=== PATIENT | female | born 1955 | race Caucasian/White ===

== ENCOUNTER → 2018-03-31 08:57 | Outpatient (CLI) | payer OTHER, SELFPAY ==
--- NOTE | 2018-03-31 09:30 | RAD_ITS ---
CLINICAL HISTORY: Female, 63 years old. Right hip aspiration. Right groin pain following right total hip replacement. PROCEDURE: Right hip arthrogram with right hip aspiration. CONSENT: The procedure as well as the benefits and possible complications including infection and bleeding were explained to the patient. Informed consent was obtained. FLUOROSCOPY TIME (if supplied): (0:36) minutes/seconds. Fluid Removal: 3 cc of clear fluid. TECHNIQUE: (All elements of maximal sterile barrier technique followed, including US elements as applicable) The patient was in the supine position. The overlying skin was prepped and draped in the usual sterile fashion. Following local anesthetic application and under direct fluoroscopic guidance, a 22-gauge spinal needle was placed into the right hip joint. 2 cc of a Isovue-300 was injected for localization. Following this, 3 cc of a clear aspirate was withdrawn. The sample was sent to the laboratory for analysis. RAD/Inj/Asp Prateek Jt Should/Hip/Knee IMPRESSION: Right hip aspiration. The patient tolerated the procedure well. Electronically Signed: Adin Tay MD at 10:58 EDT Tel [phone], Service support ,
[2018-03-31 10:13] LABS: Erythrocyte Sedimentation Rate 16 mm/hr (0-30)
[2018-03-31 10:15] LABS: Absolute Lymphocyte Count 2.29 X10^3/ul (0.83-4.51); Basophil# 0.03 X10^3/uL; Basophil% 0.5 % (0-1); Eosinophil# 0.19 X10^3/uL; Eosinophils% 3.2 % (0-5); Hematocrit 39.4 % (37-47); Hemoglobin 12.8 g/dl (12.0-15.0); Lymphocyte # 2.29 X10^3/ul (4.0); Lymphocyte % 38.5 % (19-41); Mean Corp Hgb Conc 32.5 g/gl (32-36); Mean Corpuscular Hgb 30.8 pg (27.0-32.0); Mean Corpuscular Volume 94.7 fL (81-99); Mean Platelet Vol. 9.5 fl (6.2-12.0); Monocyte# 0.41 X10^3/uL; Monocyte% 6.9 % (0-10); Neutrophil # 3.03 X10^3/uL (2.7-7.7); Neutrophil % 50.9 % (47-70); Platelet Count 279 K/mm3 (150-450); RBC Distribution Width CV 12.9 % (11.6-14.6); RBC Distribution Width SD 44.2 fl (35.1-43.9); Red Blood Count 4.16 M/mm3 (4.2-5.4)
[2018-03-31 10:16] LABS: POSITIVE COUNT NO; POSITIVE DIFFERENTIAL NO; POSITIVE MORPHOLOGY NO
[2018-03-31 10:42] LABS: CRP 6.21 mg/L (0.0-3.0)
[2018-03-31 11:06] LABS: Appearance/Body Fluid CLEAR; Auto B Fluid Analyzer BKGD Ct COUNTS W/IN LIMITS (W/IN LIMITS); Color/Body Fluid COLORLESS
[2018-03-31 11:07] LABS: Source- Body Fluid OTHER
[2018-03-31 12:09] LABS: Body Fluid QC Type(s) BF1Q; Red Cell Count/Body Fluid < 0 /mm3
[2018-04-01 10:13] LABS: Pathologist Comment/Body Fluid Reviewed
== END ==
PROVIDERS: Family Provider Family Medicine; PCP Family Medicine; Visit Provider Specialist
DX: Z96.641 Presence of right artificial hip joint (principal)
CPT/HCPCS: 20610; 36415; 77002; 85025; 85652; 86140; 87015; 87070; 87075; 87101; 87116; 87205; 87206; 89050; Q9967

== ENCOUNTER → 2018-07-26 11:12 | Outpatient (CLI) | payer OTHER, SELFPAY ==
[2017-01-05 14:12] VITALS: BMI 43.1
[2018-07-26 12:08] LABS: Hemoglobin 13.2 g/dl (12.0-15.0); Mean Corp Hgb Conc 32.2 g/gl (32-36); Mean Corpuscular Volume 96.2 fL (81-99); Mean Platelet Vol. 9.9 fl (6.2-12.0); Platelet Count 290 K/mm3 (150-450); RBC Distribution Width CV 12.6 % (11.6-14.6); RBC Distribution Width SD 43.6 fl (35.1-43.9); Red Blood Count 4.26 M/mm3 (4.2-5.4)
[2018-07-26 12:11] LABS: Scan Indicated on CBC? Y/N NO
[2018-07-26 12:26] LABS: Anion Gap 8 (5-15); BUN 20 mg/dL (7-18); BUN/Creat Ratio 22.9 RATIO (10-20); Calcium,Total 9.2 mg/dL (8.5-10.1); Chloride 106 mmol/L (98-107); Creatinine, Serum 0.87 mg/dL (0.55-1.02); EST Glomerular Filtration Rate 69 mL/min (>60); Est Glom Filt Rate - Afr Amer 84 mL/min (>60); Glucose 112 mg/dL (74-106); Potassium 3.6 mmol/L (3.5-5.1); Sodium Level 143 mmol/L (136-145)
== END ==
PROVIDERS: Family Provider Family Medicine; PCP Family Medicine; Referring Provider Physician Assistant; Visit Provider Physician Assistant
DX: Z01.818 Encounter for other preprocedural examination (principal); Z01.810 Encounter for preprocedural cardiovascular examination; Z01.811 Encounter for preprocedural respiratory examination; I10 Essential (primary) hypertension
CPT/HCPCS: 36415; 80048; 85027

== ENCOUNTER 2018-11-07 12:01 | Emergency (ER) | payer OTHER, SELFPAY ==
[2018-11-07 12:02] VITALS: BP 163/99; PULSE 88; RESP 17; TEMP 36.4; O2SAT 98; BMI 38.9
--- NOTE | 2018-11-07 14:11 | CT_ITS ---
STUDY: CT BRAIN WITHOUT CONTRAST REASON FOR EXAM: Female, 63 years old. Trauma RADIATION DOSAGE (If Supplied By Facility): CTDIvol = ( 60.81 ) mGy, DLP = ( 1221.94 ) mGycm TECHNIQUE: Transaxial CT imaging of the brain was performed without administration of intravenous contrast material. Individualized dose optimization techniques were used for this CT. COMPARISON: CT head 09/23/2015. FINDINGS: Normal soft tissue structures. Normal calvarium. There is mild cerebral atrophy with widening of the extra-axial spaces and ventricular dilatation. There are areas of decreased attenuation within the white matter tracts of the supratentorial brain, consistent with microvascular disease changes. Normal basal ganglia and thalami. Normal brainstem. Normal cerebellum. There is no intracranial hemorrhage. There are no findings of an acute ischemic infarction. Normal visualized paranasal sinuses. CT/Brain/Head without Contrast IMPRESSION: No acute intracranial abnormality. Chronic involutional changes of the brain. Electronically Signed: Flora Mello, at 15:23 EDT Tel , Service support ,
--- NOTE | 2018-11-07 14:11 | RAD_ITS ---
STUDY: X-RAY - RIGHT SHOULDER REASON FOR EXAM: Pain, fall, shoulder surgery 4 months ago. TECHNIQUE: 4 view(s) of the shoulder. COMPARISON: None. FINDINGS: Normal glenohumeral articulation. There is acromioclavicular arthrosis with small undersurface osteophytes. Normal acromion. There are postoperative changes of the greater tuberosity. The soft tissue structures are unremarkable. Normal visualized pulmonary apex. RAD/Shoulder min 2 Views IMPRESSION: Acromioclavicular arthrosis. Postoperative changes of the greater tuberosity. Electronically Signed: Seb Manrique MD at 15:10 EDT Tel , Service support ,
--- NOTE | 2018-11-07 14:11 | RAD_ITS ---
STUDY: X-RAY - RIGHT KNEE REASON FOR EXAM: Knee pain, fall. TECHNIQUE: 2 view(s) of the knee. COMPARISON: Radiographs 12/10/2015. FINDINGS: There is a right total knee arthroplasty without evidence of complication. The soft tissue structures are unremarkable. RAD/Knee 1 or 2 Views IMPRESSION: Uncomplicated right total knee arthroplasty. Electronically Signed: Seb Manrique MD at 15:07 EDT Tel , Service support ,
[2018-11-07 14:29] VITALS: BP 133/80; PULSE 85; RESP 16; O2SAT 96
--- NOTE | 2018-11-07 15:55 | ED.DCSUM_ITS ---
- ER Visit Summary Date of Service: 11/07/18 Chief Complaint: Fall History of Present Illness: The patient is a 63 F who presents after a fall that occurred today. Patient tripped at work and felt forward. Patient landed on her right knee and hit her right shoulder and her forehead. Patient denies any loss of consciousness. Patient admits to a mild headache. Patient states her pain in her shoulder and knee are worse with palpation. Physical Examination: Vital signs are stable. Patient is afebrile. Patient is in no acute distress. Renal nerves II through XII are intact. There are no focal motor or sensory deficits noted. There is some mild tenderness over the anterior and lateral aspects of the right shoulder. There is also some tenderness, ecchymosis, and mild edema over the anterior aspect of the right knee. There is good range of motion of the right shoulder and right knee. There is no deformity noted. Test Results: X-rays of the right knee, right shoulder were obtained. There are no acute fractures noted. CT scan of the brain was obtained. There is no acute intracranial abnormality noted. Emergency Department Course and Treatment: Patient felt better on reevaluation. Patient was reassured. Patient was instructed to continue taking Tylenol or ibuprofen as needed for pain. Patient was instructed to follow-up with her primary care physician in 5-7 days. Patient understood and was agreeable with the plan. All questions were answered. Disposition: Discharge home Impression: 1. Closed head injury 2. Right knee contusion 3. Right shoulder contusion This note was generated with [employer] dictation software. It may contain incorrect words, spelling, and punctuation that were not noted in review of the chart prior to signing ED Disposition - Plan for ED Patient: Disposition: Home or Assisted Living Diagnosis: Closed head injury, Contusion of right knee, Contusion of right shoulder, initial encounter Instructions: ED Mechanical Fall, ED Head Injury Closed, ED Contusion Lower Ext Referrals: Tariq Stein MD [Primary Care Provider] - 5-7 Days
[2018-11-07 16:04] VITALS: BP 135/74; PULSE 67; RESP 15; O2SAT 98
== END 2018-11-07 16:06 | disposition home or self-care (01) ==
PROVIDERS: Emergency Provider Emergency Medicine; Family Provider Family Medicine; PCP Family Medicine
DX: S09.90XA Unspecified injury of head, initial encounter (principal); S80.01XA Contusion of right knee, initial encounter; S40.011A Contusion of right shoulder, initial encounter; W01.0XXA Fall on same level from slipping, tripping and stumbling without subsequent striking against object, initial encounter; Y93.9 Activity, unspecified; Y92.9 Unspecified place or not applicable; Y99.0 Civilian activity done for income or pay; I10 Essential (primary) hypertension; Z86.73 Personal history of transient ischemic attack (TIA), and cerebral infarction without residual deficits; Z79.82 Long term (current) use of aspirin; Z79.899 Other long term (current) drug therapy
CPT/HCPCS: 70450; 73030; 73560; 99282

== ENCOUNTER → 2019-01-20 07:40 | Outpatient (CLI) | payer MEDICARE, OTHER, SELFPAY ==
[2019-01-09 09:56] VITALS: BMI 38.9
--- NOTE | 2019-01-20 07:42 | CT_ITS ---
STUDY: CT ABDOMEN WITH CONTRAST REASON FOR EXAM: Female, 63 years old. Umbilical pain. History of hernia repair. RADIATION DOSAGE (If Supplied By Facility): CTDIvol = ( 22.52 ) mGy, DLP = ( 989.41 ) mGycm TECHNIQUE: Transaxial images were obtained post I.V. administration of 100 IV/Oral Isovue 300, and oral contrast. Sagittal and coronal images were reconstructed. Individualized dose optimization techniques were used for this CT. COMPARISON: September 15, 2014 FINDINGS: The visualized lung bases are unremarkable. The visualized portions of the heart are within normal limits. 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 Normal liver. There is non-visualization of the gallbladder, which may be secondary to either contraction or a prior cholecystectomy. Normal spleen. Normal pancreas. Normal bilateral adrenal glands. Normal right kidney. Normal left kidney. Normal visualized stomach. Normal small intestine. There are scattered diverticula within the visualized colon. There is non-visualization of the appendix. There is diffuse atherosclerotic calcification of the abdominal aorta, without a demonstrated aneurysm. Normal inferior vena cava. Normal retroperitoneum. Normal abdominal wall. There are diffuse degenerative changes of the visualized thoracic and lumbar spine. CT/Abdomen WITH IV Contrast IMPRESSION: No acute intra-abdominal process. Atherosclerosis. Colonic diverticulosis. Degenerative changes of the visualized thoracic and lumbar spine. Electronically Signed: Malinda Ruiz MD at 17:01 EDT Tel , Service support ,
== END ==
PROVIDERS: Family Provider Family Medicine; PCP Family Medicine; Referring Provider Physician Assistant; Visit Provider Physician Assistant
DX: R10.9 Unspecified abdominal pain (principal)
CPT/HCPCS: 74160; Q9967

== ENCOUNTER → 2019-03-24 14:44 | Outpatient (CLI) | payer MEDICARE, OTHER, SELFPAY ==
[2019-03-23 14:24] VITALS: BMI 38.7
[2019-03-24 15:04] LABS: Bacteria 0 SEEN /hpf (None Seen); Mucous, Urine 0 SEEN /hpf (<or=2+); Red Blood Cells-Urine 0 SEEN /hpf (0-5); Squamous Epithelial Cells - UA 0 SEEN /hpf (5-10); White Blood Cells 0 SEEN /hpf (0-5)
[2019-03-24 15:19] LABS: Color, Urine Straw (Yellow); Glucose, Dipstick Normal (Normal); Ketone-Dipstick Negative (Negative); Leukocyte Esterase-Dipstick Negative /ul (Negative); Nitrite-Dipstick Negative (Negative); Occult Blood-Urine Negative /ul (Negative); Protein-Dipstick Negative (Negative); Urine Bilirubin Dipstick Negative (Negative); Urine Clarity Clear (Clear); Urine Urobilinogen Normal (Normal)
== END ==
PROVIDERS: Family Provider Family Medicine; PCP Family Medicine; Referring Provider Physician Assistant; Visit Provider Physician Assistant
DX: N39.0 Urinary tract infection, site not specified (principal)
CPT/HCPCS: 81001; 87077; 87086; 87088; 87186

== ENCOUNTER → 2019-05-10 08:14 | Outpatient (CLI) | payer MEDICARE, OTHER, SELFPAY ==
[2019-03-23 14:24] VITALS: BMI 38.7
[2019-05-10 08:20] LABS: Bacteria 0 SEEN /hpf (None Seen); Mucous, Urine 0 SEEN /hpf (<or=2+); Red Blood Cells-Urine 0 SEEN /hpf (0-5); Squamous Epithelial Cells - UA 0 SEEN /hpf (5-10)
[2019-05-10 12:25] LABS: Color, Urine Yellow (Yellow); Glucose, Dipstick Normal (Normal); Ketone-Dipstick Negative (Negative); Leukocyte Esterase-Dipstick 500 /ul (Negative); Nitrite-Dipstick Negative (Negative); Occult Blood-Urine 10 /ul (Negative); Protein-Dipstick Negative (Negative); Specific Gravity, Urine 1.005 (1.002-1.030); Urine Bilirubin Dipstick Negative (Negative); Urine Clarity Clear (Clear); Urine Urobilinogen Normal (Normal)
[2019-05-10 13:13] LABS: White Blood Cells 10-25 SEEN /hpf (0-5)
== END ==
PROVIDERS: Family Provider Family Medicine; PCP Family Medicine; Visit Provider Family Medicine
DX: N39.0 Urinary tract infection, site not specified (principal)
CPT/HCPCS: 81001; 87077; 87086; 87088; 87186

== ENCOUNTER → 2019-05-30 13:32 | Outpatient (CLI) | payer MEDICARE, OTHER, SELFPAY ==
[2019-03-23 14:24] VITALS: BMI 38.7
[2019-05-30 13:34] LABS: Bacteria 0 SEEN /hpf (None Seen); Mucous, Urine 0 SEEN /hpf (<or=2+); Red Blood Cells-Urine 0 SEEN /hpf (0-5); Squamous Epithelial Cells - UA 0 SEEN /hpf (5-10)
[2019-05-30 15:45] LABS: Color, Urine Straw (Yellow); Glucose, Dipstick Normal (Normal); Ketone-Dipstick Negative (Negative); Leukocyte Esterase-Dipstick 500 /ul (Negative); Nitrite-Dipstick Negative (Negative); Occult Blood-Urine 25 /ul (Negative); Protein-Dipstick Negative (Negative); Specific Gravity, Urine 1.005 (1.002-1.030); Urine Bilirubin Dipstick Negative (Negative); Urine Clarity Clear (Clear); Urine Urobilinogen Normal (Normal)
[2019-05-30 16:10] LABS: White Blood Cells 5-10 SEEN /hpf (0-5)
== END ==
PROVIDERS: Family Provider Family Medicine; PCP Family Medicine; Visit Provider Family Medicine
DX: N39.0 Urinary tract infection, site not specified (principal)
CPT/HCPCS: 81001; 87077; 87086; 87088; 87186

== ENCOUNTER → 2019-05-31 08:22 | Outpatient (CLI) | payer MEDICARE, OTHER, SELFPAY ==
[2019-03-23 14:24] VITALS: BMI 38.7
[2019-05-31 10:29] LABS: Absolute Lymphocyte Count 2.47 X10^3/uL (0.83-4.51); Absolute Neutrophil Count 3.4 X10^3/uL (2.0-7.7); Basophil# 0.04 X10^3/uL; Basophil% 0.6 % (0-1); Eosinophil# 0.14 X10^3/uL; Eosinophils% 2.2 % (0-5); Hematocrit 39.6 % (37-47); Hemoglobin 12.6 g/dL (12.0-15.0); Lymphocyte # 2.47 X10^3/ul (4.0); Lymphocyte % 38.2 % (19-41); Mean Corp Hgb Conc 31.8 g/dL (32-36); Mean Corpuscular Hgb 30.4 pg (27.0-32.0); Mean Corpuscular Volume 95.4 fL (81-99); Mean Platelet Vol. 9.9 fl (6.2-12.0); Monocyte# 0.37 X10^3/uL; Monocyte% 5.7 % (0-10); NRBC Flagged by Analyzer 0 % (0-5); Neutrophil # 3.44 X10^3/uL (2.7-7.7); Neutrophil % 53.1 % (47-70); Platelet Count 305 K/mm3 (150-450); RBC Distribution Width CV 13.2 % (11.6-14.6); RBC Distribution Width SD 46.2 fl (35.1-43.9); Red Blood Count 4.15 M/mm3 (4.2-5.4); White Blood Count 6.5 K/mm3 (4.4-11.0)
[2019-05-31 10:56] LABS: ALB/GLOB Ratio 0.9 RATIO (0.9-2.4); AST(SGOT) 13 U/L (15-37); Alanine Aminotransfer ALT/SGPT 23 U/L (13-56); Albumin, Serum 3.3 g/dL (3.2-5.0); Alkaline Phosphatase 126 U/L (45-117); Anion Gap 7 (5-15); BUN 19 mg/dL (7-18); BUN/Creat Ratio 20.5 RATIO (10-20); Calcium,Total 9.2 mg/dL (8.5-10.1); Chloride 106 mmol/L (98-107); Cholesterol 163 mg/dL (200); Creatinine, Serum 0.92 mg/dL (0.55-1.02); EST Glomerular Filtration Rate 65 mL/min (>60); Est Glom Filt Rate - Afr Amer 78 mL/min (>60); Globulin 3.8 g/dL (2.2-4.2); Glucose 98 mg/dL (74-106); High Density Lipoprotein 52 mg/dL; Protein, Total 7.1 g/dL (6.4-8.2); Sodium Level 142 mmol/L (136-145); Triglycerides 115 mg/dL; Very Low Density Lipoprotein 23 mg/dL (5-40)
== END ==
PROVIDERS: Family Provider Family Medicine; PCP Family Medicine; Referring Provider Family Medicine; Visit Provider Family Medicine
DX: E78.5 Hyperlipidemia, unspecified (principal); I10 Essential (primary) hypertension; K21.9 Gastro-esophageal reflux disease without esophagitis
CPT/HCPCS: 36415; 80053; 80061; 85025

== ENCOUNTER → 2019-06-06 15:10 | Outpatient (CLI) | payer MEDICARE, OTHER, SELFPAY ==
[2019-03-23 14:24] VITALS: BMI 38.7
--- NOTE | 2019-06-06 15:12 | US_ITS ---
STUDY: RENAL ULTRASOUND - COMPLETE REASON FOR EXAM: Female, 64 years old. UTIs TECHNIQUE: Ultrasound evaluation of the kidneys was performed with real-time and static mohan-scale imaging. COMPARISON: None. FINDINGS: RIGHT KIDNEY: Normal location of the right kidney, which is normal in size. The right kidney measures 9.5 x 4.3 x 4.7 cm. There is a normal cortex of the right kidney. The renal cortex measures 1.7 cm. There is no right renal mass or cyst. There are no right renal calculi. There is no right hydronephrosis. DISTAL RIGHT URETER: There is non-visualization of the distal right ureter. There is no demonstrated right ureterovesical junction calculus. There is a visualized right ureteral jet. LEFT KIDNEY: Normal location of the left kidney, which is normal in size. The left kidney measures 10.4 x 4.6 x 5.8 cm. There is a normal cortex of the left kidney. The renal cortex measures 1.6 cm. There is no left renal mass or cyst. There are no left renal calculi. There is no left hydronephrosis. DISTAL LEFT URETER: There is non-visualization of the distal left ureter. There is no demonstrated left ureterovesical junction calculus. There is a visualized left ureteral jet. AORTA: There is no elongation or tortuosity of the abdominal aorta. I.V.C.: The IVC is patent. BLADDER: The bladder is unremarkable aside from echogenic debris noted within the bladder suggesting protein and/or infection. US/Kidney and Bladder IMPRESSION: Sonographically normal kidneys Echogenic debris within the bladder suggests inflammation or protein Electronically Signed: Te Russell MD at 16:09 EST , Service support ,
== END ==
PROVIDERS: Family Provider Family Medicine; PCP Family Medicine; Referring Provider Urology; Visit Provider Urology
DX: N39.0 Urinary tract infection, site not specified (principal)
CPT/HCPCS: 76770

== ENCOUNTER 2019-06-14 10:00 | Outpatient (RCR) | payer MEDICARE, OTHER, SELFPAY ==
[2019-01-09 09:56] VITALS: BMI 38.9
--- NOTE | 2019-03-21 10:17 | HP.PTEVAL ---
Patient's Visit Information MAKEDA EM is a 64 year old F referred to Physical Therapy by Akira Bravo MD with a diagnosis of Right Reverse Total Shoudler. Date of Evaluation: 03/21/19 Physical Therapist: Sandi Trent DPT - Visit Plan Frequency: 2x /Week Duration: 4 Weeks Plan: 03/21/19 - Follow protocol Phase 1- PROM flexion: 130 degrees ER:30 degrees NO IR. Pt. was educated on performing Phase 1 exercises at home. - Subjective Findings: pt. reports having R shoulder repair previosuly & after 18 wks (12 weeks of PT), shoulder was reinjured during therapy session. R Reverse shoulder arthroplasty performed on 03/13/19 at [facility]. Stayed overnight- lives in 2 story house with who can help , no issues up/down stairs reported, just has been careful. Does have lift chair available at home. Currently sleeps in lift chair. Wears sling at all times - removed at times when watching TV. Using ice pack at home at times. R handed. Pt. suffered R shoulder injury as insidious onset (wear & tear from work/ADL's). Worst pain: 9/10 - describes as sharp & shooting to dull & achey at incision. Aggravating factors: movement Relieving Factors: Ice, Rest, pain medication Pt. reports being pain free when sitting rested. Denies any issues w/ finger dexterity, N/T, headachess/dizziness. Pt. is retired and would like to return to ADL's w/ comfort & general motion. PMH/Meds: see chart no change except right reverese shoulder. - Objective Posture: FH, RS - was not corrected- wearing sling on right UE- increased guarding. Gait: no LE deviation noted- wearing sling- decreased arm swing and trunk rotation. ROM: Finger dexterity WF,L Wrist WFL, Sup/Pro WFL, Active assisted elbow WFL, Passive Shoulder ER neutral flexion 80 degrees, Cervical WFL. Strength: Managing Cognitive Engineer: WFL. Sensaton: WNL to gross B touch. Incision: No signs of infection - healing aprropriately - Goals Goal 1:: Pt. will be I w/ HEP & Progression Goal Time Frame: 4-6 Weeks Goal 2:: Pt. will be demo 130 degrees of PROM (flexion) for protocol phase 1. Goal Time Frame: 4-6 Weeks Goal 3:: Patient will demo 30 degrees of PROM ER for protocol phase I Goal Time Frame: 4-6 Weeks Goal Time Frame: 4-6 Weeks - Rehabilitation Potential Physical Therapy Diagnosis: Pt. presents w/ hypomobility s/p Right reverse total shoulder- demonstrates decreased ROM, strength and muscular endurance as appropriate in phase of rehab. Rehabilitation Potential: Good - Anticipated Interventions Patient/Client Instruction: Educate patient on: Condition, Plan of Care For the Purpose of:: To decrease pain Therapeutic Exercise to Include: Strength training, Endurance training, Coordination, Body mechanics, Postural training, Flexibilty training, Passive ROM, Active ROM, Scapular Strength/Stabilization For the Purpose of:: To improve muscle performance and motor function Manual Therapy Techniques to Include: Passive ROM For the Purpose of:: To improve muscle performance and motor function TENS: Yes Cryotherapy (ice pack, ice massage): Yes Thermo therapy (hot pack): Yes Ultrasound (thermal/non thermal): No Thank you for the opportunity to evaluate your patient. For Medicare and Medicare HMO plans, please review the plan of care and approve it. It will need to be FAXED BACK to us at [phone] for Medicare purposes. For Medicare only, by signing this I certify the plan of care. Please let me know if there are questions or concerns regarding this plan of care. Physician Signature: Date:
--- NOTE | 2019-05-18 10:22 | HP.PTREVAL_ITS ---
Akira Bravo MD, It has been my pleasure to treat MAKEDA EM over the last 16 visits for Right Reverse Total Shoudler. Please see the progress note below for an update on the physical therapy plan of care! Subjective: Pt. reports therapy has been going well. Has had cramping in front of R shoulder since last which has made performing exercises difficult. F/U appointment w/ yesterday, happy with progress so far. Objective/Function: Posture: FH, RS - still has some guarding of R shoulder. Gait: no LE deviation noted. ROM: AROM: Flexion 105 degrees, Abduction 110 degrees, Ext. Rot. 35 degrees PROM: Flexion 135 degrees, Abduction 140 degrees, Ext. Rot. 65 degrees. Strength: Manager Of Sales: WFL. Sensaton: WNL to gross B touch Plan Plan: Cont per POC and protcol. Educated on performing supine pec minor stretch I for cramping in shoulder. Goals Goal 1:: Pt. will be I w/ HEP & Progression Goal Time Frame: 4-6 Weeks Goal Progress: Progressing Goal 2:: Pt. will be demo 130 degrees of PROM (flexion) for protocol phase 1. Goal Time Frame: 4-6 Weeks Goal Progress: Progressing Goal 3:: Patient will demo 30 degrees of PROM ER for protocol phase I Goal Time Frame: 4-6 Weeks Goal Progress: Progressing Goal Time Frame: 4-6 Weeks Anticipated Interventions Patient/Client Instruction: Educate patient on: Condition, Plan of Care For the Purpose of:: To decrease pain Therapeutic Exercise to Include: Strength training, Endurance training, Coordination, Body mechanics, Postural training, Flexibilty training, Passive ROM, Active ROM, Scapular Strength/Stabilization For the Purpose of:: To improve muscle performance and motor function Manual Therapy Techniques to Include: Passive ROM For the Purpose of:: To improve muscle performance and motor function TENS: Yes Cryotherapy (ice pack, ice massage): Yes Thermo therapy (hot pack): Yes Ultrasound (thermal/non thermal): No Please do not hesitate to contact me at [phone] by phone or if you have questions or concerns regarding this new plan of care! Sincerely, Sandi Trent DPT
--- NOTE | 2019-06-14 10:17 | HP.PTREVAL_ITS ---
Akira Bravo MD, It has been my pleasure to treat MAKEDA EM over the last 23 visits for Right Reverse Total Shoudler. Please see the progress note below for an update on the physical therapy plan of care! Subjective: Patient reports the shoulder is so much better- she has been able to reach up more but its not as strong as she wants it to be. Objective/Function: Posture: FH, RS Gait: no LE deviation noted good arm swing and trunk rotation. ROM: AROM: Flexion 110 degrees, Abduction 115 degrees, Ext. Rot. 35 degrees Strength: Oxide Furnace Tender: WFL Shoulder Isometrics: IR/ER: 4/5, Flex/Extn: 4+/5, Abd/Add: 4/5. Sensaton: WNL to gross B touch Plan Plan: Hold 4 weeks- re check if needed sooner- will do HEP Goals Goal 1:: Pt. will be I w/ HEP & Progression Goal Time Frame: 4-6 Weeks Goal Progress: Progressing Goal 2:: Pt. will be demo 130 degrees of PROM (flexion) for protocol phase 1. Goal Time Frame: 4-6 Weeks Goal Progress: Progressing Goal 3:: Patient will demo 30 degrees of PROM ER for protocol phase I Goal Time Frame: 4-6 Weeks Goal Progress: Progressing Goal Time Frame: 4-6 Weeks Anticipated Interventions Patient/Client Instruction: Educate patient on: Condition, Plan of Care For the Purpose of:: To decrease pain Therapeutic Exercise to Include: Strength training, Endurance training, Coordination, Body mechanics, Postural training, Flexibilty training, Passive ROM, Active ROM, Scapular Strength/Stabilization For the Purpose of:: To improve muscle performance and motor function Manual Therapy Techniques to Include: Passive ROM For the Purpose of:: To improve muscle performance and motor function TENS: Yes Cryotherapy (ice pack, ice massage): Yes Thermo therapy (hot pack): Yes Ultrasound (thermal/non thermal): No Please do not hesitate to contact me at [phone] by phone or if you have questions or concerns regarding this new plan of care! Sincerely, Sandi Trent DPT
--- NOTE | 2019-07-04 11:12 | HP.PT.NRP ---
HP - Discharge Summary (1) - Patient Information MAKEDA EM was seen in my office for initial evaluation on 03/21/19. The following Plan of Care was established for this patient: Initial Frequency: 2x /Week Initial Duration: 4 Weeks - Anticipated Interventions Patient/Client Instruction: Educate patient on: Condition, Plan of Care For the Purpose of:: To decrease pain Therapeutic Exercise to Include: Strength training, Endurance training, Coordination, Body mechanics, Postural training, Flexibilty training, Passive ROM, Active ROM, Scapular Strength/Stabilization For the Purpose of:: To improve muscle performance and motor function Manual Therapy Techniques to Include: Passive ROM For the Purpose of:: To improve muscle performance and motor function TENS: Yes Cryotherapy (ice pack, ice massage): Yes Thermo therapy (hot pack): Yes Ultrasound (thermal/non thermal): No This patient was last seen in our office . Pertinent comments regarding their Physical therapy will appear below: Patient reports that she is 95% better- she is appropriate for d/c At this point I will be discontinuing this patient from physical therapy. I would be happy to see this patient again in the future if found appropriate by the physician. Thank you! Sandi Trent DPT
== END 2019-06-14 19:00 | disposition home or self-care (01) ==
LOC: PT 10:00
PROVIDERS: Family Provider Family Medicine; PCP Family Medicine; Referring Provider Orthopaedic Surgery; Visit Provider Orthopaedic Surgery
DX: M12.811 Other specific arthropathies, not elsewhere classified, right shoulder (principal)
CPT/HCPCS: 97110; 97140; 97161; 97164

== ENCOUNTER → 2019-07-06 10:18 | Outpatient (CLI) | payer MEDICARE, OTHER, SELFPAY ==
[2019-03-23 14:24] VITALS: BMI 38.7
--- NOTE | 2019-07-06 10:21 | BI_ITS ---
MAMMOGRAPHY - BILATERAL SCREENING REASON FOR EXAM: Female, 64 years old. Routine annual screening examination. PERTINENT HISTORY: Mother with breast cancer. TECHNIQUE: Digital bilateral breast denny (3D mammographic acquisition) in the CC and MLO projections. 2-D mediolateral oblique (MLO) and craniocaudad (CC) views of both breasts were obtained. CAD: Full Field Digital Mammography with Computer Added Detection was performed. COMPARISON: Comparison is made with prior outside examination dated May 19, 2018. FINDINGS: Breast Composition: The breasts are almost entirely fatty. There are no dominant masses or suspicious calcifications. Stable appearance of the small bilateral breast nodules. Stable small bilateral axillary lymph nodes. No other significant abnormalities are identified. There has been no significant change since the prior study. BI/SCREEN MAMM (CAD) W/DENNY BILAT IMPRESSION: Stable bilateral screening mammogram. Yearly follow-up mammogram recommended. (A) ASSESSMENT CATEGORY: BIRADS Category 2: Benign. A letter regarding these results will be sent to the patient by the facility within 30 days. Approximately 10% of breast cancers are not detected by mammography. A normal mammogram should not delay biopsy of a clinically suspicious abnormality. [id number] Electronically Signed: Adin Tay, at 12:55 EST , Service support ,
--- NOTE | 2019-07-06 10:27 | BD_ITS ---
STUDY: DUAL ENERGY X-RAY ABSORPTIOMETRY / DXA REASON FOR EXAM: Female, 64 years old. 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 The patient is status post right total hip replacement. COMPARISON: None. FINDINGS: Lumbar Spine (L1-L4): g/cm2 (1.314) / T-score (0.9) / Z-score (2.5) Findings are suggestive of normal bone density with a low fracture risk. Left Femur Total: g/cm2 (0.849) / T-score (-1.3) / Z-score (0.0) Left Femoral Neck: g/cm2 (0.713) / T-score (-2.3) / Z-score (-0.9) BD/Dexa Bone Density Study IMPRESSION: The patient is considered osteopenic as outlined below according to World Bk Organization (WHO) criteria with a high fracture risk. Reference Information: The T-score is the number of standard deviations above or below the standard which is normal for young adults at their peak bone mineral density. The World Health Organization (WHO) interprets the T-scores as follows: Above -1 Normal bone density Between -1 and -2.5 Osteopenia Equal to / or below -2.5 Osteoporosis As a practical clinical guideline, osteopenia may be graded as follows: Mild -1 through -1.5 Moderate -1.6 through -2.0 Severe -2.1 through -2.4 The Z-score is the number of standard deviations above or below age-matched controls. A Z-score of less than -1.5 would be considered abnormal. References: 1. NIH Osteoporosis and Related Bone Diseases http://www.osteo.org 2. International Society for Clinical Densitometry http://www.iscd.org 3. National Osteoporosis Foundation http://www.nof.org Electronically Signed: Adin Tay, at 10:51 EST , Service support ,
== END ==
PROVIDERS: Family Provider Family Medicine; PCP Family Medicine; Referring Provider Family Medicine; Visit Provider Family Medicine
DX: M81.0 Age-related osteoporosis without current pathological fracture (principal); Z12.31 Encounter for screening mammogram for malignant neoplasm of breast
CPT/HCPCS: 77063; 77067; 77080

== ENCOUNTER → 2019-10-02 08:28 | Outpatient (CLI) | payer MEDICARE, OTHER, SELFPAY ==
[2019-10-02 08:17] VITALS: BMI 38.7
--- NOTE | 2019-10-02 08:29 | RAD_ITS ---
STUDY: X-RAY - LEFT SHOULDER REASON FOR EXAM: Female, 64 years old. Shoulder pain, no known trauma TECHNIQUE: 4 view(s) of the shoulder. COMPARISON: None. FINDINGS: There is mild degenerative arthrosis of the glenohumeral articulation. There is degenerative arthrosis of the acromioclavicular joint without inferior osseous spur formation. Normal acromion. Normal humeral head and visualized proximal humerus. The soft tissue structures are unremarkable. Normal visualized pulmonary apex. RAD/Shoulder min 2 Views IMPRESSION: Degenerative arthrosis of the glenohumeral joint as well as the acromioclavicular joint. Electronically Signed: Aidn Tay, at 15:59 EDT , Service support ,
== END ==
PROVIDERS: PCP Family Medicine; Referring Provider Orthopaedic Surgery; Visit Provider Orthopaedic Surgery
DX: M19.012 Primary osteoarthritis, left shoulder (principal)
CPT/HCPCS: 73030

== ENCOUNTER → 2019-10-09 10:11 | Outpatient (CLI) | payer MEDICARE, OTHER, SELFPAY ==
[2019-10-02 08:17] VITALS: BMI 38.7
--- NOTE | 2019-10-09 10:12 | MRI_ITS ---
STUDY: MRI LEFT SHOULDER REASON FOR EXAM: Female, 64 years old. left shoulder pain -- NKI, pain increases with use x 3 months TECHNIQUE: Standardized fat and water weighted pulse sequences were obtained in all 3 orthogonal planes. COMPARISON: X-ray left shoulder October 02, 2019 FINDINGS: There is intratendinous edema consistent with a supraspinatus tendinitis. There also appears more prominent signal intensity seen at the anterior insertion suggesting interstitial tearing. There is infraspinatus edema consistent with a infraspinatus tendinitis. There is evidence of tendinosis with altered signal intensity within the subscapularis tendon. It also appears that there is partial interstitial tearing near the insertion., For instance refer to axial images 7 and 8 of series 3. There is a ganglion cyst that is seen anterior to the subscapularis muscle, for instance refer to image #13 series 3. I suspect this associates with partial interstitial tearing of the subscapularis tendon. This measures approximately 2.4 cm in length by approximately 1 cm AP by approximately 1.4 cm cranial caudal. Normal teres minor tendon. There is mild muscular atrophy of the supraspinatus muscle. Normal infraspinatus muscle. Normal subscapularis muscle. Normal teres minor muscle. There is mild osteoarthritis of the glenohumeral articulation. There appears a small spur associated with the humeral head neck junction medially. Normal biceps labral complex. Normal intracapsular long biceps tendon. Normal labrum. Normal capsulo- ligamentous complex. Normal rotator interval. There is mild osteoarthritis of the acromioclavicular articulation. There is a Type I morphology (flat undersurface), with a neutral orientation. There is minimal fluid distention of the subacromial bursa, consistent with mild subacromial-subdeltoid bursitis. Normal visualized coracohumeral and coracoacromial ligaments. Normal quadrilateral space. Normal axillary space. Normal deltoid muscle. Normal trapezius muscle. MRI/Upper Ext Joint Only(Routine) IMPRESSION: * Rotator cuff tendinosis of the supraspinatus infraspinatus and subscapularis tendons with suspected interstitial tearing of the anterior insertional site of the supraspinatus tendon and also of the insertion of the subscapularis tendon. * There is a ganglion cyst that is seen ventral to the subscapularis likely originating from the partial subscapularis tendon tear. * Mild subacromial subdeltoid bursitis noted. * Mild osteoarthritis. * Mild acromioclavicular joint hypertrophy . Electronically Signed: Guadalupe Reno MD at 12:08 EDT , Service support ,
== END ==
PROVIDERS: PCP Family Medicine; Referring Provider Orthopaedic Surgery; Visit Provider Orthopaedic Surgery
DX: M25.312 Other instability, left shoulder (principal)
CPT/HCPCS: 73221

== ENCOUNTER 2020-03-13 09:53 | Outpatient (RCR) | payer MEDICARE, OTHER, SELFPAY ==
[2019-10-16 08:47] VITALS: BMI 38.7
[2020-03-13 09:57] VITALS: BP 145/89; PULSE 85; RESP 16; TEMP 37; BMI 43.7
--- NOTE | 2020-03-13 10:48 | HP.PCM_ITS ---
(1) Open wound anterior abdominal wall Status: Acute Current Visit: Yes Qualifiers: Encounter type: initial encounter Qualified Code(s): S31.109A - Unspecified open wound of abdominal wall, unspecified quadrant without penetration into peritoneal cavity, initial encounter Code(s): S31.109A - Unspecified open wound of abdominal wall, unspecified quadrant without penetration into peritoneal cavity, initial encounter (2) Morbid obesity with BMI of 40.0-44.9, adult Status: Chronic Current Visit: No Code(s): Z68.41 - Body mass index (BMI) 40.0-44.9, adult (3) Infected wound Status: Acute Current Visit: Yes Code(s): T14.8XXA - Other injury of unspecified body region, initial encounter; L08.9 - Local infection of the skin and subcutaneous tissue, unspecified History of Present Illness Date of Service: 03/13/20 Chief Complaint: Follow-up on abdominal wound History of Wound: 65-year-old obese white female developed a open wound at her waistline from her pants cutting into her skin. Has been using [id number] antibiotic ointments. Has seen her regular doctor and he has given her several ointments to use without help. Does have some depth but mostly superficial does have a little slough. Past Medical History Past Medical History: Chronic Problems (Last Reviewed 03/23/19 @ 14:22 by Silvia Fabian) History of umbilical hernia repair (Chronic) [address] Gilbert Ding SBO (small bowel obstruction) (Chronic) HTN (hypertension) (Chronic) GERD (gastroesophageal reflux disease) (Chronic) Osteoarthritis of right hip (Chronic) Obstructive sleep apnea (Chronic) Morbid obesity with BMI of 40.0-44.9, adult (Chronic) Chronic headaches (Chronic) Past Medical History: Open wound abdomen nonhealing from trauma Surgical History: appendectomy, cholecystectomy, total knee arthroplasty, - - [place]air of an umbilical her[place] [address] Ding, hysterectomy, tonsillectomy. Allergies/Adverse Reactions: Allergies codeine Allergy (Verified 03/13/20 10:28) Hives NSAIDS (Non-Steroidal Anti-Inflamma Adverse Reaction (Verified 03/13/20 10:28) Upset Stomach promethazine HCl [From Phenergan] Adverse Reaction (Verified 03/13/20 10:28) RESTLESS LEG SYNDROME SAYS SHE SHAKES ALL OVER coban surgical tape Allergy (Uncoded 03/23/19 14:20) Rash STEROIDS Allergy (Uncoded 03/13/20 10:16) CAUSES SKIN TO BURN AND TURN RED MIGRAINES AND HIVES Home Medications: Ambulatory Orders Medication Instructions Recorded Amitriptyline HCl [Elavil] 150 mg PO QHS 09/07/13 Hydrochlorothiazide 25 mg PO DAILY 09/07/13 Omeprazole [Prilosec] 20 mg PO QHS 09/07/13 Atorvastatin Calcium [Lipitor] 20 mg PO QHS 09/21/14 Metoprolol Tartrate [Lopressor 25 mg PO BID 12/10/15 (beta scott)] Verapamil [Calan] 60 mg PO DAILY 12/07/16 aspirin 81 mg tablet,delayed 81 mg PO DAILY 01/09/19 release sucralfate 1 gram tablet 1 g PO BID 01/09/19 Alendronate Sodium 70 mg PO QMONTH 03/13/20 Celecoxib [Celebrex] 200 mg PO DAILY 03/13/20 Cholecalciferol (Vitamin D3) 2,000 unit PO DAILY 03/13/20 [Vitamin D3] Estrogens, Conjugated [Premarin] 1 dose VAGINAL DAILY 03/13/20 Meclizine HCl mg PO TID PRN 03/13/20 Melatonin mg PO DAILY 03/13/20 traMADol [Ultram (G)] 50 mg PO Q4H PRN PRN 03/13/20 - Family History Maternal Family History: Family History (Last Reviewed 03/23/19 @ 14:22 by Silvia Fabian) Sister Colon cancer Father Diabetes Mother Heart disease Hypertension Heart Disease - Other risks significant CAD history. Paternal Family History: Family History (Last Reviewed 03/23/19 @ 14:22 by Silvia Fabian) Sister Colon cancer Father Diabetes Mother Heart disease Hypertension Diabetes, Heart Disease Smoking Status: Never smoker Review of Systems Constitutional: Denies: Chills, Fever Eyes: Denies: Blurred vision, Drainage, Pain HEENT: Denies: Difficulty Hearing, Difficulty Swallowing, Sore Throat, Visual Changes Cardiovascular: Denies: Chest Pain, Palpitations, Syncope Respiratory: Denies: Cough, Shortness of Breath Gastrointestinal: Denies: Abdominal Pain, Nausea, Vomiting Genitourinary: Denies: Dysuria, Frequency Musculoskeletal: Denies: Joint Pain, Muscle pain Skin: Reports: Wounds - Rafa wound at her waistline. Denies: Jaundice, Rash Neurological: Denies: Balance problems, Change in Speech, Difficulty swallowing, Focal weakness Psychiatric: Denies: Anxiety, Depression Endocrine: Denies: Change in Body Habitus Hematologic/ Lymphatic: Denies: Adenopathy - Physical Exam Vital Signs Temp Pulse Resp BP 98.6 F 85 16 145/89 H 03/13/20 09:57 03/13/20 09:57 03/13/20 09:57 03/13/20 09:57 General: Oriented x3, Cooperative, Well developed HEENT: Atraumatic, PERRLA Oral: Moist Mucosa Neck: Supple, No JVD Lungs: Clear to auscultation, Normal air movement Cardiovascular: Regular rate, Regular Rhythm Abdomen: Bowel Sounds Present, Soft, Non Tender, No Hepato-splenomegaly Extremities: No clubbing, No edema Skin: Ulcer/ Wound - Traumatic abdominal wound at her waistline Wound Measurements and Assessment WC - Nurse 1 - General Ulcer Measurement Start: 03/13/20 09:57 Freq: Status: Active Protocol: Activity Type Activity Date Activity User E-Sign Co-Sign Detail Recorded Client Recorded Date Recorded By Document 03/13/20 09:57 [facility] [id number] 03/13/20 10:08 [facility] 03/13/20 09:57 Wound Center Nurse 1 [Ulcer Assessment] #1- MID ABDOMEN -Combined with other wound No -Current Size (cm) - Length 1.2 -Current Size (cm) - Width 2.4 -Current Size (cm) - Depth 0.1 -Total Square Cm 2.88 -Date of Last Picture (Recall this 03/13/20 field) -Photo Taken Yes -Epithelialization None Present -Tunneling No -Undermining/Tunneling No -Circular Undermining No -Exudate Amt None Present -Wound Margin Distinct, Outline Attached -Granulation Amt Medium (34-66%) -Granulation Quality Red -Slough/Fibrin Yes -Necrosis Amt Small (1-33%) -Necrotic Tissue Type Adherent Slough -Texture (Laura-wound Skin Appearance) Assessed, Scarring -Moisture (Laura-wound Skin Appearance Assessed ) -Color (Laura-wound Skin Appearance) Assessed, Erythema -Temperature (Laura-wound Skin No Abnormality Appearance) (Pt Warm) -Tenderness on Palpation (Laura-wound No Skin Appearance) -Ulcer Cleansing Rinsed/ Irrigated with Saline -Foul Odor after Cleansing No -Anesthetic Used 4% Lidocaine Solution LINDA - Nurse 2 - General Ulcer CM Notes Start: 03/13/20 09:57 Freq: Status: Active Protocol: Activity Type Activity Date Activity User E-Sign Co-Sign Detail Recorded Client Recorded Date Recorded By Document 03/13/20 10:14 MW [id number] 03/13/20 10:21 MW 03/13/20 10:14 Wound Center Nurse 2 [Procedure/Treatment] -Time 10:18 -Correct Patient Yes -Correct Side, Site, Position Yes -Correct Procedure Yes -Procedure Performed Yes -Type of Procedure Debridement -Clinical Debridement Subcutaneous -Tissue Removed Subcutaneous -Post Debridement (cm) - Length 1.0 -Post Debridement (cm) - Width 2.0 -Post Debridement (cm) - Depth 0.1 -Total Square (Post) (cm) 2.00 -Area of Debridement (cm) - Length 1.0 -Area of Debridement (cm) - Width 2.0 -Total Square (Area) (cm) 2.00 -Tunneling No -Undermining/Tunneling No -Circular Undermining No -Wound/Ulcer Outcome Not Healed -Ulcer Cleansing Rinsed/ Irrigated with Saline -Foul Odor after Cleansing No -Bioengineered Tissue No -Bleeding Controlled with Pressure -Offloading No -Debridement - Subq, 1st 20sq cm Yes [See Physician Procedure note for Specifics] Pain Scale: 0-10 Numeric [Pain] -Is Patient Pain Free? Yes LINDA - Nurse 3 - General Ulcer D/C NN Start: 03/13/20 09:57 Freq: Status: Active Protocol: Activity Type Activity Date Activity User E-Sign Co-Sign Detail Recorded Client Recorded Date Recorded By Document 03/13/20 10:21 MW [id number] 03/13/20 10:31 MW 03/13/20 10:21 Wound Care Nurse 3 [Wound Dressing] #1- MID ABDOMEN -Ulcer Cleansing Rinsed/ Irrigated with Saline -Foul Odor after Cleansing No -Negative Pressure Wound Therapy N/A -Primary Dressing Applied Aquacel Extra, NonAdherent Contact Layer -Primary Dressing Covered/Secured Dry Gauze, with Secured with Tape -Aquacel Extra 1 [Post Procedure Tolerated] -Treatment Response Procedure Tolerated Well Pain Scale: 0-10 Numeric [Pain] -Is Patient Pain Free? Yes Teaching: Wound Center [Wound Center Education] (Items with an * have Printed Materials Available- Please identify what is given to patient under the Teaching materials given to patient and caregiver Section. Dressing Your Wound -Person Taught Patient -Teaching Method Discussion, Demonstration -Response to teaching Verbalize understanding WC - Visit Discharge [Visit Discharge Information] -Discharge Condition Stable -Ambulatory Status Ambulatory -Transportation Private Auto -Accompanied by SELF -Medication Reconcilliation completed No & provided to patient/care provider -Clinical Summary of Care Provided Yes Musculoskeletal: No Tenderness to Palpation of Joints or Extremities Lymphatic: No Cervical, Supraclavicular, or Inguinal Adenopathy Neurological: Cranial nerves II-XII grossly intact, Neuro grossly intact Psych/Mental Status: Normal Affect, Appropriate Debridement Note Post-Debridement Measurements/Treatment WC - Nurse 2 - General Ulcer CM Notes Start: 03/13/20 09:57 Freq: Status: Active Protocol: Activity Type Activity Date Activity User E-Sign Co-Sign Detail Recorded Client Recorded Date Recorded By Document 03/13/20 10:14 MW [id number] 03/13/20 10:21 MW 03/13/20 10:14 Wound Center Nurse 2 #1- MID ABDOMEN -Time 10:18 -Correct Patient Yes -Correct Side, Site, Position Yes -Correct Procedure Yes -Procedure Performed Yes -Type of Procedure Debridement -Clinical Debridement Subcutaneous -Tissue Removed Subcutaneous -Post Debridement (cm) - Length 1.0 -Post Debridement (cm) - Width 2.0 -Post Debridement (cm) - Depth 0.1 -Total Square (Post) (cm) 2.00 -Area of Debridement (cm) - Length 1.0 -Area of Debridement (cm) - Width 2.0 -Total Square (Area) (cm) 2.00 -Tunneling No -Undermining/Tunneling No -Circular Undermining No -Wound/Ulcer Outcome Not Healed -Ulcer Cleansing Rinsed/ Irrigated with Saline -Foul Odor after Cleansing No -Bioengineered Tissue No -Bleeding Controlled with Pressure -Offloading No -Debridement - Subq, 1st 20sq cm Yes Pain Scale: 0-10 Numeric Is Patient Pain Free? Yes - Nurse 3 - General Ulcer D/C NN Start: 03/13/20 09:57 Freq: Status: Active Protocol: Activity Type Activity Date Activity User E-Sign Co-Sign Detail Recorded Client Recorded Date Recorded By Document 08/26/20 10:21 MW [id number] 03/13/20 10:31 MW 03/13/20 10:21 Wound Care Nurse 3 #1- MID ABDOMEN -Ulcer Cleansing Rinsed/ Irrigated with Saline -Foul Odor after Cleansing No -Negative Pressure Wound Therapy N/A -Primary Dressing Applied Aquacel Extra, NonAdherent Contact Layer -Primary Dressing Covered/Secured with Dry Gauze, Secured with Tape -Aquacel Extra 1 Treatment Response Procedure Tolerated Well Pain Scale: 0-10 Numeric Is Patient Pain Free? Yes Teaching: Wound Center Dressing Your Wound -Person Taught Patient -Teaching Method Discussion, Demonstration -Response to teaching Verbalize understanding WC - Visit Discharge Discharge Condition Stable Ambulatory Status Ambulatory Transportation Private Auto Accompanied by SELF Medication Reconcilliation completed & No provided to patient/care provider Clinical Summary of Care Provided Yes Wound debrided: Abdominal wound Type of Debridement: Excisional debridement Anesthesia Used: 5% Lidocaine Gel Depth: Down to and including healthy tissue, in the subcutaneous layer Percentage of wound debrided: 100 Instrument Used: 3mm curette Tissue Removed: Fibrin and slough Severity: Limited To Skin Breakdown Amount of bleeding with debridement: Mild Bleeding Controlled with: Compression and gauze Patient tolerated procedure well Assessment/Plan Aerobic and anaerobic cultures obtained Active Problems (Last Reviewed 03/23/19 @ 14:22 by Silvia Fabian) Open wound anterior abdominal wall (Acute) Infected wound (Acute) Assessment: Morbid obesity. Traumatic abdominal wound. Nonhealing nonsurgical abdominal wound at waistline Plan: Wash wound with antibacterial soap. Apply Aquacel extra to wound base moistened cover with Adaptic gauze and anti-allergic tape. Follow-up in 1 week. We will call with results of the cultures obtained
== END 2020-03-18 23:59 ==
LOC: WC 09:53
PROVIDERS: PCP Family Medicine; Visit Provider Nurse Practitioner
DX: S31.115A Laceration without foreign body of abdominal wall, periumbilic region without penetration into peritoneal cavity, initial encounter (principal); W45.8XXA Other foreign body or object entering through skin, initial encounter; E66.01 Morbid (severe) obesity due to excess calories; Z68.41 Body mass index [BMI] 40.0-44.9, adult; I10 Essential (primary) hypertension; K21.9 Gastro-esophageal reflux disease without esophagitis; M16.11 Unilateral primary osteoarthritis, right hip; G47.33 Obstructive sleep apnea (adult) (pediatric); Z79.899 Other long term (current) drug therapy; Z79.82 Long term (current) use of aspirin; L08.9 Local infection of the skin and subcutaneous tissue, unspecified
CPT/HCPCS: 11042; 87070; 87075; 87205; 99203; G0463

== ENCOUNTER 2020-04-08 09:00 | Outpatient (RCR) | payer MEDICARE, OTHER, SELFPAY ==
[2019-10-16 08:47] VITALS: BMI 38.7
--- NOTE | 2020-01-10 15:53 | HP.PTEVAL ---
Patient's Visit Information MAKEDA EM is a 64 year old F referred to Physical Therapy by Dr. Akira Bravo MD with a diagnosis of Left RTC repair, biceps tenotomy and debridement.. Date of Evaluation: 01/10/20 Physical Therapist: Sandi Trent DPT - Visit Plan Frequency: 2x /Week Duration: 4 Weeks Plan: RTC Repair 12/28/2019 Phase 1 only - GENTLE - Subjective Thinks she tore the left shoulder at work- the surgeon Dr. Sanchez Doe reports that he did not see the tear so he closed the case. So she went through Dr. Bravo who went in to scope it and found the tear. He did left GH Debridement, Biceps tenotomy and small RTC repair on 12/28/2019. Came home after surgery- outpatient. is still home to help as needed. Reverse on the right shoulder Feb 2019. Sleeping in chair- its better now. Worst: 8/10 Agg: when she showers Eases: not using it and pain medication, ice machine. Best: 0/10. Pain is located in the anterior shoulder- no radiating pain. Does have N/T if she sits to long then she moves and its okay. Right hand dominate. Wears the sling all the time. Work: retired. - Objective Posture: FH, RS - was not corrected- wearing sling on left UE- increased guarding. Gait: no LE deviation noted- wearing sling- decreased arm swing and trunk rotation. ROM: Finger dexterity WFL Wrist WFL, Sup/Pro WFL, Active elbow WFL, Passive Shoulder ER 30 degrees flexion 120 degrees, abd: 110 degrees, IR: to belly Cervical WFL. Strength: Records Assistant: WFL. Sensaton: WNL to gross B touch. Incision: No signs of infection - healing aprropriately - Goals Goal 1:: Patient will be I with HEP and progression Goal Time Frame: 4-6 Weeks Goal 2:: Patient will demo full PROM to AROM as per protocol Goal 3:: Patient will maintain proper posture t/o tx session to demo increased scap s/s as per protocol Goal Time Frame: 4-6 Weeks - Rehabilitation Potential Physical Therapy Diagnosis: Patient presents with hypomobility- she has decreased ROM, strength and muscular endurance s/p left RTC repair leading to poor posture and increased pain with ADL's. Rehabilitation Potential: Good - Anticipated Interventions Patient/Client Instruction: Educate patient on: Benefits of Fitness Program Therapeutic Exercise to Include: Strength training, Endurance training, Body mechanics, Postural training, Flexibilty training, Gait and locomotor training, Neuromotor development, Passive ROM, Active ROM, Scapular Strength/Stabilization Comment: as per protcol For the Purpose of:: To improve muscle performance and motor function Manual Therapy Techniques to Include: Passive ROM, Functional dry needling, Soft tissue mobilization For the Purpose of:: To improve muscle performance and motor function TENS: Yes Cryotherapy (ice pack, ice massage): Yes Thermo therapy (hot pack): Yes Thank you for the opportunity to evaluate your patient. For Medicare and Medicare HMO plans, please review the plan of care and approve it. It will need to be FAXED BACK to us at [phone] for Medicare purposes. For Medicare only, by signing this I certify the plan of care. Please let me know if there are questions or concerns regarding this plan of care. Physician Signature: Date:
--- NOTE | 2020-02-08 09:48 | HP.PTREVAL_ITS ---
Dr. Akira Bravo MD, It has been my pleasure to treat MAKEDA EM over the last 6 visits for Left RTC repair, biceps tenotomy and debridement.. Please see the progress note below for an update on the physical therapy plan of care! Subjective: Patient reports that she saw MD yesterday- she is now allowed to completely d/c her sling. She feels much better after calming the shoulder down by resting and putting it back in the sling for a few days. She reports that she is pretty sore in the left shoulder after the MD moving it around yesterday. MD was happy with her progress- Worst: 01/25 Best: 010 If she is sitting and not moving its painfree. Can progress per protocol to AAROM exercises. Objective/Function: Posture: FH, RS, increased kyphosis. AAROM: Flexion: 110 degrees Abd: 75 degrees IR: belt line ER: 60 degrees PROM: Flexion: 160 degrees, Abd: 170 degrees, IR: 50 degrees, ER: 60 degrees. Elbow: WNL. Strength: Elbow: 4+/5 Isometrics in shoulder: 4+/5 Plan Plan: RTC Repair 12/28/2019 Phase 1 only - GENTLE. 02/08/2020 Progess to Phase 2- GENTLE Goals Goal 1:: Patient will be I with HEP and progression Goal Time Frame: 4-6 Weeks Goal 2:: Patient will demo full PROM to AROM as per protocol Goal 3:: Patient will maintain proper posture t/o tx session to demo increased scap s/s as per protocol Goal Time Frame: 4-6 Weeks Anticipated Interventions Patient/Client Instruction: Educate patient on: Benefits of Fitness Program Therapeutic Exercise to Include: Strength training, Endurance training, Body mechanics, Postural training, Flexibilty training, Gait and locomotor training, Neuromotor development, Passive ROM, Active ROM, Scapular Strength/Stabilization Comment: as per protcol For the Purpose of:: To improve muscle performance and motor function Manual Therapy Techniques to Include: Passive ROM, Functional dry needling, Soft tissue mobilization For the Purpose of:: To improve muscle performance and motor function TENS: Yes Cryotherapy (ice pack, ice massage): Yes Thermo therapy (hot pack): Yes Please do not hesitate to contact me at [phone] by phone or Fax: if you have questions or concerns regarding this new plan of care! Sincerely, ITZ GarridoT
--- NOTE | 2020-06-19 08:56 | HP.PT.NRP ---
MAKEDA EM was seen in my office for initial evaluation on 01/10/20. The following Plan of Care was established for this patient: Initial Frequency: 2x /Week Initial Duration: 4 Weeks Patient/Client Instruction: Educate patient on: Benefits of Fitness Program Therapeutic Exercise to Include: Strength training, Endurance training, Body mechanics, Postural training, Flexibilty training, Gait and locomotor training, Neuromotor development, Passive ROM, Active ROM, Scapular Strength/Stabilization For the Purpose of:: To improve muscle performance and motor function Manual Therapy Techniques to Include: Passive ROM, Functional dry needling, Soft tissue mobilization For the Purpose of:: To improve muscle performance and motor function TENS: Yes Cryotherapy (ice pack, ice massage): Yes Thermo therapy (hot pack): Yes This patient was last seen in our office . Pertinent comments regarding their Physical therapy will appear below: At this point I will be discontinuing this patient from physical therapy. I would be happy to see this patient again in the future if found appropriate by the physician. Thank you! Sandi Trent DPT
== END 2020-04-08 19:00 | disposition home or self-care (01) ==
LOC: PT 09:00
PROVIDERS: PCP Family Medicine; Referring Provider Orthopaedic Surgery; Visit Provider Orthopaedic Surgery
DX: M75.112 Incomplete rotator cuff tear or rupture of left shoulder, not specified as traumatic (principal)
CPT/HCPCS: 97014; 97110; 97140; 97162; 97164; G0283

== ENCOUNTER 2020-04-10 08:45 | Outpatient (RCR) | payer MEDICARE, OTHER, SELFPAY ==
[2020-03-19 00:51] VITALS: BP 145/89; PULSE 85; RESP 16; TEMP 37
[2020-03-20 08:35] VITALS: BP 144/85; PULSE 89; RESP 18; TEMP 36.1; BMI 43.7
--- NOTE | 2020-03-20 08:54 | PCM.WC.PN ---
(1) Open wound anterior abdominal wall Status: Acute Current Visit: No Qualifiers: Encounter type: subsequent encounter Qualified Code(s): S31.109D - Unspecified open wound of abdominal wall, unspecified quadrant without penetration into peritoneal cavity, subsequent encounter Code(s): S31.109A - Unspecified open wound of abdominal wall, unspecified quadrant without penetration into peritoneal cavity, initial encounter (2) Morbid obesity with BMI of 40.0-44.9, adult Status: Chronic Current Visit: Yes Code(s): Z68.41 - Body mass index (BMI) 40.0-44.9, adult (3) Non-healing non-surgical wound Status: Acute Current Visit: Yes Code(s): T14.8XXA - Other injury of unspecified body region, initial encounter (4) Nonhealing nonsurgical wound with fat layer exposed Status: Acute Current Visit: Yes Code(s): T14.8XXA - Other injury of unspecified body region, initial encounter Type of Wound Date of Service: 03/20/20 Chief Complaint: Follow-up on abdominal wound History of Wound: 65-year-old obese white female developed a open wound at her waistline from her pants cutting into her skin. Has been using [id number] antibiotic ointments. Has seen her regular doctor and he has given her several ointments to use without help. Does have some depth but mostly superficial does have a little slough. Progress of Wound: The wound appears to be bigger and deeper with treatment of Aquacel extra. Cultures came back negative for bacteria. Wound appears very clean debrides easily bleeds easily will change to Promogran and see if that helps with her wound healing. - Physical Exam Vital Signs Temp Pulse Resp BP 97 F L 89 18 144/85 H 03/20/20 08:35 03/20/20 08:35 03/20/20 08:35 03/20/20 08:35 General: Oriented x3, Cooperative, Well developed HEENT: Atraumatic, PERRLA Oral: Moist Mucosa Neck: Supple, No JVD Lungs: Clear to auscultation, Normal air movement Cardiovascular: Regular rate, Regular Rhythm Abdomen: Bowel Sounds Present, Soft, Non Tender, No Hepato-splenomegaly Extremities: No clubbing, No edema Skin: Ulcer/ Wound - Open wound from pants cutting into waist still open Wound Measurements and Assessment WC - Nurse 1 - General Ulcer Measurement Start: 03/20/20 07:49 Freq: Status: Active Protocol: Activity Type Activity Date Activity User E-Sign Co-Sign Detail Recorded Client Recorded Date Recorded By Document 03/20/20 08:35 RB [id number] 03/20/20 08:36 RB 03/20/20 08:35 Wound Center Nurse 1 [Ulcer Assessment] #1- MID ABDOMEN -Combined with other wound No -Current Size (cm) - Length 1 -Current Size (cm) - Width 2.1 -Current Size (cm) - Depth 0.1 -Total Square Cm 2.1 -Tunneling No -Undermining/Tunneling No -Circular Undermining No -Exudate Amt Small -Exudate Type Serosanguineous -Wound Margin Flat & Intact -Granulation Amt Medium (34-66%) -Granulation Quality Red -Necrosis Amt Small (1-33%) -Necrotic Tissue Type Adherent Slough -Structure Exposed N/A -Texture (Laura-wound Skin Appearance) Assessed, Scarring -Moisture (Laura-wound Skin Appearance Assessed ) -Color (Lauar-wound Skin Appearance) Assessed -Temperature (Laura-wound Skin No Abnormality Appearance) (Pt Warm) -Tenderness on Palpation (Laura-wound No Skin Appearance) -Ulcer Cleansing Wound Cleanser -Foul Odor after Cleansing No -Anesthetic Used 4% Lidocaine Solution WC - Nurse 2 - General Ulcer CM Notes Start: 03/20/20 07:49 Freq: Status: Active Protocol: Activity Type Activity Date Activity User E-Sign Co-Sign Detail Recorded Client Recorded Date Recorded By Document 03/20/20 08:48 MW [id number] 03/20/20 08:50 MW 03/20/20 08:48 Wound Center Nurse 2 [Procedure/Treatment] -Time 08:49 -Correct Patient Yes -Correct Side, Site, Position Yes -Correct Procedure Yes -Procedure Performed Yes -Type of Procedure Debridement -Clinical Debridement Subcutaneous -Tissue Removed Subcutaneous -Post Debridement (cm) - Length 0.8 -Post Debridement (cm) - Width 2.5 -Post Debridement (cm) - Depth 0.2 -Total Square (Post) (cm) 2.00 -Area of Debridement (cm) - Length 0.8 -Area of Debridement (cm) - Width 2.5 -Total Square (Area) (cm) 2.00 -Tunneling No -Undermining/Tunneling No -Circular Undermining No -Wound/Ulcer Outcome Not Healed -Ulcer Cleansing Rinsed/ Irrigated with Saline -Foul Odor after Cleansing No -Bioengineered Tissue No -Bleeding Controlled with Pressure -Offloading No -Debridement - Subq, 1st 20sq cm Yes [See Physician Procedure note for Specifics] Pain Scale: 0-10 Numeric [Pain] -Is Patient Pain Free? Yes Musculoskeletal: No Tenderness to Palpation of Joints or Extremities Lymphatic: No Cervical, Supraclavicular, or Inguinal Adenopathy Neurological: Cranial nerves II-XII grossly intact, Neuro grossly intact Psych/Mental Status: Normal Affect, Appropriate Debridement Note Post-Debridement Measurements/Treatment WC - Nurse 2 - General Ulcer CM Notes Start: 03/20/20 07:49 Freq: Status: Active Protocol: Activity Type Activity Date Activity User E-Sign Co-Sign Detail Recorded Client Recorded Date Recorded By Document 03/20/20 08:48 MW [id number] 03/20/20 08:50 MW 03/20/20 08:48 Wound Center Nurse 2 #1- MID ABDOMEN -Time 08:49 -Correct Patient Yes -Correct Side, Site, Position Yes -Correct Procedure Yes -Procedure Performed Yes -Type of Procedure Debridement -Clinical Debridement Subcutaneous -Tissue Removed Subcutaneous -Post Debridement (cm) - Length 0.8 -Post Debridement (cm) - Width 2.5 -Post Debridement (cm) - Depth 0.2 -Total Square (Post) (cm) 2.00 -Area of Debridement (cm) - Length 0.8 -Area of Debridement (cm) - Width 2.5 -Total Square (Area) (cm) 2.00 -Tunneling No -Undermining/Tunneling No -Circular Undermining No -Wound/Ulcer Outcome Not Healed -Ulcer Cleansing Rinsed/ Irrigated with Saline -Foul Odor after Cleansing No -Bioengineered Tissue No -Bleeding Controlled with Pressure -Offloading No -Debridement - Subq, 1st 20sq cm Yes Pain Scale: 0-10 Numeric Is Patient Pain Free? Yes Wound debrided: Anterior waist wound Type of Debridement: Excisional debridement Anesthesia Used: 5% Lidocaine Gel Depth: in the subcutaneous layer Percentage of wound debrided: 100 Instrument Used: 3mm curette Tissue Removed: Fibrin Severity: Fat Layer Exposed Amount of bleeding with debridement: Mild Bleeding Controlled with: Compression and gauze Patient tolerated procedure well Assessment/Plan Active Problems (Last Reviewed 03/23/19 @ 14:22 by Silvia Fabian) Non-healing non-surgical wound (Acute) Nonhealing nonsurgical wound with fat layer exposed (Acute) Morbid obesity with BMI of 40.0-44.9, adult (Chronic) Assessment: Morbid obesity. Traumatic abdominal wound. Nonhealing nonsurgical abdominal wound at waistline Plan: Wash wound with antibacterial soap. Apply Promogran to wound base moistened cover with Adaptic gauze and anti-allergic tape. Follow-up in 1 week
[2020-03-27 09:52] VITALS: BP 138/77; PULSE 85; RESP 16; TEMP 36.4; BMI 43.7
--- NOTE | 2020-03-27 10:47 | PCM.WC.PN ---
(1) Open wound anterior abdominal wall Status: Acute Current Visit: Yes Qualifiers: Encounter type: subsequent encounter Qualified Code(s): S31.109D - Unspecified open wound of abdominal wall, unspecified quadrant without penetration into peritoneal cavity, subsequent encounter Code(s): S31.109A - Unspecified open wound of abdominal wall, unspecified quadrant without penetration into peritoneal cavity, initial encounter (2) Morbid obesity with BMI of 40.0-44.9, adult Status: Chronic Current Visit: Yes Code(s): Z68.41 - Body mass index (BMI) 40.0-44.9, adult (3) Non-healing non-surgical wound Status: Acute Current Visit: Yes Code(s): T14.8XXA - Other injury of unspecified body region, initial encounter (4) Nonhealing nonsurgical wound with fat layer exposed Status: Acute Current Visit: Yes Code(s): T14.8XXA - Other injury of unspecified body region, initial encounter Type of Wound Date of Service: 03/27/20 Chief Complaint: Follow-up on abdominal wound History of Wound: 65-year-old obese white female developed a open wound at her waistline from her pants cutting into her skin. Has been using [id number] antibiotic ointments. Has seen her regular doctor and he has given her several ointments to use without help. Does have some depth but mostly superficial does have a little slough. Progress of Wound: The wound appears to be bigger and deeper with treatment of Aquacel extra. Cultures came back negative for bacteria. Wound appears very clean debrides easily bleeds easily will change to Promogran and see if that helps with her wound healing. No change on Promogran will try Fibracol this week and will check a prealbumin and CBC on her. Cultures came back negative - Physical Exam Vital Signs Temp Pulse Resp BP 97.6 F L 85 16 138/77 H 03/27/20 09:52 03/27/20 09:52 03/27/20 09:52 03/27/20 09:52 General: Oriented x3, Cooperative, Well developed HEENT: Atraumatic, PERRLA Oral: Moist Mucosa Neck: Supple, No JVD Lungs: Clear to auscultation, Normal air movement Cardiovascular: Regular rate, Regular Rhythm Abdomen: Bowel Sounds Present, Soft, Non Tender, No Hepato-splenomegaly, Obese, - - Abdominal wound Extremities: No clubbing, No edema Wound Measurements and Assessment WC - Nurse 1 - General Ulcer Measurement Start: 03/20/20 07:49 Freq: Status: Active Protocol: Activity Type Activity Date Activity User E-Sign Co-Sign Detail Recorded Client Recorded Date Recorded By Document 03/27/20 09:52 MW [id number] 03/27/20 09:54 MW 03/27/20 09:52 Wound Center Nurse 1 [Ulcer Assessment] #1- MID ABDOMEN -Combined with other wound No -Current Size (cm) - Length 0.6 -Current Size (cm) - Width 2.3 -Current Size (cm) - Depth 0.2 -Total Square Cm 1.38 -Photo Taken No -Epithelialization None Present -Tunneling No -Undermining/Tunneling No -Circular Undermining No -Exudate Amt Small -Exudate Type Serosanguineous -Wound Margin Flat & Intact -Granulation Amt Medium (34-66%) -Granulation Quality [place] -Slough/Fibrin Yes -Necrosis Amt Medium (34-66%) -Necrotic Tissue Type Adherent Slough -Structure Exposed N/A -Texture (Laura-wound Skin Appearance) No Abnormality, Assessed -Moisture (Laura-wound Skin Appearance No Abnormality, ) Assessed -Color (Laura-wound Skin Appearance) No Abnormality, Assessed -Temperature (Laura-wound Skin No Abnormality Appearance) (Pt Warm) -Tenderness on Palpation (Laura-wound No Skin Appearance) -Ulcer Cleansing Rinsed/ Irrigated with Saline -Foul Odor after Cleansing No -Anesthetic Used 4% Lidocaine Solution [Edema Assessment] -Lower Limb Edema Present No WC - Nurse 2 - General Ulcer CM Notes Start: 03/20/20 07:49 Freq: Status: Active Protocol: Activity Type Activity Date Activity User E-Sign Co-Sign Detail Recorded Client Recorded Date Recorded By Document 03/27/20 10:23 MW [id number] 03/27/20 10:24 MW 03/27/20 10:23 Wound Center Nurse 2 [Procedure/Treatment] #1- MID ABDOMEN -Time 10:23 -Correct Patient Yes -Correct Side, Site, Position Yes -Correct Procedure Yes -Procedure Performed Yes -Type of Procedure Debridement -Clinical Debridement Subcutaneous -Tissue Removed Subcutaneous -Post Debridement (cm) - Length 0.7 -Post Debridement (cm) - Width 2.5 -Post Debridement (cm) - Depth 0.2 -Total Square (Post) (cm) 1.75 -Area of Debridement (cm) - Length 0.7 -Area of Debridement (cm) - Width 2.5 -Total Square (Area) (cm) 1.75 -Tunneling No -Undermining/Tunneling No -Circular Undermining No -Wound/Ulcer Outcome Not Healed -Ulcer Cleansing Rinsed/ Irrigated with Saline -Foul Odor after Cleansing No -Bioengineered Tissue No -Bleeding Controlled with Pressure -Offloading No -Debridement - Subq, 1st 20sq cm Yes [See Physician Procedure note for Specifics] Pain Scale: 0-10 Numeric [Pain] -Is Patient Pain Free? Yes - Nurse 3 - General Ulcer D/C NN Start: 03/20/20 07:49 Freq: Status: Active Protocol: Activity Type Activity Date Activity User E-Sign Co-Sign Detail Recorded Client Recorded Date Recorded By Document 03/27/20 10:32 [facility] [id number] 03/27/20 10:33 [facility] 03/27/20 10:32 Wound Care Nurse 3 [Wound Dressing] #1- MID ABDOMEN -Ulcer Cleansing Rinsed/ Irrigated with Saline -Foul Odor after Cleansing No -Primary Dressing Applied Fibracol Plus 4x4,NonAdherent Contact Layer -Primary Dressing Covered/Secured Dry Gauze, with Secured with Tape -Fibracol Plus 4x4 1 [Post Procedure Tolerated] -Treatment Response Procedure Tolerated Well Pain Scale: 0-10 Numeric [Pain] -Is Patient Pain Free? Yes - Visit Discharge [Visit Discharge Information] -Discharge Condition Stable -Ambulatory Status Ambulatory -Transportation Private Auto Musculoskeletal: No Tenderness to Palpation of Joints or Extremities Lymphatic: No Cervical, Supraclavicular, or Inguinal Adenopathy Neurological: Cranial nerves II-XII grossly intact, Neuro grossly intact Psych/Mental Status: Normal Affect, Appropriate Debridement Note Post-Debridement Measurements/Treatment - Nurse 2 - General Ulcer CM Notes Start: 03/20/20 07:49 Freq: Status: Active Protocol: Activity Type Activity Date Activity User E-Sign Co-Sign Detail Recorded Client Recorded Date Recorded By Document 03/20/20 08:48 MW [id number] 03/20/20 08:50 MW Document 03/27/20 10:23 MW [id number] 03/27/20 10:24 MW 03/20/20 03/27/20 08:48 10:23 Wound Center Nurse 2 #1- MID ABDOMEN -Time 08:49 10:23 -Correct Patient Yes Yes -Correct Side, Site, Position Yes Yes -Correct Procedure Yes Yes -Procedure Performed Yes Yes -Type of Procedure Debridement Debridement -Clinical Debridement Subcutaneous Subcutaneous -Tissue Removed Subcutaneous Subcutaneous -Post Debridement (cm) - Length 0.8 0.7 -Post Debridement (cm) - Width 2.5 2.5 -Post Debridement (cm) - Depth 0.2 0.2 -Total Square (Post) (cm) 2.00 1.75 -Area of Debridement (cm) - Length 0.8 0.7 -Area of Debridement (cm) - Width 2.5 2.5 -Total Square (Area) (cm) 2.00 1.75 -Tunneling No No -Undermining/Tunneling No No -Circular Undermining No No -Wound/Ulcer Outcome Not Healed Not Healed -Ulcer Cleansing Rinsed/ Rinsed/ Irrigated with Irrigated with Saline Saline -Foul Odor after Cleansing No No -Bioengineered Tissue No No -Bleeding Controlled with Pressure Pressure -Offloading No No -Debridement - Subq, 1st 20sq cm Yes Yes Pain Scale: 0-10 Numeric Is Patient Pain Free? Yes Yes - Nurse 3 - General Ulcer D/C NN Start: 03/20/20 07:49 Freq: Status: Active Protocol: Activity Type Activity Date Activity User E-Sign Co-Sign Detail Recorded Client Recorded Date Recorded By Document 03/20/20 08:57 MW [id number] 03/20/20 08:57 MW Document 03/27/20 10:32 [facility] [id number] 03/27/20 10:33 [facility] 03/20/20 03/27/20 08:57 10:32 Wound Care Nurse 3 #1- MID ABDOMEN -Ulcer Cleansing Rinsed/ Rinsed/ Irrigated with Irrigated with Saline Saline -Foul Odor after Cleansing No No -Negative Pressure Wound Therapy N/A -Primary Dressing Applied NonAdherent Fibracol Plus Contact Layer, 4x4,NonAdherent Promogran Contact Layer -Primary Dressing Covered/Secured with Dry Gauze, Dry Gauze, Secured with Secured with Tape Tape -Fibracol Plus 4x4 1 -Promogran 1 Treatment Response Procedure Procedure Tolerated Well Tolerated Well Pain Scale: 0-10 Numeric Is Patient Pain Free? Yes Yes Teaching: Wound Center Dressing Your Wound -Person Taught Patient -Teaching Method Discussion, Demonstration -Response to teaching Verbalize understanding WC - Visit Discharge Discharge Condition Stable Stable Ambulatory Status Ambulatory Ambulatory Transportation Private Auto Private Auto Accompanied by self Medication Reconcilliation completed & No provided to patient/care provider Clinical Summary of Care Provided Yes Wound debrided: Abdominal wound Type of Debridement: Excisional debridement Depth: Down to and including healthy tissue, in the subcutaneous layer Percentage of wound debrided: 100 Instrument Used: 5mm curette Tissue Removed: Fibrin and some devitalized tissue Severity: Fat Layer Exposed Bleeding Controlled with: Compression and gauze Patient tolerated procedure well Assessment/Plan Active Problems (Last Reviewed 03/23/19 @ 14:22 by Silvia Fabian) Open wound anterior abdominal wall (Acute) Non-healing non-surgical wound (Acute) Nonhealing nonsurgical wound with fat layer exposed (Acute) Morbid obesity with BMI of 40.0-44.9, adult (Chronic) Assessment: Morbid obesity. Traumatic abdominal wound. Nonhealing nonsurgical abdominal wound at waistline Plan: Wash wound with antibacterial soap. Apply upper call to wound base moistened cover with Adaptic gauze and anti-allergic tape. Follow-up in 1 week
[2020-03-27 11:23] LABS: Absolute Lymphocyte Count 2.88 X10^3/uL (0.83-4.51); Absolute Neutrophil Count 3.5 X10^3/uL (2.0-7.7); Basophil# 0.04 X10^3/uL; Basophil% 0.6 % (0-1); Eosinophils% 2.8 % (0-5); Hematocrit 41.5 % (37-47); Hemoglobin 13.3 g/dL (12.0-15.0); Lymphocyte # 2.88 X10^3/ul (4.0); Lymphocyte % 40.3 % (19-41); Mean Corpuscular Hgb 30.8 pg (27.0-32.0); Mean Corpuscular Volume 96.1 fL (81-99); Mean Platelet Vol. 9.9 fl (6.2-12.0); Monocyte# 0.54 X10^3/uL; Monocyte% 7.6 % (0-10); NRBC Flagged by Analyzer 0 % (0-5); Neutrophil # 3.46 X10^3/uL (2.7-7.7); Neutrophil % 48.3 % (47-70); Platelet Count 300 K/mm3 (150-450); RBC Distribution Width CV 12.3 % (11.6-14.6); RBC Distribution Width SD 43.7 fl (35.1-43.9); Red Blood Count 4.32 M/mm3 (4.2-5.4); White Blood Count 7.2 K/mm3 (4.4-11.0)
[2020-03-27 12:00] LABS: Prealbumin 23.4 mg/dL (20.0-40.0)
[2020-04-03 09:24] VITALS: BP 171/87; PULSE 87; RESP 18; TEMP 36.1; BMI 43.7
--- NOTE | 2020-04-03 09:39 | PCM.WC.PN ---
(1) Open wound anterior abdominal wall Status: Acute Current Visit: Yes Qualifiers: Encounter type: subsequent encounter Qualified Code(s): S31.109D - Unspecified open wound of abdominal wall, unspecified quadrant without penetration into peritoneal cavity, subsequent encounter Code(s): S31.109A - Unspecified open wound of abdominal wall, unspecified quadrant without penetration into peritoneal cavity, initial encounter (2) Morbid obesity with BMI of 40.0-44.9, adult Status: Chronic Current Visit: Yes Code(s): Z68.41 - Body mass index (BMI) 40.0-44.9, adult (3) Non-healing non-surgical wound Status: Acute Current Visit: Yes Code(s): T14.8XXA - Other injury of unspecified body region, initial encounter (4) Nonhealing nonsurgical wound with fat layer exposed Status: Acute Current Visit: Yes Code(s): T14.8XXA - Other injury of unspecified body region, initial encounter Type of Wound Date of Service: 04/03/20 Chief Complaint: Follow-up on abdominal wound History of Wound: 65-year-old obese white female developed a open wound at her waistline from her pants cutting into her skin. Has been using [id number] antibiotic ointments. Has seen her regular doctor and he has given her several ointments to use without help. Does have some depth but mostly superficial does have a little slough. Progress of Wound: The wound is almost closed small slit left on Fibracol doing very well. She is on the low end of normal for her prealbumin suggested increasing protein intake. CBC was normal it did show that she could possibly have a left shift suggested she repeat it with her family doctor. - Physical Exam Vital Signs Temp Pulse Resp BP 97 F L 87 18 171/87 H 04/03/20 09:24 04/03/20 09:24 04/03/20 09:24 04/03/20 09:24 General: Oriented x3, Cooperative, Well developed HEENT: Atraumatic, PERRLA Oral: Moist Mucosa Neck: Supple, No JVD Lungs: Clear to auscultation, Normal air movement Cardiovascular: Regular rate, Regular Rhythm Abdomen: Bowel Sounds Present, Soft, Non Tender, No Hepato-splenomegaly Extremities: No clubbing, No edema Skin: Ulcer/ Wound - Abdominal wound Wound Measurements and Assessment WC - Nurse 1 - General Ulcer Measurement Start: 03/20/20 07:49 Freq: Status: Active Protocol: Activity Type Activity Date Activity User E-Sign Co-Sign Detail Recorded Client Recorded Date Recorded By Document 04/03/20 09:24 RB [id number] 04/03/20 09:26 RB 04/03/20 09:24 Wound Center Nurse 1 [Ulcer Assessment] #1- MID ABDOMEN -Combined with other wound No -Current Size (cm) - Length 0.2 -Current Size (cm) - Width 0.5 -Current Size (cm) - Depth 0.1 -Total Square Cm 0.10 -Tunneling No -Undermining/Tunneling No -Circular Undermining No -Exudate Amt Small -Exudate Type Serosanguineous -Wound Margin Flat & Intact -Granulation Amt Medium (34-66%) -Granulation Quality [place] -Slough/Fibrin Yes -Necrosis Amt Small (1-33%) -Necrotic Tissue Type Adherent Slough -Structure Exposed N/A -Texture (Laura-wound Skin Appearance) Assessed, Scarring -Moisture (Laura-wound Skin Appearance Assessed ) -Color (Laura-wound Skin Appearance) Assessed -Temperature (Laura-wound Skin No Abnormality Appearance) (Pt Warm) -Tenderness on Palpation (Laura-wound No Skin Appearance) -Ulcer Cleansing Wound Cleanser -Foul Odor after Cleansing No -Anesthetic Used 4% Lidocaine Solution WC - Nurse 2 - General Ulcer CM Notes Start: 03/20/20 07:49 Freq: Status: Active Protocol: Activity Type Activity Date Activity User E-Sign Co-Sign Detail Recorded Client Recorded Date Recorded By Document 04/03/20 09:36 MW [id number] 04/03/20 09:37 MW 04/03/20 09:36 Wound Center Nurse 2 [Procedure/Treatment] -Time 09:36 -Correct Patient Yes -Correct Side, Site, Position Yes -Correct Procedure Yes -Procedure Performed Yes -Type of Procedure Debridement -Clinical Debridement Subcutaneous -Tissue Removed Subcutaneous -Post Debridement (cm) - Length 0.2 -Post Debridement (cm) - Width 0.5 -Post Debridement (cm) - Depth 0.1 -Total Square (Post) (cm) 0.10 -Area of Debridement (cm) - Length 0.2 -Area of Debridement (cm) - Width 0.5 -Total Square (Area) (cm) 0.10 -Tunneling No -Undermining/Tunneling No -Circular Undermining No -Wound/Ulcer Outcome Not Healed -Ulcer Cleansing Rinsed/ Irrigated with Saline -Foul Odor after Cleansing No -Bioengineered Tissue No -Bleeding Controlled with Pressure -Offloading No -Treatment Response Procedure Tolerated Well -Debridement - Subq, 1st 20sq cm Yes [See Physician Procedure note for Specifics] Pain Scale: 0-10 Numeric [Pain] -Is Patient Pain Free? Yes WC - Nurse 3 - General Ulcer D/C NN Start: 03/20/20 07:49 Freq: Status: Active Protocol: Activity Type Activity Date Activity User E-Sign Co-Sign Detail Recorded Client Recorded Date Recorded By Document 04/03/20 09:37 MW [id number] 04/03/20 09:38 MW 04/03/20 09:37 Wound Care Nurse 3 [Wound Dressing] #1- MID ABDOMEN -Ulcer Cleansing Rinsed/ Irrigated with Saline -Foul Odor after Cleansing No -Negative Pressure Wound Therapy N/A -Primary Dressing Applied Fibracol Plus 4x4,NonAdherent Contact Layer -Primary Dressing Covered/Secured Dry Gauze with -Fibracol Plus 4x4 1 Pain Scale: 0-10 Numeric [Pain] -Is Patient Pain Free? Yes Teaching: Wound Center [Wound Center Education] (Items with an * have Printed Materials Available- Please identify what is given to patient under the Teaching materials given to patient and caregiver Section. Dressing Your Wound -Person Taught Patient -Teaching Method Discussion, Demonstration -Response to teaching Verbalize understanding WC - Visit Discharge [Visit Discharge Information] -Discharge Condition Stable -Ambulatory Status Ambulatory -Transportation Private Auto -Accompanied by self -Medication Reconcilliation completed No & provided to patient/care provider -Clinical Summary of Care Provided Yes Musculoskeletal: No Tenderness to Palpation of Joints or Extremities Lymphatic: No Cervical, Supraclavicular, or Inguinal Adenopathy Neurological: Cranial nerves II-XII grossly intact, Neuro grossly intact Psych/Mental Status: Normal Affect, Appropriate, Alert and oriented to time, place, person, mood and affect Debridement Note Post-Debridement Measurements/Treatment LINDA - Nurse 2 - General Ulcer CM Notes Start: 03/20/20 07:49 Freq: Status: Active Protocol: Activity Type Activity Date Activity User E-Sign Co-Sign Detail Recorded Client Recorded Date Recorded By Document 03/20/20 08:48 MW [id number] 03/20/20 08:50 MW Document 03/27/20 10:23 MW [id number] 03/27/20 10:24 MW Document 04/03/20 09:36 MW [id number] 04/03/20 09:37 MW 03/20/20 03/27/20 04/03/20 08:48 10:23 09:36 Wound Center Nurse 2 #1- MID ABDOMEN -Time 08:49 10:23 09:36 -Correct Patient Yes Yes Yes -Correct Side, Site, Position Yes Yes Yes -Correct Procedure Yes Yes Yes -Procedure Performed Yes Yes Yes -Type of Procedure Debridement Debridement Debridement -Clinical Debridement Subcutaneous Subcutaneous Subcutaneous -Tissue Removed Subcutaneous Subcutaneous Subcutaneous -Post Debridement (cm) - Length 0.8 0.7 0.2 -Post Debridement (cm) - Width 2.5 2.5 0.5 -Post Debridement (cm) - Depth 0.2 0.2 0.1 -Total Square (Post) (cm) 2.00 1.75 0.10 -Area of Debridement (cm) - Length 0.8 0.7 0.2 -Area of Debridement (cm) - Width 2.5 2.5 0.5 -Total Square (Area) (cm) 2.00 1.75 0.10 -Tunneling No No No -Undermining/Tunneling No No No -Circular Undermining No No No -Wound/Ulcer Outcome Not Healed Not Healed Not Healed -Ulcer Cleansing Rinsed/ Rinsed/ Rinsed/ Irrigated with Irrigated with Irrigated with Saline Saline Saline -Foul Odor after Cleansing No No No -Bioengineered Tissue No No No -Bleeding Controlled with Pressure Pressure Pressure -Offloading No No No -Treatment Response Procedure Tolerated Well -Debridement - Subq, 1st 20sq cm Yes Yes Yes Pain Scale: 0-10 Numeric Is Patient Pain Free? Yes Yes Yes WC - Nurse 3 - General Ulcer D/C NN Start: 03/20/20 07:49 Freq: Status: Active Protocol: Activity Type Activity Date Activity User E-Sign Co-Sign Detail Recorded Client Recorded Date Recorded By Document 03/20/20 08:57 MW [id number] 03/20/20 08:57 MW Document 03/27/20 10:32 [facility] [id number] 03/27/20 10:33 BMF Document 04/03/20 09:37 MW [id number] 04/03/20 09:38 MW 03/20/20 03/27/20 04/03/20 08:57 10:32 09:37 Wound Care Nurse 3 #1- MID ABDOMEN -Ulcer Cleansing Rinsed/ Rinsed/ Rinsed/ Irrigated with Irrigated with Irrigated with Saline Saline Saline -Foul Odor after Cleansing No No No -Negative Pressure Wound Therapy N/A N/A -Primary Dressing Applied NonAdherent Fibracol Plus Fibracol Plus Contact Layer, 4x4,NonAdherent 4x4,NonAdherent Promogran Contact Layer Contact Layer -Primary Dressing Covered/Secured with Dry Gauze, Dry Gauze, Dry Gauze Secured with Secured with Tape Tape -Fibracol Plus 4x4 1 1 -Promogran 1 Treatment Response Procedure Procedure Tolerated Well Tolerated Well Pain Scale: 0-10 Numeric Is Patient Pain Free? Yes Yes Yes Teaching: Wound Center Dressing Your Wound -Person Taught Patient Patient -Teaching Method Discussion, Discussion, Demonstration Demonstration -Response to teaching Verbalize Verbalize understanding understanding WC - Visit Discharge Discharge Condition Stable Stable Stable Ambulatory Status Ambulatory Ambulatory Ambulatory Transportation Private Auto Private Auto Private Auto Accompanied by self self Medication Reconcilliation completed & No No provided to patient/care provider Clinical Summary of Care Provided Yes Yes Wound debrided: Abdominal wound Type of Debridement: Excisional debridement Anesthesia Used: 5% Lidocaine Gel Depth: Down to and including healthy tissue, in the subcutaneous layer Percentage of wound debrided: 100 Instrument Used: 3mm curette Tissue Removed: Fibrin Severity: Limited To Skin Breakdown Amount of bleeding with debridement: Mild Bleeding Controlled with: Compression and gauze Patient tolerated procedure well Assessment/Plan Active Problems (Last Reviewed 03/23/19 @ 14:22 by Silvia Fabian) Open wound anterior abdominal wall (Acute) Non-healing non-surgical wound (Acute) Nonhealing nonsurgical wound with fat layer exposed (Acute) Morbid obesity with BMI of 40.0-44.9, adult (Chronic) Assessment: Morbid obesity. Traumatic abdominal wound. Nonhealing nonsurgical abdominal wound at waistline Plan: Wash wound with antibacterial soap. Apply upper call to wound base moistened cover with Fibracol Adaptic gauze and anti-allergic tape. Follow-up in 1 week
[2020-04-10 09:11] VITALS: BP 169/88; PULSE 82; RESP 16; TEMP 36.7; BMI 43.7
--- NOTE | 2020-04-10 09:22 | PCM.WC.PN ---
(1) Open wound anterior abdominal wall Status: Acute Current Visit: No Qualifiers: Encounter type: subsequent encounter Qualified Code(s): S31.109D - Unspecified open wound of abdominal wall, unspecified quadrant without penetration into peritoneal cavity, subsequent encounter Code(s): S31.109A - Unspecified open wound of abdominal wall, unspecified quadrant without penetration into peritoneal cavity, initial encounter (2) Morbid obesity with BMI of 40.0-44.9, adult Status: Chronic Current Visit: Yes Code(s): Z68.41 - Body mass index (BMI) 40.0-44.9, adult (3) Non-healing non-surgical wound Status: Acute Current Visit: No Code(s): T14.8XXA - Other injury of unspecified body region, initial encounter (4) Nonhealing nonsurgical wound with fat layer exposed Status: Acute Current Visit: No Code(s): T14.8XXA - Other injury of unspecified body region, initial encounter Type of Wound Date of Service: 04/10/20 Chief Complaint: Follow-up on abdominal wound History of Wound: 65-year-old obese white female developed a open wound at her waistline from her pants cutting into her skin. Has been using [id number] antibiotic ointments. Has seen her regular doctor and he has given her several ointments to use without help. Does have some depth but mostly superficial does have a little slough. Progress of Wound: The wound is healed patient will be discharged from the wound center - Physical Exam Vital Signs Temp Pulse Resp BP 98.0 F 82 16 169/88 H 04/10/20 09:11 04/10/20 09:11 04/10/20 09:11 04/10/20 09:11 General: Oriented x3, Cooperative, Well developed HEENT: Atraumatic, PERRLA Oral: Moist Mucosa Neck: Supple, No JVD Lungs: Clear to auscultation, Normal air movement Cardiovascular: Regular rate, Regular Rhythm Abdomen: Bowel Sounds Present, Soft, Non Tender, No Hepato-splenomegaly, - - Abdominal wound healed Extremities: No clubbing, No edema Wound Measurements and Assessment WC - Nurse 1 - General Ulcer Measurement Start: 03/20/20 07:49 Freq: Status: Active Protocol: Activity Type Activity Date Activity User E-Sign Co-Sign Detail Recorded Client Recorded Date Recorded By Document 04/10/20 09:11 MW [id number] 04/10/20 09:16 MW 04/10/20 09:11 Wound Center Nurse 1 [Ulcer Assessment] #1- MID ABDOMEN -Combined with other wound No -Current Size (cm) - Length 0.1 -Current Size (cm) - Width 0.1 -Current Size (cm) - Depth 0.1 -Total Square Cm 0.01 -Date of Last Picture (Recall this 04/10/20 field) -Photo Taken Yes -Epithelialization Large 67-100% -Tunneling No -Undermining/Tunneling No -Circular Undermining No -Exudate Amt None Present -Wound Margin Flat & Intact -Granulation Amt None Present (0 %) -Granulation Quality N/A -Slough/Fibrin No -Necrosis Amt None Present (0 %) -Structure Exposed N/A -Texture (Laura-wound Skin Appearance) Assessed, Scarring -Moisture (Laura-wound Skin Appearance No Abnormality, ) Assessed -Color (Laura-wound Skin Appearance) No Abnormality, Assessed -Temperature (Laura-wound Skin No Abnormality Appearance) (Pt Warm) -Tenderness on Palpation (Laura-wound Yes Skin Appearance) -Ulcer Cleansing Rinsed/ Irrigated with Saline -Foul Odor after Cleansing No [Edema Assessment] -Lower Limb Edema Present No WC - Nurse 2 - General Ulcer CM Notes Start: 03/20/20 07:49 Freq: Status: Active Protocol: Activity Type Activity Date Activity User E-Sign Co-Sign Detail Recorded Client Recorded Date Recorded By Document 04/10/20 09:17 MW [id number] 04/10/20 09:20 MW 04/10/20 09:17 Wound Center Nurse 2 [Procedure/Treatment] #1- MID ABDOMEN -Time 09:17 -Correct Patient Yes -Correct Side, Site, Position Yes -Correct Procedure Yes -Procedure Performed No -Post Debridement (cm) - Length 0 -Post Debridement (cm) - Width 0 -Post Debridement (cm) - Depth 0 -Total Square (Post) (cm) 0 -Wound/Ulcer Outcome Healed- Epithelialized [See Physician Procedure note for Specifics] Pain Scale: 0-10 Numeric [Pain] -Is Patient Pain Free? Yes Musculoskeletal: No Tenderness to Palpation of Joints or Extremities Lymphatic: No Cervical, Supraclavicular, or Inguinal Adenopathy Neurological: Cranial nerves II-XII grossly intact, Neuro grossly intact Psych/Mental Status: Normal Affect, Appropriate Debridement Note Post-Debridement Measurements/Treatment WC - Nurse 2 - General Ulcer CM Notes Start: 03/20/20 07:49 Freq: Status: Active Protocol: Activity Type Activity Date Activity User E-Sign Co-Sign Detail Recorded Client Recorded Date Recorded By Document 03/20/20 08:48 MW [id number] 03/20/20 08:50 MW Document 03/27/20 10:23 MW [id number] 03/27/20 10:24 MW Document 04/03/20 09:36 MW [id number] 04/03/20 09:37 MW Document 04/10/20 09:17 MW [id number] 04/10/20 09:20 MW 03/20/20 03/27/20 04/03/20 08:48 10:23 09:36 Wound Center Nurse 2 #1- MID ABDOMEN -Time 08:49 10:23 09:36 -Correct Patient Yes Yes Yes -Correct Side, Site, Position Yes Yes Yes -Correct Procedure Yes Yes Yes -Procedure Performed Yes Yes Yes -Type of Procedure Debridement Debridement Debridement -Clinical Debridement Subcutaneous Subcutaneous Subcutaneous -Tissue Removed Subcutaneous Subcutaneous Subcutaneous -Post Debridement (cm) - Length 0.8 0.7 0.2 -Post Debridement (cm) - Width 2.5 2.5 0.5 -Post Debridement (cm) - Depth 0.2 0.2 0.1 -Total Square (Post) (cm) 2.00 1.75 0.10 -Area of Debridement (cm) - Length 0.8 0.7 0.2 -Area of Debridement (cm) - Width 2.5 2.5 0.5 -Total Square (Area) (cm) 2.00 1.75 0.10 -Tunneling No No No -Undermining/Tunneling No No No -Circular Undermining No No No -Wound/Ulcer Outcome Not Healed Not Healed Not Healed -Ulcer Cleansing Rinsed/ Rinsed/ Rinsed/ Irrigated with Irrigated with Irrigated with Saline Saline Saline -Foul Odor after Cleansing No No No -Bioengineered Tissue No No No -Bleeding Controlled with Pressure Pressure Pressure -Offloading No No No -Treatment Response Procedure Tolerated Well -Debridement - Subq, 1st 20sq cm Yes Yes Yes Pain Scale: 0-10 Numeric Is Patient Pain Free? Yes Yes Yes 04/10/20 09:17 Wound Center Nurse 2 #1- MID ABDOMEN -Time 09:17 -Correct Patient Yes -Correct Side, Site, Position Yes -Correct Procedure Yes -Procedure Performed No -Type of Procedure -Clinical Debridement -Tissue Removed -Post Debridement (cm) - Length 0 -Post Debridement (cm) - Width 0 -Post Debridement (cm) - Depth 0 -Total Square (Post) (cm) 0 -Area of Debridement (cm) - Length -Area of Debridement (cm) - Width -Total Square (Area) (cm) -Tunneling -Undermining/Tunneling -Circular Undermining -Wound/Ulcer Outcome Healed- Epithelialized -Ulcer Cleansing -Foul Odor after Cleansing -Bioengineered Tissue -Bleeding Controlled with -Offloading -Treatment Response -Debridement - Subq, 1st 20sq cm Pain Scale: 0-10 Numeric Is Patient Pain Free? Yes - Nurse 3 - General Ulcer D/C NN Start: 03/20/20 07:49 Freq: Status: Active Protocol: Activity Type Activity Date Activity User E-Sign Co-Sign Detail Recorded Client Recorded Date Recorded By Document 03/20/20 08:57 MW [id number] 03/20/20 08:57 MW Document 03/27/20 10:32 BMF [id number] 03/27/20 10:33 BMF Document 04/03/20 09:37 MW [id number] 04/03/20 09:38 MW 03/20/20 03/27/20 04/03/20 08:57 10:32 09:37 Wound Care Nurse 3 #1- MID ABDOMEN -Ulcer Cleansing Rinsed/ Rinsed/ Rinsed/ Irrigated with Irrigated with Irrigated with Saline Saline Saline -Foul Odor after Cleansing No No No -Negative Pressure Wound Therapy N/A N/A -Primary Dressing Applied NonAdherent Fibracol Plus Fibracol Plus Contact Layer, 4x4,NonAdherent 4x4,NonAdherent Promogran Contact Layer Contact Layer -Primary Dressing Covered/Secured with Dry Gauze, Dry Gauze, Dry Gauze Secured with Secured with Tape Tape -Fibracol Plus 4x4 1 1 -Promogran 1 Treatment Response Procedure Procedure Tolerated Well Tolerated Well Pain Scale: 0-10 Numeric Is Patient Pain Free? Yes Yes Yes Teaching: Wound Center Dressing Your Wound -Person Taught Patient Patient -Teaching Method Discussion, Discussion, Demonstration Demonstration -Response to teaching Verbalize Verbalize understanding understanding WC - Visit Discharge Discharge Condition Stable Stable Stable Ambulatory Status Ambulatory Ambulatory Ambulatory Transportation Private Auto Private Auto Private Auto Accompanied by self self Medication Reconcilliation completed & No No provided to patient/care provider Clinical Summary of Care Provided Yes Yes No debridement was completed today Assessment/Plan Active Problems (Last Reviewed 03/23/19 @ 14:22 by Silvia Fabian) Morbid obesity with BMI of 40.0-44.9, adult (Chronic) Assessment: Morbid obesity. Traumatic abdominal wound resolved. Nonhealing nonsurgical abdominal wound at waistline resolved Plan: Discharge from the wound center and follow-up as needed
== END 2020-04-10 10:15 | disposition home or self-care (01) ==
LOC: WC 08:45
PROVIDERS: PCP Family Medicine; Referring Provider Nurse Practitioner; Visit Provider Nurse Practitioner
CPT/HCPCS: 11042; 36415; 84134; 85025; 99212; G0463

== ENCOUNTER → 2020-04-18 10:58 | Outpatient (CLI) | payer MEDICARE, OTHER, SELFPAY ==
[2020-04-10 09:11] VITALS: BMI 43.7
--- NOTE | 2020-04-18 11:05 | MRI_ITS ---
STUDY: MRI LEFT SHOULDER REASON FOR EXAM: Female, 65 years old. incomplete rtc, surgery 12/2019, reinjured 2-3 wks ago, limited r.o.m TECHNIQUE: Standardized fat and water weighted pulse sequences were obtained in all 3 orthogonal planes. COMPARISON: 10/09/2019 FINDINGS: Status post rotator cuff repair with the surgical anchors in the anterior and lateral humeral head. Full-thickness complete tear of the supraspinatus tendon retracted to the mid humeral head. The infraspinatus tendon appears retracted. Normal subscapularis tendon. Normal teres minor tendon. There is moderate muscular atrophy of the supraspinatus muscle. Normal infraspinatus muscle. Normal subscapularis muscle. Normal teres minor muscle. Normal glenohumeral articulation. Normal humeral head and visualized proximal humerus. Normal biceps labral complex. Status post long head of the biceps tendon tenodesis. Normal labrum. Normal capsulo- ligamentous complex. Normal rotator interval. There is mild osteoarthritis of the acromioclavicular articulation. There is a Type II morphology (curved), with a neutral orientation. There is no subacromial-subdeltoid bursal fluid. Normal visualized coracohumeral and coracoacromial ligaments. Normal quadrilateral space. Normal axillary space. Normal deltoid muscle. Normal trapezius muscle. MRI/Upper Ext Joint Only(Routine) IMPRESSION: Status post rotator cuff repair with recurrent full-thickness complete tear of the supraspinatus tendon retracted to the mid humeral head with moderate muscular atrophy. Electronically Signed: Lkoesh Thao MD at 15:09 EDT Tel , Service support ,
== END ==
PROVIDERS: PCP Family Medicine
DX: M75.112 Incomplete rotator cuff tear or rupture of left shoulder, not specified as traumatic (principal)
CPT/HCPCS: 73221

== ENCOUNTER → 2020-07-17 15:16 | Outpatient (CLI) | payer MEDICARE, OTHER, SELFPAY ==
[2020-05-25 08:55] VITALS: BMI 48.2
--- NOTE | 2020-07-17 15:30 | RAD_ITS ---
STUDY: X-RAY - LEFT SHOULDER REASON FOR EXAM: Female, 65 years old. SURGERY MAY 2020, FALL X2 WEEKS AGO ONTO LEFT SHOULDER, PAIN TECHNIQUE: 2 view(s) of the shoulder. COMPARISON: Prior shoulder radiographs of 10/02/2019 FINDINGS: She is status post a total shoulder arthroplasty. The glenoid and humeral components are located without periprosthetic fracture. Normal acromioclavicular joint. Normal acromion. Normal humeral head and visualized proximal humerus. The soft tissue structures are unremarkable. Normal visualized pulmonary apex. RAD/Shoulder min 2 Views IMPRESSION: No acute bone or joint findings status post left total shoulder arthroplasty. Electronically Signed: Ani Rascon MD at 15:49 EST , Service support ,
== END ==
PROVIDERS: PCP Family Medicine; Referring Provider Physician Assistant; Visit Provider Physician Assistant
DX: Z96.612 Presence of left artificial shoulder joint (principal)
CPT/HCPCS: 73030

== ENCOUNTER 2020-09-12 09:00 | Outpatient (RCR) | payer MEDICARE, OTHER, SELFPAY ==
[2020-05-25 08:55] VITALS: BMI 48.2
--- NOTE | 2020-05-30 09:13 | HP.PTEVAL_ITS ---
Patient's Visit Information MAKEDA EM is a 65 year old F referred to Physical Therapy by Dr. Akira Bravo MD with a diagnosis of Left Reverse Total Shoulder. Date of Evaluation: 05/30/20 Physical Therapist: Sandi Trent DPT - Visit Plan Frequency: 2x /Week Duration: 6 Weeks Plan: Left Reverse Total Shoulder 05/20/2020 Phase 1 only - GENTLE - Subjective Patient had left reverse total shoulder 05/20/2020- its sore but she is doing her exercise in the AM and PM- she is working on pendulums and PROM by her . Sleep: in the chair and is still taking a pain pill at night. Pain is located in the anterior shoulder- about 8:30 at night she is having severe pain in the shoulder blade. Worst: 8/10 Agg: the exercises Best: 0/10 Eases: sitting in her sling, ice and pain medication. Her right hand is doing numb when she rests her elbow on the chair. Goes back to June 25. Sinus infection last week so she had to delay therapy. Sedentary lifestyle but wants to get back to more actvitiy. She had a reverse on the right side. at home to help- not currently driving but will get back to driving. PMHx/Meds: no changes. - Objective Posture: FH, RS - was not corrected- wearing sling on left UE- increased guarding. Gait: no LE deviation noted- wearing sling- decreased arm swing and trunk rotation. ROM: Finger dexterity WFL Wrist WFL, Sup/Pro WFL, Active elbow WFL with pain flexion, Passive Shoulder ER neutral flexion 80 degrees, abd: 90 degrees, IR: to belly Cervical WFL. Strength: Health And Safety Consultant: WFL. Sensaton: WNL to gross B touch. Incision: No signs of infection - healing aprropriately - Goals Goal 1:: Patient will be I with HEP and progression Goal Time Frame: 8-12 Weeks Goal 2:: Patient will demo full PROM to AROM as per protocol Goal Time Frame: 8-12 Weeks Goal 3:: Patient will maintain proper posture t/o tx session to demo increased scap s/s as per protocol Goal Time Frame: 8-12 Weeks - Rehabilitation Potential Physical Therapy Diagnosis: Patient presents with hypomobility- she has decreased ROM, strength and muscular endurance s/p left reverse total shoulder leading to poor posture and increased pain with ADL's. Rehabilitation Potential: Fair - Anticipated Interventions Patient/Client Instruction: Educate patient on: Benefits of Fitness Program Therapeutic Exercise to Include: Strength training, Endurance training, Body mechanics, Postural training, Flexibilty training, Neuromotor development, Passive ROM, Active ROM, Scapular Strength/Stabilization Comment: as per protocol from MD TENS: Yes Cryotherapy (ice pack, ice massage): Yes Thermo therapy (hot pack): Yes Ultrasound (thermal/non thermal): No Thank you for the opportunity to evaluate your patient. For Medicare and Medicare HMO plans, please review the plan of care and approve it. It will need to be FAXED BACK to us at [phone] for Medicare purposes. For Medicare only, by signing this I certify the plan of care. Please let me know if there are questions or concerns regarding this plan of care. Physician Signature: Date:
--- NOTE | 2020-06-27 09:46 | HP.PTREVAL_ITS ---
Dr. kAira Bravo MD, It has been my pleasure to treat MAKEDA EM over the last 3 visits for Left Reverse Total Shoulder. Please see the progress note below for an update on the physical therapy plan of care! Subjective: Went to the MD on Wednesday who took x-rays and everything looks great and he is really happy with her progress. She feels the shoulder is coming. She is not wearing her sling. Can't wash her hair or raise it. She is able to get her slacks up and socks on. Wants to resume PT again. Sore when she wears her bra strap and with movement. Objective/Function: Posture: FH, RS- no sling or increased guarding of the left UE. Palpation: tender along bicipital groove. ROM: Elbow/Wrist/Hand: WNL ROM- AROM: 40 ER, IR: to greater troch, flexion: 70 degrees with compensation Abd: 50 degrees with compensation. PROM: Flexion: 147 degrees Abduction: 132 degrees. Strength Isometric: 4/5 in neutral position shoulder, Elbow: 4/5. Plan Plan: Left Reverse Total Shoulder 05/20/2020 Phase 1 only - GENTLE. 06/27/2020: new script from MD- progress through phase I, II and III Goals Goal 1:: Patient will be I with HEP and progression Goal Time Frame: 8-12 Weeks Goal Progress: Progressing Goal 2:: Patient will demo full PROM to AROM as per protocol Goal Time Frame: 8-12 Weeks Goal Progress: Progressing Goal 3:: Patient will maintain proper posture t/o tx session to demo increased scap s/s as per protocol Goal Time Frame: 8-12 Weeks Goal Progress: Progressing Anticipated Interventions Patient/Client Instruction: Educate patient on: Benefits of Fitness Program Therapeutic Exercise to Include: Strength training, Endurance training, Body mechanics, Postural training, Flexibilty training, Neuromotor development, Passive ROM, Active ROM, Scapular Strength/Stabilization Comment: as per protocol from MD TENS: Yes Cryotherapy (ice pack, ice massage): Yes Thermo therapy (hot pack): Yes Ultrasound (thermal/non thermal): No Please do not hesitate to contact me at [phone] by phone or if you have questions or concerns regarding this new plan of care! Sincerely, Sandi Trent DPT
--- NOTE | 2020-09-12 09:36 | HP.PTDCSUM ---
It has been my pleasure to treat MAKEDA EM referred by Dr. Akira Bravo MD, with the diagnosis of Left Reverse Total Shoulder for a total of 14 visit(s). Discharge Date: Please see the following information for a summary of their discharge status. Subjective: Pt reports that the shoulder has been feeling good, no pain. Pt reports that she is not at 100 d/t range but she is still functional. % Improvement: 85 Objective/Function: Posture: FH, RS. Palpation: denies tenderness, upper trap tightness d/t compensation. ROM: Elbow/Wrist/Hand: WNL ROM-AROM: 40 ER, IR: to belt line, flexion: 95 degrees with compensation Abd: 70 degrees with compensation. Strength: shoulder: 4-/5 in all planes, Elbow: 4/5. Goal 1:: Patient will be I with HEP and progression Goal Progress: Goal Met Goal 2:: Patient will demo full PROM to AROM as per protocol Goal Progress: Progressing Goal 3:: Patient will maintain proper posture t/o tx session to demo increased scap s/s as per protocol Goal Progress: Progressing Plan: Pt to be d/t and continue with I HEP, encouraged to contact with any questions or concerns If there are questions or concerns regarding this patient's physical therapy, please feel free to call me at [phone]. Thank you for the referral of this patient. Sincerely, Sandi Trent DPT
== END 2020-09-12 10:37 | disposition home or self-care (01) ==
LOC: PT 09:00
PROVIDERS: PCP Family Medicine; Referring Provider Orthopaedic Surgery; Visit Provider Orthopaedic Surgery
DX: M12.812 Other specific arthropathies, not elsewhere classified, left shoulder (principal); Z96.612 Presence of left artificial shoulder joint; Z96.611 Presence of right artificial shoulder joint
CPT/HCPCS: 97110; 97140; 97162; 97164

== ENCOUNTER → 2020-10-04 08:06 | Outpatient (CLI) | payer MEDICARE, OTHER, SELFPAY ==
[2020-09-04 09:19] VITALS: BMI 42.7
[2020-10-04 10:17] LABS: Absolute Lymphocyte Count 1.88 X10^3/uL (0.83-4.51); Absolute Neutrophil Count 2.8 X10^3/uL (2.0-7.7); Basophil# 0.03 X10^3/uL; Basophil% 0.6 % (0-1); Eosinophil# 0.25 X10^3/uL; Eosinophils% 4.6 % (0-5); Hematocrit 40.7 % (37-47); Hemoglobin 12.9 g/dL (12.0-15.0); Lymphocyte # 1.88 X10^3/ul (4.0); Lymphocyte % 34.6 % (19-41); Mean Corp Hgb Conc 31.7 g/dL (32-36); Mean Corpuscular Hgb 30.2 pg (27.0-32.0); Mean Corpuscular Volume 95.3 fL (81-99); Mean Platelet Vol. 10.1 fl (6.2-12.0); Monocyte# 0.44 X10^3/uL; Monocyte% 8.1 % (0-10); NRBC Flagged by Analyzer 0 % (0-5); Neutrophil # 2.82 X10^3/uL (2.7-7.7); Neutrophil % 51.7 % (47-70); Platelet Count 273 K/mm3 (150-450); RBC Distribution Width CV 13.1 % (11.6-14.6); RBC Distribution Width SD 45.7 fl (35.1-43.9); Red Blood Count 4.27 M/mm3 (4.2-5.4); White Blood Count 5.4 K/mm3 (4.4-11.0)
[2020-10-04 10:52] LABS: ALB/GLOB Ratio 0.9 RATIO (0.9-2.4); AST(SGOT) 19 U/L (15-37); Alanine Aminotransfer ALT/SGPT 33 U/L (13-56); Albumin, Serum 3.3 g/dL (3.2-5.0); Alkaline Phosphatase 122 U/L (45-117); Anion Gap 7 (5-15); BUN 18 mg/dL (7-18); BUN/Creat Ratio 18.5 RATIO (10-20); Chloride 102 mmol/L (98-107); Cholesterol 167 mg/dL (200); Creatinine, Serum 0.97 mg/dL (0.55-1.02); EST Glomerular Filtration Rate 61 mL/min (>60); Est Glom Filt Rate - Afr Amer 74 mL/min (>60); Globulin 3.7 g/dL (2.2-4.2); Glucose 102 mg/dL (74-106); High Density Lipoprotein 48 mg/dL; Potassium 3.6 mmol/L (3.5-5.1); Sodium Level 137 mmol/L (136-145); Triglycerides 116 mg/dL; Very Low Density Lipoprotein 23 mg/dL (5-40)
[2020-10-04 10:54] LABS: Vitamin D,25 Hydroxy 42.1 ng/mL
== END ==
PROVIDERS: PCP Family Medicine; Referring Provider Family Medicine; Visit Provider Family Medicine
DX: E78.5 Hyperlipidemia, unspecified (principal); I10 Essential (primary) hypertension; K21.9 Gastro-esophageal reflux disease without esophagitis; M81.0 Age-related osteoporosis without current pathological fracture; E55.9 Vitamin D deficiency, unspecified
CPT/HCPCS: 36415; 80053; 80061; 82306; 85025

== ENCOUNTER → 2020-10-25 | Outpatient (CLI) | payer MEDICARE, OTHER, SELFPAY ==
[2020-09-04 09:19] VITALS: BMI 42.7
== END | disposition home or self-care (01) ==
LOC: LABSPEC 15:17
PROVIDERS: PCP Family Medicine; Visit Provider Family Medicine
DX: N39.0 Urinary tract infection, site not specified (principal)
CPT/HCPCS: 87086; 87088; 87186

== ENCOUNTER → 2020-11-13 08:41 | Outpatient (CLI) | payer MEDICARE, OTHER, SELFPAY ==
[2020-09-04 09:19] VITALS: BMI 42.7
--- NOTE | 2020-11-13 08:43 | BI_ITS ---
MAMMOGRAPHY - BILATERAL SCREENING REASON FOR EXAM: Female, 65 years old. Routine annual screening examination. PERTINENT HISTORY: Non-contributory. TECHNIQUE: Digital bilateral breast denny (3D mammographic acquisition) in the CC and MLO projections. 2-D mediolateral oblique (MLO) and craniocaudad (CC) views of both breasts were obtained. CAD: Full Field Digital Mammography with Computer Added Detection was performed. COMPARISON: Comparison is made with prior study dated 07/06/2019. FINDINGS: Breast Composition: The breasts are almost entirely fatty. There are no dominant masses or suspicious calcifications. Stable small benign appearing bilateral axillary lymph nodes. No other significant abnormalities are identified. There has been no significant change since the prior study. BI/SCRN MAMM (CAD)W/DENNY BILAT IMPRESSION: Stable bilateral screening mammogram. Yearly follow-up mammogram recommended. (A) ASSESSMENT CATEGORY: BIRADS Category 2: Benign. A letter regarding these results will be sent to the patient by the facility within 30 days. Approximately 10% of breast cancers are not detected by mammography. A normal mammogram should not delay biopsy of a clinically suspicious abnormality. [id number] Electronically Signed: Adin Tay MD at 10:24 EDT , Service support ,
== END ==
PROVIDERS: PCP Family Medicine; Referring Provider Family Medicine; Visit Provider Family Medicine
DX: Z12.31 Encounter for screening mammogram for malignant neoplasm of breast (principal)
CPT/HCPCS: 77063; 77067

== ENCOUNTER → 2020-11-14 11:15 | Outpatient (CLI) | payer MEDICARE, OTHER, SELFPAY ==
[2020-09-04 09:19] VITALS: BMI 42.7
[2020-11-14 15:22] LABS: Color, Urine Yellow (Yellow); Glucose, Dipstick Normal (Normal); Ketone-Dipstick 15 mg/dl (Negative); Leukocyte Esterase-Dipstick 500 /ul (Negative); Nitrite-Dipstick Positive (Negative); Occult Blood-Urine 10 /ul (Negative); Protein-Dipstick 15 mg/dl (Negative); Urine Bilirubin Dipstick Negative (Negative); Urine Clarity Sl. Cloudy (Clear); Urine Urobilinogen Normal (Normal)
== END ==
PROVIDERS: PCP Family Medicine; Referring Provider Family Medicine; Visit Provider Family Medicine
DX: N39.0 Urinary tract infection, site not specified (principal)
CPT/HCPCS: 81002; 87077; 87086; 87088; 87186

== ENCOUNTER 2020-11-29 05:28 | Day surgery (SDC) | payer MEDICARE, OTHER, SELFPAY ==
[2020-09-04 09:19] VITALS: BMI 42.7
[2020-11-29] VITALS (8 sets, daily range): BP systolic 97–149; BP diastolic 28–120; PULSE 70–82; RESP 16; TEMP 36.1–36.9; O2SAT 8–100; BMI 40.1
--- NOTE | 2020-11-29 06:02 | PCM.HP.STD ---
[facility] - General General Date of Admission: 09/23/15 HPI Narrative MAKEDA EM, is a 65 F who presents today for a surveillance colonoscopy. She has had a previous history of colon polyps. She states that she thinks her last colonoscopy was 6 years ago. She states that she had a very difficult to reach colon polyp and that I referred her to [facility] where in a advanced technique they were able to remove it. She denies bright red blood per rectum or melena. No abdominal pain. No unexpected weight loss. She has not had COVID-19. She presents via open access today. [facility] Medical History (Updated 11/29/20 @ 06:[address] Gilbert Ding MD) Abdominal pain Chronic headaches CPAP (continuous positive airway pressure) dependence Edema GERD (gastroesophageal reflux disease) History of trigger finger HTN (hypertension) Migraine headache Morbid obesity with BMI of 40.0-44.9, adult Nausea Non-smoker Obstructive sleep apnea Open wound Osteoarthritis of right hip Osteoporosis Pain aggravated by walking SBO (small bowel obstruction) TIA (transient ischemic attack) Wears glasses Home Medications amitriptyline 150 mg PO QHS 09/07/13 [History Last Taken 09/22/15] hydrochlorothiazide 25 mg PO DAILY 09/07/13 [History Last Taken 09/23/15] omeprazole 20 mg PO QHS 09/07/13 [History Last Taken 04/07/16 22:30] atorvastatin 20 mg PO QHS 09/21/14 [History Last Taken 09/22/15] metoprolol tartrate 25 mg PO BID 12/10/15 [History Last Taken 01/05/17 07:00 25 MG] verapamil 60 mg PO TID 12/07/16 [History Last Taken 01/05/17 07:00 60 MG] aspirin 81 mg tablet,delayed release 81 mg PO DAILY 01/09/19 [History Last Taken 11/22/20] sucralfate 1 gram tablet 1 g PO BID 01/09/19 [History Last Taken Unknown] cholecalciferol (vitamin D3) 2,000 unit PO DAILY 03/13/20 [History Last Taken Unknown] ibandronate 150 mg tablet 150 mg PO QMONTH 05/25/20 [History Last Taken 11/08/20] celecoxib 200 mg capsule 200 mg PO DAILY #30 cap 09/04/20 [Rx Last Taken Unknown] cranberry extract 300 mg PO BID 11/26/20 [History Last Taken Unknown] trimethoprim 100 mg PO QHS 11/26/20 [History Last Taken Unknown] Allergy/AdvReac Type Severity Reaction Status Date / Time adhesive tape Allergy unknown Verified 11/29/20 05:41 codeine Allergy Hives Verified 11/29/20 05:41 levofloxacin Allergy unknown Verified 11/29/20 05:41 cortisone AdvReac Severe migraine Verified 11/29/20 05:41 and skin on fire prednisone AdvReac Severe migraine Verified 11/29/20 05:41 and skin on fire NSAIDS (Non-Steroidal AdvReac Upset Verified 11/29/20 05:41 Anti-Inflamma Stomach promethazine HCl AdvReac RESTLESS Verified 11/29/20 05:41 [From Phenergan] LEG SYNDROME sulfamethoxazole AdvReac Nausea Verified 11/29/20 05:41 [From Bactrim] trimethoprim [From Bactrim] AdvReac Nausea Verified 11/29/20 05:41 coban surgical tape Allergy Rash Uncoded 11/29/20 05:41 STEROIDS Allergy CAUSES Uncoded 11/29/20 05:41 SKIN TO BURN AND TURN RED Family History Sister Colon cancer Father Diabetes Mother Heart disease Hypertension Surgical History (Updated 11/26/20 @ 12:34 by Shawna Nevarez) History of appendectomy History of partial hysterectomy History of reverse total replacement of left shoulder joint (~05/20/20) History of right hip replacement History of right knee joint replacement History of umbilical hernia repair history right shoulder repair Hx of arthroscopy Hx of shoulder surgery Hx of total shoulder replacement Social History (Updated 09/04/20 @ 10:[address] Naresh Peralta DO) Smoking Status: Never smoker alcohol intake: never substance use type: does not use ROS Constitutional Constitutional: Reports systems reviewed and no addt'l complaints, except as documented Eyes Eyes: Reports systems reviewed and no addt'l complaints, except as documented Cardiovascular Cardiovascular: Denies chest pain at rest or chest pain with activity Respiratory/Chest Respiratory/Chest: Denies dyspnea on exertion Gastrointestinal Gastrointestinal: Denies abdominal pain, hematochezia or melena Physical Exam Const alert, oriented x3 and no apparent distress General Appearance: cooperative and comfortable Nutritional Appearance: obese Eyes General Eye: normal appearance of both eyes Resp normal respiratory effort, normal air movement and clear to auscultation bilaterally Cardio regular rate and regular rhythm GI Auscultation: normoactive bowel sounds Palpation: soft; Negative for tender Extremity General Extremity: Negative for calf tenderness Psych Thought Content: normal thought content Assessment & Plan Assessment/Plan (1) Personal history of colonic polyps: PLAN: Patient presents via open access today. Plan to proceed with a colonoscopy with possible biopsy or polypectomy as indicated. She is aware of the technique, benefit, risk, alternatives. We will proceed at her discretion. Gilbert Ding M.D., F.A.C.S.
[2020-11-29] MEDS: Lactated Ringers 1,000 ML 100 ML IV (06:06)
[2020-11-29] MEDS: Midazolam 5 MG/ML Syringe (06:30)
[2020-11-29] MEDS: DiphenhydrAMINE 50 MG/ML Syringe (06:40)
--- NOTE | 2020-11-29 07:05 | OP.CCLET_ITS ---
11/29/2020 Jody Garner [place] [id number] [address] Re : Colonoscopy procedure for Concha Negron Dear Dr. Garner This procedure was performed on Sunday, November 29, 2020. My impressions and recommendations are as follows: Impressions : - Hemorrhoids found on perianal exam. - Diverticulosis in the sigmoid colon and in the descending colon. - Tortuous colon. - No specimens collected. Recommendations : - Discharge patient to home. - Resume previous diet. - Continue present medications. - Repeat colonoscopy is not recommended due to current age (66 years or older) for screening purposes. Technically difficult colonoscopy secondary to tortuous colon and body habitus. Would recommend if further endoscopy is performed that monitored anesthesia care be utilized My findings are described in the full procedure note, which is enclosed. If I can be of further assistance, please feel free to contact me at Doctor phone number(s): Work: . Sincerely, Gilbert Ding MD 11/29/2020 7:05:14 AM This report has been signed electronically.
--- NOTE | 2020-11-29 07:05 | OP.COLON_ITS ---
Patient Name: Concha Negron Procedure Date: 11/29/2020 6:05 AM Date of : 1955 Age: 65 Procedure: Colonoscopy Indications: High risk colon cancer surveillance: Personal history of colonic polyps Providers: Gilbert Ding MD Medicines: Midazolam 5 mg IV, Meperidine 150 mg IV, Diphenhydramine 12.5 mg IV Patient Profile: Last Colonoscopy: 5 years ago. Complications: No immediate complications. Procedure: Pre-Anesthesia Assessment: - Prior to the procedure, a History and Physical was performed, and patient medications and allergies were reviewed. The patient's tolerance of previous anesthesia was also reviewed. The risks and benefits of the procedure and the sedation options and risks were discussed with the patient. All questions were answered, and informed consent was obtained. Prior Anticoagulants: The patient has taken no previous anticoagulant or antiplatelet agents. ASA Grade Assessment: III - A patient with severe systemic disease. After reviewing the risks and benefits, the patient was deemed in satisfactory condition to undergo the procedure. After I obtained informed consent, the scope was passed under direct vision. Throughout the procedure, the patient's blood pressure, pulse, and oxygen saturations were monitored continuously. The colonoscope was introduced through the anus and advanced to the cecum, identified by appendiceal orifice and ileocecal valve. The colonoscopy was technically difficult and complex due to a redundant colon. Successful completion of the procedure was aided by increasing the dose of sedation medication. The patient tolerated the procedure fairly well. The quality of the bowel preparation was good. The ileocecal valve was photographed. Moderate Sedation: Moderate (conscious) sedation was personally administered by the endoscopist. The following parameters were monitored: oxygen saturation, heart rate, blood pressure, and response to care. Total physician intraservice time was 18 minutes. Scope In: 6:33:45 AM Scope Withdrawal Time 0 hours 7 minutes 0 seconds Scope Out: 6:59:48 AM Total Procedure Duration Time 0 hours 26 minutes 3 seconds Findings: Hemorrhoids were found on perianal exam. Multiple diverticula were found in the sigmoid colon and descending colon. The colon (entire examined portion) was significantly tortuous. Advancing the scope required changing the patient to a supine position and using manual pressure. Impression: - Hemorrhoids found on perianal exam. - Diverticulosis in the sigmoid colon and in the descending colon. - Tortuous colon. - No specimens collected. Recommendation: - Discharge patient to home. - Resume previous diet. - Continue present medications. - Repeat colonoscopy is not recommended due to current age (66 years or older) for screening purposes. Technically difficult colonoscopy secondary to tortuous colon and body habitus. Would recommend if further endoscopy is performed that monitored anesthesia care be utilized Procedure Code(s): --- Professional --- 46422, Colonoscopy, flexible; diagnostic, including collection of specimen(s) by brushing or washing, when performed (separate procedure) 49757, 59, Moderate sedation services provided by the same physician or other qualified health child care associate performing the diagnostic or therapeutic service that the sedation supports, requiring the presence of an independent trained observer to assist in the monitoring of the patient's level of consciousness and physiological status; initial 15 minutes of intraservice time, patient age 5 years or older Diagnosis Code(s): --- Professional --- Z86.010, Personal history of colonic polyps K64.9, Unspecified hemorrhoids K57.30, Diverticulosis of large intestine without perforation or abscess without bleeding Q43.8, Other specified congenital malformations of intestine CPT copyright 2017 [employer]. All rights reserved. The codes documented in this report are preliminary and upon label coder review may be revised to meet current compliance requirements. Gilbert Ding MD 11/29/2020 7:05:14 AM This report has been signed electronically. Number of Addenda: 0 Note Initiated On: 11/29/2020 6:05 AM
== END 2020-11-29 08:04 ==
LOC: EN 05:33 → AC 05:34
PROVIDERS: PCP Family Medicine; Referring Provider Family Medicine; Visit Provider Surgery
PROC: 0DJD8ZZ Inspection of Lower Intestinal Tract, Via Natural or Artificial Opening Endoscopic (ICD-10-PCS; CPT 45378; principal; 2020-11-29 06:25)
DX: Z12.11 Encounter for screening for malignant neoplasm of colon (principal); K64.9 Unspecified hemorrhoids; K57.30 Diverticulosis of large intestine without perforation or abscess without bleeding; K56.2 Volvulus; K21.9 Gastro-esophageal reflux disease without esophagitis; I10 Essential (primary) hypertension; E66.01 Morbid (severe) obesity due to excess calories; M81.0 Age-related osteoporosis without current pathological fracture; G47.33 Obstructive sleep apnea (adult) (pediatric); G43.909 Migraine, unspecified, not intractable, without status migrainosus; Z86.010 Personal history of colon polyps; Z68.41 Body mass index [BMI] 40.0-44.9, adult; Z79.82 Long term (current) use of aspirin; Z79.52 Long term (current) use of systemic steroids; Z79.899 Other long term (current) drug therapy; Z86.73 Personal history of transient ischemic attack (TIA), and cerebral infarction without residual deficits
CPT/HCPCS: G0105; 99152; 99153; J7120

== ENCOUNTER → 2021-03-14 | Outpatient (CLI) | payer MEDICARE, OTHER, SELFPAY | END | disposition home or self-care (01) | PROVIDERS: Visit Provider Family Medicine | DX: N39.0 Urinary tract infection, site not specified (principal) | CPT/HCPCS: 87077; 87086; 87088; 87186 ==

== ENCOUNTER → 2021-04-28 16:58 | Outpatient (CLI) | payer MEDICARE, OTHER, SELFPAY ==
[2021-04-28 17:15] LABS: CREATININE FINGERSTICK 0.7 mg/dL (0.55-1.02); EGFR FINGERSTICK > 60.0000 mL/min (>60)
--- NOTE | 2021-04-28 17:20 | CT_ITS ---
STUDY: CT ABDOMEN AND PELVIS WITH CONTRAST REASON FOR EXAM: Female, 66 years old. Abdominal pain RADIATION DOSAGE (If Supplied By Facility): CTDIvol = ( 25.34 ) mGy, DLP = ( 1044.43 ) mGycm TECHNIQUE: CT images were obtained from the dome of the diaphragm to the symphysis pubis without oral contrast. IV 100mL Isovue-[id number] was administered. Sagittal and coronal images were reconstructed. Individualized dose optimization techniques were used for this CT. COMPARISON: 20 January 2019 FINDINGS: The visualized lung bases are unremarkable. The visualized portions of the heart are within normal limits. Normal liver. Normal gallbladder and extrahepatic biliary system. Normal spleen. Normal pancreas. Normal bilateral adrenal glands. Normal right kidney. Normal left kidney. There is no intestinal obstruction. Appendix is removed. There is mild age-appropriate colonic diverticulosis without acute diverticulitis. Normal abdominal aorta. Normal inferior vena cava. Normal retroperitoneum. Normal urinary bladder. There is diastases recti with diffuse weakening of the abdominal wall without focal herniation.. There is right hip replacement. There are no skeletal destructive lesions. CT/CT ANGIO ABD&PEL W/O&W/DYE IMPRESSION: Unremarkable abdomen without acute disease. Electronically Signed: Mago Friedman MD at 18:45 EDT Tel , Service support ,
== END ==
PROVIDERS: PCP Family Medicine; Referring Provider Family Medicine; Visit Provider Family Medicine
DX: R10.13 Epigastric pain (principal)
CPT/HCPCS: 74174; Q9967

== ENCOUNTER → 2021-05-23 | Outpatient (CLI) | payer MEDICARE, OTHER, SELFPAY | END | disposition home or self-care (01) | LOC: LABSPEC 09:33 | PROVIDERS: PCP Family Medicine; Referring Provider Physician Assistant Surgical; Visit Provider Physician Assistant Surgical | DX: Z20.822 Contact with and (suspected) exposure to COVID-19 (principal) | CPT/HCPCS: 87635; U0005; U0003 ==

== ENCOUNTER 2021-07-31 08:02 | Outpatient (CLI) | payer MEDICARE, OTHER, SELFPAY | END 2021-07-31 23:59 | disposition short-term general hospital (02) | LOC: LABSPEC 08:03 | PROVIDERS: Visit Provider Family Medicine | DX: Z20.828 Contact with and (suspected) exposure to other viral communicable diseases (principal) | CPT/HCPCS: 87635; U0003; U0005 ==

== ENCOUNTER 2021-10-23 07:46 | Outpatient (CLI) | payer MEDICARE, OTHER, SELFPAY ==
[2021-10-23 10:16] LABS: Absolute Lymphocyte Count 2.99 X10^3/uL (0.83-4.51); Absolute Neutrophil Count 4.1 X10^3/uL (2.0-7.7); Basophil# 0.04 X10^3/uL; Basophil% 0.5 % (0-1); Eosinophil# 0.23 X10^3/uL; Eosinophils% 2.9 % (0-5); Hematocrit 42.8 % (37-47); Hemoglobin 14.2 g/dL (12.0-15.0); Lymphocyte # 2.99 X10^3/ul (0.83-4.51); Mean Corp Hgb Conc 33.2 g/dL (32-36); Mean Corpuscular Hgb 31.5 pg (27.0-32.0); Mean Corpuscular Volume 94.9 fL (81-99); Monocyte# 0.48 X10^3/uL; Monocyte% 6.1 % (0-10); NRBC Flagged by Analyzer 0 % (0-5); Neutrophil % 52.2 % (47-70); Platelet Count 316 K/mm3 (150-450); RBC Distribution Width CV 12.3 % (11.6-14.6); Red Blood Count 4.51 M/mm3 (4.2-5.4); White Blood Count 7.9 K/mm3 (4.4-11.0)
[2021-10-23 10:29] LABS: Vitamin D,25 Hydroxy 49.7 ng/mL
[2021-10-23 10:57] LABS: ALB/GLOB Ratio 0.9 RATIO (0.9-2.4); AST(SGOT) 11 U/L (15-37); Alanine Aminotransfer ALT/SGPT 20 U/L (13-56); Albumin, Serum 3.6 g/dL (3.2-5.0); Alkaline Phosphatase 89 U/L (45-117); Anion Gap 5 (5-15); BUN 22 mg/dL (7-18); BUN/Creat Ratio 27.8 RATIO (10-20); Calcium,Total 9.2 mg/dL (8.5-10.1); Chloride 105 mmol/L (98-107); Cholesterol 192 mg/dL (200); Creatinine, Serum 0.79 mg/dL (0.55-1.02); EST Glomerular Filtration Rate 77 mL/min (>60); Est Glom Filt Rate - Afr Amer 93 mL/min (>60); Globulin 3.8 g/dL (2.2-4.2); Glucose 109 mg/dL (74-106); High Density Lipoprotein 57 mg/dL; Potassium 3.2 mmol/L (3.5-5.1); Protein, Total 7.4 g/dL (6.4-8.2); Sodium Level 139 mmol/L (136-145); Triglycerides 96 mg/dL; Very Low Density Lipoprotein 19 mg/dL (5-40)
== END 2021-10-23 23:59 | disposition home or self-care (01) ==
LOC: MTLAB 07:48
PROVIDERS: PCP Family Medicine; Referring Provider Family Medicine; Visit Provider Family Medicine
DX: E78.5 Hyperlipidemia, unspecified (principal); I10 Essential (primary) hypertension; K21.9 Gastro-esophageal reflux disease without esophagitis; M81.0 Age-related osteoporosis without current pathological fracture; E55.9 Vitamin D deficiency, unspecified
CPT/HCPCS: 36415; 80053; 80061; 82306; 85025

== ENCOUNTER → 2021-11-18 | Outpatient (CLI) | payer MEDICARE, OTHER, SELFPAY ==
--- NOTE | 2021-11-18 09:54 | BI_ITS ---
MAMMOGRAPHY - BILATERAL SCREENING REASON FOR EXAM: Female, 66 years old. Routine annual screening examination. PERTINENT HISTORY: Non-contributory. Remote right excisional breast biopsy. TECHNIQUE: Digital bilateral breast denny (3D mammographic acquisition) in the CC and MLO projections. 2-D mediolateral oblique (MLO) and craniocaudad (CC) views of both breasts were obtained. CAD: Full Field Digital Mammography with Computer Added Detection was performed. COMPARISON: Comparison is made with prior study dated 11/05/2020 and 07/06/2019. FINDINGS: Breast Composition: The breasts are almost entirely fatty. There are no dominant masses or suspicious calcifications. No other significant abnormalities are identified. There has been no significant change since the prior study. BI/SCRN MAMM (CAD)W/DENNY BILAT IMPRESSION: Stable bilateral screening mammogram. Yearly follow-up mammogram recommended. (A) ASSESSMENT CATEGORY: BIRADS Category 1: Negative. A letter regarding these results will be sent to the patient by the facility within 30 days. Approximately 10% of breast cancers are not detected by mammography. A normal mammogram should not delay biopsy of a clinically suspicious abnormality. [id number] Electronically Signed: Adin Tay MD at 11:54 EDT ,
--- NOTE | 2021-11-18 10:00 | BD_ITS ---
STUDY: DUAL ENERGY X-RAY ABSORPTIOMETRY / DXA REASON FOR EXAM: Female, 66 years old. M810. The patient is postmenopausal. TECHNIQUE: Bone Mineral Density (BMD) measurements of lumbar spine and left hip were obtained. COMPARISON: Comparison is made with prior study dated 07/06/2019. FINDINGS: Lumbar Spine (L1-L4): g/cm2 (1.221) / T-score (1.7) / Z-score (3.6) Findings are suggestive of normal bone density with a low fracture risk. Left Femur Total: g/cm2 (0.827) / T-score (-0.9) / Z-score (0.4) Left Femoral Neck: g/cm2 (0.536) / T-score (-2.8) / Z-score (-1.2) The T-Scores on the most recent prior examination were: Lumbar Spine (L1-L4): There has been improvement of bone density since the previous examination. Left Femur Total: which represents an improvement of 5%. BD/Dexa Bone Density Study IMPRESSION: The patient is considered osteoporotic as outlined below according to World Bk Organization (WHO) criteria with a high fracture risk. There has been improvement of bone density since the previous examination. Reference Information: The T-score is the number of standard deviations above or below the standard which is normal for young adults at their peak bone mineral density. The World Health Organization (WHO) interprets the T-scores as follows: Above -1 Normal bone density Between -1 and -2.5 Osteopenia Equal to / or below -2.5 Osteoporosis As a practical clinical guideline, osteopenia may be graded as follows: Mild -1 through -1.5 Moderate -1.6 through -2.0 Severe -2.1 through -2.4 The Z-score is the number of standard deviations above or below age-matched controls. A Z-score of less than -1.5 would be considered abnormal. References: 1. NIH Osteoporosis and Related Bone Diseases www osteo.org 2. International Society for Clinical Densitometry www iscd.org 3. National Osteoporosis Foundation www nof.org Electronically Signed: Adin Tay MD at 13:41 EDT ,
== END | disposition home or self-care (01) ==
LOC: OPBD 09:52
PROVIDERS: PCP Family Medicine; Referring Provider Family Medicine; Visit Provider Family Medicine
DX: M81.0 Age-related osteoporosis without current pathological fracture (principal); Z12.31 Encounter for screening mammogram for malignant neoplasm of breast
CPT/HCPCS: 77063; 77067; 77080

== ENCOUNTER 2022-02-27 16:30 | Emergency (ER) | payer MEDICARE, OTHER, SELFPAY ==
[2022-02-27 16:31] VITALS: BP 182/90; PULSE 113; RESP 14; TEMP 36.1; O2SAT 97; BMI 38.3
[2022-02-27 16:33] VITALS: BP 182/90; PULSE 113; RESP 14; TEMP 36.1; O2SAT 97
--- NOTE | 2022-02-27 16:38 | CT_ITS ---
STUDY: CT ABDOMEN AND PELVIS WITHOUT CONTRAST REASON FOR EXAM: Female, 67 years old. Right flank pain. No comparison 04/28/2021 [facility] RADIATION DOSAGE (If Supplied By Facility): CTDIvol = ( 20.49 ) mGy, DLP = ( 921.39 ) mGycm TECHNIQUE: Transaxial images were obtained from the dome of the diaphragm to the symphysis pubis without oral contrast, and without intravenous contrast. Sagittal and coronal images were reconstructed. Individualized dose optimization techniques were used for this CT. COMPARISON: None. FINDINGS: The visualized lung bases are unremarkable. There is stable trace fluid adjacent to the distal esophagus. The visualized portions of the heart are within normal limits. The lack of intravenous contrast limits evaluation of solid visceral organs. Normal liver. The gallbladder is surgically absent. Normal spleen. Normal pancreas. Normal bilateral adrenal glands. The right kidney is stable. Normal left kidney. Normal visualized stomach. Normal small intestine. There is a moderate amount of stool throughout the colon and rectum. There are scattered diverticula arising from the colon. The appendix is surgically absent. There is diffuse atherosclerotic calcification of the abdominal aorta, without a demonstrated aneurysm. Normal inferior vena cava. Normal retroperitoneum. Normal urinary bladder. Normal abdominal wall. There is a right hip arthroplasty in place creating beam hardening artifact and obscuring anatomic detail within the pelvis. There are degenerative changes of the visualized thoracic and lumbar spine. CT/Abdomen/Pelvis without Cont IMPRESSION: Moderate amount of stool throughout the colon and rectum. Atherosclerosis. Colonic diverticulosis. Electronically Signed: Malinda Ruiz MD at 17:48 EDT ,
--- NOTE | 2022-02-27 16:42 | EX.ED.DYSGE1 ---
HPI History of Present Illness Chief Complaint: Flank Pain Detail of Chief Complaint: Acute right flank pain Informant: patient Onset/Context/Timing Onset: Today Context: Sudden Onset Timing: Continuous and Waxes and wanes Quality: Colicky Location: Right flank Current Severity: Moderate Maximum Severity: Severe Worsened by: Nothing Relieved by: Nothing Associated Symptoms Associated Symptoms: Nausea and vomiting and read HPI narrative Narrative Narrative: Patient is a 67-year-old woman with history of recurrent urinary tract infections. She contacted her urologist who recommended she take Macrobid starting 2 days ago. She had increased urination and urgency. The etiology of her frequent urinary tract infection is unknown. She presents now because abrupt onset of right flank pain. She endorses inability to find position of comfort. Nothing per se exacerbates her pain. Nothing alleviates her pain. She has had nausea and vomiting. She denies fever, chills night sweats. She has no other complaints. There is no history of trauma. She has not noted a rash. Prior similar symptoms: No Recent Illness/Hospitalization: No PFSH PFSH Medical History Abdominal pain Chronic headaches CPAP (continuous positive airway pressure) dependence Edema GERD (gastroesophageal reflux disease) History of trigger finger HTN (hypertension) Migraine headache Morbid obesity with BMI of 40.0-44.9, adult Nausea Non-smoker Obstructive sleep apnea Open wound Osteoarthritis of right hip Osteoporosis Pain aggravated by walking SBO (small bowel obstruction) TIA (transient ischemic attack) Wears glasses Home Medications amitriptyline 150 mg tablet 150 mg PO QHS 09/07/13 [History Last Taken 09/22/15] hydrochlorothiazide 25 mg tablet 25 mg PO DAILY 09/07/13 [History Last Taken 09/23/15] omeprazole 20 mg capsule,delayed release 20 mg PO QHS 09/07/13 [History Last Taken 04/07/16 22:30] atorvastatin 10 mg tablet 20 mg PO QHS 09/21/14 [History Last Taken 09/22/15] metoprolol tartrate 25 mg tablet 25 mg PO BID 12/10/15 [History Last Taken 01/05/17 07:00 25 MG] verapamil 120 mg tablet 60 mg PO TID 12/07/16 [History Last Taken 01/05/17 07:00 60 MG] aspirin 81 mg tablet,delayed release (Adult Low Dose Aspirin) 81 mg PO DAILY 01/09/19 [History Last Taken 11/22/20] sucralfate 1 gram tablet (Carafate) 1 g PO BID 01/09/19 [History Last Taken Unknown] cholecalciferol (vitamin D3) 50 mcg (2,000 unit) capsule 2,000 unit PO DAILY 03/13/20 [History Last Taken Unknown] ibandronate 150 mg tablet 150 mg PO QMONTH 05/25/20 [History Last Taken 11/08/20] celecoxib 200 mg capsule (Celebrex) 200 mg PO DAILY #30 caps 09/04/20 [Rx Last Taken Unknown] cranberry extract 300 mg tablet 300 mg PO BID 11/26/20 [History Last Taken Unknown] trimethoprim 100 mg tablet 100 mg PO QHS 11/26/20 [History Last Taken Unknown] Allergy/AdvReac Type Severity Reaction Status Date / Time adhesive tape Allergy Rash Verified 02/27/22 16:31 codeine Allergy Hives Verified 02/27/22 16:31 levofloxacin Allergy unknown Verified 02/27/22 16:31 cortisone AdvReac Severe migraine Verified 02/27/22 16:31 and skin on fire prednisone AdvReac Severe migraine Verified 02/27/22 16:31 and skin on fire NSAIDS (Non-Steroidal AdvReac Upset Verified 02/27/22 16:31 Anti-Inflamma Stomach promethazine HCl AdvReac RESTLESS Verified 02/27/22 16:31 [From Phenergan] LEG SYNDROME sulfamethoxazole AdvReac Nausea Verified 02/27/22 16:31 [From Bactrim] trimethoprim [From Bactrim] AdvReac Nausea Verified 02/27/22 16:31 Family History Sister Colon cancer Father Diabetes Mother Heart disease Hypertension Surgical History History of appendectomy History of partial hysterectomy History of reverse total replacement of left shoulder joint (~05/20/20) History of right hip replacement History of right knee joint replacement History of umbilical hernia repair history right shoulder repair Hx of arthroscopy Hx of shoulder surgery Hx of total shoulder replacement Social History (Updated 02/27/22 @ 16:[address] Crispin Balderas MD) household members: spouse Smoking Status: Never smoker alcohol intake: never substance use type: does not use ROS ROS ED Constitutional Constitutional ED: Denies chills, fever(s), subjective, sweats or weight loss Eyes Eyes: Denies blurry vision or change in vision ENT ENT ED: Denies ear pain, rhinorrhea or sore throat Cardiovascular Cardiovascular: Denies chest pain, palpitations or racing heartbeat Respiratory/Chest Respiratory/Chest: Denies cough, dyspnea or dyspnea on exertion Gastrointestinal Gastrointestinal: Reports abdominal pain, nausea and vomiting; Denies constipation, diarrhea or melena Genitourinary Genitourinary ED: Reports dysuria and urinary frequency; Denies hematuria Musculoskeletal Musculoskeletal: Reports back pain; Denies arthralgias, myalgias or neck pain Integumentary Denies abscess or rash Neurologic Neurologic: Denies headache(s), paresthesias or weakness Psychiatric Psychiatric: Reports anxiety Endocrine Endocrinology: Denies heat intolerance, polydipsia or polyphagia Hematologic/Lymphatic Hematologic/Lymphatic: Reports systems reviewed and no addt'l complaints, except as documented EXAM Physical Exam Const Vital Signs: 02/27/22 16:31 02/27/22 17:21 02/27/22 16:33 Temperature 96.9 F L 96.9 F L Temperature Source Temporal Temporal Pulse Rate 113 H 113 H Respiratory Rate 14 14 Respiratory Effort Normal Non-Labored Respiratory Pattern Normal Blood Pressure 182/90 H 182/90 H Blood Pressure Mean 120 120 Pulse Ox 97 97 Oxygen Delivery Method Room Air Room Air Positive well nourished, well developed and obese; Negative for cachectic, contractures or unkempt General Appearance ED: well developed; Negative for unkempt, cachectic, contractures, cyanotic, diaphoretic, NAD or pallor Nutritional Appearance: obese; Negative for cachectic HEENT Reports TM's clear and dry mucous membranes trauma and tenderness Tympanic Membrane ED: Yes TM's clear Mouth ED: Yes dry mucous membranes Mouth: dry mucous membranes Eyes PERRL and EOMs intact bilaterally General Eye ED: Negative for pale conjunctiva or scleral icterus Neck no lymphadenopathy, supple and no JVD Chest Wall inspection of chest normal and palpation of chest normal Resp normal respiratory effort and clear to auscultation bilaterally Cardio regular rate, regular rhythm, S1 normal heart sound, S2 normal heart sound and no murmurs GI normal to inspection, nondistended, normoactive bowel sounds, non-tender and non-distended; Negative for hepatosplenomegaly Back/Spine General Back: CVA tenderness right Cervical Spine: Negative for cervical spine tenderness Thoracic Spine / Upper Back: Negative for thoracic spinal tenderness Extremity normal to inspection General Extremety ED: Yes edema; Negative for tenderness General Extremity: edema Neuro oriented x3, CN's II-XII intact bilaterally and no sensory deficits noted Sensorium / Orientation: alert Motor Exam: strength 5/5 throughout Psych mental status grossly normal Appearance: Negative for unkempt Skin no rashes or lesions noted, no wounds and skin turgor normal General Skin Exam: Negative for jaundice or pallor MDM MDM MDM Narrative Medical decision making narrative: With history of recurrent urinary tract infections and now abrupt onset of flank pain suspect obstructing stone with possible infection. Pyelonephritis is also in the differential. Will obtain appropriate blood work, medicate patient with Zofran and morphine and obtain a CT of the abdomen pelvis without contrast to evaluate for obstructing ureteral stone. Lab Data Attestation: I reviewed the patient's lab results. Lab results narrative: CBC and differential unremarkable. Basic metabolic panel is unremarkable Labs: Laboratory Results - last 24 hr 02/27/22 02/27/22 02/27/22 17:18 17:18 18:14 WBC 9.3 RBC 4.74 Hgb 14.8 Hct 44.8 MCV 94.5 MCH 31.2 MCHC 33.0 RDW Std Deviation 42.9 RDW Coeff of [place]illo 12.2 Plt Count 297 MPV 9.8 Immature Gran % (Auto) 0.400 Neut % (Auto) 60.8 Lymph % (Auto) 29.6 [place] % (Auto) 7.1 Eos % (Auto) 1.7 Baso % (Auto) 0.4 Absolute Neuts (auto) 5.7 Absolute Lymphs (auto) 2.76 Nucleated RBC % 0 Sodium 141 Potassium 3.6 Chloride 105 Carbon Dioxide 27.0 Anion Gap 9 BUN 22 H Creatinine 0.88 Estim Creat Clear Calc 48.39 Est GFR (MDRD) Af Amer 82 Est GFR (MDRD) Non-Af 68 BUN/Creatinine Ratio 24.9 H Glucose 110 H Calcium 9.9 Urine Color Yellow Urine Clarity Clear Urine pH 6.5 Ur Specific [place] 1.010 Urine Protein Negative Urine Glucose (UA) Normal Urine Ketones 5 H Urine Occult Blood Negative Urine Nitrite Negative Urine Bilirubin Negative Urine Urobilinogen Normal Ur Leukocyte Esterase 100 H Urine RBC 0 SEEN Urine WBC 0-5 SEEN Ur Squamous Epith Cells 0-5 SEEN Urine Bacteria 0 SEEN Urine Mucus 0 SEEN Radiography Diagnostic Testing: Clinical Impression(s) from Imaging Studies Abdomen/Pelvis CT 02/27/22 16:38 IMPRESSION: Moderate amount of stool throughout the colon and rectum. Atherosclerosis. Colonic diverticulosis. Electronically Signed: Malinda Ruiz MD at 17:48 EDT , CT of the abdomen pelvis without contrast reveals no hydroureter or stone on the right. This was independently reviewed by me at 1747. Awaiting formal read by radiologist. Reviewed the radiology read which reveals atherosclerosis, diverticulosis and fecal stasis. Discharge Plan Triage Chief Complaint: Flank Pain ED Provider: Crispin Balderas Dx/Rx/DC Orders Clinical Impression: Acute right flank pain, Obstipation Instructions: ED Constipation (Adult), ED Flank Pain, Uncertain Cause Prescriptions: No Action aspirin [Adult Low Dose Aspirin] 81 mg tablet,delayed release (DR/EC) 81 mg PO DAILY sucralfate [Carafate] 1 gram tablet 1 g PO BID ibandronate 150 mg tablet 150 mg PO QMONTH celecoxib [Celebrex] 200 mg capsule 200 mg PO DAILY Qty: 30 1RF amitriptyline 150 MG tablet 150 mg PO QHS Label Comments: HEADACHES omeprazole 20 MG capsule 20 mg PO QHS Label Comments: STOMACH/ acid reflex hydrochlorothiazide 25 MG tablet 25 mg PO DAILY Label Comments: BLOOD PRESSURE atorvastatin 10 MG tablet 20 mg PO QHS Label Comments: CHOLESTEROL metoprolol tartrate 25 MG tablet 25 mg PO BID Label Comments: high blood pressure verapamil 120 MG tablet 60 mg PO TID Label Comments: blood pressure cholecalciferol (vitamin D3) 2,000 UNIT capsule 2,000 unit PO DAILY trimethoprim 100 mg Tablet 100 mg PO QHS cranberry extract 300 mg Tablet 300 mg PO BID Primary Care Provider: Jody Garner Referrals: Jody Garner MD [Primary Care Provider] - 3-5 Days Disposition Disposition: Home, Self Care
[2022-02-27] MEDS: Morphine 4 MG/ML Syringe IV (17:15)
[2022-02-27] MEDS: Ondansetron 4 MG/2 ML Vial IV (17:16)
[2022-02-27] MEDS: 0.9% Normal Saline 1,000 ML 250 ML IV (17:20)
[2022-02-27 17:27] LABS: Absolute Lymphocyte Count 2.76 X10^3/uL (0.83-4.51); Absolute Neutrophil Count 5.7 X10^3/uL (2.0-7.7); Basophil# 0.04 X10^3/uL; Basophil% 0.4 % (0-1); Eosinophil# 0.16 X10^3/uL; Eosinophils% 1.7 % (0-5); Hematocrit 44.8 % (37-47); Hemoglobin 14.8 g/dL (12.0-15.0); Lymphocyte # 2.76 X10^3/ul (0.83-4.51); Lymphocyte % 29.6 % (19-41); Mean Corpuscular Hgb 31.2 pg (27.0-32.0); Mean Corpuscular Volume 94.5 fL (81-99); Mean Platelet Vol. 9.8 fl (6.2-12.0); Monocyte# 0.66 X10^3/uL; Monocyte% 7.1 % (0-10); NRBC Flagged by Analyzer 0 % (0-5); Neutrophil # 5.66 X10^3/uL (2.7-7.7); Neutrophil % 60.8 % (47-70); Platelet Count 297 K/mm3 (150-450); RBC Distribution Width CV 12.2 % (11.6-14.6); RBC Distribution Width SD 42.9 fl (35.1-43.9); Red Blood Count 4.74 M/mm3 (4.2-5.4); White Blood Count 9.3 K/mm3 (4.4-11.0)
[2022-02-27 17:42] LABS: Anion Gap 9 (5-15); BUN 22 mg/dL (7-18); BUN/Creat Ratio 24.9 RATIO (10-20); Calcium,Total 9.9 mg/dL (8.5-10.1); Chloride 105 mmol/L (98-107); Creatinine, Serum 0.88 mg/dL (0.55-1.02); EST Glomerular Filtration Rate 68 mL/min (>60); Est Glom Filt Rate - Afr Amer 82 mL/min (>60); Estimated Creatinine Clearance 48.39 ml/min; Glucose 110 mg/dL (74-106); Potassium 3.6 mmol/L (3.5-5.1); Sodium Level 141 mmol/L (136-145)
[2022-02-27 18:20] LABS: Bacteria 0 SEEN /hpf (None Seen); Mucous, Urine 0 SEEN /hpf (<or=2+); Red Blood Cells-Urine 0 SEEN /hpf (0-5)
[2022-02-27 18:27] LABS: Color, Urine Yellow (Yellow); Glucose, Dipstick Normal (Normal); Ketone-Dipstick 5 mg/dl (Negative); Leukocyte Esterase-Dipstick 100 /ul (Negative); Nitrite-Dipstick Negative (Negative); Occult Blood-Urine Negative /ul (Negative); Protein-Dipstick Negative (Negative); Urine Bilirubin Dipstick Negative (Negative); Urine Clarity Clear (Clear); Urine Urobilinogen Normal (Normal); Urine pH 6.5 (5.0 - 8.0)
[2022-02-27 18:35] LABS: Squamous Epithelial Cells - UA 0-5 SEEN /hpf (5-10); White Blood Cells 0-5 SEEN /hpf (0-5)
== END 2022-02-27 18:53 | disposition home or self-care (01) ==
PROVIDERS: Emergency Provider Emergency Medicine; PCP Family Medicine; Visit Provider Emergency Medicine
DX: K59.00 Constipation, unspecified (principal); E66.9 Obesity, unspecified; Z68.38 Body mass index [BMI] 38.0-38.9, adult; I10 Essential (primary) hypertension; Z79.82 Long term (current) use of aspirin; Z79.899 Other long term (current) drug therapy; Z87.440 Personal history of urinary (tract) infections; Z86.73 Personal history of transient ischemic attack (TIA), and cerebral infarction without residual deficits
CPT/HCPCS: 74176; 80048; 81001; 85025; 96361; 96374; 96375; 99282; J7030; A4216; J2405

== ENCOUNTER → 2022-02-28 | Outpatient (CLI) | payer MEDICARE, OTHER, SELFPAY ==
[2022-02-28 10:31] LABS: Bacteria 0 SEEN /hpf (None Seen); Mucous, Urine 0 SEEN /hpf (<or=2+); White Blood Cells 0 SEEN /hpf (0-5)
[2022-02-28 10:36] LABS: Color, Urine Straw (Yellow); Glucose, Dipstick Normal (Normal); Ketone-Dipstick Negative (Negative); Leukocyte Esterase-Dipstick Negative /ul (Negative); Nitrite-Dipstick Negative (Negative); Occult Blood-Urine Negative /ul (Negative); Protein-Dipstick Negative (Negative); Specific Gravity, Urine 1.005 (1.002-1.030); Urine Bilirubin Dipstick Negative (Negative); Urine Clarity Clear (Clear); Urine Urobilinogen Normal (Normal)
[2022-02-28 10:48] LABS: Red Blood Cells-Urine 0-5 SEEN /hpf (0-5); Squamous Epithelial Cells - UA 0-5 SEEN /hpf (5-10)
== END | disposition home or self-care (01) ==
LOC: LAB 10:25
PROVIDERS: PCP Family Medicine; Referring Provider Nurse Practitioner Family; Visit Provider Nurse Practitioner Family
DX: N39.0 Urinary tract infection, site not specified (principal)
CPT/HCPCS: 81001; 87086; 87088

== ENCOUNTER → 2022-10-30 | Outpatient (CLI) | payer MEDICARE, OTHER, SELFPAY ==
[2022-10-30 10:25] LABS: Absolute Lymphocyte Count 2.25 X10^3/uL (0.83-4.51); Absolute Neutrophil Count 3.1 X10^3/uL (2.0-7.7); Basophil# 0.04 X10^3/uL; Basophil% 0.7 % (0-1); Eosinophil# 0.19 X10^3/uL; Eosinophils% 3.2 % (0-5); Hematocrit 40.2 % (37-47); Lymphocyte # 2.25 X10^3/ul (0.83-4.51); Lymphocyte % 38.1 % (19-41); Mean Corp Hgb Conc 32.3 g/dL (32-36); Mean Corpuscular Hgb 31.3 pg (27.0-32.0); Mean Corpuscular Volume 96.6 fL (81-99); Mean Platelet Vol. 10.1 fl (6.2-12.0); Monocyte# 0.34 X10^3/uL; Monocyte% 5.8 % (0-10); NRBC Flagged by Analyzer 0 % (0-5); Neutrophil # 3.08 X10^3/uL (2.7-7.7); Platelet Count 289 K/mm3 (150-450); RBC Distribution Width CV 12.7 % (11.6-14.6); RBC Distribution Width SD 45.5 fl (35.1-43.9); Red Blood Count 4.16 M/mm3 (4.2-5.4); White Blood Count 5.9 K/mm3 (4.4-11.0)
[2022-10-30 11:06] LABS: Hemoglobin A1c 5.3 % (3.8-5.6)
[2022-10-30 11:09] LABS: Vitamin D,25 Hydroxy 39.3 ng/mL
[2022-10-30 11:13] LABS: AST(SGOT) 14 U/L (15-37); Alanine Aminotransfer ALT/SGPT 19 U/L (13-56); Albumin, Serum 3.3 g/dL (3.2-5.0); Alkaline Phosphatase 84 U/L (45-117); Anion Gap 5 (5-15); BUN 25 mg/dL (7-18); BUN/Creat Ratio 27.5 RATIO (10-20); Calcium,Total 9.1 mg/dL (8.5-10.1); Chloride 107 mmol/L (98-107); Cholesterol 181 mg/dL (200); Creatinine, Serum 0.91 mg/dL (0.55-1.02); EST Glomerular Filtration Rate 65 mL/min (>60); Est Glom Filt Rate - Afr Amer 79 mL/min (>60); Globulin 3.4 g/dL (2.2-4.2); Glucose 98 mg/dL (74-106); High Density Lipoprotein 53 mg/dL; Potassium 3.7 mmol/L (3.5-5.1); Protein, Total 6.7 g/dL (6.4-8.2); Sodium Level 138 mmol/L (136-145); Triglycerides 99 mg/dL; Very Low Density Lipoprotein 20 mg/dL (5-40)
== END | disposition home or self-care (01) ==
PROVIDERS: PCP Family Medicine; Referring Provider Family Medicine; Visit Provider Family Medicine
DX: E78.5 Hyperlipidemia, unspecified (principal); I10 Essential (primary) hypertension; K21.9 Gastro-esophageal reflux disease without esophagitis; M81.0 Age-related osteoporosis without current pathological fracture; E55.9 Vitamin D deficiency, unspecified
CPT/HCPCS: 36415; 80053; 80061; 82306; 83036; 85025

== ENCOUNTER 2022-11-05 17:11 | Emergency (ER) | payer MEDICARE, OTHER, SELFPAY ==
[2022-11-05 17:12] VITALS: BP 172/98; PULSE 100; RESP 16; TEMP 36.5; O2SAT 99; BMI 39.5
--- NOTE | 2022-11-05 17:59 | CT_ITS ---
STUDY: CT BRAIN WITHOUT CONTRAST REASON FOR EXAM: Female, 67 years old. head trauma RADIATION DOSAGE (If Supplied By Facility): CTDIvol = ( 44.99 ) mGy, DLP = ( 829.85 ) mGycm TECHNIQUE: Transaxial CT imaging of the brain was performed without administration of intravenous contrast material. Individualized dose optimization techniques were used for this CT. COMPARISON: November 07, 2018 FINDINGS: Normal soft tissue structures. Normal calvarium. Calcific plaquing cavernous carotids. Mild atrophy and periventricular white matter ischemic changes.. Normal basal ganglia and thalami. Normal brainstem. Normal cerebellum. There is no intracranial hemorrhage. There are no findings of an acute ischemic infarction. Postsurgical changes of the orbits Normal visualized paranasal sinuses. CT/Brain/Head without Contrast IMPRESSION: Mild atrophy and periventricular white matter ischemic changes.. No evidence for acute intracranial bleed Electronically Signed: Tariq Morel MD at 18:35 EDT ,
--- NOTE | 2022-11-05 17:59 | CT_ITS ---
STUDY: CT CERVICAL SPINE WITHOUT CONTRAST REASON FOR EXAM: Female, 67 years old. neck trauma RADIATION DOSAGE (If Supplied By Facility): CTDIvol = ( 26.67 ) mGy, DLP = ( 537.76 ) mGycm TECHNIQUE: High resolution transaxial imaging was performed without contrast material. Sagittal and coronal images were reconstructed. Individualized dose optimization techniques were used for this CT. COMPARISON: None FINDINGS: Normal craniovertebral junction. Normal anterior atlantoaxial articulation. Normal odontoid process. Loss of cervical lordosis possibly due to muscle spasm or positioning artifact. Normal vertebral bodies and posterior osseous elements. C2-3: Normal endplates. Normal disc height and morphology. Normal central canal and intervertebral neuroforamina. C3-4: Normal endplates. Normal disc height and morphology. Normal central canal and intervertebral neuroforamina. C4-5: Normal endplates. Normal disc height and morphology. Normal central canal and intervertebral neuroforamina. C5-6: Narrowed disc space and endplate spurring with small right paracentral osteophyte protrusion mildly narrowing the central canal impinging upon the cord. Moderate bilateral neural foraminal stenosis secondary to bony hypertrophy.. C6-7: Normal endplates. Normal disc height and morphology. Normal central canal and intervertebral neuroforamina. C7-T1: Normal endplates. Normal disc height and morphology. Normal central canal and intervertebral neuroforamina. Normal visualized soft tissue structures. CT/Spine Cervical without Contras IMPRESSION: Mild spondylosis most severe at C5-6 No acute fracture or other significant bony abnormality Electronically Signed: Tariq Morel MD at 18:37 EDT ,
--- NOTE | 2022-11-05 18:20 | RAD_ITS ---
STUDY: X-RAY - SACRUM/COCCYX REASON FOR EXAM: Female, 67 years old. fall TECHNIQUE: 3 view(s) of the sacrum and coccyx were obtained. COMPARISON: None. FINDINGS: Degenerative changes of the sacroiliac joints. Normal visualized sacral ala and fused sacral bodies. Normal sacrococcygeal junction with a normal angulation. Normal coccygeal segments. On the lateral projection, there is cortical irregularity of the distal sacrum possibly due to prior trauma however cannot definitively exclude acute fracture. CT recommended for further evaluation The presacral soft tissue structures are unremarkable. RAD/Sacrum-Coccyx min 2 Views IMPRESSION: Deformity of the distal sacrum and acute injury cannot be excluded. CT recommended for further evaluation Electronically Signed: Tariq Morel MD at 18:43 EDT ,
--- NOTE | 2022-11-05 18:56 | CT_ITS ---
STUDY: CT LUMBAR SPINE WITHOUT CONTRAST REASON FOR EXAM: Female, 67 years old. please scan sacrum and coxccyx RADIATION DOSAGE (If Supplied By Facility): CTDIvol = ( 40.33 ) mGy, DLP = ( 1484.59 ) mGycm TECHNIQUE: The patient was scanned in a multi detector CT scanner. High resolution transaxial imaging was performed. Images were obtained from to . Sagittal and coronal images were reconstructed. Individualized dose optimization techniques were used for this CT. COMPARISON: None FINDINGS: Normal lumbar lordosis. There is moderate to severe levo scoliosis. Normal vertebrae of the lumbar spine. L1-2: Normal endplates. Normal disc height and morphology. Normal bilateral facet joints. Normal central canal and bilateral lateral recesses. Normal bilateral intervertebral neural foramina. L2-3: Normal endplates. Normal disc height and morphology. Normal bilateral facet joints. Normal central canal and bilateral lateral recesses. Normal bilateral intervertebral neural foramina. L3-4: Normal endplates. Normal disc height and minor annular bulge. Facet arthropathy and thickening of ligamenta flava.. Normal central canal and bilateral lateral recesses. Moderate to severe bilateral neural foraminal stenosis exaggerated by shortened pedicles.. L4-5: Normal endplates. Normal disc height and mild annular bulge.. Facet arthropathy and mild thickening of ligamenta flava.. Normal central canal and bilateral lateral recesses. Normal moderate bilateral neural foraminal stenosis exaggerated by shortened pedicles.. L5-S1: Normal endplates. Normal disc height and mild annular bulge. Facet arthropathy.. Normal central canal and bilateral lateral recesses. Mild bilateral neural foraminal encroachment Normal visualized paraspinous soft tissue structures. Sacrum is intact however there is impacted fracture of the of the distal coccyx with mild overlapping of fracture fragments CT/Spine Lumbar without Contrast IMPRESSION: Acute impacted fracture of the distal coccyx with overlapping of fracture fragments Scoliosis and degenerative changes of the lumbar spine without evidence for acute fracture Multilevel spinal stenosis secondary to annular bulge and facet arthropathy Electronically Signed: Tariq Morel MD at 19:32 EDT ,
--- NOTE | 2022-11-05 19:35 | EDS_ITS ---
HPI History of Present Illness Chief Complaint: Weakness Narrative Narrative: 67-year-old female presenting with headache. Patient states her knee keeps giving out on her. She has had 4 falls this week prior to yesterday and yesterday she fell hitting the back of her head. She denies no LOC. She does have a mild headache. She states that she has a cephalhematoma which is improving. She does not feel lightheaded or dizzy. She does have concern that she is having an increased tremor this week. Patient was seen by orthopedics on the and had x-rays of the knee. This showed degenerative changes without acute fracture. She denies any new injury to the knee. She does state that she landed on her sacrum and this is hurting her now is able to ambulate but is using a cane at this point. She is been using this for about 2 weeks. [facility] Medical History Abdominal pain Chronic headaches CPAP (continuous positive airway pressure) dependence Edema GERD (gastroesophageal reflux disease) History of trigger finger HTN (hypertension) Migraine headache Morbid obesity with BMI of 40.0-44.9, adult Nausea Non-smoker Obstructive sleep apnea Open wound Osteoarthritis of right hip Osteoporosis Pain aggravated by walking SBO (small bowel obstruction) TIA (transient ischemic attack) Wears glasses Home Medications amitriptyline 150 mg tablet 150 mg PO QHS 09/07/13 [History Last Taken 09/22/15] hydrochlorothiazide 25 mg tablet 25 mg PO DAILY 09/07/13 [History Last Taken 09/23/15] omeprazole 20 mg capsule,delayed release 20 mg PO QHS 09/07/13 [History Last Taken 04/07/16 22:30] atorvastatin 10 mg tablet 20 mg PO QHS 09/21/14 [History Last Taken 09/22/15] metoprolol tartrate 25 mg tablet 25 mg PO BID 12/10/15 [History Last Taken 01/05/17 07:00 25 MG] verapamil 120 mg tablet 60 mg PO TID 12/07/16 [History Last Taken 01/05/17 07:00 60 MG] aspirin 81 mg tablet,delayed release (Adult Low Dose Aspirin) 81 mg PO DAILY 01/09/19 [History Last Taken 11/22/20] sucralfate 1 gram tablet (Carafate) 1 g PO BID 01/09/19 [History Last Taken Unknown] cholecalciferol (vitamin D3) 50 mcg (2,000 unit) capsule 2,000 unit PO DAILY 03/13/20 [History Last Taken Unknown] cranberry extract 300 mg tablet 300 mg PO BID 11/26/20 [History Last Taken Unknown] acetaminophen 325 mg capsule (Tylenol) 325 mg PO ONCE PRN Pain 11/02/22 [History Last Taken Unknown] estriol (bulk) 100 % powder See Rx Instructions .Route .COMPLEX 11/05/22 [History Last Taken Unknown] hydrocodone-acetaminophen 5-325mg 5mg-325mg 1 tab PO Q6H PRN PRN Pain 3 days #12 TABLETS 11/05/22 [Rx Last Taken Unknown] melatonin 12 mg tablet 12 mg PO QHS 11/05/22 [History Last Taken Unknown] Allergy/AdvReac Type Severity Reaction Status Date / Time adhesive tape Allergy Rash Verified 11/05/22 17:12 codeine Allergy Hives Verified 11/05/22 17:12 levofloxacin Allergy unknown Verified 11/05/22 17:12 cortisone AdvReac Severe migraine Verified 11/05/22 17:12 and skin on fire prednisone AdvReac Severe migraine Verified 11/05/22 17:12 and skin on fire NSAIDS (Non-Steroidal AdvReac Upset Verified 11/05/22 17:12 Anti-Inflamma Stomach promethazine HCl AdvReac RESTLESS Verified 11/05/22 17:12 [From Phenergan] LEG SYNDROME sulfamethoxazole AdvReac Nausea Verified 11/05/22 17:12 [From Bactrim] trimethoprim [From Bactrim] AdvReac Nausea Verified 11/05/22 17:12 Family History Sister Colon cancer Father Diabetes Mother Heart disease Hypertension Surgical History History of appendectomy History of partial hysterectomy History of reverse total replacement of left shoulder joint (~05/20/20) History of right hip replacement History of right knee joint replacement History of umbilical hernia repair history right shoulder repair Hx of arthroscopy Hx of shoulder surgery Hx of total shoulder replacement Social History household members: spouse Smoking Status: Never smoker alcohol intake: never substance use type: does not use ROS ROS ED Constitutional Constitutional ED: Denies chills or fever(s) Eyes Eyes: Denies change in vision ENT ENT ED: Denies rhinorrhea or sore throat Cardiovascular Cardiovascular: Denies chest pain or palpitations Respiratory/Chest Respiratory/Chest: Denies cough or dyspnea Gastrointestinal Gastrointestinal: Denies abdominal pain, nausea or vomiting Genitourinary Genitourinary ED: Denies dysuria or hematuria Musculoskeletal Musculoskeletal: Reports other Details: Sacrum pain Integumentary Denies abscess Neurologic Neurologic: Reports headache(s); Denies paresthesias EXAM Physical Exam Const Vital Signs: 11/05/22 17:12 11/05/22 17:27 Temperature 97.7 F L Temperature Source Temporal Pulse Rate 100 Respiratory Rate 16 Respiratory Effort Normal Non-Labored Respiratory Pattern Normal Blood Pressure 172/98 H Blood Pressure Mean 122 Pulse Ox 99 Oxygen Delivery Method Room Air Positive well nourished General Appearance ED: NAD HEENT HEENT Narrative: Mild tenderness to palpation to the occiput. No obvious deformity or ceph alohematoma. Eyes PERRL and EOMs intact bilaterally Resp normal respiratory effort and clear to auscultation bilaterally Cardio regular rhythm Rate: regular rate GI normal to inspection, nondistended, normoactive bowel sounds Back/Spine Back/Spine Narrative: Tenderness to palpation over sacral region. No obvious deformity or step-off Neuro oriented x3 and CN's II-XII intact bilaterally Sensorium / Orientation: alert Psych mental status grossly normal Skin no rashes or lesions noted and no wounds MDM MDM MDM Narrative Medical decision making narrative: Patient presenting with pain in the tailbone and recurrent falls. She had lab work this week which included CBC and BMP I was able to review this. Her labs are unremarkable. She states he just keeps falling because her leg comes out from under her. No new left knee injury. She did hit her head so I obtained a CT brain and cervical spine. CT brain shows no acute intracranial abnormality. CT C-spine shows degenerative changes. X-ray of the sacrum and coccyx shows a deformity at the distal sacrum on my interpretation. Radiology interprets this and agrees. They recommend a CT scan which was provided. CT scan shows and acute impacted fracture of the distal coccyx with overlapping of fracture fragments. Patient will be given follow-up orthospine. Counseled to use a donut at home. Impression: 1. Fall 2. Closed head injury 3. Coccyx fracture Radiography Diagnostic Testing: Clinical Impression(s) from Imaging Studies Brain CT 11/05/22 17:59 IMPRESSION: Mild atrophy and periventricular white matter ischemic changes.. No evidence for acute intracranial bleed Electronically Signed: Tariq Morel MD at 18:35 EDT , Cervical Spine CT 11/05/22 17:59 IMPRESSION: Mild spondylosis most severe at C5-6 No acute fracture or other significant bony abnormality Electronically Signed: Tariq Morel MD at 18:37 EDT , Sacrum and Coccyx X-Ray 11/05/22 18:20 IMPRESSION: Deformity of the distal sacrum and acute injury cannot be excluded. CT recommended for further evaluation Electronically Signed: Tariq Morel MD at 18:43 EDT , Lumbar Spine CT 11/05/22 18:56 IMPRESSION: Acute impacted fracture of the distal coccyx with overlapping of fracture fragments Scoliosis and degenerative changes of the lumbar spine without evidence for acute fracture Multilevel spinal stenosis secondary to annular bulge and facet arthropathy Electronically Signed: Tariq Morel MD at 19:32 EDT , Discharge Plan Triage Chief Complaint: Weakness ED Provider: Kevin Bangura Dx/Rx/DC Orders Instructions: ED Tailbone (Coccyx) Fracture, ED Fall Prevention Prescriptions: New hydrocodone-acetaminophen 5-325 mg tablet 1 tab PO Q6H PRN PRN (Reason: Pain) 3 Days Qty: 12 0RF No Action aspirin [Adult Low Dose Aspirin] 81 mg tablet,delayed release (DR/EC) 81 mg PO DAILY sucralfate [Carafate] 1 gram tablet 1 g PO BID acetaminophen [Tylenol] 325 mg capsule 325 mg PO ONCE PRN (Reason: Pain) amitriptyline 150 MG tablet 150 mg PO QHS Label Comments: HEADACHES omeprazole 20 MG capsule 20 mg PO QHS Label Comments: STOMACH/ acid reflex hydrochlorothiazide 25 MG tablet 25 mg PO DAILY Label Comments: BLOOD PRESSURE atorvastatin 10 MG tablet 20 mg PO QHS Label Comments: CHOLESTEROL metoprolol tartrate 25 MG tablet 25 mg PO BID Label Comments: high blood pressure verapamil 120 MG tablet 60 mg PO TID Label Comments: blood pressure cholecalciferol (vitamin D3) 2,000 UNIT capsule 2,000 unit PO DAILY cranberry extract 300 mg Tablet 300 mg PO BID estriol (bulk) 100 % powder See Rx Instructions .ROUTE .COMPLEX Label Comments: APPLY 1 GRAM (4 CLICKS)TINTRAVAGINALLY TWICE A WEEK Rx Instructions: 1 mg weekly x3 melatonin 12 mg Tablet 12 mg PO QHS Primary Care Provider: Jody Garner Referrals: Jody Garner MD [Primary Care Provider] - Tariq Wong DO [Med Staff - Active Staff] - 3-5 Days Disposition Disposition: Home, Self Care
== END 2022-11-05 20:22 | disposition home or self-care (01) ==
PROVIDERS: Emergency Provider Student in an Organized Health Care Education/Training Program; PCP Family Medicine; Visit Provider Student in an Organized Health Care Education/Training Program
DX: S09.90XA Unspecified injury of head, initial encounter (principal); S32.2XXA Fracture of coccyx, initial encounter for closed fracture; I10 Essential (primary) hypertension; G47.33 Obstructive sleep apnea (adult) (pediatric); K21.9 Gastro-esophageal reflux disease without esophagitis; Z86.73 Personal history of transient ischemic attack (TIA), and cerebral infarction without residual deficits; Z79.82 Long term (current) use of aspirin; Z79.899 Other long term (current) drug therapy; W19.XXXA Unspecified fall, initial encounter
CPT/HCPCS: 70450; 72125; 72131; 72220; 99282

== ENCOUNTER → 2022-11-20 | Outpatient (CLI) | payer MEDICARE, OTHER, SELFPAY ==
--- NOTE | 2022-11-20 08:21 | CT_ITS ---
EXAM: CT LEFT LOWER EXTREMITY WITHOUT INTRAVENOUS CONTRAST CLINICAL INDICATION: templating for left TKA TECHNIQUE: Helically acquired images were obtained of the left lower extremity without intravenous contrast. 2-D reformats were performed by the technologist. CTDIvol = ( 18.64 ) mGy, DLP = ( 1073.35 ) mGycm This CT exam was performed using one or more of the following dose reduction techniques: automated exposure control, adjustment of the mA and/or kV according to patient size, and/or use of iterative reconstruction technique. COMPARISON: No relevant prior studies available. FINDINGS: Preoperative planning study. Severe tricompartmental osteoarthrosis of the knee. No definite joint effusion or Loja''s cyst. No other unusual lytic or sclerotic lesions of bone. Moderate hip osteoarthrosis with no osteonecrosis. Moderate degenerative changes at the pubic symphysis. Ankle mortise is intact. Plantar posterior calcaneal enthesopathy. Moderate degenerative changes at the posterior talocalcaneal articulation. No soft tissue masses Remaining soft tissues are unremarkable. CT/Extremity Lower without Contra IMPRESSION: 1. Preoperative planning study. 2. Severe tricompartmental osteoarthrosis of the knee. Electronically Signed: Diego Lara MD at 22:06 EDT ,
--- NOTE | 2022-11-20 08:49 | BI_ITS ---
MAMMOGRAPHY - BILATERAL SCREENING REASON FOR EXAM: Female, 67 years old. Routine annual screening examination. PERTINENT HISTORY: Non-contributory. Remote right excisional breast biopsy. TECHNIQUE: Digital bilateral breast denny (3D mammographic acquisition) in the CC and MLO projections. 2-D mediolateral oblique (MLO) and craniocaudad (CC) views of both breasts were obtained. CAD: Full Field Digital Mammography with Computer Added Detection was performed. COMPARISON: Comparison is made with prior examination dated November 18, 2021 and November 13, 2020. FINDINGS: Breast Composition: The breasts are almost entirely fatty. There are no dominant masses or suspicious calcifications. Stable tiny bilateral retroareolar nodular densities suggestive of small cysts. A tissue clip marker is seen in the upper lateral aspect of the left breast. No other significant abnormalities are identified. There has been no significant change since the prior study. BI/SCRN MAMM (CAD)W/DENNY BILAT IMPRESSION: Stable bilateral screening mammogram. Yearly follow-up mammogram recommended. (A) ASSESSMENT CATEGORY: BIRADS Category 2: Benign. A letter regarding these results will be sent to the patient by the facility within 30 days. Approximately 10% of breast cancers are not detected by mammography. A normal mammogram should not delay biopsy of a clinically suspicious abnormality. [id number] Electronically Signed: Adin Tay MD at 10:17 EDT ,
== END | disposition home or self-care (01) ==
PROVIDERS: PCP Family Medicine; Referring Provider Orthopaedic Surgery; Visit Provider Orthopaedic Surgery
DX: M17.12 Unilateral primary osteoarthritis, left knee (principal); Z12.31 Encounter for screening mammogram for malignant neoplasm of breast
CPT/HCPCS: 73700; 77063; 77067

== ENCOUNTER 2022-12-22 05:32 | Day surgery (SDC) | payer MEDICARE, OTHER, SELFPAY ==
--- NOTE | 2022-12-11 09:21 | EKG12_ITS ---
Test Reason : PRE OP Blood Pressure : / mmHG Vent. Rate : 077 BPM Atrial Rate : 077 BPM P-R Int : 192 ms QRS Dur : 080 ms QT Int : 388 ms P-R-T Axes : 064 015 069 degrees QTc Int : 439 ms Normal sinus rhythm Low voltage QRS Borderline ECG Confirmed by AUDREY PHAM, WILBER ([id number]), editor in chief newspaper VERNON STINSON ([id number]) on 12/11/2022 1:22:57 PM Referred By: Naresh Peralta Confirmed By:WILBER VENTURA MD
[2022-12-11 10:30] LABS: Prothrombin Time (Protime)PT. 13.2 SECONDS (11.7-14.9)
[2022-12-11 10:31] LABS: Partial Thromboplast Time 26.8 Seconds (24.1-36.2)
[2022-12-11 10:49] LABS: Magnesium 2.2 mg/dL (1.6-2.6)
[2022-12-12 05:07] LABS: Fructosamine 206 umol/L (0-285)
[2022-12-22] VITALS (13 sets, daily range): BP systolic 94–165; BP diastolic 43–149; PULSE 63–73; RESP 14–17; TEMP 36–36.7; O2SAT 93–100; BMI 38.2
--- NOTE | 2022-12-22 | KNEE_PTH ---
PATIENT: MAKEDA EM LOC: [facility] [place] U#:[id number] AGE/SX: 67/F ROOM: RE12/22/[address]: Dr. Naresh Peralta DO : 1955 BED: DIS: 12/22/2022 SPEC #: [id number] RECD: 12/22/22 10:39 STATUS: KWAN REQ #: [id number] ALICE: 12/22/22 00:[address]: Naresh Peralta DEPT: SURGICAL PATHOLOGY RECD BY: Merlin Valiente ENTERED: 12/22/22 10:40 SP TYPE: TOTAL KNEE OTHR DR: Dr. Jody Garner MD Tissues: Knee, NOS Procedures: Decalcification bone/plaque Surgery Specimen Level IV HEADER OPERATION: ERAS, total knee replacement robotic arm assist PRE-OP DIAGNOSIS: Osteoarthritis of left knee TISSUE SUBMITTED: Debrided bone and tissue left knee MICROSCOPIC DIAGNOSIS Bone and tissue, left knee, total knee replacement/resection: Pieces of bone with degenerative osteoarthritic changes. Fibroadipose tissue, fibroconnective tissue and reactive synovial tissue. SONY:tylor 12/25/2022 MICROSCOPIC DESCRIPTION Slides are reviewed. GROSS DESCRIPTION Received is one container designated debrided bone and tissue left knee. The specimen consists of multiple fragments of poe-yellow bone measuring in aggregate 10.0 x 10.0 x 3.0 cm. Also in the specimen container are multiple fragments of yellow-white soft tissue measuring in aggregate 7.0 x 3.5 x 1.5 cm. A number of bony fragments contain articular surfaces consistent with tibial plateau and femoral condyle and displaying prominent osteophyte formation, eburnation and bone erosion. Shortage Worker sections are submitted in two cassettes as follows: 1 - soft tissue, 2 - bone after decalcification. / SONY:tylor 12/22/2022 TC:5 CPT: 80574, 79893
[2022-12-22] MEDS: Magnesium 1 GM over 15 mins IV (06:14)
[2022-12-22] MEDS: Lactated Ringers 1,000 ML 15 ML IV (06:18)
[2022-12-22] MEDS: Acetaminophen 500 MG Tablet 1000 MG PO (06:18)
[2022-12-22] MEDS: Scopolamine 1mg/72hr Patch 1 PATCH TD (06:19)
[2022-12-22] MEDS: Gabapentin 600 MG Tablet PO (06:19)
[2022-12-22 06:50] LABS: Bedside Glucose 96 mg/dL (74-106)
--- NOTE | 2022-12-22 07:06 | PCM.HP.BLA ---
History and Physical Date of Admission: 12/22/22 [facility] [address] [place] [address] OFFICE VISIT Date of Service:? 11/02/22 MR#: [id number] Acct: [id number] Name:MAKEDA CRYSATL Rep #: [id number] : 1955 ? ? Provider: Dr. Naresh Peralta, DO Age/Sex:? 67/F ? ? Location: [facility] [place] Status: Signed Intake Vital Signs ? 02/28/2216:31 11/02/2309:01 Height 5 ft 2 in 5 ft 2 in Weight: ? 214 lb 8 oz BMI ? 39.2 Intake Visit Reasons:?LEFT KNEE Is patient in pain?: Yes Allergies adhesive tape Allergy (Verified 11/02/22 10:06) Rashcodeine Allergy (Verified 11/02/22 10:06) Hiveslevofloxacin Allergy (Verified 11/02/22 10:06) unknowncortisone Adverse Reaction (Severe, Verified 11/02/22 10:06) migraine and skin on fireprednisone Adverse Reaction (Severe, Verified 11/02/22 10:06) migraine and skin on fireNSAIDS (Non-Steroidal Anti-Inflamma Adverse Reaction (Verified 11/02/22 10:06) Upset Stomachpromethazine HCl [From Phenergan] Adverse Reaction (Verified 11/02/22 10:06) RESTLESS LEG SYNDROMEsulfamethoxazole [From Bactrim] Adverse Reaction (Verified 11/02/22 10:06) Nauseatrimethoprim [From Bactrim] Adverse Reaction (Verified 11/02/22 10:06) Nausea Medications amitriptyline 150 mg tablet 150 mg PO QHS 09/07/13 [History Confirmed 11/02/22] hydrochlorothiazide 25 mg tablet 25 mg PO DAILY 09/07/13 [History Confirmed 11/02/22] omeprazole 20 mg capsule,delayed release 20 mg PO QHS 09/07/13 [History Confirmed 11/02/22] atorvastatin 10 mg tablet 20 mg PO QHS 09/21/14 [History Confirmed 11/02/22] metoprolol tartrate 25 mg tablet 25 mg PO BID 12/10/15 [History Confirmed 11/02/22] verapamil 120 mg tablet 60 mg PO TID 12/07/16 [History Confirmed 11/02/22] aspirin 81 mg tablet,delayed release (Adult Low Dose Aspirin) 81 mg PO DAILY 01/09/19 [History Confirmed 11/02/22] sucralfate 1 gram tablet (Carafate) 1 g PO BID 01/09/19 [History Confirmed 11/02/22] cholecalciferol (vitamin D3) 50 mcg (2,000 unit) capsule 2,000 unit PO DAILY 03/13/20 [History Confirmed 11/02/22] cranberry extract 300 mg tablet 300 mg PO BID 11/26/20 [History Confirmed 11/02/22] acetaminophen 325 mg capsule (Tylenol) 325 mg PO ONCE PRN 11/02/22 [History Confirmed 11/02/22] PFSH Medical History? Abdominal pain Chronic headaches CPAP (continuous positive airway pressure) dependence Edema GERD (gastroesophageal reflux disease) History of trigger finger HTN (hypertension) Migraine headache Morbid obesity with BMI of 40.0-44.9, adult Nausea Non-smoker Obstructive sleep apnea Open wound Osteoarthritis of right hip Osteoporosis Pain aggravated by walking SBO (small bowel obstruction) TIA (transient ischemic attack) Wears glasses Surgical History? History of appendectomy History of partial hysterectomy History of reverse total replacement of left shoulder joint (~05/20/20) History of right hip replacement History of right knee joint replacement History of umbilical hernia repair history right shoulder repair Hx of arthroscopy Hx of shoulder surgery Hx of total shoulder replacement Family History? Sister Colon cancerFather DiabetesMother Heart disease Hypertension Social History?(Updated 02/27/22 @ 16:[address] Crispin Balderas MD) household members:? spouse Smoking Status:? Never smoker alcohol intake:? never substance use type:? does not use HPI LEFT KNEE Details: Parts of this documentation were recorded by a scribe, this documentation accurately reflects the service provided and the decisions made by me, Dr. Naresh Peralta, 11/02/22 0843. MAKEDA EM is a 67 year old F here today for left knee pain. Patient states that she fell 4 times last week due to her knee giving out. She denies any injury to her knee.? Patient notes that her pain has progressively worsened. She complains of pain over her anterior and posterior knee. Patient has grinding in her knee. She denies any knee swelling. Patient is not doing activities due to the fear of her knee giving out. She has been icing her knee. Patient uses a cane to ambulate. She denies any recent injections, physical therapy or xrays. She has a knee brace which does not fit her properly. Patient takes tylenol and ibuprofen for pain which is not helpful. Ortho Exam General General: Yes no acute distress Neurologic: Yes alert and Yes oriented x3 Psychologic: Yes reasonable and appropriate Right Knee Patella Translation: 1 Left Knee Skin/Wound: Yes CDI, No ecchymosis, No erythema and No swelling Knee ROM: Yes ROM-Extension -20 to 0 (-10) and Yes ROM-Flexion 0-140 (90) Examination: Yes med jt line tenderness and Yes Lat jt line tenderness Stability: NML: Anterior Drawer, NML: Posterior Drawer, NML: Valgus 30 (valgus deformity) and NML: Varus 30 Patella Translation: 1 Patella Grind: Yes KNEE: skin lesion on medial thigh. Head: Normocephalic Atraumatic Chest: symmetrical rise, non-labored breathing, no audible wheeze Abdomen: no guarding, non-rigid Supplemental Info 11/02/2022 x-ray left knee: Advanced knee arthrosis with valgus deformity severe lateral and patellofemoral joint 09/04/2020 x-ray left knee: Advanced lateral compartment arthrosis [id number] valgus deformity moderate moderate to advanced patellofemoral arthrosis Coding Level of Care Code Off vis,est,level 3 Diagnoses Osteoarthritis of left knee? M17.12 Assessment and Plan Assessment and Plan (1) Osteoarthritis of left knee: ? ? ? Orders: Orders Knee 4 or More Views Today M25.562 - Pain in left knee ? Referrals Physical Therapy Referral ? M17.12 - Unilateral primary osteoarthritis, left knee ? Plan Educated the patient about the anatomy of the knee. Spoke with her about her options- injections, total knee arthroplasty. Spoke with her about the risk of injury to the peroneal nerve due to valgus deformity. She is unable to have a steroid injections due to an allergy. She has dental work at the end of these month for a filling. Spoke with her about the surgery procedure and recovery. She will be on a blood thinner post op to prevent blood clot. Explained that she might have a mechanical feel to her knee. Spoke with the patient about risk of stiffness due to her pre-op stiffness. Recommended the patient do prehab. She will do physical therapy after surgery as well. Patient may travel but has an increased risk of blood clots. Recommend she take a baby aspirin twice a day while traveling. We will need to get medical and dental clearance. She will need a CT scan for makoplasty. Risks, benefits and alternatives of surgery reviewed including but not limited to bleeding, infection, nerve, artery and/or tissue damage, fracture, VTE, mechanical feel of the knee, continued pain, stiffness and expected post-operative course. Follow up for 2 week post op or sooner if pain, swelling, numbness or associated symptoms, or concerns develop.? All questions answered. Patient in agreement of plan. 11/02/22 1157 <Electronically signed by Naresh Peralta DO> Date Naresh Peralta DO Cosigner Signature: Date (if applicable) ? CC: ? ~ I have examined the patient and the H&P has been reviewed. There are no clinical changes since date of exam.
[2022-12-22] MEDS: Cefazolin 2 GM in 0.9% Normal Saline 100 ML IV ×2 (07:40→11:36)
[2022-12-22] MEDS: TXA 1000mg in NS100 100ml (IVPB at Incision) 660 MG IV (07:47)
[2022-12-22] MEDS: TXA 1000mg in NS100 100ml (IVPB at Closure) 660 MG IV (08:15)
[2022-12-22] MEDS: Epinephrine (1 mg/ml) 1 MG/ML VIAL (09:29)
[2022-12-22] MEDS: dexAMETHasone 4 MG/ML Vial (09:30)
[2022-12-22] MEDS: 0.9% Normal Saline (Pres. free 10 ML Vial (09:30)
[2022-12-22] MEDS: Lactated Ringers 1,000 ML 125 ML IV (09:38)
--- NOTE | 2022-12-22 10:02 | OP.PCM_ITS ---
Operative Report Date of Procedure: 12/22/22 Preoperative diagnosis: Left knee DJD Postoperative diagnosis: Same Procedure: Left total knee arthroplasty CT guided Robotic Assisted Implant: Aby triathlon press fit, femoral component size 3, tibial baseplate size 3, asymmetric patella size 29, polyethylene X3 size 13 CS Anesthesia: Spinal with adductor canal block Tourniquet time: 0 minutes at 300 mmHg Complications: None Condition: Stable to PACU Estimated blood loss: 200 cc Diabetes Territory Manager Yohan Eduardo. My physician behavioral health assistant was a vital part of this case. He was important in appropriate retraction during the case, and protection of soft tissues during procedure. His intimate knowledge of the case and my steps aided in safe and expedient completion of the procedure as well as appropriate position of the extremity during the case. He was also vital in assisting with closure under my direct supervision. Indication for procedure: This is a 67-year-old female with long standing degenerative joint disease of the knee with valgus deformity and flexion contracture who has failed conservative treatment and wished to proceed with elective total knee arthroplasty. Risk benefits and alternatives were reviewed including; risk of bleeding, infection, nerve artery and tissue damage, continued pain, postoperative stiffness, venous thromboembolism, need for postoperative rehabilitation, mechanical feel to the knee, and expected postoperative course. The pre- operative CT and templating was performed with component sizing. Procedure: The patient was met in the preoperative holding area. The operative extremity was identified by both patient and physician and was marked. Patient was met by anesthesia. An adductor canal block was placed by anesthesia postoperatively the patient was brought back to the operating room on a wheeled cart and transferred to the operating table in the supine position. Anesthesia was started. A well-padded tourniquet was placed on the operative extremity. The patient was prepped and draped in the usual sterile fashion. A timeout was called to ensure the proper patient procedure and extremity were being contemplated. An esmarch was used to exsanguinate the extremity. The tourniquet was inflated. A 10 blade scalpel was used to make a midline incision down through the skin and subcutaneous tissue. Skin retractors placed. Bovie and Aquamantis were used to perform meticulous hemostasis. full-thickness flaps were elevated medial and lateral along the joint capsule. A deep blade scalpel was used to perform a medial parapatellar arthrotomy. The knee was brought to full extension. A bovie was used to release the soft tissues off the most proximal aspect of the medial tibial plateau, a three-quarter inch curved osteotome was also used in this process. The infrapatellar fat pad was excised. The suprapatellar fat pad was excised partially anteriorolateraly and portion the anterioromedial pad was elevated from the femur. At this point our intra- articular femoral array was placed at a 45 degree angle proximal and posterior to the medial epicondyle. femoral checkpoint was placed at this time. Our tibial array was placed greater than 1 hands breath below the incision at a 20 degree angle stab incisions were made with a 15 blade scalpel and pins were p laced and attached to the tibial array , tibial checkpoint was placed in the proximal tibial metaphysis. Tourniquet was let down. At this point registration hughes were taken throughout the knee . Once the knee was registered we then tensioned the medial and lateral ligaments in extension and 90 degrees of flexion. We then used these numbers to adjust our components within parameters to balance the knee in both flexion and extension once this was done on our monitor we then proceeded with using the robotic arm to make our tibial plateau cut, anterior and posterior chamfer and distal femur cuts. we removed the cut fragments with the use of a bovie and [place], we did use a lamina dustless operator to insure we visualized and removed all posterior osteophytes and at this time also used the Aquamantis on the posterior joint capsule. we then trialed and achieved the desired plan with a well-balanced knee. we used the green probe to earl the corresponding tibial rotation based on our CT template. Lug holes were drilled in the femur the tibia preparation was completed with the appropriate sized base plate pinned based on previous rotation earl. An appropriate sized fin punch was used on the tibia and 4 corner drill was used for the press fit component and the patella was prepared by first using a caliper to ensure sufficient bone stock and a patellar reamer to remove the desired amount of bone. lug holes drilled for an asymmetric poly. We then brought the knee through range of motion with excellent patellar tracking. We thoroughly irrigated the knee. Trial components were removed a posterior capsular injection was preformed with our standard cocktail. In addition the aqua Mantis was also used to aid in hemostasis. Betadine rinse was allowed to sit and washed out completely. Components were press-fit into place. Aricept rinse was then used followed by several more liters of irrigation after it was allowed to sit. The joint capsule was closed with #1 Ethibond [id number] followed by Vicryl in the subcutaneous tissues with daija in the skin. Arrays and checkpoints were removed prior to closure all counts were correct stab incisions were closed with a staple standard dressing in the form of Mepilex AG for the main incision and a small Mepilex over the pin holes. Thigh-high KATHIA hose applied over top of dressing. Patient tolerated the procedure well and was directed to PACU in stable condition . There were no intraoperative complications.
--- NOTE | 2022-12-22 10:04 | DCINST_ITS ---
Discharge Instructions Diet Discharge Diet: No restrictions (A high sugar diet increases the risk of infection in the perioperative period) Activity Weight Bearing Status: Weight bearing as tolerated Dressing / Incision Call your doctor if you observe: Shortness of breath and Chest pain Additional Dressing/Incision Instructions:: Ice and elevate lower extremities 2 weeks while not ambulating. Ambulation is encouraged. Weight bearing as tolerated. Use assistive devise for stability. Encourage FULL knee extension and flexion 1 time EVERY time you get up and down and MULTIPLE times per day. No showering 72 hours after surgery. Begin showering postop day #3. Remove the dressing prior to shower and gently wash with warm water and antibacterial soap then pat dry and place abdominal pad (or plain gauze) and KATHIA hose over top. This is to be done daily. Do not submerge for 3 weeks. If not showering daily after the initial 72 hours then you must clean incision and change dressing daily. Do not allow animals near the incision area. Keep clean. Follow anti- coagulation recommendations as prescribed. Do not take any NSAIDs while on blood thinner. Do not take any additional narcotic pain medication other than what was prescribed on your surgery day without discussing with physician. Narcotic medication can be addictive. Do not drink alcohol while taking narcotics. Supplement narcotic prescription with acetaminophen 1000 mg 4 times a day. Start physical therapy. If you are not currently scheduled for physical therapy or you are unsure of appointment time please call office [facility] to arrange. Call Dr. Peralta with any concerns. Follow Up Care Please Follow Up With: Naresh Peralta DO When: 2 weeks Test Results: Test results from this visit will be discussed in further detail at your follow- up appointment, if applicable. Discharge Plan Admission Primary Reason for Your Visit: Left total knee arthroplasty Attending Provider: Naresh Peralta Primary Care Provider: Jody Garner Discharge Orders/Prescriptions Prescriptions: New acetaminophen [acetaminophen] 500 mg tablet 1,000 mg PO Q6H PRN Qty: 100 0RF cephalexin [cephalexin] 500 mg capsule 1,000 mg PO Q8 Qty: 4 0RF Rx Instructions: take 2 tabs at 9:00 pm and 2 tabs after 5 am when you wake up Eliquis 2.5 mg tablet 2.5 mg PO BID Qty: 42 0RF Rx Instructions: Begin morning after surgery oxycodone 10 mg tablet 5 - 10 mg PO Q4H PRN (Reason: pain) 7 Days Qty: 30 0RF Continued aspirin [Adult Low Dose Aspirin] 81 mg tablet,delayed release (DR/EC) 81 mg PO DAILY sucralfate [Carafate] 1 gram tablet 1 g PO BID amitriptyline 150 MG tablet 150 mg PO QHS Label Comments: HEADACHES omeprazole 20 MG capsule 20 mg PO QHS Label Comments: STOMACH/ acid reflex hydrochlorothiazide 25 MG tablet 25 mg PO DAILY Label Comments: BLOOD PRESSURE atorvastatin 10 MG tablet 20 mg PO QHS Label Comments: CHOLESTEROL metoprolol tartrate 25 MG tablet 25 mg PO BID Label Comments: high blood pressure verapamil 120 MG tablet 60 mg PO BID Label Comments: blood pressure cholecalciferol (vitamin D3) 2,000 UNIT capsule 2,000 unit PO DAILY cranberry extract 300 mg Tablet 30,000 mg PO DAILY melatonin 12 mg Tablet 12 mg PO QHS Estriol 1 gm intrauterine TUTH No Action acetaminophen [Tylenol] 325 mg capsule 325 mg PO PRN PRN (Reason: Pain) Referrals / Follow Up: Jody Garner MD [Primary Care Provider] - Disposition Disposition (needs filled in before D/C Order can be placed): Home, Self Care
--- NOTE | 2022-12-22 10:30 | RAD_ITS ---
STUDY: X-RAY - LEFT KNEE REASON FOR EXAM: Female, 67 years old. Post op -- in PACU TECHNIQUE: 2 view(s) of the knee. COMPARISON: Comparison is made with prior study dated November 02, 2022. FINDINGS: Normal visualized distal femur. Normal visualized proximal tibia and fibula. Normal proximal tibiofibular articulation. The patient is status post total knee replacement. There is good alignment. Postoperative soft tissue changes. RAD/Knee 1 or 2 Views IMPRESSION: Status post total knee replacement. There is good alignment. Postoperative soft tissue changes. Electronically Signed: Adin Tay MD at 11:02 EDT ,
[2022-12-22] MEDS: oxyCODONE 5 MG Tablet PO (12:00)
[2022-12-22] MEDS: Ketorolac 30 MG/ML Syringe 15 MG IV (12:02)
== END 2022-12-22 15:24 | disposition home or self-care (01) ==
LOC: SDC 05:33 → AC 05:33
PROVIDERS: Anesthesiology; PCP Family Medicine; Referring Provider Orthopaedic Surgery; Visit Provider Orthopaedic Surgery
PROC: 0SRD0JZ Replacement of Left Knee Joint with Synthetic Substitute, Open Approach (ICD-10-PCS; CPT 27447; principal; 2022-12-22 07:00)
DX: M17.12 Unilateral primary osteoarthritis, left knee (principal); G47.33 Obstructive sleep apnea (adult) (pediatric); I10 Essential (primary) hypertension; K21.9 Gastro-esophageal reflux disease without esophagitis; E78.00 Pure hypercholesterolemia, unspecified; Z86.73 Personal history of transient ischemic attack (TIA), and cerebral infarction without residual deficits; Z79.899 Other long term (current) drug therapy
CPT/HCPCS: 27447; S2900; 64447; 01402; 36415; 73560; 82962; 82985; 83735; 85610; 85730; 86850; 86900; 86901; 87077; 87081; 88305; 88311; 93005; 97162; C1776; J7120; J2405; J3475; J3490

== ENCOUNTER → 2022-12-25 | Outpatient (CLI) | payer MEDICARE, OTHER, SELFPAY ==
--- NOTE | 2022-12-25 13:57 | VDLE_ITS ---
Reason For Study: LLE PAIN RIGHT LEFT CFV is compressible, spontaneous, phasic, GSV is normal. competent and demonstrates normal CFV is compressible, spontaneous, phasic, augmentation. competent, and demonstrates normal Procedure augmentation. This is a venous duplex using B-mode, color FV is compressible, spontaneous, phasic, flow and spectral Doppler. competent and demonstrates normal Exam performed in department. augmentation. A preliminary report was called and/or faxed POP V is compressible, spontaneous, phasic, to Yohan AGUILAR @ [phone] @14:30. competent and demonstrates normal augmentation. T/P Trunk is compressible. PTV is compressible. LT PerV is compressible. VL/Venous Duplex US, Unilateral Interpretation Summary There is no evidence of left lower extremity deep vein thrombosis. Left great s aphenous vein appears patent and compressible segmentally. Normal flow patterns right common femoral vein Ordering Physician: Yohan Eduardo Referring Physician: Jody Garner Performed By: Fatimah Vazquez, FOSTER, RVT
== END | disposition home or self-care (01) ==
PROVIDERS: PCP Family Medicine; Visit Provider Physician Assistant
DX: M79.662 Pain in left lower leg (principal)
CPT/HCPCS: 93971

== ENCOUNTER 2023-01-29 08:00 | Outpatient (RCR) | payer MEDICARE, OTHER, SELFPAY ==
--- NOTE | 2022-12-24 12:57 | HP.PTEVAL_ITS ---
Patient's Visit Information MAKEDA EM is a 67 year old F referred to Physical Therapy by Dr. Naresh Peralta DO with a diagnosis of L TKA 12/22/22. Date of Evaluation: 12/24/22 Physical Therapist: Deep Saez PT, ATC - Visit Plan Frequency: 2-3x /Week Duration: 4-6 Weeks Plan: L knee PROM/mobs, stretching and strengthening, balance/proprio, core strengthening, bike, and HEP - Subjective DOS: 12/22/22. Pt had a L TKA performed at that time. Pt reports she waited too long to have this performed so they had to replace her L patella as well. Pt is very concerned today secondary to pain in her L gastroc and groin region. Pt notes she called her surgeon yesterday that placed her on a muscle relaxant and told her to take it for 2 days, and if the pain isnt better, call his office. Pt notes she is in a lot of pain today. Pt notes she cant perform her HEP at this time secondary to her pain level. Pt denies tingling or numbness at this time. Pt notes sleep difficulty secondary to pain. Pt is currently retired. Pt has steps into her house which she is able to negotiate one step at a time. Pt also notes car transfers ar every difficult secondary to pain. 7/10 pain at rest, 9/10 at worst (performing HEP) - Pain L knee Pain Intensity (Out of 10): 7 Pain Intensity Range: 9 - Objective Neuro: B LE sensation is WNL to light touch. Girth at joint line: L knee 54 cm, R knee 46 cm. ROM: R knee 0-115, L knee 0-17-84 degrees. MMT: R knee flex= 30, ext= 43 #F; L knee flex= 6, ext= 8 #F. TU.92 - Balance/Special Test Scores WOMAC Total Score: 87 WOMAC Percentatge: 9.3800 - Goals Goal 1:: Decrease L knee pain x 50% to aid with sleep Goal Time Frame: 4-6 Weeks Goal 2:: Increase L knee ROM x 30 degrees to aid with restoring a more normalized gait pattern Goal Time Frame: 4-6 Weeks Goal 3:: Increase L knee strength x 30 #F to sarika with stair negotiation Goal Time Frame: 4-6 Weeks Goal 4:: I with HEP Goal Time Frame: 4-6 Weeks - Rehabilitation Potential Physical Therapy Diagnosis: Pt has L knee pain, weakness, and limited ROM secondary to L TKA Rehabilitation Potential: Good - Anticipated Interventions Patient/Client Instruction: Educate patient on: Condition, Plan of Care For the Purpose of:: To improve self management Therapeutic Exercise to Include: Strength training, Endurance training, Balance training, Flexibilty training, Gait and locomotor training, Passive ROM, Active ROM, Dynamic Lumbar Stabilization For the Purpose of:: To decrease pain, To increase ROM, To improve muscle performance and motor function Manual Therapy Techniques to Include: Soft tissue mobilization For the Purpose of:: To decrease pain, To increase ROM Cryotherapy (ice pack, ice massage): Yes For the Purpose of:: To decrease pain Thank you for the opportunity to evaluate your patient. For Medicare and Medicare HMO plans, please review the plan of care and approve it. It will need to be FAXED BACK to us at [phone] for Medicare purposes. For Medicare only, by signing this I certify the plan of care. Please let me know if there are questions or concerns regarding this plan of care. Physician Signature: Date:
--- NOTE | 2023-01-22 10:36 | HP.PTREVAL ---
Re-Evaluation Intro: Dr. Naresh Peralta, DO, It has been my pleasure to treat MAKEDA EM over the last 9 visits for L TKA 12/22/22. Please see the progress note below for an update on the physical therapy plan of care! Subjective Subjective: Pt reports she was placed on muscle relaxers and told to back off of ex's today Objective Objective/Function: L knee pain ranges from 0-2/10 L knee ROM: 0-118 degrees L knee MMT: flex= 20, ext= 23 #F Plan Plan Plan: L knee PROM/mobs, stretching and strengthening, balance/proprio, core strengthening, bike, and HEP Balance/Gait/Functional tests Balance/Special Test Scores Lower Extremity Functional Score: 63 WOMAC Total Score: 87 WOMAC Percentage: 9.3800 Goals Goals Goal 1:: Decrease L knee pain x 50% to aid with sleep Goal Time Frame: 4-6 Weeks Goal Progress: Progressing Goal 2:: Increase L knee ROM x 30 degrees to aid with restoring a more normalized gait pattern Goal Time Frame: 4-6 Weeks Goal Progress: Progressing Goal 3:: Increase L knee strength x 30 #F to sarika with stair negotiation Goal Time Frame: 4-6 Weeks Goal Progress: Progressing Goal 4:: I with HEP Goal Time Frame: 4-6 Weeks Goal Progress: Progressing Anticipated Interventions Anticipated Interventions Patient/Client Instruction: Educate patient on: Condition and Plan of Care For the Purpose of:: To improve self management Therapeutic Exercise to Include: Strength training, Endurance training, Balance training, Flexibilty training, Gait and locomotor training, Passive ROM, Active ROM and Dynamic Lumbar Stabilization For the Purpose of:: To decrease pain, To increase ROM and To improve muscle performance and motor function Manual Therapy Techniques to Include: Soft tissue mobilization For the Purpose of:: To decrease pain and To increase ROM Cryotherapy (ice pack, ice massage): Yes For the Purpose of:: To decrease pain Re-Evaluation Ending Re-evaluation ending: Please do not hesitate to contact me at [phone] by phone or if you have questions or concerns regarding this new plan of care! Sincerely, Deep Saez, PT, ATC
--- NOTE | 2023-04-14 13:57 | HP.PT.NRP ---
Patient Information Patient Information: MAKEDA EM was seen in my office for initial evaluation on 12/24/22. The following Plan of Care was established for this patient: POC Established Initial Frequency: 2-3x /Week Initial Duration: 4-6 Weeks Anticipated Interventions Patient/Client Instruction: Educate patient on: Condition and Plan of Care For the Purpose of:: To improve self management Therapeutic Exercise to Include: Strength training, Endurance training, Balance training, Flexibilty training, Gait and locomotor training, Passive ROM, Active ROM and Dynamic Lumbar Stabilization For the Purpose of:: To decrease pain, To increase ROM and To improve muscle performance and motor function Manual Therapy Techniques to Include: Soft tissue mobilization For the Purpose of:: To decrease pain and To increase ROM Cryotherapy (ice pack, ice massage): Yes For the Purpose of:: To decrease pain Last Seen Last Seen: This patient was last seen in our office . Pertinent comments regarding their Physical therapy will appear below: Pt was treated for 12 PT visits for L knee pain through the date of 01/29/23. Pt has not returned through todays date and is discontinued at this time. At this point I will be discontinuing this patient from physical therapy. I would be happy to see this patient again in the future if found appropriate by the physician. Thank you! Deep Saez, PT, ATC Balance/Gait/Functional tests Balance/Special Test Scores Lower Extremity Functional Score: 63 WOMAC Total Score: 87 WOMAC Percentage: 9.3800
== END 2023-01-29 19:00 | disposition home or self-care (01) ==
LOC: PT 08:00
PROVIDERS: PCP Family Medicine; Referring Provider Orthopaedic Surgery; Visit Provider Orthopaedic Surgery
DX: M17.12 Unilateral primary osteoarthritis, left knee (principal)
CPT/HCPCS: 97110; 97140; 97161; 97164

== ENCOUNTER 2023-07-09 09:00 | Outpatient (RCR) | payer MEDICARE, OTHER, SELFPAY ==
--- NOTE | 2023-06-09 09:14 | HP.PTEVAL_ITS ---
Patient's Visit Information Visit Information Visit Information: MAKEDA EM is a 68 year old F referred to Physical Therapy by JEFF THAO with a diagnosis of R glute medius and minimus strain. Date of Evaluation: 06/09/23 Physical Therapist: Deep Saez, PT, ATC Visit Plan Frequency: 2x /Week Duration: 4-6 Weeks Plan: R glute DTR, stretching, R hip strengthening, core stab ex's, and HEP Subjective Subjective: Pt reports her R hip has been sore for 3 weeks now. Pt notes her pain was there prior to that, but has progressively worsened over this time span. Pt reports the pain limits her sleep at this time. Pt notes she also has a significantly difficult time with stair negotiation secondary to pain. Pt reports when she is sitting and attempts to weight shift, her R hip will catch, which results in pain. Pt notes most of her pain is on the posterior/lateral region of her R hip. Pt reports she has had x-rays at this time time which revealed a tear in the glute Medius. Pt denies tingling or numbness in the R LE. Pt reports she had a iliopsoas repair in 2017. Pt reports she is able to ambulate, but it hurts. Pt notes it is difficult for her to grocery shop secondary to this pain. 0/10 at rest, 8/10 pain at worst (when she rolls over in bed at night) Pain R hip pain: Pain Intensity (Out of 10): 0 Pain Intensity Range: 8 Objective Objective: Neuro: B LE sensation is WNL to light touch. B patellar reflex= 1/3 Palpation: Pt is very sore along the gluteal muscle complex. No obvious deformity ROM: R hip is limited with flex and ER at this time. All other ranges are WNL when compared bilaterally MMT: L hip flex= 15, abd= 34, add= 35 #F: R hip flex= 6, abd= 20,add= 34 #F Gait: Pt ambulates with an obvious trendelenberg gait pattern. Balance/Special Test Scores Lower Extremity Functional Score: 23 Goals Goal 1:: Decrease R hip pain x 50% to aid with sleep Goal Time Frame: 4-6 Weeks Goal 2:: Increase R hip strength x 5-10#F to aid with stair negotaiaition Goal Time Frame: 4-6 Weeks Goal 3:: I with HEP Goal Time Frame: 4-6 Weeks Goal 4:: Pt will ambulate with no signs of a Trendelenburg gait pattern Goal Time Frame: 4-6 Weeks Rehabilitation Potential Physical Therapy Diagnosis: Pt has R hip pain, weakness, and limited ROM secondary to R glute complex strain Rehabilitation Potential: Good Anticipated Interventions Patient/Client Instruction: Educate patient on: Condition and Plan of Care For the Purpose of:: To improve self management Therapeutic Exercise to Include: Strength training, Endurance training, F lexibilty training, Active ROM and Dynamic Lumbar Stabilization For the Purpose of:: To decrease pain, To increase ROM and To improve muscle performance and motor function Text: Thank you for the opportunity to evaluate your patient. For Medicare and Medicare HMO plans, please review the plan of care and approve it. It will need to be FAXED BACK to us at [phone] for Medicare purposes. For Medicare only, by signing this I certify the plan of care. Please let me know if there are questions or concerns regarding this plan of care. Physician Signature: Date:
--- NOTE | 2023-10-28 15:15 | HP.PTDCSUM ---
Discharge Summary D/C summary: It has been my pleasure to treat MAKEDA EM referred by JEFF THAO, with the diagnosis of R glute medius and minimus strain for a total of 7 visit(s). Discharge Date: Please see the following information for a summary of their discharge status. Subjective Subjective: I am still no able to sleep secondary to pain. I am so sore Pain R hip pain: Pain Intensity (Out of 10): 2 Overall Improvement % Improvement: 50 Objective Objective/Function: R hip pain ranges from 2-8/10 R hip MMT: flex= 6, abd= 14, add= 41 #F I with HEP Goals Goal 1:: Decrease R hip pain x 50% to aid with sleep Goal Progress: Progressing Goal 2:: Increase R hip strength x 5-10#F to aid with stair negotaiaition Goal 3:: I with HEP Goal Progress: Goal Met Goal 4:: Pt will ambulate with no signs of a Trendelenburg gait pattern Plan Plan: Discharge secondary to lack of progress, RTD D/C Information d/c sentence: If there are questions or concerns regarding this patient's physical therapy, please feel free to call me at [phone]. Thank you for the referral of this patient. Sincerely, Deep Saez, PT, ATC Balance/Gait/Functional tests Balance/Special Test Scores Lower Extremity Functional Score: 32 Improvement % Improvement: 50
== END 2023-07-09 19:00 | disposition home or self-care (01) ==
LOC: PT 09:00
PROVIDERS: PCP Family Medicine; Referring Provider Physician Assistant Medical; Visit Provider Physician Assistant Medical
DX: S76.011D Strain of muscle, fascia and tendon of right hip, subsequent encounter (principal)
CPT/HCPCS: 97110; 97161; 97164

== ENCOUNTER → 2023-08-04 | Outpatient (CLI) | payer MEDICARE, OTHER, SELFPAY ==
--- OUTSIDE RECORDS SUMMARY | 2023-08-04 15:55 | XMS RPT_ITS | CCD ---
Author Name Unknown Address [facility] [place] [address] Organization [facility] Care Team Providers Care Final Operations Technician Name Role Phone RD PARSONS DR Admitting Unavailable RD PARSONS DR Attending Unavailable RD PARSONS DR Primary Care Unavailable CINDY WRIGHT MD Consulting Unavailable PROVIDER, UNKNOWN Consulting Unavailable RD PARSONS DR Admitting Unavailable RD PARSONS DR Attending Unavailable RD PARSONS DR Primary Care Unavailable CINDY WRIGHT MD Consulting Unavailable PROVIDER, UNKNOWN Consulting Unavailable Allergies Allergy Classification Reported Allergen(s) Allergy Type Date of Onset Reaction(s) Facility (1 source) Codeine Drug Allergy [facility] Repository (1 source) Cortisone Drug Allergy [facility] Repository (1 source) Promethazine Drug Allergy [facility] Repository (1 source) Sulfamethoxazole / Trimethoprim Drug Allergy [facility] Repository Results Test Name Value Interpretation Reference Range Facil ity Encounters Encounter Date Encounter Type Care Provider Facility Start: 08-15-2018 End: 08-15-[address] PARSONS [facility] Start: 07-22-2018 End: 07-22-[address] PARSONS [facility] Payers Date Payer Category Payer Unknown [id number] 1955 Unknown [id number] Unknown [id number] Summary Purpose Family History No Family History Records FoundNo Family History Records Found Advance Directives No Advanced Directives Records FoundNo Advanced Directives Records Found Additional Source Comments INFORMATION SOURCE (unrecogn ized section and content) DATE CREATED AUTHOR AUTHOR'S MICKEY DOUGLAS 08/31/2021 [facility] [place] FOR RECORDS PERTAINING TO PATIENTS WHO ARE OR HAVE BEEN ENROLLED IN A CHEMICAL DEPENDENCY/SUBSTANCEABUSE PROGRAM, SOME INFORMATION MAY BE OMITTED. This clinical summary was aggregated from multiple sources. Caution should be exercised in using it in the provision of clinical care. This summary normalizes information from multiple sources, and as a consequence, information in this document may materially change the coding, format and clinical context of patient data. In addition, data may be omitted in some cases. CLINICAL DECISIONS SHOULD BE BASED ON THE PRIMARY CLINICAL RECORDS. [employer] [facility]. provides no warranty or guarantee of the accuracy or completeness of information in this document.
[2023-08-04 17:39] LABS: Absolute Lymphocyte Count 2.46 X10^3/uL (0.83-4.51); Absolute Neutrophil Count 3.7 X10^3/uL (2.0-7.7); Basophil# 0.03 X10^3/uL; Basophil% 0.4 % (0-1); Eosinophils% 2.9 % (0-5); Hematocrit 39.7 % (37-47); Hemoglobin 13.1 g/dL (12.0-15.0); Lymphocyte # 2.46 X10^3/ul (0.83-4.51); Lymphocyte % 36.1 % (19-41); Mean Corpuscular Volume 96.8 fL (81-99); Monocyte# 0.38 X10^3/uL; Monocyte% 5.6 % (0-10); NRBC Flagged by Analyzer 0 % (0-5); Neutrophil # 3.72 X10^3/uL (2.7-7.7); Neutrophil % 54.7 % (47-70); Platelet Count 304 K/mm3 (150-450); RBC Distribution Width CV 12.6 % (11.6-14.6); RBC Distribution Width SD 45.3 fl (35.1-43.9); White Blood Count 6.8 K/mm3 (4.4-11.0)
[2023-08-04 18:04] LABS: Erythrocyte Sedimentation Rate 28 mm/hr (0-30)
[2023-08-04 18:12] LABS: CRP 6.54 mg/L (0.0-3.0); Uric Acid 6.9 mg/dL (2.6-6.0)
== END | disposition home or self-care (01) ==
PROVIDERS: PCP Family Medicine; Referring Provider Orthopaedic Surgery; Visit Provider Orthopaedic Surgery
DX: Z96.649 Presence of unspecified artificial hip joint (principal)
CPT/HCPCS: 36415; 84550; 85025; 85652; 86140

== ENCOUNTER → 2023-10-01 | Outpatient (CLI) | payer MEDICARE, OTHER, SELFPAY ==
--- OUTSIDE RECORDS SUMMARY | 2023-10-01 11:48 | XMS RPT_ITS | CCD ---
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 Name Role Phone RD PARSONS DR Admitting [...] Reaction(s) Facility (1 source) Codeine Drug Allergy [facility] Repository (1 source) Cortisone Drug Allergy [facility] Repository (1 source) Promethazine Drug Allergy [facility] Repository (1 source) Sulfamethoxazole / Trimethoprim Drug Allergy [facility] Repository Results Test Name Value Interpretation Reference Range Facil ity Encounters Encounter Date Encounter Type Care Provider Facility Start: 08-15-2018 End: 08-15-[address] [facility]SONS [facility] Start: 07-22-2018 End: 07-22-[address] PARSONS [facility] Payers Date Payer Category Payer Unknown [id number] 1955 Unknown [id number] Unknown [id number] Summary Purpose Family History No Family History Records FoundNo Family History Records Found Advance Directives No Advanced Directives Records FoundNo Advanced Directives Records Found Additional Source Comments INFORMATION SOURCE (unrecogn ized section and content) DATE CREATED AUTHOR AUTHOR'S MICKEY DOUGLAS 08/31/2021 [facility] FOR RECORDS PERTAINING TO PATIENTS WHO ARE [...] BE BASED ON THE PRIMARY CLINICAL RECORDS. [employer] [facility]. provides no warranty or guarantee of the accuracy or completeness of information in this document.
[2023-10-01 12:49] LABS: Absolute Lymphocyte Count 2.51 X10^3/uL (0.83-4.51); Absolute Neutrophil Count 3.4 X10^3/uL (2.0-7.7); Basophil# 0.04 X10^3/uL; Basophil% 0.6 % (0-1); Eosinophil# 0.25 X10^3/uL; Eosinophils% 3.7 % (0-5); Hematocrit 39.8 % (37-47); Hemoglobin 12.9 g/dL (12.0-15.0); Lymphocyte # 2.51 X10^3/ul (0.83-4.51); Lymphocyte % 37.4 % (19-41); Mean Corp Hgb Conc 32.4 g/dL (32-36); Mean Corpuscular Hgb 30.9 pg (27.0-32.0); Mean Corpuscular Volume 95.4 fL (81-99); Mean Platelet Vol. 9.9 fl (6.2-12.0); Monocyte# 0.54 X10^3/uL; NRBC Flagged by Analyzer 0 % (0-5); Neutrophil # 3.35 X10^3/uL (2.7-7.7); Neutrophil % 49.9 % (47-70); Platelet Count 286 K/mm3 (150-450); RBC Distribution Width CV 12.5 % (11.6-14.6); RBC Distribution Width SD 43.9 fl (35.1-43.9); Red Blood Count 4.17 M/mm3 (4.2-5.4); White Blood Count 6.7 K/mm3 (4.4-11.0)
[2023-10-01 12:52] LABS: Anion Gap 5 (5-15); BUN 19 mg/dL (7-18); BUN/Creat Ratio 23.5 RATIO (10-20); Calcium,Total 9.4 mg/dL (8.5-10.1); Chloride 106 mmol/L (98-107); Creatinine, Serum 0.81 mg/dL (0.55-1.02); EST Glomerular Filtration Rate 74 mL/min (>60); Est Glom Filt Rate - Afr Amer 90 mL/min (>60); Glucose 74 mg/dL (74-106); Potassium 3.6 mmol/L (3.5-5.1); Sodium Level 140 mmol/L (136-145)
== END | disposition home or self-care (01) ==
LOC: MTLAB 10:44
PROVIDERS: PCP Family Medicine; Referring Provider Family Medicine; Visit Provider Family Medicine
DX: Z01.812 Encounter for preprocedural laboratory examination (principal)
CPT/HCPCS: 36415; 80048; 85025

== ENCOUNTER → 2024-01-05 | Outpatient (CLI) | payer MEDICARE, OTHER, SELFPAY ==
--- NOTE | 2024-01-05 10:12 | BI_ITS ---
MAMMOGRAPHY - BILATERAL SCREENING REASON FOR EXAM: Female, 68 years old. Routine annual screening examination. PERTINENT HISTORY: Non-contributory. Remote right excisional breast biopsy. TECHNIQUE: Digital bilateral breast denny (3D mammographic acquisition) in the CC and MLO projections. 2-D mediolateral oblique (MLO) and craniocaudad (CC) views of both breasts were obtained. CAD: Full Field Digital Mammography with Computer Added Detection was performed. COMPARISON: Comparison is made with prior study of November 20, 2022 and November 18, 2021. FINDINGS: Breast Composition: The breasts are almost entirely fatty. There are no dominant masses or suspicious calcifications. Stable bilateral secretory calcifications. A tissue clip marker is seen in the upper lateral aspect of the left breast. Stable subcentimeter nodules in the retroareolar region of both breasts. No other significant abnormalities are identified. There has been no significant change since the prior study. BI/SCRN MAMM (CAD)W/DENNY BILAT IMPRESSION: Stable bilateral screening mammogram. Yearly follow-up mammogram recommended. (A) ASSESSMENT CATEGORY: BIRADS Category 2: Benign. A letter regarding these results will be sent to the patient by the facility within 30 days. Approximately 10% of breast cancers are not detected by mammography. A normal mammogram should not delay biopsy of a clinically suspicious abnormality. [id number] Electronically Signed: Adin Tay MD at 10:53 EDT ,
== END | disposition home or self-care (01) ==
LOC: OPBI 10:11
PROVIDERS: PCP Family Medicine; Referring Provider Family Medicine; Visit Provider Family Medicine
DX: Z12.31 Encounter for screening mammogram for malignant neoplasm of breast (principal)
CPT/HCPCS: 77063; 77067

== ENCOUNTER 2024-01-10 09:00 | Outpatient (RCR) | payer MEDICARE, OTHER, SELFPAY ==
--- NOTE | 2023-11-17 15:30 | HP.PTEVAL_ITS ---
Patient's Visit Information Visit Information Visit Information: MAKEDA EM is a 68 year old F referred to Physical Therapy by Dr. Pratik Mercado MD with a diagnosis of R glute medius/minimus repair 10/27/23. Date of Evaluation: 11/17/23 Physical Therapist: Deep Saez, PT, ATC Visit Plan Frequency: 2-3x /Week Duration: 6-8 weeks Plan: Follow protocol in chart Subjective Subjective: DOS: 10/27/23. Pt reports she had surgery on her R hip to repair a tear of her gluteus medius and minimus. Pt reports she is very glad as to how she is doing now. Pt reports she has very minimal pain now. Pt notes no sleep difficulty at this time secondary to pain. Pt denies tingling or numbness in R LE. Pt reports she is NWBing, and notes she was told not to do anything until she sees PT. Pt is retired at this time. Pt notes she has 3 stairs to enter her house which she is able to do one step at a time. Pt reports she would like to be able to walk again as she is an avid walker. Pt also notes her Granddaughter is graduating high school at the end of November, and pt would like to be able to walk with a crutch or a walker at that time. Pt reports her pain has remained at a constant 3/10 over the past week. Pain R hip: Pain Intensity (Out of 10): 3 Pain Intensity Range: 3 Objective Objective: Neuro: B LE sensation is WNL to light touch. MMT: L hip flex= 19, add= 30, abd= 31 #F. R hip not tested today ROM: unable to assess today secondary to intolerance for standing with walker (B shoulder pain) Transfers: Pt is able to perform sit to stand transfers without difficulty Gait: Pt is able to ambulate 2 feet with walker, but must weight bear on R LE to complete the task. Balance/Special Test Scores Lower Extremity Functional Score: 6 Goals Goal 1:: Decrease R hip pain x 50% to aid with IADL's Goal Time Frame: 6-8 Weeks Goal 2:: Increase R hip strength to within 95% strength of L hip to aid with stair negotiation Goal Time Frame: 6-8 Weeks Goal 3:: R hip AROM will equal L hip ROM within 95% to aid with IADL's Goal Time Frame: 6-8 Weeks Goal 4:: I with HEP Goal Time Frame: 6-8 Weeks Rehabilitation Potential Physical Therapy Diagnosis: Pt has R hip pain, weakness, and limited ability to ambulate secondary to R hip surgery Rehabilitation Potential: Good Anticipated Interventions Patient/Client Instruction: Educate patient on: Condition and Plan of Care For the Purpose of:: To improve self management Therapeutic Exercise to Include: Strength training, Endurance training, Balance training, Flexibilty training, Passive ROM, Active ROM and Dynamic Lumbar Stabilization For the Purpose of:: To decrease pain, To increase ROM and To improve muscle performance and motor function Cryotherapy (ice pack, ice massage): Yes For the Purpose of:: To decrease pain Text: Thank you for the opportunity to evaluate your patient. For Medicare and Medicare HMO plans, please review the plan of care and approve it. It will need to be FAXED BACK to us at [phone] for Medicare purposes. For Medicare only, by signing this I certify the plan of care. Please let me know if there are questions or concerns regarding this plan of care. Physician Signature: _Date:
--- NOTE | 2023-12-17 14:12 | HP.PTREVAL ---
Re-Evaluation Intro: Dr. Pratik Mercado MD, It has been my pleasure to treat MAKEDA EM over the last 9 visits for R glute medius/minimus repair, Gr Troch Bursectomy, IT band Resect 10/27/23. Please see the progress note below for an update on the physical therapy plan of care! Subjective Subjective: PATIENT REPORTS SHE IS DOING A LOT BETTER. SHE REPORTS SHE SHE ISN'T HAVING ANY R BUTTOCK OR HIP PAIN BUT SHE IS STILL HAVING THE BACK SPASM THAT SHE HAS HAD SINCE SURGERY. SHE REPORTS THE MEDICINE FOR THE BACK SPASMS HELP - HAS ONLY HAD TO TAKE IT A FEW TIMES. ICE AND HEAT ARE USUALLY ENOUGH TO HELP THE SPASMS. PATIENT REPORTS SHE IS WILLING TO DO THERAPY FOR ANOTHER WEEK OR SO TO BUILD UP STRENGTH. REPORTS SHE IS DOING THE EX'S AT HOME. FOLLOW UP PENDING WITH DR. MERCADO IN JANUARY. HAD 6 WK FOLLOW UP DEC 08 2023 AND PA WAS VERY PLEASED WITH HOW SHE WAS DOING. PATIENT REPORTS SHE FORGOT TO BRING WALKER TODAY AND CAME WITH CANE. INTERMITTENT LBP 0 TO 10/26. Objective Objective/Function: This patient ambulates indep'ly into PT today with a straight cane. It is too high and she is not using it with proper sequencing and has a limp on the R LE. After training and proper cane height adjustment, patient rather quickly is able to correct sequencing and gait normalizes. Instructed patient that it is ok to transition to cane unless she gets sore - then return to walker as needed to control pain and inflammation. Objective: Neuro: B LE sensation is WNL to light touch. STRENGTH: (Tested EOB with strain guage in peak force) L hip flex= 15.2, add= 15.1, abd= 15.4 #F. R hip flex = 7.9 , add = 7.5 , abd = 8.1 #F. Patient denied pain with strength testing. ROM: R hip flex 100 deg, abd 35 deg, ext 10 deg, IR 25 deg, ER 38 deg. Transfers: Indep sit to stand without UE assist. TU.[address] cane 30 sec STS: 11 - NO UE ASSIST. Plan Plan Plan: CONTINUE PT PER DR. MERCADO'S GLUTEUS PROTOCOL 2X'S A WK X 10 VISITS: Follow protocol in workroom. Week 7 on 12/14. DOS 10/27/23 Balance/Gait/Functional tests Balance/Special Test Scores Lower Extremity Functional Score: 42 Goals Goals Goal 1:: Decrease R hip pain x 50% to aid with IADL's Goal Time Frame: 6-8 Weeks Goal Progress: Goal Met Goal 2:: Increase R hip strength to within 95% strength of L hip to aid with stair negotiation Goal Time Frame: 6-8 Weeks Goal Progress: Progressing Goal 3:: R hip AROM will equal L hip ROM within 95% to aid with IADL's Goal Time Frame: 6-8 Weeks Goal Progress: Progressing Goal 4:: I with HEP Goal Time Frame: 6-8 Weeks Goal Progress: Progressing Anticipated Interventions Anticipated Interventions Patient/Client Instruction: Educate patient on: Condition and Plan of Care For the Purpose of:: To improve self management Therapeutic Exercise to Include: Strength training, Endurance training, Balance training, Flexibilty training, Passive ROM, Active ROM and Dynamic Lumbar Stabilization For the Purpose of:: To decrease pain, To increase ROM and To improve muscle performance and motor function Cryotherapy (ice pack, ice massage): Yes For the Purpose of:: To decrease pain Re-Evaluation Ending Re-evaluation ending: Please do not hesitate to contact me at [phone] by phone or if you have questions or concerns regarding this new plan of care! Sincerely, Rosetta Romero, PT, Cert MDT
--- NOTE | 2024-02-17 14:41 | HP.PT.NRP ---
Patient Information Patient Information: MAKEDA EM was seen in my office for initial evaluation on 11/17/23. The following Plan of Care was established for this patient: POC Established Initial Frequency: 2-3x /Week Initial Duration: 6-8 weeks Anticipated Interventions Patient/Client Instruction: Educate patient on: Condition and Plan of Care For the Purpose of:: To improve self management Therapeutic Exercise to Include: Strength training, Endurance training, Balance training, Flexibilty training, Passive ROM, Active ROM and Dynamic Lumbar Stabilization For the Purpose of:: To decrease pain, To increase ROM and To improve muscle performance and motor function Cryotherapy (ice pack, ice massage): Yes For the Purpose of:: To decrease pain Last Seen Last Seen: This patient was last seen in our office 01/10/24. Pertinent comments regarding their Physical therapy will appear below: It has been my pleasure to see this patient for a total of 13 visits. It is our understanding that she had an US showing the muscle tore off the bone and she is having surgery 03/16/24 and then will return. I received a note from FAISAL SPENCER stating he spoke to her and she apparently stated the doctor isn't sure how it happened, she did not have an MRI, just woke up with pain, and possibly did something in her sleep. At this point I will be discontinuing this patient from physical therapy. I would be happy to see this patient again in the future if found appropriate by the physician. Thank you! Rosetta Romero, PT, Cert MDT Balance/Gait/Functional tests Balance/Special Test Scores Lower Extremity Functional Score: 42
== END 2024-01-10 19:00 | disposition home or self-care (01) ==
LOC: PT 09:00
PROVIDERS: PCP Family Medicine; Referring Provider Orthopaedic Surgery Sports Medicine; Visit Provider Orthopaedic Surgery Sports Medicine
DX: S76.011D Strain of muscle, fascia and tendon of right hip, subsequent encounter (principal)
CPT/HCPCS: 97110; 97161; 97530

== ENCOUNTER 2024-05-24 15:00 | Outpatient (RCR) | payer MEDICARE, OTHER, SELFPAY ==
--- NOTE | 2024-04-10 14:05 | HP.PTEVAL ---
Patient's Visit Information Visit Information Visit Information: MAKEDA EM is a 69 year old F referred to Physical Therapy by LEA LANGE with a diagnosis of R glute repair 03/16/24. Date of Evaluation: 04/10/24 Physical Therapist: Deep Saez, PT, ATC Visit Plan Frequency: 2x /Week Duration: 6 Weeks Plan: Follow surgical protocol in chart Subjective Subjective: Pt reports R hip revision of glute med and min on 03/16/24. Pt reports this is the second time she has had this procedure done, first one was done back in October 2023. Pt reports only being allowed to stand up and take one step due to surgical precautions; uses one crutch to up and down the steps; uses wheelchair for all WBing activities. Pt reports NWB due to surgical precautions. Pt reports no trouble with sleeping, sitting for long periods of time, or rolling over in bed due to pain. Pt reports no numbness or tingling going down R leg. Pt reports using a shower chair due to being NWB. Pt reports wanting to get back to completing ADLs and iADLs pain free. Pt reports pain is 2/10 at rest and 4/10 at its worst. Pain R hip: Pain Intensity (Out of 10): 2 Pain Intensity Range: 4 Objective Objective: NEURO: senation WNL to light touch; DTR: patellar and achilles 2/3 bilaterally ROM: L hip: flexion= 90 deg , abd= 60 deg, Ext= NT secondary to R hip pain; R hip: NT due to surgical precautions MMT: L hip: flexion= 24 , abd= 19 , Ext= NT secondary to R hip pain; R hip: NT due to surgical precautions Gait: Pt is unable to ambulate at this time Balance/Special Test Scores Lower Extremity Functional Score: 11 Goals Goal 1:: Pt will increase R hip strength to within 90% of L hip strength to aid with ascending/descending stairs. Goal Time Frame: 4-6 Weeks Goal 2:: Pt will increase R hip ROM to within 90% of L hip ROM to aid with getting in and out of the car. Goal Time Frame: 4-6 Weeks Goal 3:: Pt will be able to ambulate 300 ft with the least restrictive device to assist in community ambulation. Goal Time Frame: 4-6 Weeks Goal 4:: I with HEP Goal Time Frame: 4-6 Weeks Rehabilitation Potential Physical Therapy Diagnosis: Decreased ROM and strength Rehabilitation Potential: Good Anticipated Interventions Patient/Client Instruction: Educate patient on: Plan of Care For the Purpose of:: To improve self management Therapeutic Exercise to Include: Strength training, Balance training and Body mechanics For the Purpose of:: To decrease pain, To increase ROM, To improve muscle performance and motor function and To improve ability to perform ADL's Text: Thank you for the opportunity to evaluate your patient. For Medicare and Medicare HMO plans, please review the plan of care and approve it. It will need to be FAXED BACK to us at [phone] for Medicare purposes. For Medicare only, by signing this I certify the plan of care. Please let me know if there are questions or concerns regarding this plan of care. Physician Signature: Date:
--- NOTE | 2024-05-11 18:08 | HP.PTREVAL ---
Re-Evaluation Intro: LEA LANGE, It has been my pleasure to treat MAKEDA EM over the last 11 visits for R glute repair 03/16/24. Please see the progress note below for an update on the physical therapy plan of care! Subjective Subjective: I am a little sore today. Not painful though Objective Objective/Function: 0/10 R glute pain R hip ROM: flex= 65, abd= 40, ext= 0 degrees MMT: R hip flex= 12, abd= 2, Ext= 24 #F Gait: Pt is able to ambulate greater than 300 feet with WW Pt is making significant progress at this time. Still lacks functional strength and ROM Plan Plan Plan: Follow surgical protocol in chart. Balance/Gait/Functional tests Balance/Special Test Scores Lower Extremity Functional Score: 40 Goals Goals Goal 1:: Pt will increase R hip strength to within 90% of L hip strength to aid with ascending/descending stairs. Goal Time Frame: 4-6 Weeks Goal Progress: Progressing Goal 2:: Pt will increase R hip ROM to within 90% of L hip ROM to aid with getting in and out of the car. Goal Time Frame: 4-6 Weeks Goal Progress: Progressing Goal 3:: Pt will be able to ambulate 300 ft with the least restrictive device to assist in community ambulation. Goal Time Frame: 4-6 Weeks Goal Progress: Goal Met Goal 4:: I with HEP Goal Time Frame: 4-6 Weeks Goal Progress: Goal Met Anticipated Interventions Anticipated Interventions Patient/Client Instruction: Educate patient on: Plan of Care For the Purpose of:: To improve self management Therapeutic Exercise to Include: Strength training, Balance training and Body mechanics For the Purpose of:: To decrease pain, To increase ROM, To improve muscle performance and motor function and To improve ability to perform ADL's Re-Evaluation Ending Re-evaluation ending: Please do not hesitate to contact me at [phone] by phone or if you have questions or concerns regarding this new plan of care! Sincerely, Deep Saez, PT, ATC
--- NOTE | 2024-07-13 17:53 | HP.PT.NRP ---
Patient Information Patient Information: MAKEDA EM was seen in my office for initial evaluation on 04/10/24. The following Plan of Care was established for this patient: POC Established Initial Frequency: 2x /Week Initial Duration: 6 Weeks Anticipated Interventions Patient/Client Instruction: Educate patient on: Plan of Care For the Purpose of:: To improve self management Therapeutic Exercise to Include: Strength training, Balance training and Body mechanics For the Purpose of:: To decrease pain, To increase ROM, To improve muscle performance and motor function and To improve ability to perform ADL's Last Seen Last Seen: This patient was last seen in our office . Pertinent comments regarding their Physical therapy will appear below: Discharge At this point I will be discontinuing this patient from physical therapy. I would be happy to see this patient again in the future if found appropriate by the physician. Thank you! Deep Saez, PT, ATC Balance/Gait/Functional tests Balance/Special Test Scores Lower Extremity Functional Score: 40
== END 2024-05-24 19:00 | disposition home or self-care (01) ==
LOC: PT 15:00
PROVIDERS: PCP Family Medicine
DX: S76.011D Strain of muscle, fascia and tendon of right hip, subsequent encounter (principal)
CPT/HCPCS: 97110; 97140; 97161; 97530

== ENCOUNTER → 2024-05-25 | Outpatient (CLI) | payer MEDICARE, OTHER, SELFPAY | END | disposition home or self-care (01) | PROVIDERS: PCP Family Medicine; Referring Provider Family Medicine; Visit Provider Family Medicine | DX: M25.552 Pain in left hip (principal) | CPT/HCPCS: 73502 ==

== ENCOUNTER → 2024-06-02 | Outpatient (CLI) | payer MEDICARE, OTHER, SELFPAY ==
--- NOTE | 2024-06-02 07:18 | CT_ITS ---
STUDY: CT LEFT HIP REASON FOR EXAM: Female, 69 years old. Possible occult fracture left hip. No injury. CONTRAST: None. TECHNIQUE: Transaxial imaging of the left hip was performed with reformatted sagittal and coronal images. The protocol utilizes one or more of the following dose reduction techniques: automated exposure control, adjustment of mA and/or kV according to patient size, and/or use of iterative reconstruction technique. COMPARISON: Pelvis and left hip radiographs dated 05/25/2024. FINDINGS: HIP There is moderate degenerative arthrosis of the left hip joint with joint space narrowing, small marginal osteophyte formation, and small foci of subchondral cyst formation in the superolateral aspect of the left acetabulum. Intact acetabulum. Intact femoral neck and intertrochanteric region. There is no demonstrated fracture of the left hip. VISUALIZED OSSEOUS PELVIS Normal left superior and inferior pubic rami. 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 Normal left ischial tuberosity. Intact visualized left iliac wing and sacral ala. There is mild degenerative arthrosis of the left sacroiliac joint, with small foci of intra-articular gas. There is no demonstrated fracture of the osseous pelvis. Normal visualized soft tissue structures of the pelvis. CT/Extremity Lower without Contra IMPRESSION: Moderate degenerative arthrosis of the left hip joint. No demonstrated acute fracture. Electronically Signed: Rodrigo Grimm MD at 11:46 EST ,
== END | disposition home or self-care (01) ==
LOC: CT 07:18
PROVIDERS: PCP Family Medicine; Referring Provider Family Medicine; Visit Provider Family Medicine
DX: M25.552 Pain in left hip (principal)
CPT/HCPCS: 73700

== ENCOUNTER → 2024-06-21 | Outpatient (CLI) | payer MEDICARE, OTHER, SELFPAY ==
--- NOTE | 2024-06-21 16:06 | MRI_ITS ---
STUDY: MRI LEFT HIP REASON FOR EXAM: Female, 69 years old. PAIN, OSTEOPOROSIS TECHNIQUE: Standardized fat and water weighted pulse sequences were obtained in all 3 orthogonal planes. COMPARISON: CT left hip dated 06/02/2024. FINDINGS: There is moderate degenerative arthrosis of the left hip joint with joint space narrowing, marginal osteophyte formation, chondral thinning, and subchondral marrow edema on both sides of the joint. There is a small left hip joint effusion. There is a right hip arthroplasty in place, with surrounding metallic susceptibility artifact. There is mild right trochanteric bursitis and mild subcutaneous soft tissue edema along the lateral aspect of the right hip. Normal gluteus minimus, medius and iliopsoas tendons and distal insertions. There is no trochanteric, iliopsoas or iliopectineal bursitis. Normal superior and inferior pubic rami. Normal pubic symphysis. Normal ischial tuberosity. Normal origin of the hamstring tendons. Normal visualized iliac wing, sacroiliac joint, and sacral ala. Normal visualized soft tissue structures of the pelvis. There is mild degenerative disc disease at L5-S1. MRI/Lower Ext Joint Only (Routine) IMPRESSION: Moderate degenerative arthrosis of the left hip joint. Small left hip joint effusion. Right hip arthroplasty, with mild right trochanteric bursitis and mild subcutaneous soft tissue edema along the lateral aspect of the right hip. Electronically Signed: Rodrigo Grimm MD at 11:03 EST ,
== END | disposition home or self-care (01) ==
PROVIDERS: PCP Family Medicine; Referring Provider Family Medicine; Visit Provider Family Medicine
DX: M25.552 Pain in left hip (principal)
CPT/HCPCS: 73721

== ENCOUNTER → 2024-08-14 | Outpatient (CLI) | payer MEDICARE, OTHER, SELFPAY ==
--- NOTE | 2024-08-14 12:54 | CT_ITS ---
CT LEFT LOWER EXTREMITY WITH 3-D IMAGING CLINICAL INDICATION: Templating for left BOBBY TECHNIQUE: Axial CT images of the left lower extremity (including hips and knees) was performed without IV contrast material. Coronal and sagittal reformats were provided. The protocol utilizes one or more of the following dose reduction techniques: automated exposure control, adjustment of mA and/or kV according to patient size, and/or use of iterative reconstruction technique. RADIATION DOSAGE (If Supplied By Facility): CTDIvol = ( 13.83 ) mGy, DLP = ( 823.82 ) mGycm COMPARISON: Left hip CT dated 06/02/2024. FINDINGS: Bones: There is persistent moderate degenerative arthrosis of the left hip joint with joint space narrowing, small marginal osteophyte formation, and small foci of subchondral cyst formation in the superolateral aspect of the left acetabulum. There is a right hip arthroplasty in place. There is mild degenerative arthrosis of the sacroiliac joints bilaterally. 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 There is degenerative disc disease at L5-S1. Osseous structures are intact without evidence of fracture or dislocation. No lytic or blastic osseous masses. Soft Tissues: There is chronic sigmoid diverticulosis without acute diverticulitis. The deep soft tissue structures are unremarkable. The superficial soft tissues are unremarkable without evidence of edema, hematoma, or foreign body. CT/Extremity Lower without Contra IMPRESSION: Persistent moderate degenerative arthrosis of the left hip joint. Electronically Signed: Rodrigo Grimm MD at 13:51 EST ,
== END | disposition home or self-care (01) ==
LOC: CT 12:54
PROVIDERS: PCP Family Medicine; Referring Provider Orthopaedic Surgery; Visit Provider Orthopaedic Surgery
DX: M16.12 Unilateral primary osteoarthritis, left hip (principal)
CPT/HCPCS: 73700

== ENCOUNTER 2024-08-29 10:26 | Inpatient (IN) | payer MEDICARE, OTHER, SELFPAY ==
--- NOTE | 2024-08-16 08:35 | EKG12_ITS ---
Test Reason : PRE OP Blood Pressure : */* mmHG Vent. Rate : 79 BPM Atrial Rate : 79 BPM P-R Int : 196 ms QRS Dur : 82 ms QT Int : 380 ms P-R-T Axes : 63 16 63 degrees QTcB Int : 435 ms Normal sinus rhythm with sinus arrhythmia Low voltage QRS Borderline ECG Confirmed by STEPAN PHAM, CECI ([id number]), web content editor VERNON STINSON ([id number]) on 08/17/2024 6:35:11 AM Referred By: TYRON Confirmed By: CECI YING MD
[2024-08-16 09:23] LABS: Absolute Lymphocyte Count 1.92 X10^3/uL (0.83-4.51); Absolute Neutrophil Count 4.9 X10^3/uL (2.0-7.7); Basophil# 0.04 X10^3/uL; Basophil% 0.5 % (0-1); Eosinophil# 0.28 X10^3/uL; Eosinophils% 3.7 % (0-5); Hematocrit 39.2 % (37-47); Hemoglobin 12.8 g/dL (12.0-15.0); Lymphocyte # 1.92 X10^3/ul (0.83-4.51); Lymphocyte % 25.1 % (19-41); Mean Corp Hgb Conc 32.7 g/dL (32-36); Mean Corpuscular Hgb 30.4 pg (27.0-32.0); Mean Corpuscular Volume 93.1 fL (81-99); Mean Platelet Vol. 9.5 fl (6.2-12.0); Monocyte% 6.5 % (0-10); NRBC Flagged by Analyzer 0 % (0-5); Neutrophil # 4.88 X10^3/uL (2.7-7.7); Neutrophil % 63.9 % (47-70); Platelet Count 262 K/mm3 (150-450); RBC Distribution Width CV 13.1 % (11.6-14.6); RBC Distribution Width SD 44.3 fl (35.1-43.9); Red Blood Count 4.21 M/mm3 (4.2-5.4); White Blood Count 7.6 K/mm3 (4.4-11.0)
[2024-08-16 09:37] LABS: Prothrombin Time (Protime)PT. 13.7 SECONDS (11.7-14.9)
[2024-08-16 09:38] LABS: Partial Thromboplast Time 26.1 Seconds (24.1-36.2)
[2024-08-16 09:55] LABS: Anion Gap 10 (5-15); BUN 20 mg/dL (7-18); Calcium,Total 9.5 mg/dL (8.5-10.1); Chloride 106 mmol/L (98-107); Creatinine, Serum 0.84 mg/dL (0.55-1.02); EST Glomerular Filtration Rate 72 mL/min (>60); Est Glom Filt Rate - Afr Amer 87 mL/min (>60); Glucose 100 mg/dL (74-106); Magnesium 2.1 mg/dL (1.6-2.6); Potassium 3.8 mmol/L (3.5-5.1); Sodium Level 139 mmol/L (136-145)
[2024-08-16 09:58] LABS: Hemoglobin A1c 5.5 % (3.8-5.6)
[2024-08-17 06:34] LABS: Fructosamine 200 umol/L (0-285)
--- NOTE | 2024-08-17 23:04 | PAT.ANE_ITS ---
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 When Was Last Pacemaker Check QUESTION #4 FULL TEXT: You/Your Family Experience fever (hyperthermia) with Anesthesia Last Oral Intake Last Oral intake: Last Oral Intake NPO since Meds taken in AM with sips of water? Meds patient instructed to take am of surgery PONV PONV - room service waiter: PONV - room service waiter Female Yes 08/15/24 08:47 HX of Motion Sickness No 08/15/24 08:47 HX of N/V After Surgery Yes 08/15/24 08:47 Non-Smoker Yes 08/15/24 08:47 Duration of Surgery greater Yes 08/15/24 08:47 than 60 minutes Number of Risk Factors 4 08/15/24 08:47 PONV Score Severe Risk 08/15/24 08:47 Height & Weight Height & Weight: Anesthesia: Height & Weight Height 5 ft 2 in 07/24/24 10:09 Respiratory Assessment Respiratory Assessment - room service waiter: Respiratory Tract Infection Hx - room service waiter Hx Respiratory Tract Infection No 08/15/24 08:47 STOP Sleep Apnea STOP Sleep Apnea - room service waiter: STOP Sleep Apnea - room service waiter Hx Hypertension Yes: CONTROLLED WITH MED 08/15/24 08:47 Hx Sleep Apnea Yes 08/15/24 08:47 CPAP Yes: NONCOMPLIANT 08/15/24 08:47 BIPAP No 08/15/24 08:47 Do you snore loudly (louder than talking or can be heard Do you often feel tired/ fatigued/ sleepy during daytime? Has anyone observed you stop breathing during sleep? STOP Results Positive 08/15/24 08:47 QUESTION #5 FULL TEXT : Do you snore loudly (louder than talking or can be heard through closed doors)? 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 Specify any problems Hx of Preganancy in last 3 No 08/15/24 08:47 Months Nurse Filling Out Transfusion VCHRISTIN 08/15/24 08:47 & Questions: Date: 08/15/24 08/15/24 08:47 Time: 08:49 08/15/24 08:47 Patient unable to answer at this time (ie. confused, unrespo /Reproduction History /Reproductive History - room service waiter: /Reproductive Hx- room service waiter Hx Now No 08/15/24 08:47 Gestational Age (in weeks): EDC: Hx Hx Para Hx Section SAB No 08/15/24 08:47 [facility] Medical History (Updated 08/15/24 @ 08:47 by Theresa Brooks) Abrasion History of diverticulitis Shortness of breath on exertion History of edema Post-menopausal Ambulates with cane Bladder disease High cholesterol Injury of head and neck Diverticulosis History of ulceration Fractured coccyx Wears glasses Osteoporosis Non-smoker CPAP (continuous positive airway pressure) dependence Pain aggravated by walking Edema Migraine headache TIA (transient ischemic attack) History of trigger finger Nausea Abdominal pain Osteoarthritis of right hip Obstructive sleep apnea Morbid obesity with BMI of 40.0-44.9, adult Chronic headaches SBO (small bowel obstruction) HTN (hypertension) GERD (gastroesophageal reflux disease) Home Medications ?Medication ?Instructions ?Recorded ?Last Taken ?Type amitriptyline 150 mg tablet 150 mg PO QHS TORRES 09/07/13 09/22/15 History hydrochlorothiazide 25 mg tablet 25 mg PO DAILY BP 09/23/15 History omeprazole 20 mg capsule,delayed 20 mg PO QHS GERD 04/07/16 22:30 History release atorvastatin 10 mg tablet 20 mg PO QHS CHOLESTEROL 12/3109/22/15 History metoprolol tartrate 25 mg tablet 25 mg PO BID BP 12/0912/22/22 History verapamil 120 mg tablet 60 mg PO BID BP 12/07/1601/08 History aspirin 81 mg tablet,delayed 81 mg PO DAILY BLODD THIN NER 01/09/19 11/22/20 History release (Adult Low Dose Aspirin) sucralfate 1 gram tablet (Carafate) 1 g PO BID STOMACH 01/09/19 Unknown History cholecalciferol (vitamin D3) 50 2,000 unit PO DAILY IGLESIAS PPLEMENT 03/13/20 Unknown History mcg (2,000 unit) capsule cranberry extract 300 mg tablet 30,000 mg PO DAILY SUP PLEMENT 11/26/20 Unknown History melatonin 12 mg tablet 12 mg PO QHS SUPPLEMENT 10/18 Unknown History Estriol 1 gm intrauterine TUFR SUPPL EMENT 12/08/22 Unknown History Allergy/AdvReac Type Severity Reaction Status Date / Time Dressing: Non-Medicated Allergy Severe Rash Verified 08/15/24 08:33 (elastic) povidone-iodine (From Allergy Severe Rash Verified 08/15/24 08:33 Betadine) adhesive tape Allergy Rash Verified 08/15/24 08:33 codeine Allergy Hives Verified 08/15/24 08:33 levofloxacin Allergy unknown Verified 08/15/24 08:33 cortisone AdvReac Severe migraine Verified 08/15/24 08:33 and skin on fire prednisone AdvReac Severe migraine Verified 08/15/24 08:33 and skin on fire NSAIDS (Non-Steroidal AdvReac Upset Verified 08/15/24 08:33 Anti-Inflamma Stomach promethazine HCl (From AdvReac RESTLESS Verified 08/15/24 08:33 Phenergan) LEG SYNDROME sulfamethoxazole (From AdvReac Nausea Verified 08/15/24 08:33 Bactrim) trimethoprim (From Bactrim) AdvReac Nausea Verified 08/15/24 08:33 Family History Sister Colon cancer Father Diabetes Mother Heart disease Hypertension Surgical History (Updated 08/15/24 @ 08:47 by Theresa Brooks) Hx of total knee replacement History of hip surgery Hx of right cataract extraction Hx of left cataract extraction Hx of colonoscopy Hx of cholecystectomy Hx of tonsillectomy History of partial hysterectomy Hx of shoulder surgery Hx of total shoulder replacement Hx of arthroscopy History of appendectomy History of reverse total replacement of left shoulder joint (~05/20/20) history right shoulder repair History of right hip replacement History of right knee joint replacement History of umbilical hernia repair Social History household members: spouse Smoking Status: Never smoker alcohol intake: never substance use type: does not use Audit: Pertinent Findings Pertinent Findings EKG Perinent findings: August 16, 2024. Normal sinus rhythm with sinus arrhythmia. Recommendation Anesthesia Recommendation Anesthesia recommendation: OPTIMIZED for anesthesia
[2024-08-29] VITALS (16 sets, daily range): BP systolic 90–139; BP diastolic 50–100; PULSE 61–93; RESP 12–18; TEMP 36–37; O2SAT 96–100; BMI 38.7
--- NOTE | 2024-08-29 | HIP_PTH ---
PATIENT: MAKEDA EM LOC: MS3 U#:[id number] AGE/SX: 69/F ROOM: [facility] [place] RE08/29/[address]: Dr. Naresh Peralta DO : 1955 BED: 1 DIS: 08/31/2024 SPEC #: [id number] RECD: 08/29/24 13:02 STATUS: KWAN ROCHAKenrick #: [id number] ALICE: 08/29/24 00:[address]: Naresh Peralta DEPT: SURGICAL PATHOLOGY RECD BY: Merlin Valiente ENTERED: 08/29/24 13:02 SP TYPE: TOTAL HIP OTHR DR: Dr. Jody Garner MD Tissues: Hip, NOS Procedures: Decalcification bone/plaque Surgery Specimen Level IV HEADER OPERATION: Left total hip replacement robotic arm assist PRE-OP DIAGNOSIS: Degenerative joint disease of left hip TISSUE SUBMITTED: Left hip bone and tissue MICROSCOPIC DIAGNOSIS Left hip bone and soft tissue, total hip replacement/resection: Femoral head with degenerative osteoarthritic changes. SJ: 09/01/2024 MICROSCOPIC DESCRIPTION Slides are reviewed. GROSS DESCRIPTION Received is one container labeled with the patient's name and designated bone and soft tissue left hip. The specimen consists of a poe femoral head with portion of femoral neck. The femoral head measures 4 x 4.5 x 3 cm and the femoral neck measures up to 1 cm in length. The articular surface displays prominent osteophyte formation and bone erosion. No soft tissue is identified. Nurses Supervisor sections from femoral head are submitted in two cassettes after decalcification. / SONY. 08/29/2024 TC: 5 CPT: 82844, 48841
[2024-08-29] MEDS: Lactated Ringers 1,000 ML 999 ML IV (06:20)
[2024-08-29] MEDS: Magnesium 1 GM over 15 mins IV (06:25)
[2024-08-29] MEDS: Acetaminophen 500 MG Tablet 1000 MG PO ×3 (06:55→22:27)
[2024-08-29] MEDS: Scopolamine 1mg/72hr Patch 1 PATCH TD (06:55)
[2024-08-29] MEDS: Gabapentin 600 MG Tablet PO (06:55)
[2024-08-29] MEDS: Lactated Ringers 1,000 ML 100 ML IV (07:25)
--- NOTE | 2024-08-29 07:29 | PCM.HP.BLA ---
History and Physical Date of Admission: 08/29/24 [facility] [address] [place] [address] OFFICE VISIT Date of Service: 07/24/24 MR#: [id number] Acct: [id number] Name: MAKEDA EM Rep #: [id number] : 1955 Provider: Dr. Naresh Peralta DO Age/Sex: 69/F Location: [facility] [place] Status: Signed Intake Vital Signs 06/26/2408:07 07/24/2509:09 Height 5 ft 2 in 5 ft 2 in Weight: 212 lb 211 lb 4 oz BMI 38.7 38.6 Intake Visit Reasons: LEFT HIP Chief Complaint: left hip pain Is patient in pain?: Yes Allergies adhesive tape Allergy (Verified 07/24/24 10:03) Rashcodeine Allergy (Verified 07/24/24 10:03) Hiveslevofloxacin Allergy (Verified 07/24/24 10:03) unknowncortisone Adverse Reaction (Severe, Verified 07/24/24 10:03) migraine and skin on fireprednisone Adverse Reaction (Severe, Verified 07/24/24 10:03) migraine and skin on fireNSAIDS (Non-Steroidal Anti-Inflamma Adverse Reaction (Verified 07/24/24 10:03) Upset Stomachpromethazine HCl (From Phenergan) Adverse Reaction (Verified 07/24/24 10:03) RESTLESS LEG SYNDROMEsulfamethoxazole (From Bactrim) Adverse Reaction (Verified 07/24/24 10:03) Nauseatrimethoprim (From Bactrim) Adverse Reaction (Verified 07/24/24 10:03) Nausea Medications ?Medication ?Instructions ?Recorded ?Confirmed ?Type amitriptyline 150 mg tablet 150 mg PO QHS 09/07/13 07/24/24 History hydrochlorothiazide 25 mg tablet 25 mg PO DAILY 09/07/13 07/24/24 History omeprazole 20 mg capsule,delayed 20 mg PO QHS 09/07/13 07/24/24 History release atorvastatin 10 mg tablet 20 mg PO QHS 09/21/14 07/24/24 History metoprolol tartrate 25 mg tablet 25 mg PO BID 12/10/15 07/24/24 History verapamil 120 mg tablet 60 mg PO BID 12/07/16 07/24/24 History aspirin 81 mg tablet,delayed 81 mg PO DAILY 01/09/19 07/24/24 History release (Adult Low Dose Aspirin) sucralfate 1 gram tablet (Carafate) 1 g PO BID 01/09/19 07/24/24 History cholecalciferol (vitamin D3) 50 2,000 unit PO DAILY 03/13/20 07/24/24 History mcg (2,000 unit) capsule cranberry extract 300 mg tablet 30,000 mg PO DAILY 11/26/20 07/24/24 History acetaminophen 325 mg capsule 325 mg PO PRN PRN Pain 11/02/22 07/24/24 History (Tylenol) melatonin 12 mg tablet 12 mg PO QHS 11/05/22 07/24/24 History Estriol 1 gm intrauterine TUTH 12/08/22 07/24/24 History acetaminophen 500 mg tablet 1,000 mg (2 x 500 mg) PO Q6H PRN 12/22/22 07/24/24 Rx #100 tabs celecoxib 100 mg capsule (Celebrex) 100 mg PO BID #42 caps 06/26/24 07/24/24 Rx Have you fallen in the past year?: No PFSH Medical History Post-menopausal Ambulates with cane Bladder disease High cholesterol Injury of head and neck Diverticulosis History of ulceration Fractured coccyx Wears glasses Osteoporosis Non-smoker CPAP (continuous positive airway pressure) dependence Pain aggravated by walking Edema Migraine headache TIA (transient ischemic attack) History of trigger finger Nausea Abdominal pain Osteoarthritis of right hip Obstructive sleep apnea Morbid obesity with BMI of 40.0-44.9, adult Chronic headaches SBO (small bowel obstruction) HTN (hypertension) GERD (gastroesophageal reflux disease) Surgical History History of hip surgery Hx of right cataract extraction Hx of left cataract extraction Hx of colonoscopy Hx of cholecystectomy Hx of tonsillectomy History of partial hysterectomy Hx of shoulder surgery Hx of total shoulder replacement Hx of arthroscopy History of appendectomy History of reverse total replacement of left shoulder joint (~05/20/20) history right shoulder repair History of right hip replacement History of right knee joint replacement History of umbilical hernia repair Family History Sister Colon cancerFather DiabetesMother Heart disease Hypertension Social History household members: spouse Smoking Status: Never smoker alcohol intake: never substance use type: does not use HPI LEFT HIP Details: This documentation accurately reflects the service provided and the decisions made by me, Dr. Naresh Peralta, DO 07/24/24 0756. Part of today?s visit was documented by [ ], acting as scribe. MAKEDA EM is a 69 year old F here today for a followup on her left hip. Patient notes that she has no improvement since her last visit. Her pain is constant. She has pain from her groin into her lateral hip. She continues to use a walker to ambulate. Patient notes that she is taking tylenol and celebrex for pain. She denies any oral steroids. Patient denies any numbness or tingling. She notes that she has a catching and clicking in her hip when ambulating. She has a pain over her right lateral hip and a hard area over her right hip. 06/26/2024 visit:here today for left hip pain ambulating with a walker. She is using the walker because of the left hip. She states that she started having pain after her last PT appointment which was on May 24. She was doing PT for surgery she had on her right hip. Her pain starts in her groin and radiates up onto her lateral hip. She has been hearing a click and has been throbbing pain. When she stands she gets that sharp pain from her groin into her hip. She does have some lower left back pain. She denies radiating pain down the leg. She notes that she did have some tingling but only for a few days. She denies previous surgery or injury. She is unable to have injections as she is allergic to cortisone she gets full body rash one time. Dr. Galvan did prescribe her oxycodone for the pain but she only takes it when it gets really bad, she also takes Tylenol. Her pain is mostly in the groin and is worsened with weightbearing and range of motion. She did have a CT MRI and x-ray no fracture identified only moderate hip arthrosis She had surgery on her right hip in October when the gluteus medius tore off the bone and she had it repaired, then it tore again in February and she then had it repaired again but now the right hip is doing well. Plan: Educated patient today on anatomy and etiology of her left hip. I reviewed all of her imaging that she had and informed her that she does have moderate arthritis in her hip and she likely flared the hip by moving it the wrong way in physical therapy, as she was not having any symptoms prior to this. I recommend patient try Celebrex since Ibuprofen upsets her stomach to try and reduce the the inflammation. She would like to proceed with the Celebrex for a few weeks. If she needs any refills of the Celebrex it should come from her PCP. We also discussed a short burst of oral steroids however she is adamantly opposed considering the reaction she had with a steroid injection in the past. Follow up as needed Ortho Exam General General: Yes no acute distress Neurologic: Yes alert and Yes oriented x3 Psychologic: Yes reasonable and appropriate Left Hip Skin/Wound: Yes CDI, No Ecchymosis, No soft tissue swelling and No Erythema Hip: Absent eccymosis, soft tissue swelling or erythema internal rotation @90 degree flexion: 5 degrees external rotation @90 degree extension: 20 degrees Special Tests: Yes TTP Greater Troch HIP: pain reproduced with IR/ER. rash of inguinal fold likely yeast infection Head: Normocephalic Atraumatic Chest: symmetrical rise, non-labored breathing, no audible wheeze Abdomen: no guarding, non-rigid Supplemental Info 06/21/24 MRI left hip: Moderate degenerative arthrosis 06/02/2024 CT scan left hip: Moderate degenerative arthrosis 05/25/2024 x-ray left hip: Moderate degenerative arthrosis 01/10/2024 x-ray left knee: Status post total knee arthroplasty with good interfaces and position no concern 08/04/2023 x-ray right hip: Right total hip arthroplasty without signs of loosening or fracture 12/22/2022 left total knee arthroplasty: Dr. Peralta Coding Level of Care Code Off vis,est,level 4 Diagnoses Primary osteoarthritis of left hip M16.12 Osteoarthritis type: primary Assessment and Plan Assessment and Plan (1) Degenerative joint disease of left hip: Status: Acute Qualifiers: Osteoarthritis type: primary Qualified Code(s): M16.12 - Unilateral primary osteoarthritis, left hip Plan Spoke with the patient about her options and due to her continued pain she would be a candidate for a total hip arthroplasty. Patient may also try physical therapy which was painful in the past. She would need to see her PCP for the yeast infection in her inguinal area and have that cleared up. Patient would like to proceed with a total hip arthroplasty. She will need a CT scan for a makoplasty for a more precise procedure. Spoke with the patient about doing inpatient surgery and then transition to TCU, but ultimately decided by insurance. Patient is unable to fully weightbear through her UE with her history of total shoulder arthroplasty. She denies any dental work that needs done. Spoke with the patient about the hip surgery, benefits and risk. She will have hip precautions post op. Risks, benefits and alternatives of surgery reviewed including but not limited to bleeding, infection, nerve, foot drop, artery and/or tissue damage, fracture, VTE, leg length discrepancy, dislocation, need for hip precautions, continued pain and expected post-operative course. She will be on a blood thinner post op for 3 weeks to help decrease risk of blood clot. Spoke with her about a chance of her having pseudogout due to her pain being more significant for the amount of arthritis she has. She could see the surgeon for her right hip that did her glut medius repair x2 if she continues to have right lateral hip. Tentative surgery date September 01 2024 inpatient admission Follow up for 2 week post op or sooner if pain, swelling, numbness or associated symptoms, or concerns develop. All questions answered. Patient in agreement of plan. Clinical Quality Measures Falls Risk Screening/Assistive Devices Have you fallen in the past year?: No 07/24/24 1107 <Electronically signed by Naresh Peralta DO> Date Naresh Peralta DO I have examined the patient and the H&P has been reviewed. There are no clinical changes since date of exam.
--- NOTE | 2024-08-29 07:40 | PRE.ANES_ITS ---
ASA Classification* ASA Classification ASA Classification: 3 Assessment & Plan Anesthesia* Anesthesia Assessment Anesthesia Assessment: Discussed sedation and/or anesthesia options, risks, benefits, and alternatives with patient/parents/legal guardian/POA. Questions invited. The patient/parents/legal guardian/POA seems to understand and agrees to proceed with anesthesia plan. Reviewed the physical assessment, medical history, allergy history and patient home medications list prior to surgery/procedure/anesthetic and documented any changes. Performed airway and anesthesia risk assessments. Anesthesia Type Anesthesia Type: Spinal Anesthesia Focused Assessment* Temperature: 98.6 F Pulse Rate: 79 Blood Pressure: 132/60 Respiratory Rate: 18 Pulse Ox: 99 Oxygen Delivery Method: Room Air Airway Assessment Mouth opens: >3 cm Mallampati Score: III Teeth Condition: Caps/Crowns ([place] left molar. It is tight.) Neck Range of motion (ROM): Limited ROM Focused Labs Anesthesia Preop lab: CBC WBC 7.6 K/mm3 (4.4-11.0) 08/16/24 08:57 08/16/24 RBC 4.21 M/mm3 (4.2-5.4) 08/16/24 08:57 08/16/24 Hgb 12.8 g/dL (12.0-15.0) 08/16/24 08:57 08/16/24 Hct 39.2 % (37-47) 08/16/24 08:57 08/16/24 Plt Count 262 K/mm3 (150-450) 08/16/24 08:57 08/16/24 CHEMISTRY Potassium 3.8 mmol/L (3.5-5.1) 08/16/24 08:57 08/16/24 Sodium 139 mmol/L (136-145) 08/16/24 08:57 08/16/24 Magnesium 2.1 mg/dL (1.6-2.6) 08/16/24 08:57 08/16/24 Phosphorus 4.2 mg/dL (2.5-4.9) 09/22/14 06:28 09/22/14 BUN 20 mg/dL (7-18) H 08/16/24 08:57 08/16/24 Creatinine 0.84 mg/dL (0.55-1.02) 08/16/24 08:57 08/16/24 Glucose 100 mg/dL (74-106) 08/16/24 08:57 08/16/24 POC Glucose 96 mg/dL (74-106) 12/22/22 06:13 12/22/22 TSH 2.42 uIU/mL (0.358-3.74) 09/23/15 08:55 COAG PT 13.7 SECONDS (11.7-14.9) 08/16/24 08:57 Pre-Assessment Diagnosis/Proposed Procedure Planned Operative Procedure(s): (L) Left Total Hip Replacement Robotic Arm Assisted Anesthesia History 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 When Was Last Pacemaker Check QUESTION #4 FULL TEXT: You/Your Family Experience fever (hyperthermia) with Anesthesia Last Oral Intake Last Oral intake: Last Oral Intake NPO since 04:00 08/29/24 06:20 Meds taken in AM with sips of Yes 08/29/24 06:20 water? Meds patient instructed to METOPROLOL, VERAPIMIL 08/29/24 06:20 take am of surgery Any additional information?: Yes NPO since: 04:00 (Patient had Gatorade at 4 AM.) Meds taken in AM with sips of water?: Yes PONV PONV - mining engineer: PONV - mining engineer Female Yes 08/15/24 08:47 HX of Motion Sickness No 08/15/24 08:47 HX of N/V After Surgery Yes 08/15/24 08:47 Non-Smoker Yes 08/15/24 08:47 Duration of Surgery greater Yes 08/15/24 08:47 than 60 minutes Number of Risk Factors 4 08/15/24 08:47 PONV Score Severe Risk 08/15/24 08:47 Height & Weight Height & Weight: Anesthesia: Height & Weight Height 5 ft 2 in 08/29/24 06:20 Weight: 96 kg 08/29/24 06:20 Body Mass Index (BMI) 38.7 08/29/24 06:20 Respiratory Assessment Respiratory Assessment - mining engineer: Respiratory Tract Infection Hx - mining engineer Hx Respiratory Tract Infection No 08/15/24 08:47 STOP Sleep Apnea STOP Sleep Apnea - mining engineer: STOP Sleep Apnea - mining engineer Hx Hypertension Yes: CONTROLLED WITH MED 08/15/24 08:47 Hx Sleep Apnea Yes 08/15/24 08:47 CPAP Yes: NONCOMPLIANT 08/15/24 08:47 BIPAP No 08/15/24 08:47 Do you snore loudly (louder than talking or can be heard Do you often feel tired/ fatigued/ sleepy during daytime? Has anyone observed you stop breathing during sleep? STOP Results Positive 08/15/24 08:47 QUESTION #5 FULL TEXT : Do you snore loudly (louder than talking or can be heard through closed doors)? Tobacco Use History Tobacco Use History - mining engineer: Tobacco Use History - mining engineer Tobacco Use Non-smoker 06/07/24 15:12 Smoking Status Never smoker 08/15/24 08:47 Hx Tobacco Use No 08/15/24 08:47 Years Smoking Packs Smoked per Day Smoking Cessation Date was within the last 15 years Hx Smoking Cessation Date Hx Smoking Cessation No 08/15/24 08:47 Counseling Hematologic Medial History Hematologic Hx - mining engineer: Hematologic Medical Hx - senior advocate Hx of Blood Transfusion No 08/15/24 08:47 Hx of Transfusion in last 3 No 08/15/24 08:47 Months Date of Last Transfusion (if within last 3 months) Ever experience any problems No 08/15/24 08:47 with transfusion(s)? Specify any problems Hx of Preganancy in last 3 No 08/15/24 08:47 Months Nurse Filling Out Transfusion VCHRISTIN 08/15/24 08:47 & Questions: Date: 08/15/24 08/15/24 08:47 Time: 08:49 08/15/24 08:47 Patient unable to answer at this time (ie. confused, unrespo /Reproduction History /Reproductive History - mining engineer: /Reproductive Hx- mining engineer Hx Now No 08/15/24 08:47 Gestational Age (in weeks): EDC: Hx Hx Para Hx Section SAB No 08/15/24 08:47 Active Medications Active Medications: Current Medications Generic Name Dose Route Start Last Admin Trade Name Freq PRN Reason Stop Dose Admin Acetaminophen 1,000 mg 08/29/24 08:00 08/29/24 06:55 Acetaminophen 500 Mg Tablet PO 08/29/24 08:01 1,000 mg X1 ONE Administration Dexamethasone Sodium Phosphate 10 mg 08/29/24 08:00 Dexamethasone 10 Mg/Ml Vial IV 08/29/24 08:01 X1 ONE Gabapentin 600 mg 08/29/24 08:00 08/29/24 06:55 Gabapentin 600 Mg Tablet PO 08/29/24 08:01 600 mg X1 ONE Administration Lactated Ringer's 1,000 mls @ 999 mls/hr 08/29/24 08:00 08/29/24 07:25 IV 08/29/24 09:00 100 mls/hr .Q1H1M QUETA Administration Cefazolin Sodium 2 gm/ N/A 20 mls @ 400 mls/hr 08/29/24 08:00 IV 08/29/24 08:02 PREOP ONE Tranexamic Acid 2,000 mg/ 120 mls @ 660 mls/hr 08/29/24 08:00 Sodium Chloride IV 08/29/24 08:10 X1 ONE Lactated Ringer's 1,000 mls @ 125 mls/hr 08/29/24 08:00 IV 08/29/24 15:59 .Q8H QUETA Magnesium Sulfate 1 gm/ 102 mls @ 408 mls/hr 08/29/24 08:00 08/29/24 06:25 Dextrose IV 08/29/24 08:14 408 mls/hr X1 ONE Administration Insulin Human Lispro 1 - 6 unit 08/29/24 08:00 Insulin Lispro 100 Unit/Ml Insuln.Pen SC 08/29/24 18:00 Q4H PRN PRN BG>/= 180, SEE PROTOCOL Protocol Scopolamine HBr 1 patch 08/29/24 08:00 08/29/24 06:55 Scopolamine 1mg/72hr Patch TD 08/29/24 08:01 1 mg X1 ONE Administration PFSH Medical History Abrasion History of diverticulitis Shortness of breath on exertion History of edema Post-menopausal Ambulates with cane Bladder disease High cholesterol Injury of head and neck Diverticulosis History of ulceration Fractured coccyx Wears glasses Osteoporosis Non-smoker CPAP (continuous positive airway pressure) dependence Pain aggravated by walking Edema Migraine headache TIA (transient ischemic attack) History of trigger finger Nausea Abdominal pain Osteoarthritis of right hip Obstructive sleep apnea Morbid obesity with BMI of 40.0-44.9, adult Chronic headaches SBO (small bowel obstruction) HTN (hypertension) GERD (gastroesophageal reflux disease) Home Medications ?Medication ?Instructions ?Recorded ?Last Taken ?Type amitriptyline 150 mg tablet 150 mg PO QHS TORRES 09/07/13 08/28/24 22:00 History hydrochlorothiazide 25 mg tablet 25 mg PO DAILY BP 08/28/24 08:00 History omeprazole 20 mg capsule,delayed 20 mg PO QHS GERD 08/28/24 22:00 History release atorvastatin 10 mg tablet 20 mg PO QHS CHOLESTEROL 12/3108/28/24 22:00 History metoprolol tartrate 25 mg tablet 25 mg PO BID BP 12/0908/29/24 04:00 History verapamil 120 mg tablet 60 mg PO BID BP 12/07/1606/12 04:00 History aspirin 81 mg tablet,delayed 81 mg PO DAILY BLODD THIN NER 01/09/19 08/22/24 History release (Adult Low Dose Aspirin) sucralfate 1 gram tablet (Carafate) 1 g PO BID STOMACH 01/09/19 08/28/24 22:00 History cholecalciferol (vitamin D3) 50 2,000 unit PO DAILY IGLESIAS PPLEMENT 03/13/20 08/28/24 08:00 History mcg (2,000 unit) capsule cranberry extract 300 mg tablet 30,000 mg PO DAILY SUP PLEMENT 11/26/20 Unknown History melatonin 12 mg tablet 12 mg PO QHS SUPPLEMENT 10/1808/27/24 22:00 History Estriol 1 gm intrauterine TUFR SUPPL EMENT 12/08/22 08/25/24 History Allergy/AdvReac Type Severity Reaction Status Date / Time Dressing: Non-Medicated Allergy Severe Rash Verified 08/29/24 06:44 (elastic) povidone-iodine (From Allergy Severe Rash Verified 08/29/24 06:44 Betadine) chlorhexidine (From Allergy Intermediate Itching Verified 08/29/24 06:46 ChloraPrep Clear) isopropyl alcohol (From Allergy Intermediate Itching Verified 08/29/24 06:46 ChloraPrep Clear) adhesive tape Allergy Rash Verified 08/29/24 06:44 codeine Allergy Hives Verified 08/29/24 06:44 levofloxacin Allergy unknown Verified 08/29/24 06:44 cortisone AdvReac Severe migraine Verified 08/29/24 06:44 and skin on fire prednisone AdvReac Severe migraine Verified 08/29/24 06:44 and skin on fire NSAIDS (Non-Steroidal AdvReac Upset Verified 08/29/24 06:44 Anti-Inflamma Stomach promethazine HCl (From AdvReac RESTLESS Verified 08/29/24 06:44 Phenergan) LEG SYNDROME sulfamethoxazole (From AdvReac Nausea Verified 08/29/24 06:44 Bactrim) trimethoprim (From Bactrim) AdvReac Nausea Verified 08/29/24 06:44 Family History Sister Colon cancer Father Diabetes Mother Heart disease Hypertension Surgical History Hx of total knee replacement History of hip surgery Hx of right cataract extraction Hx of left cataract extraction Hx of colonoscopy Hx of cholecystectomy Hx of tonsillectomy History of partial hysterectomy Hx of shoulder surgery Hx of total shoulder replacement Hx of arthroscopy History of appendectomy History of reverse total replacement of left shoulder joint (~05/20/20) history right shoulder repair History of right hip replacement History of right knee joint replacement History of umbilical hernia repair Social History household members: spouse Smoking Status: Never smoker alcohol intake: never substance use type: does not use Review of Systems (Anesthesia) ROS Narrative System reviewed and no additional complaints, except as documented.
[2024-08-29] MEDS: Cefazolin 2 GM in Syringe 10 ML IV (08:07)
[2024-08-29] MEDS: TRANEXAMIC ACID 2,000 MG in 0.9% Normal Saline (100mL Bag) 100 ML 660 MG IV (08:07)
--- NOTE | 2024-08-29 10:27 | RAD_ITS ---
EXAM: HIP MIN 2 VIEWS (PORTABLE) CLINICAL HISTORY: Status post left hip replacement. COMPARISON: Comparison is made with prior examination dated May 25, 2024. TECHNIQUE: Two views were obtained. FINDINGS: The patient is status post left hip replacement. There is good alignment. Postoperative soft tissue changes. RAD/Hip Min 2 Views (Portable) IMPRESSION: Status post left total hip replacement. There is good alignment. Postoperative soft tissue changes. Reading Location: [facility]
--- NOTE | 2024-08-29 10:30 | OP.PCM_ITS ---
Operative Report (Standard) Operative Information Date of Procedure: 08/29/24 Pre-Operative Diagnosis: Left hip DJD Post-Operative Diagnosis: Same Surgery/Procedure Performed: Left total hip arthroplasty osteology teacher: Yes Segmental Paver Installer: Yohan Eduardo Tasks completed by community program assistant: Opening & closing Additional resident programs assistant?: No Type of Anesthesia: Spinal RN Documented Start/Stop Times: Operation Date: 08/29/24 08:00 Case Time Into Pre-Op 08/29/24 06:08 Anesthesia Start 08/29/24 08:06 Into Room 08/29/24 08:06 Procedure Start 08/29/24 08:39 Procedure End 08/29/24 10:22 Anesthesia End 08/29/24 10:28 Out of Room 08/29/24 10:28 Procedure Start Time: 08:39 Procedure Stop Time: 10:22 Select all DRAINS/GRAFTS/IMPLANTS that apply: Prosthetic device Prosthetic device details: Windber Estimated Blood Loss: 125 Specimen collected: No Description of surgery: Preoperative diagnosis: Left hip DJD Postoperative diagnosis: Same Procedure: CT-guided Makoplasty assisted left total hip arthroplasty Implants: Windber Accolade II stem size 3, 127 degree neck angle +4 head neck length 44 mm Trident II acetabular shell with 40 mm cancellous screw, and a 20 mm cancellous screw 32mm ceramic head, Trident X3 polyethylene insert. Anesthesia: Spinal EBL: 125 cc Complications: None Condition: Stable to PACU Credit Support Counselor Yohan Eduardo. My physician resident programs assistant was a vital part of this case. He was important in appropriate retraction during the case, and protection of soft tissues during procedure. His intimate knowledge of the case and my steps aided in safe and expedient completion of the procedure as well as appropriate position of the extremity during the case. He was also vital in assisting with closure under my direct supervision. Aminata Little nurse practitioner was second assist also help with holding retractors and suction Indication for procedure: This is a 69-year-old female who has had long-standing arthrosis of the hip who has failed conservative treatment and wished to undergo total hip arthroplasty. We did discuss operative versus nonoperative intervention including risks of bleeding, infection , nerve artery tissue damage, need for further surgery, fracture, leg length discrepancy dislocation blood clot and need for postoperative physical therapy and postoperative expectations. An informed consent was signed. Procedure: Patient was met in the preoperative holding area once again the operative extremity was identified by both patient and physician and was marked. Patient was met by anesthesia . Anesthesia was started. patient was then positioned in the lateral decubitus position on a well-padded pegboard with an axillary roll. All bony prominences were checked and padded. The patient was prepped and draped in the usual sterile fashion. A timeout was called to ensure the proper patient procedure and extremity were being contemplated. Anatomic landmarks were palpated and marked for a standard posterior lateral approach. Prior to this the ASIS was palpated and 3 fingerbreadths proximal to this 3 pins were placed at a 45 degree angle into the iliac crest with good purchase, stab incisions were made with a 15 blade into the skin prior to placement. The Makoplasty array was then secured. A 10 blade scalpel was used to make a posterior incision through the skin and subcutaneous tissue. retractors were used and electrocautery was used to maintain meticulous hemostasis and dissect full-thickness flaps until the gluteal fascia was reached. The gluteal fascia was incised in line with the gluteal fibers. The bursal tissue was then freed from the underside and a Charnley retractor was placed. The femoral trochanteric checkpoint was placed and leg length was assessed using the trochanteric checkpoint and an EKG lead that was placed on the knee prior to prepping the leg .the fat pad was then elevated off of the external rotators with electrocautery and the external rotators were dissected off of the greater trochanter including the piriformis and were tagged with #1 Ethibond for later repair. The joint capsule opened with posterior trapdoor technique. The hip was surgically dislocated. The measurement on the preoperative CT from the top of the lesser trochanter to the femoral neck cut was marked Hohmann was placed around the lesser trochanter. A neck cutting guide was used to earl the neck with a Bovie and an oscillating saw was used complete the femoral neck cut. The femoral head was then removed and sized. We then turned our attention to the acetabulum. A Bovie was used to make a perforation in the anterior joint capsule and a Arreguin retractor was placed this was repeated in the 6 o'clock position and a wide argenis was placed there. With a long handled knife the labral and pulvinar tissue were removed. We then registered the acetabulum with the pointing array and confirmed our landmarks. Once the socket was thoroughly prepared and labral tissue and pulvinar was removed we single reamed with the robotic arm. We then used the robotic arm to position the acetabular implant and impacted it into place under robotic guidance. We then proceeded to place a posterior superior screw by drilling first measuring and inserting the screw x 2. We then inserted a trial liner. And turned our attention back to the femur at this point a femoral elevator was used. As well as a pointed wide Hohmann around the lesser trochanter and a Hohmann to help retract the gluteus medius. A box chisel was used to remove excess lateral neck followed by a canal finder and a lateralizing reamer. This was followed by sequential broaches. Attention was made of the version within the canal based on preoperative templating. Once the final broach was seated we then trialed reduced the hip it was determined that a 132 degree neck angle with a +4 neck length was the appropriate size. We then checked stability with shuck testing as well as flexion and internal rotation. then proceeded with hip extension and checked leg lengths at the knees and heels as well as with the trochanteric checkpoint and knee EKG lead. At this point trials were removed. A liner was inserted to the cup. The femoral stem was inserted. We re-trialed and then proceeded to impact the femoral head onto the Marc taper. We then surgically reduce the hip check stability again and leg lengths and were satisfied. Betadine rinse was allowed to sit for 5 minutes while everyone changed their gloves. Thorough irrigation was performed. Followed by closure of the external rotators with #2 FiberWire followed by closure of gluteal fascia with #1 Ethibond. 0 Vicryl fat stitches and 2-0 Vicryl subcutaneous stitches and linden in the skin. Linden were placed in the skin pin sites over the iliac crest and dressed with a Mepilex dressing. The main incision was dressed with a Mepilex ag dressing and an abduction pillow was placed. Patient tolerated the procedure well there was no intraoperative complications all counts were correct and the patient was brought back to the PACU in stable condition Surgical Findings: DJD hip Complications Complications: No Admit VTE Documentation VTE Mechan Device Prophylaxis: Thigh High KATHIA Hose
--- NOTE | 2024-08-29 10:37 | PCM.POST.ANE ---
Anesthesia: Postop Eval I Current Vital Signs Temperature: 98.4 F Pulse Rate: 69 Blood Pressure: 101/53 Respiratory Rate: 16 Pulse Ox: 98 Assessment Airway patent: Yes Spontaneous unlabored respirations: Yes nausea: No Vomiting: No Anesthesia Complication: No Fluid Hydration Crystalloid volume administer (ml): 1,200 Total IV fluid infused: 1,200 Progress Note Anesthesia document: Postop Eval 1 completed: Yes
[2024-08-29] MEDS: oxyCODONE 5 MG Tablet PO ×3 (12:31→22:25)
--- NOTE | 2024-08-29 13:12 | POSTOPAN2_ITS ---
Anesthesia Postop Eval I Sum Postop Eval Completion status Anesthesia document: Postop Eval 1 completed: Yes Anesthesia Postop Eval I Summary Anesthesia Postop Eval I Summary: Anesthesia Postop Eval I: Assessment Summary Airway patent Yes 08/29/24 10:37 [email or web address] Spontaneous unlabored Yes 08/29/24 10:37 [email or web address] respirations Mental status nausea No 08/29/24 10:37 [email or web address] Vomiting No 08/29/24 10:37 [email or web address] Anesthesia Postop Eval I: Fluid Summary Crystalloid volume administer 1,200 08/29/24 10:37 [email or web address] (ml) Colloids volume administered ( ml) Blood Product volume administered (ml) Total IV fluid infused 1,200 08/29/24 10:37 [email or web address] Anesthesia Postop Eval I: Summary Notes Anesthesia Complication No 08/29/24 10:37 [email or web address] Anesthesia Complication Comment: Post-operative progress note Anesthesia: Postop Eval II Evaluation Mental status: Awake and Calm Pain Level: 1 nausea: No Vomiting: No Complications Anesthesia Complication: No
--- NOTE | 2024-08-29 13:12 | PCM.POSTANE2 ---
Anesthesia Postop Eval I Sum Postop Eval Completion status Anesthesia document: Postop Eval 1 completed: Yes Anesthesia Postop Eval I Summary Anesthesia Postop Eval I Summary: Anesthesia Postop Eval I: Assessment Summary Airway patent Yes 08/29/24 10:37 BOILER [email or web address] [email or web address] Spontaneous unlabored Yes 08/29/24 10:37 BOILER COVERER [email or web address] respirations Mental status nausea No 08/29/24 10:37 BOILER COVERER [email or web address] Vomiting No 08/29/24 10:37 BOILER [email or web address] [email or web address] Anesthesia Postop Eval I: Fluid Summary Crystalloid volume administer 1,200 08/29/24 10:37 BOILER [email or web address] [email or web address] (ml) Colloids volume administered ( ml) Blood Product volume administered (ml) Total IV fluid infused 1,200 08/29/24 10:37 BOILER [email or web address] Anesthesia Postop Eval I: Summary Notes Anesthesia Complication No 08/29/24 10:37 BOILER [email or web address] [email or web address] Anesthesia Complication Comment: Post-operative progress note Anesthesia: Postop Eval II Evaluation Mental status: Awake and Calm Pain Level: 1 nausea: No Vomiting: No Complications Anesthesia Complication: No
[2024-08-29] MEDS: Cefazolin 2 GM in Syringe IV ×2 (15:58→22:27)
[2024-08-29] MEDS: 0.9% Saline Lock 10 ML Syringe IV ×2 (15:58→22:28)
[2024-08-29] MEDS: Sucralfate 1 GM Tablet PO (16:07)
[2024-08-29] MEDS: Amitriptyline 100 MG Tablet 150 MG PO (22:26)
[2024-08-29] MEDS: Verapamil 120 MG Tablet 60 MG PO (22:26)
[2024-08-29] MEDS: Atorvastatin Calcium 20 MG Tablet PO (22:26)
[2024-08-29] MEDS: Metoprolol Tartrate 25 MG Tablet PO (22:26)
[2024-08-29] MEDS: MELATONIN 3 MG TABLET 12 MG PO (22:27)
[2024-08-29] MEDS: Pantoprazole Sodium 20 MG Tablet PO (22:27)
[2024-08-29] MEDS: Senna/Docusate Sodium 1 Tablet 2 TABLET PO (22:27)
[2024-08-30] VITALS (11 sets, daily range): BP systolic 105–136; BP diastolic 40–63; PULSE 79–99; RESP 14–18; TEMP 36.9–37.7; O2SAT 92–97
[2024-08-30 06:40] LABS: Hematocrit 30.4 % (37-47); Hemoglobin 9.9 g/dL (12.0-15.0); Mean Corp Hgb Conc 32.6 g/dL (32-36); Mean Corpuscular Hgb 31.1 pg (27.0-32.0); Mean Corpuscular Volume 95.6 fL (81-99); Mean Platelet Vol. 9.9 fl (6.2-12.0); Platelet Count 227 K/mm3 (150-450); RBC Distribution Width CV 13.1 % (11.6-14.6); Red Blood Count 3.18 M/mm3 (4.2-5.4); White Blood Count 7.4 K/mm3 (4.4-11.0)
[2024-08-30] MEDS: Acetaminophen 500 MG Tablet 1000 MG PO ×3 (06:46→22:47)
[2024-08-30] MEDS: Sucralfate 1 GM Tablet PO ×2 (06:46→15:49)
[2024-08-30 07:20] LABS: Scan Indicated on CBC? Y/N NO
[2024-08-30 07:21] LABS: Anion Gap 6 (5-15); BUN 14 mg/dL (7-18); BUN/Creat Ratio 18.5 RATIO (10-20); Calcium,Total 8.5 mg/dL (8.5-10.1); Chloride 104 mmol/L (98-107); Creatinine, Serum 0.76 mg/dL (0.55-1.02); EST Glomerular Filtration Rate 80 mL/min (>60); Est Glom Filt Rate - Afr Amer 97 mL/min (>60); Estimated Creatinine Clearance 70.72 ml/min; Glucose 113 mg/dL (74-106); Potassium 3.9 mmol/L (3.5-5.1); Sodium Level 134 mmol/L (136-145)
[2024-08-30] MEDS: Cefazolin 2 GM in Syringe IV (07:53)
[2024-08-30] MEDS: 0.9% Saline Lock 10 ML Syringe IV (07:54)
[2024-08-30] MEDS: Verapamil 120 MG Tablet 60 MG PO ×2 (07:59→22:45)
[2024-08-30] MEDS: oxyCODONE 5 MG Tablet PO ×2 (07:59→11:54)
[2024-08-30] MEDS: hydroCHLOROthiazide 25 MG Tablet PO (07:59)
[2024-08-30] MEDS: Cholecalciferol (VIT D3) 25 MCG TABLET (1,000 UNITS) 50 MCG PO (07:59)
[2024-08-30] MEDS: Metoprolol Tartrate 25 MG Tablet PO ×2 (07:59→22:47)
[2024-08-30] MEDS: Senna/Docusate Sodium 1 Tablet 2 TABLET PO ×2 (07:59→22:47)
--- NOTE | 2024-08-30 12:12 | PCM.PN.ORT ---
Subjective Subjective Patient seen and examined. Complain of pain left hip. Denies any fever chills nausea vomiting shortness of breath or chest pain. She did have difficulty ambulating the reed and did require wheelchair assist back to her room originally planning on being discharged home now contemplating whether this is best Objective Data Objective Data Vital Signs: Vital Signs Temp Pulse Resp BP Pulse Ox O2 Del Method O2 Flow Rate 99.9 F H 96 18 130/55 H 97 Room Air 4 08/30/24 11:50 08/30/24 11:50 08/30/24 11:50 08/30/24 11:50 08/30/24 11:50 08/30/24 11:50 08/29/24 11:45 Oxygen Flow Rate (L/min) 4 Oxygen Delivery Method Room Air Weight: 211 lb 10.3 oz Body Mass Index (BMI) 38.7 Intake & Output: Intake and Output for Last 24 Hours 08/28/24 08/29/24 08/30/24 23:59 23:59 23:59 Intake Total 2153.67 / 2153.67 Output Total 975 / 975 Balance 1178.67 / 1178.67 Lab / Micro Data 08/30/24 05:28 08/30/24 05:28 Labs: Laboratory Results - last 24 hr 08/30/24 05:28: WBC 7.4, RBC 3.18 L, Hgb 9.9 L, Hct 30.4 L, MCV 95.6, MCH 31.1, MCHC 32.6, RDW Std Deviation 46.0 H, RDW Coeff of Carrillo 13.1, Plt Count 227, MPV 9.9, Sodium 134 L, Potassium 3.9, Chloride 104, Carbon Dioxide 24.0, Anion Gap 6, BUN 14, Creatinine 0.76, Estim Creat Clear Calc 70.72, Est GFR (MDRD) Af Amer 97, Est GFR (MDRD) Non-Af 80, BUN/Creatinine Ratio 18.5, Glucose 113 H, Calcium 8.5 Micro: Microbiology 08/16/24 08:57 Swab (Method) Nasal Screen MRSA/MSSA - Final Physical Exam Const alert, oriented x3 and no apparent distress General Appearance: cooperative Extremity Extremity Narrative: Left hip dressing with minimal drainage sealed compartments soft neurovascular intact EHL tibialis anterior gastrocsoleus intact sensation light touch palpable pedal pulse Assessment & Plan Assessment/Plan (1) S/P total hip arthroplasty: QUALIFIERS: Laterality: left Qualified Code(s): Z96.642 - Presence of left artificial hip joint PLAN: Plan Postop day #1 left total hip arthroplasty PT OT weightbearing as tolerated with hip precautions DVT prophylaxis SCDs KATHIA hose Lovenox 40 mg subcu daily for 3 weeks postop DC planning rehab or TCU tomorrow Will increase oxycodone to up to 15 mg every 4 hours.
--- NOTE | 2024-08-30 12:15 | DCINST_ITS ---
Discharge Instructions Diet Discharge Diet: No restrictions DC O2, CPAP, BIPAP needs Home O2 Discharge instructions: No Dressing / Incision Call your doctor if you observe: Shortness of breath and Chest pain Additional Dressing/Incision Instructions:: Do not shower 72hrs. Begin daily showering warm water antibacterial soap postop day #3( 72hrs Post-operatively) and then daily. Leave the dressing on for 72 hours postoperatively then may remove prior to first shower and change dressing daily after this until no drainage for 2 consecutive days then may leave open to air. Follow hip precautions that were reviewed in hospital. Wear compression stockings, may remove at night. Start physical therapy as directed in hospital. Follow prescriptions instructions do not take any other pain medication or differ dosing without consulting your physician. Do not take oral NSAIDs until blood thinner has been completed , then may begin the day after completion if needed . Call Dr. Peralta's office with any concerns. Follow Up Care Please Follow Up With: Naresh Peralta DO When: 2 weeks Test Results: Test results from this visit will be discussed in further detail at your follow- up appointment, if applicable. Discharge Plan Admission Admit Date/Time: 08/29/24 10:26 Primary Reason for Your Visit: Left total hip arthroplasty Attending Provider: Naresh Peralta Primary Care Provider: Jody Garner Discharge Orders/Prescriptions Prescriptions: New acetaminophen 500 mg tablet 1,000 mg PO Q6H Qty: 100 0RF oxycodone 5 mg tablet 5 - 15 mg PO Q4H PRN (Reason: pain) 7 Days Qty: 60 0RF enoxaparin [Lovenox] 40 mg/0.4 mL syringe 40 mg subcut DAILY Qty: 21 0RF Continued sucralfate [Carafate] 1 gram tablet 1 g PO BID amitriptyline 150 MG tablet 150 mg PO QHS Patient Comments: HEADACHES omeprazole 20 MG capsule 20 mg PO QHS Patient Comments: STOMACH/ acid reflex hydrochlorothiazide 25 MG tablet 25 mg PO DAILY Patient Comments: BLOOD PRESSURE atorvastatin 10 MG tablet 20 mg PO QHS Patient Comments: CHOLESTEROL metoprolol tartrate 25 MG tablet 25 mg PO BID Patient Comments: high blood pressure verapamil 120 MG tablet 60 mg PO BID Patient Comments: blood pressure cholecalciferol (vitamin D3) 2,000 UNIT capsule 2,000 unit PO DAILY cranberry extract 300 mg Tablet 30,000 mg PO DAILY melatonin 12 mg Tablet 12 mg PO QHS Estriol 1 gm intrauterine TUFR Held aspirin [Adult Low Dose Aspirin] 81 mg tablet,delayed release (DR/EC) 81 mg PO DAILY Hold Instructions: Resume on 09/06/24. Patient Comments: STOP WEEK PER PCP Referrals / Follow Up: Jody Garner MD [Primary Care Provider] -
--- NOTE | 2024-08-30 12:48 | CASEMGMT ---
Social Work- SW received notice from surgeon that pt does not feel comfortable going home at this time. SW met with pt who reports she would like referral to TCU/RU and declines a list at this time. SW completed referral. Pt referral being reviewed by admissions. SW remains available to follow. RUSSELL Verduzco
--- NOTE | 2024-08-30 13:40 | CASEMGMT ---
RN KENDRA RAMP ATTENDANT KENDRA?to room to meet with patient for initial transition planning/care coordination assessment. RN CM?introduced self and role at [facility]. Pt voices understanding and consents to assessment?at this time. Pt resting in bed in no distress at this time. @ bedside. Pt is A/O at this time and answers all questions appropriately. Care providers, pharmacy, and demographics verified/updated at this time. Strata:?1 PCP: Dr Garner Specialists:Dr Peralta-bret Preferred Pharmacy: [facility] Retail Insurance: MCR, MMO Prescription Benefit: Yes Living Will/HPOA: Pt has both LW & HCPOA, who is her and then 2 sons as alternatives. LNOK: , Puneet. 2 sons Living Arrangements: Lives w/ in one-story home w/basement. 2 steps to enter home. Independent w/ADL's. Pt and share home mgnt tasks. Transportation:? does most of the driving DME: States has the following DME: tub bench, raised toilet, cane, lift chair, walker, W/C Pt states no need for further DME at this time. HHC/SNF: No hx of either, Pt states she is wanting to discharge to either [facility] or [facility], and declines wanting list of other SNF options. SIMA, Nikole, aware, and is working on this. Pt and voice no further concerns/needs at this time. PLAN: [facility] RU vs [facility] TCU Ellen KELLY RN, CM
--- NOTE | 2024-08-30 16:17 | NURSING ---
All documentation by nursing care partner Sanjuana Pyle reviewed by nursing care partner Rohini TIMN, RN.
[2024-08-30] MEDS: Amitriptyline 100 MG Tablet 150 MG PO (22:46)
[2024-08-30] MEDS: Pantoprazole Sodium 20 MG Tablet PO (22:47)
[2024-08-30] MEDS: Atorvastatin Calcium 20 MG Tablet PO (22:47)
[2024-08-30] MEDS: MELATONIN 3 MG TABLET 12 MG PO (22:47)
[2024-08-31 06:00] VITALS: BP 116/54; PULSE 86; RESP 16; TEMP 36.7; O2SAT 96
[2024-08-31] MEDS: Sucralfate 1 GM Tablet PO (06:11)
[2024-08-31] MEDS: Acetaminophen 500 MG Tablet 1000 MG PO ×2 (06:11→13:34)
[2024-08-31] MEDS: Enoxaparin 40 MG/0.4 ML Syringe SC (06:11)
[2024-08-31 07:02] LABS: Hematocrit 31.4 % (37-47); Hemoglobin 10.1 g/dL (12.0-15.0); Mean Corp Hgb Conc 32.2 g/dL (32-36); Mean Corpuscular Hgb 30.6 pg (27.0-32.0); Mean Corpuscular Volume 95.2 fL (81-99); Mean Platelet Vol. 9.8 fl (6.2-12.0); Platelet Count 214 K/mm3 (150-450); RBC Distribution Width CV 13.1 % (11.6-14.6); RBC Distribution Width SD 45.2 fl (35.1-43.9); White Blood Count 7.1 K/mm3 (4.4-11.0)
--- NOTE | 2024-08-31 07:57 | PCM.PN.ORT ---
Subjective Subjective Pain controlled with increased pain medication. Denies any fever chills nausea vomit shortness of breath or chest pain or other complaints or concerns Objective Data Objective Data Vital Signs: Vital Signs Temp Pulse Resp BP Pulse Ox O2 Del Method O2 Flow Rate 98.1 F 86 16 116/54 L 96 Room Air 4 08/31/24 06:00 08/31/24 06:00 08/31/24 06:00 08/31/24 06:00 08/31/24 06:00 08/31/24 06:00 08/29/24 11:45 Oxygen Flow Rate (L/min) 4 Oxygen Delivery Method Room Air Weight: 211 lb 10.3 oz Body Mass Index (BMI) 38.7 Intake & Output: Intake and Output for Last 24 Hours 08/29/24 08/30/24 08/31/24 23:59 23:59 23:59 Intake Total 2153.67 / 2153.67 20 / 570 700 / 700 Output Total 975 / 975 200 / 200 Balance 1178.67 / 1178.67 -180 / 370 700 / 700 Lab / Micro Data 08/31/24 06:30 08/30/24 05:28 Labs: Laboratory Results - last 24 hr 08/31/24 06:30: WBC 7.1, RBC 3.30 L, Hgb 10.1 L, Hct 31.4 L, MCV 95.2, MCH 30.6, MCHC 32.2, RDW Std Deviation 45.2 H, RDW Coeff of Carrillo 13.1, Plt Count 214, MPV 9.8 Micro: Microbiology 08/16/24 08:57 Swab (Method) Nasal Screen MRSA/MSSA - Final Physical Exam Const alert, oriented x3 and no apparent distress General Appearance: cooperative Extremity Extremity Narrative: Left hip dressing with minimal drainage sealed compartments soft neurovascular intact EHL tibialis anterior gastrocsoleus intact sensation light touch palpable pedal pulse Assessment & Plan Assessment/Plan (1) S/P total hip arthroplasty: QUALIFIERS: Laterality: left Qualified Code(s): Z96.642 - Presence of left artificial hip joint PLAN: Plan Postop day #2 left total hip arthroplasty PT OT weightbearing as tolerated with hip precautions DVT prophylaxis SCDs KATHIA hose Lovenox 40 mg subcu daily for 3 weeks postop DC planning rehab today Follow-up in the office 2 weeks
--- NOTE | 2024-08-31 07:59 | PCM.TXEXTCAR ---
Diet Diet Order/Speech Therapy: 08/29/24 15:39 Diet: Regular - General DC O2, CPAP, BIPAP needs Home O2 Discharge instructions: No Wound(s) LEFT LOWER ABDOMEN: Wound Type: Surgical Incision LEFT HIP: Wound Type: Surgical Incision Therapies Weight Bearing: Full weight bearing (With hip precautions) Physical Therapy: Eval and Treat Problem/Diagnosis (1) S/P total hip arthroplasty: Status: Acute Code(s): Z96.649 - Presence of unspecified artificial hip joint Plan Postop day #2 left total hip arthroplasty PT OT weightbearing as tolerated with hip precautions DVT prophylaxis SCDs KATHIA hose Lovenox 40 mg subcu daily for 3 weeks postop DC planning rehab today Follow-up in the office 2 weeks Allergies/Procedures Done in Hospital Allergies Dressing: Non-Medicated (elastic) Allergy (Severe, Verified 08/29/24 06:44) Rash IN UNDERWEAR povidone-iodine (From Betadine) Allergy (Severe, Verified 08/29/24 06:44) Rash chlorhexidine (From ChloraPrep Clear) Allergy (Intermediate, Verified 08/29/24 06:46) Itching BURNING isopropyl alcohol (From ChloraPrep Clear) Allergy (Intermediate, Verified 08/29/24 06:46) Itching BURNING adhesive tape Allergy (Verified 08/29/24 06:44) Rash (COBAN SURGICAL TAPE) codeine Allergy (Verified 08/29/24 06:44) Hives levofloxacin Allergy (Verified 08/29/24 06:44) unknown cortisone Adverse Reaction (Severe, Verified 08/29/24 06:44) migraine and skin on fire prednisone Adverse Reaction (Severe, Verified 08/29/24 06:44) migraine and skin on fire NSAIDS (Non-Steroidal Anti-Inflamma Adverse Reaction (Verified 08/29/24 06:44) Upset Stomach promethazine HCl (From Phenergan) Adverse Reaction (Verified 08/29/24 06:44) RESTLESS LEG SYNDROME SAYS SHE SHAKES ALL OVER sulfamethoxazole (From Bactrim) Adverse Reaction (Verified 08/29/24 06:44) Nausea trimethoprim (From Bactrim) Adverse Reaction (Verified 08/29/24 06:44) Nausea Type of Care/Length of Stay Estimated LOS: Convalescent Care Less Than 30 days Type of Care Needed: Skilled Rehab Potential: Good Prognosis: Good Additional Orders/Day of Discharge Day of Discharge: 08/31/24 Follow Up Care Please Follow Up With: Naresh Peralta DO When: 2 weeks Discharge Plan Admission Admit Date/Time: 08/29/24 10:26 Primary Reason for Your Visit: Left total hip arthroplasty Attending Provider: Naresh Peralta Primary Care Provider: Jody Garner Discharge Orders/Prescriptions Prescriptions: New acetaminophen 500 mg tablet 1,000 mg PO Q6H Qty: 100 0RF oxycodone 5 mg tablet 5 - 15 mg PO Q4H PRN (Reason: pain) 7 Days Qty: 60 0RF enoxaparin [Lovenox] 40 mg/0.4 mL syringe 40 mg subcut DAILY Qty: 21 0RF Continued sucralfate [Carafate] 1 gram tablet 1 g PO BID amitriptyline 150 MG tablet 150 mg PO QHS Patient Comments: HEADACHES omeprazole 20 MG capsule 20 mg PO QHS Patient Comments: STOMACH/ acid reflex hydrochlorothiazide 25 MG tablet 25 mg PO DAILY Patient Comments: BLOOD PRESSURE atorvastatin 10 MG tablet 20 mg PO QHS Patient Comments: CHOLESTEROL metoprolol tartrate 25 MG tablet 25 mg PO BID Patient Comments: high blood pressure verapamil 120 MG tablet 60 mg PO BID Patient Comments: blood pressure cholecalciferol (vitamin D3) 2,000 UNIT capsule 2,000 unit PO DAILY cranberry extract 300 mg Tablet 30,000 mg PO DAILY melatonin 12 mg Tablet 12 mg PO QHS Estriol 1 gm intrauterine TUFR Held aspirin [Adult Low Dose Aspirin] 81 mg tablet,delayed release (DR/EC) 81 mg PO DAILY Hold Instructions: Resume on 09/06/24. Patient Comments: STOP WEEK PER PCP Referrals / Follow Up: Jody Garner MD [Primary Care Provider] - (1) S/P total hip arthroplasty Qualifiers: Laterality: left Qualified Code(s): Z96.642 - Presence of left artificial hip joint
--- NOTE | 2024-08-31 08:00 | PCM.DC.SUM ---
Providers Date of Admission: 08/29/24 Primary Care Physician: Dr. Jody Garner MD Reason For Visit: Left Total Hip Replacement Robotic Arm Assisted Diagnosis Discharge Diagnosis (1) S/P total hip arthroplasty: Status: Acute Code(s): Z96.649 - Presence of unspecified artificial hip joint Qualifiers: Laterality: left Qualified Code(s): Z96.642 - Presence of left artificial hip joint Plan Postop day #2 left total hip arthroplasty PT OT weightbearing as tolerated with hip precautions DVT prophylaxis SCDs KATHIA hose Lovenox 40 mg subcu daily for 3 weeks postop DC planning rehab today Follow-up in the office 2 weeks Medications at Discharge Home Medications amitriptyline 150 mg tablet 150 mg PO QHS TORRES 09/07/13 hydrochlorothiazide 25 mg tablet 25 mg PO DAILY BP 09/07/13 omeprazole 20 mg capsule,delayed release 20 mg PO QHS GERD 09/07/13 atorvastatin 10 mg tablet 20 mg PO QHS CHOLESTEROL 09/21/14 metoprolol tartrate 25 mg tablet 25 mg PO BID BP 12/10/15 verapamil 120 mg tablet 60 mg PO BID BP 12/07/16 aspirin 81 mg tablet,delayed release (Adult Low Dose Aspirin) 81 mg PO DAILY BLODD THINNER 01/09/19 Held on 08/30/24. Instructions: Resume on 09/06/24. sucralfate 1 gram tablet (Carafate) 1 g PO BID STOMACH 01/09/19 cholecalciferol (vitamin D3) 50 mcg (2,000 unit) capsule 2,000 unit PO DAILY SUPPLEMENT 03/13/20 cranberry extract 300 mg tablet 30,000 mg PO DAILY SUPPLEMENT 11/26/20 melatonin 12 mg tablet 12 mg PO QHS SUPPLEMENT 11/05/22 Estriol 1 gm intrauterine TUFR SUPPLEMENT 12/08/22 acetaminophen 500 mg tablet 1,000 mg (2 x 500 mg) PO Q6H #100 tabs 08/30/24 enoxaparin 40 mg/0.4 mL subcutaneous syringe (Lovenox) 40 mg (0.4 mL) subcut DAILY #21 mL 08/30/24 oxycodone 5 mg tablet 5 - 15 mg (1 - 3 x 5 mg) PO Q4H PRN pain 7 days #60 tabs 08/30/24 Hospital Course Operations total hip replacement Summary of Care Provided Hospital Course: Patient with 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 Patient underwent total hip arthroplasty day of admission. Patient did receive pre-and postoperative antibiotics which were discontinued within 23 hours postoperatively. Patient did receive spinal anesthesia and postoperatively pain was controlled with both IV and p.o. pain medication she did require increase to up to 15 mg of oxycodone every 4 hours to control her pain. Patient did receive 2 g of tranexamic acid. hemoglobin and hematocrit were monitored postoperatively as well as vital signs and the patient did not require any blood transfusion. Dressing will be changed daily beginning postop day #3 before shower will be removed and replaced after. Pt was started on Lovenox 40 mg subcu daily postop day #1 for which will continue for 3 weeks post hospital discharge . Patient was seen by physical therapy was ambulating the halls with assistance but did not feel stable or confident enough to be discharged home. patient will be discharged to rehab and will start outpatient physical therapy upon discharge from their. will follow-up in the office in 2 weeks. No intrahospital complications. Weight / BMI Weight Weight: 211 lb 10.3 oz Body Mass Index (BMI) 38.7 ABG / Lab / Microbiology Data 08/31/24 06:30 08/30/24 05:28 Laboratory: Laboratory Results - last 24 hr 08/31/24 06:30: WBC 7.1, RBC 3.30 L, Hgb 10.1 L, Hct 31.4 L, MCV 95.2, MCH 30.6, MCHC 32.2, RDW Std Deviation 45.2 H, RDW Coeff of Carrillo 13.1, Plt Count 214, MPV 9.8 Microbiology: Microbiology 08/16/24 08:57 Swab (Method) Nasal Screen MRSA/MSSA - Final D/C Instructions Discharge Diet: No restrictions Call your doctor if you observe: Shortness of breath and Chest pain Additional Dressing/Incision Instructions: Do not shower 72hrs. Begin daily showering warm water antibacterial soap postop day #3( 72hrs Post-operatively) and then daily. Leave the dressing on for 72 hours postoperatively then may remove prior to first shower and change dressing daily after this until no drainage for 2 consecutive days then may leave open to air. Follow hip precautions that were reviewed in hospital. Wear compression stockings, may remove at night. Start physical therapy as directed in hospital. Follow prescriptions instructions do not take any other pain medication or differ dosing without consulting your physician. Do not take oral NSAIDs until blood thinner has been completed , then may begin the day after completion if needed . Call Dr. Peralta's office with any concerns. DC O2, CPAP, BIPAP Needs Home O2 Discharge instructions: No Please Follow Up With: Naresh Peralta DO When: 2 weeks Meaningful Use Info Meaningful Use Meaningful Use Diagnoses (Choose all that apply): None applicable Ischemic Stroke Statin Dosing Therapy Reference: STATIN DOSE THERAPY REFERENCE: * Patients > 75 years receive moderate or high dose statin therapy. * Patients 75 years or YOUNGER should receive HIGH intensity statin dose unless contraindicated. You will be required to document reason for non-treatment if statin daily dose does not meet guidelines. HIGH DOSE STATIN THERAPY DAILY Atorvastatin > than or = to 40 mg Rosuvastatin > than or = to 20 mg Amlodipine + Atorvastatin > than or = to 2.5/40 mg Ezetimibe + Simvastatin 10/80 mg Simvastatin 80mg Discharge Plan Admission Admit Date/Time: 08/29/24 10:26 Primary Reason for Your Visit: Left total hip arthroplasty Attending Provider: Naresh Peralta Primary Care Provider: Jody Garner Discharge Orders/Prescriptions Prescriptions: New acetaminophen 500 mg tablet 1,000 mg PO Q6H Qty: 100 0RF oxycodone 5 mg tablet 5 - 15 mg PO Q4H PRN (Reason: pain) 7 Days Qty: 60 0RF enoxaparin [Lovenox] 40 mg/0.4 mL syringe 40 mg subcut DAILY Qty: 21 0RF Continued sucralfate [Carafate] 1 gram tablet 1 g PO BID amitriptyline 150 MG tablet 150 mg PO QHS Patient Comments: HEADACHES omeprazole 20 MG capsule 20 mg PO QHS Patient Comments: STOMACH/ acid reflex hydrochlorothiazide 25 MG tablet 25 mg PO DAILY Patient Comments: BLOOD PRESSURE atorvastatin 10 MG tablet 20 mg PO QHS Patient Comments: CHOLESTEROL metoprolol tartrate 25 MG tablet 25 mg PO BID Patient Comments: high blood pressure verapamil 120 MG tablet 60 mg PO BID Patient Comments: blood pressure cholecalciferol (vitamin D3) 2,000 UNIT capsule 2,000 unit PO DAILY cranberry extract 300 mg Tablet 30,000 mg PO DAILY melatonin 12 mg Tablet 12 mg PO QHS Estriol 1 gm intrauterine TUFR Held aspirin [Adult Low Dose Aspirin] 81 mg tablet,delayed release (DR/EC) 81 mg PO DAILY Hold Instructions: Resume on 09/06/24. Patient Comments: STOP WEEK PER PCP Referrals / Follow Up: Jody Garner MD [Primary Care Provider] -
--- NOTE | 2024-08-31 10:11 | CASEMGMT ---
Social Work- SW met with pt to update that IRU accepted pt referral. SW updated charge nurse and physician. SW remains available to follow. Plan: IRU RUSSELL Verduzco
[2024-08-31 10:44] VITALS: BP 104/55; PULSE 91; RESP 17; TEMP 37; O2SAT 96
[2024-08-31] MEDS: Cholecalciferol (VIT D3) 25 MCG TABLET (1,000 UNITS) 50 MCG PO (10:57)
[2024-08-31] MEDS: Verapamil 120 MG Tablet 60 MG PO (10:57)
[2024-08-31] MEDS: Senna/Docusate Sodium 1 Tablet 2 TABLET PO (10:57)
--- NOTE | 2024-08-31 12:39 | PHA.DC.MR.R ---
Pharmacy [place] Med Reconciliation Pharmacy Service has performed discharge medication reconciliation for this patient upon transfer to inpatient rehab The patient's discharge medication list was reviewed for discrepancies and discrepancies were resolved. Medications at Discharge Home Medications amitriptyline 150 mg tablet 150 mg PO QHS TORRES 09/07/13 hydrochlorothiazide 25 mg tablet 25 mg PO DAILY BP 09/07/13 omeprazole 20 mg capsule,delayed release 20 mg PO QHS GERD 09/07/13 atorvastatin 10 mg tablet 20 mg PO QHS CHOLESTEROL 09/21/14 metoprolol tartrate 25 mg tablet 25 mg PO BID BP 12/10/15 verapamil 120 mg tablet 60 mg PO BID BP 12/07/16 aspirin 81 mg tablet,delayed release (Adult Low Dose Aspirin) 81 mg PO DAILY BLODD THINNER 01/09/19 Held on 08/30/24. Instructions: Resume on 09/06/24. sucralfate 1 gram tablet (Carafate) 1 g PO BID STOMACH 01/09/19 cholecalciferol (vitamin D3) 50 mcg (2,000 unit) capsule 2,000 unit PO DAILY SUPPLEMENT 03/13/20 cranberry extract 300 mg tablet 30,000 mg PO DAILY SUPPLEMENT 11/26/20 melatonin 12 mg tablet 12 mg PO QHS SUPPLEMENT 11/05/22 Estriol 1 gm intrauterine TUFR SUPPLEMENT 12/08/22 acetaminophen 500 mg tablet 1,000 mg (2 x 500 mg) PO Q6H #100 tabs 08/30/24 enoxaparin 40 mg/0.4 mL subcutaneous syringe (Lovenox) 40 mg (0.4 mL) subcut DAILY #21 mL 08/30/24 oxycodone 5 mg tablet 5 - 15 mg (1 - 3 x 5 mg) PO Q4H PRN pain 7 days #60 tabs 08/30/24
--- NOTE | 2024-08-31 13:15 | CASEMGMT ---
Social Work- Physician feels pt is medically ready for discharge to IRU. SW confirmed with IRU admissions that pt is able to admit today; pt can admit. Bedside nurse updated. Pt updated. Pt reports that she will notify spouse. Plan: IRU RUSSELL Verduzco
[2024-08-31] MEDS: oxyCODONE 5 MG Tablet PO (13:34)
[2024-08-31 13:40] VITALS: BP 114/50; PULSE 95; RESP 15; TEMP 37; O2SAT 100
== END 2024-08-31 13:55 | DRG 470 ==
LOC: MS3 17:12
PROVIDERS: Admitting Provider Orthopaedic Surgery; PCP Family Medicine; Referring Provider Orthopaedic Surgery; Visit Provider Orthopaedic Surgery
PROC: 8E0Y0CZ Robotic Assisted Procedure of Lower Extremity, Open Approach (ICD-10-PCS; CPT 27130; principal; 2024-08-29 07:30)
DX: M16.12 Unilateral primary osteoarthritis, left hip (principal); E78.00 Pure hypercholesterolemia, unspecified; I10 Essential (primary) hypertension; K21.9 Gastro-esophageal reflux disease without esophagitis; G47.33 Obstructive sleep apnea (adult) (pediatric); Z79.899 Other long term (current) drug therapy; Z86.73 Personal history of transient ischemic attack (TIA), and cerebral infarction without residual deficits
CPT/HCPCS: 36415; 73502; 80048; 82985; 83036; 83735; 85025; 85027; 85610; 85730; 86850; 86900; 86901; 87081; 88305; 88311; 93005; 94668; 97116; 97162; 97166; 97530; 99252; C1713; C1776; A4216; G0463; J2405; J3475

== ENCOUNTER 2024-08-31 14:00 | Inpatient (IN) | payer MEDICARE, OTHER, SELFPAY ==
[2024-08-31 14:57] VITALS: BP 138/51; PULSE 99; RESP 18; TEMP 37; O2SAT 96; BMI 40.1
[2024-08-31 17:22] LABS: Bacteria 0 SEEN /hpf (None Seen); Mucous, Urine 0 SEEN /hpf (<or=2+); Squamous Epithelial Cells - UA 0 SEEN /hpf (5-10); White Blood Cells 0 SEEN /hpf (0-5)
[2024-08-31 17:24] LABS: Color, Urine Yellow (Yellow); Glucose, Dipstick Normal (Normal); Ketone-Dipstick Negative (Negative); Leukocyte Esterase-Dipstick Negative /ul (Negative); Nitrite-Dipstick Negative (Negative); Occult Blood-Urine 10 /ul (Negative); Protein-Dipstick 30 mg/dl (Negative); Specific Gravity, Urine 1.015 (1.002-1.030); Urine Bilirubin Dipstick Negative (Negative); Urine Clarity Clear (Clear); Urine Urobilinogen Normal (Normal)
[2024-08-31 17:36] LABS: Red Blood Cells-Urine 0 SEEN /hpf (0-5)
[2024-08-31] MEDS: Sucralfate 1 GM Tablet PO (17:54)
[2024-08-31 18:00] VITALS: BP 115/60; PULSE 105; RESP 16; TEMP 37.9; O2SAT 96
[2024-08-31] MEDS: Acetaminophen 500 MG Tablet 1000 MG PO (20:39)
[2024-08-31] MEDS: Senna/Docusate Sodium 1 Tablet 2 TABLET PO (20:40)
[2024-08-31] MEDS: Amitriptyline 100 MG Tablet 150 MG PO (20:40)
[2024-08-31] MEDS: Atorvastatin Calcium 20 MG Tablet PO (20:41)
[2024-08-31] MEDS: MELATONIN 3 MG TABLET PO (20:42)
[2024-08-31] MEDS: Verapamil 120 MG Tablet 60 MG PO (20:42)
[2024-08-31] MEDS: Pantoprazole Sodium 20 MG Tablet PO (20:43)
[2024-08-31 20:45] VITALS: BP 138/75; PULSE 97
[2024-08-31] MEDS: Nystatin Powder 15gm Bottle 1 APPLIC TOPICAL (20:45)
[2024-08-31] MEDS: Metoprolol Tartrate 25 MG Tablet PO (20:45)
[2024-08-31] MEDS: Loratadine 10 MG Tablet PO (21:20)
[2024-08-31] MEDS: oxyCODONE 5 MG Tablet PO (23:11)
[2024-09-01 06:06] VITALS: BP 113/53; PULSE 80; RESP 16; TEMP 36.6; O2SAT 98
[2024-09-01] MEDS: Sucralfate 1 GM Tablet PO ×2 (06:14→15:44)
[2024-09-01 07:03] LABS: Absolute Lymphocyte Count 1.59 X10^3/uL (0.83-4.51); Absolute Neutrophil Count 4.6 X10^3/uL (2.0-7.7); Basophil# 0.02 X10^3/uL; Basophil% 0.3 % (0-1); Eosinophil# 0.33 X10^3/uL; Eosinophils% 4.6 % (0-5); Hematocrit 28.7 % (37-47); Hemoglobin 9.2 g/dL (12.0-15.0); Lymphocyte # 1.59 X10^3/ul (0.83-4.51); Lymphocyte % 22.3 % (19-41); Mean Corp Hgb Conc 32.1 g/dL (32-36); Mean Corpuscular Hgb 30.5 pg (27.0-32.0); Mean Platelet Vol. 9.8 fl (6.2-12.0); Monocyte# 0.54 X10^3/uL; Monocyte% 7.6 % (0-10); NRBC Flagged by Analyzer 0 % (0-5); Neutrophil # 4.63 X10^3/uL (2.7-7.7); Neutrophil % 64.9 % (47-70); Platelet Count 219 K/mm3 (150-450); RBC Distribution Width CV 13.2 % (11.6-14.6); RBC Distribution Width SD 45.9 fl (35.1-43.9); Red Blood Count 3.02 M/mm3 (4.2-5.4); White Blood Count 7.1 K/mm3 (4.4-11.0)
[2024-09-01 07:30] VITALS: O2SAT 98
[2024-09-01 07:49] LABS: ALB/GLOB Ratio 0.6 RATIO (0.9-2.4); AST(SGOT) 27 U/L (15-37); Alanine Aminotransfer ALT/SGPT 17 U/L (13-56); Albumin, Serum 2.2 g/dL (3.2-5.0); Alkaline Phosphatase 96 U/L (45-117); Anion Gap 5 (5-15); BUN 12 mg/dL (7-18); BUN/Creat Ratio 22.7 RATIO (10-20); Calcium,Total 9.1 mg/dL (8.5-10.1); Chloride 105 mmol/L (98-107); Creatinine, Serum 0.53 mg/dL (0.55-1.02); EST Glomerular Filtration Rate 122 mL/min (>60); Est Glom Filt Rate - Afr Amer 147 mL/min (>60); Estimated Creatinine Clearance 72.17 ml/min; Globulin 3.5 g/dL (2.2-4.2); Glucose 90 mg/dL (74-106); Magnesium 2.2 mg/dL (1.6-2.6); Phosphorus 2.5 mg/dL (2.5-4.9); Potassium 3.7 mmol/L (3.5-5.1); Protein, Total 5.7 g/dL (6.4-8.2); Sodium Level 138 mmol/L (136-145)
[2024-09-01] MEDS: Acetaminophen 500 MG Tablet 1000 MG PO ×3 (08:08→21:04)
[2024-09-01] MEDS: Verapamil 120 MG Tablet 60 MG PO ×2 (08:08→21:04)
[2024-09-01] MEDS: hydroCHLOROthiazide 25 MG Tablet PO (08:08)
[2024-09-01 08:09] VITALS: BP 114/60; PULSE 80
[2024-09-01] MEDS: Metoprolol Tartrate 25 MG Tablet PO ×2 (08:09→21:06)
[2024-09-01] MEDS: Enoxaparin 40 MG/0.4 ML Syringe SC (08:09)
[2024-09-01] MEDS: Senna/Docusate Sodium 1 Tablet 2 TABLET PO ×2 (08:10→21:06)
[2024-09-01] MEDS: Cholecalciferol (VIT D3) 25 MCG TABLET (1,000 UNITS) 50 MCG PO (08:10)
[2024-09-01] MEDS: Nystatin Powder 15gm Bottle 1 APPLIC TOPICAL ×2 (08:12→21:07)
--- NOTE | 2024-09-01 12:46 | PCM.HP.STD ---
HPI - General General Date of Admission: 08/31/24 Date of Service: 09/01/24 HPI Narrative MAKEDA EM, is a 69 YO F with a past medical history of hyperlipidemia, diverticulosis, osteoporosis, obstructive sleep apnea on CPAP but, non-compliant with CPAP, migraine headaches, TIA, osteoarthritis, morbid obesity, hypertension and GERD who presented to [facility] on 08/29/2024 for an elective left total hip arthroplasty with Dr. Peralta. Postoperatively the HGB dropped from 12.8 pre-op to 9.2 (today). She had no other complications. She had planned on going home after surgery but, she did not feel strong enough to go home and she did not feel she would be able to get up the 3 steps she has at home to get into the house from the garage. She was transferred to the acute inpt rehab unit at [facility] on 08/31/24 for 3 hours of therapy daily to restore function/independence at or near her level prior to the surgery. Has been fairly immobile for the past year due to severe L hip pain. She was using a walker at home. She tells me that her pain is well controlled. Her dose of Oxycodone was decreased to just 5 mg Q 4 H PRN. She has taken only 2 doses since arriving on rehab. She is non-complaint with CPAP because it sounds as though the mask is leaking. She had her sleep study years ago here at [facility]. Does not know her CPAP settings. Denies restless legs. Takes 150 mg of Elavil at . Has had a stroke in the past. Denies a hx of PAF. PA pressure in 2016 was estimated at 32 mmHg. The aortic valve was trileaflet with mild diffuse aortic valve thickening and mild focal aortic valve calcification. Bubble study was negative. Feels Rested when she gets up in the morning. She falls asleep watching TV but, not when talking with people or riding in the car. Admits to having gained wt since her sleep study. STOP BANG IS AT LEAST 4. We are going to measure her neck circumference. She is wondering if she could try the nasal apparatus while she is on rehab. Will discuss with the sleep lab. Sleeping well at night. Denies constipation and dysuria. She has a rash from tape around the incision. [facility] Medical History Abrasion History of diverticulitis Shortness of breath on exertion History of edema Post-menopausal Ambulates with cane Bladder disease High cholesterol Injury of head and neck Diverticulosis History of ulceration Fractured coccyx Wears glasses Osteoporosis Non-smoker CPAP (continuous positive airway pressure) dependence Pain aggravated by walking Edema Migraine headache TIA (transient ischemic attack) History of trigger finger Nausea Abdominal pain Osteoarthritis of right hip Obstructive sleep apnea Morbid obesity with BMI of 40.0-44.9, adult Chronic headaches SBO (small bowel obstruction) HTN (hypertension) GERD (gastroesophageal reflux disease) Home Medications ?Medication ?Instructions ?Recorded ?Last Taken ?Type amitriptyline 150 mg tablet 150 mg PO QHS TORRES 09/07/13 08/28/24 22:00 History hydrochlorothiazide 25 mg tablet 25 mg PO DAILY BP 09/07/13 08/28/24 08:00 History omeprazole 20 mg capsule,delayed 20 mg PO QHS GERD 09/07/13 08/28/24 22:00 History release atorvastatin 10 mg tablet 20 mg PO QHS CHOLESTEROL 09/21/14 08/28/24 22:00 History metoprolol tartrate 25 mg tablet 25 mg PO BID BP 12/10/15 08/29/24 04:00 History verapamil 120 mg tablet 60 mg PO BID BP 12/07/16 08/29/24 04:00 History aspirin 81 mg tablet,delayed 81 mg PO DAILY BLODD THINNER 01/09/19 08/22/24 History release (Adult Low Dose Aspirin) Held on 08/30/24. Instructions: Resume on 09/06/24. sucralfate 1 gram tablet (Carafate) 1 g PO BID STOMACH 01/09/19 08/28/24 22:00 History cholecalciferol (vitamin D3) 50 2,000 unit PO DAILY SUPPLEMENT 03/13/20 08/28/24 08:00 History mcg (2,000 unit) capsule cranberry extract 300 mg tablet 30,000 mg PO DAILY SUPPLEMENT 11/26/20 Unknown History Held on 08/31/24. Instructions: Ordered melatonin 12 mg tablet 12 mg PO QHS SUPPLEMENT 11/05/22 08/27/24 22:00 History Held on 08/31/24. Instructions: Ordered Estriol 1 gm intrauterine TUFR SUPPLEMENT 12/08/22 08/25/24 History acetaminophen 500 mg tablet 1,000 mg (2 x 500 mg) PO Q6H Pain 08/30/24 Unknown Rx #100 tabs enoxaparin 40 mg/0.4 mL 40 mg (0.4 mL) subcut DAILY Blood 08/30/24 Unknown Rx subcutaneous syringe (Lovenox) thinne #21 mL melatonin 3 mg capsule 3 mg PO QHS sleep 08/31/24 Unknown History oxycodone 5 mg tablet 5 mg PO Q4H PRN pain 08/31/24 Unknown History Allergy/AdvReac Type Severity Reaction Status Date / Time Dressing: Non-Medicated Allergy Severe Rash Verified 08/29/24 06:44 (elastic) povidone-iodine (From Allergy Severe Rash Verified 08/29/24 06:44 Betadine) chlorhexidine (From Allergy Intermediate Itching Verified 08/29/24 06:46 ChloraPrep Clear) isopropyl alcohol (From Allergy Intermediate Itching Verified 08/29/24 06:46 ChloraPrep Clear) adhesive tape Allergy Rash Verified 08/29/24 06:44 codeine Allergy Hives Verified 08/29/24 06:44 levofloxacin Allergy unknown Verified 08/29/24 06:44 cortisone AdvReac Severe migraine Verified 08/29/24 06:44 and skin on fire prednisone AdvReac Severe migraine Verified 08/29/24 06:44 and skin on fire NSAIDS (Non-Steroidal AdvReac Upset Verified 08/29/24 06:44 Anti-Inflamma Stomach promethazine HCl (From AdvReac RESTLESS Verified 08/29/24 06:44 Phenergan) LEG SYNDROME sulfamethoxazole (From AdvReac Nausea Verified 08/29/24 06:44 Bactrim) trimethoprim (From Bactrim) AdvReac Nausea Verified 08/29/24 06:44 Family History Sister Colon cancer Father Diabetes Mother Heart disease Hypertension Surgical History Hx of total knee replacement History of hip surgery Hx of right cataract extraction Hx of left cataract extraction Hx of colonoscopy Hx of cholecystectomy Hx of tonsillectomy History of partial hysterectomy Hx of shoulder surgery Hx of total shoulder replacement Hx of arthroscopy History of appendectomy History of reverse total replacement of left shoulder joint (~05/20/20) history right shoulder repair History of right hip replacement History of right knee joint replacement History of umbilical hernia repair Social History (Updated 09/01/24 @ 16:[address] Taryn Lowry, ) household members: spouse housing: other details: 3 steps to enter the house. number of children: 2 pets and animals: Yes pets and animals: dog(s) Smoking Status: Never smoker alcohol intake: never substance use type: does not use ROS Constitutional Constitutional: Reports fatigue, snoring and weakness; Denies anorexia, change in weight, chills, fever(s) or night sweats Eyes Eyes: Denies blurry vision, change in vision, eye pain or loss of vision ENT HEENT: Reports headache(s); Denies abnormal hearing, dysphagia, hearing loss, nasal congestion or sore throat Cardiovascular Cardiovascular: Reports dyspnea on exertion, edema, hypertension and leg edema; Denies chest pain, dizziness, dyspnea at rest, lightheadedness, orthopnea, palpitations, paroxysmal nocturnal dyspnea or syncope Respiratory/Chest Respiratory/Chest: Reports shortness of breath with exertion and snoring; Denies cough, dyspnea, restlessness, shortness of breath at rest or wheezing Gastrointestinal Gastrointestinal: Denies abdominal pain, constipation, diarrhea, dyspepsia, hematemesis, hematochezia, nausea or vomiting Genitourinary Genitourinary: Denies dysuria, hematuria, nocturia, urinary frequency, urinary hesitancy, urinary incontinence or urinary urgency Musculoskeletal Musculoskeletal: Reports joint pain and muscle weakness; Denies back pain, joint swelling or neck pain Integumentary Integumentary: Reports dry skin; Denies hirsutism, jaundice or unusual bruising Neurologic Neurologic: Denies confusion, disequilibrium, dizziness, focal weakness, headache(s), paresthesias, seizures or tremor(s) Psychiatric Psychiatric: Denies anxiety, depression, homicidal ideation or suicidal ideation Endocrine Endocrinology: Denies change in body appearance, polydipsia or polyuria Hematologic/Lymphatic Hematologic/Lymphatic: Denies easy bleeding, easy bruising or lymphadenopathy Allergic/Immunologic Allergic/Immunologic: Denies rhinitis, eczemia or asthma Vital Signs Vital Signs Vital Signs: 08/31/24 14:57 08/31/24 15:24 08/31/24 18:00 Temperature 98.6 F 100.3 F H Temperature Source Temporal Oral Pulse Rate 99 105 H Respiratory Rate 18 16 Respiratory Effort Normal Non-Labored Respiratory Depth Normal Respiratory Pattern Normal Blood Pressure 138/51 H 115/60 Blood Pressure Mean 80 78 Blood Pressure Source Monitor Monitor Blood Pressure Position Sitting Blood Pressure Location Left Arm Pulse Ox 96 96 Oxygen Delivery Method Room Air Room Air Room Air 08/31/24 20:33 08/31/24 20:45 09/01/24 06:06 Temperature 97.8 F Temperature Source Oral Pulse Rate 97 80 Respiratory Rate 16 Respiratory Effort Normal Non-Labored Respiratory Depth Normal Respiratory Pattern Normal Blood Pressure 138/75 H 113/53 L Blood Pressure Mean 73 Blood Pressure Source Monitor Blood Pressure Position Semi-Fowlers Blood Pressure Location Right Arm Pulse Ox 98 Oxygen Delivery Method Room Air Room Air 09/01/24 07:30 09/01/24 08:09 09/01/24 09:01 Temperature Temperature Source Pulse Rate 80 Respiratory Rate Respiratory Effort Normal Non-Labored Respiratory Depth Normal Respiratory Pattern Blood Pressure 114/60 Blood Pressure Mean Blood Pressure Source Blood Pressure Position Blood Pressure Location Pulse Ox 98 Oxygen Delivery Method Room Air Room Air Weight Weight: 219 lb 6.394 oz Body Mass Index (BMI) 40.1 Physical Exam Const alert, oriented x3, no apparent distress and healthy appearing General Appearance: cooperative, well kempt and well developed HEENT head/scalp atraumatic HEENT Narrative: MM are dry but, she has had Claritin and Oxycodone. Has been drinking a good amount of water Eyes PERRL, EOMs intact bilaterally, conjunctivae normal and no scleral icterus Eyes Narrative: No discharge from the eyes General Eye: normal appearance of both eyes Neck No nuchal rigidity and No nodes General: trachea midline Chest Chest: symmetrical chest wall rise Resp Resp Narrative: excellent air exchange throughout......has never smoked. CTA. Not tachypneic and no conversational dyspnea. Cardio regular rate and regular rhythm Cardio Narrative: she has a 2/6 LILIAM at the second RICS that radiates to the left ventricular outflow tract, lower left sternal border, apex and into the left axilla. GI normal to inspection, nondistended, normoactive bowel sounds, soft to palpation and non-tender GI Narrative: No guarding with palpation Extremity no calf tenderness Extremity Narrative: Has edema of both distal lower extremities. No clubbing. No cyanosis. Skin Skin Narrative: Incision is covered by the silver impregnated dressing and it is not due to be removed yet. No erythema around the dressing. No active bleeding on the dressing. She has a rash which is macular everywhere he skin was in tpuch with the surgical tape. It is pruritic. She has no rash anywhere else on her body. General Skin Exam: no breakdown Psych mental status grossly normal, thought process normal, cooperative, affect normal and speech normal Appearance: grossly normal Attitude: calm and engaged Activity / Motor Behavior: appropriate eye contact Results Lab / Micro Data 09/01/24 06:03 09/01/24 06:03 Labs: Laboratory Results - last 24 hr 08/31/24 17:15: Urine Color Yellow, Urine Clarity Clear, Urine pH 6.0, Ur Specific [place] 1.015, Urine Protein 30 H, Urine Glucose (UA) Normal, Urine Ketones Negative, Urine Occult Blood 10 H, Urine Nitrite Negative, Urine Bilirubin Negative, Urine Urobilinogen Normal, Ur Leukocyte Esterase Negative, Urine RBC 0 SEEN, Urine WBC 0 SEEN, Ur Squamous Epith Cells 0 SEEN, Urine Bacteria 0 SEEN, Urine Mucus 0 SEEN 09/01/24 06:03: WBC 7.1, RBC 3.02 L, Hgb 9.2 L, Hct 28.7 L, MCV 95.0, MCH 30.5, MCHC 32.1, RDW Std Deviation 45.9 H, RDW Coeff of Carrillo 13.2, Plt Count 219, MPV 9.8, Immature Gran % (Auto) 0.300, Neut % (Auto) 64.9, Lymph % (Auto) 22.3, [place] % (Auto) 7.6, Eos % (Auto) 4.6, Baso % (Auto) 0.3, Absolute Neuts (auto) 4.6, Absolute Lymphs (auto) 1.59, Nucleated RBC % 0, Sodium 138, Potassium 3.7, Chloride 105, Carbon Dioxide 28.0, Anion Gap 5, BUN 12, Creatinine 0.53 L, Estim Creat Clear Calc 72.17, Est GFR (MDRD) Af Amer 147, Est GFR (MDRD) Non-Af 122, BUN/Creatinine Ratio 22.7 H, Glucose 90, Calcium 9.1, Phosphorus 2.5, Magnesium 2.2, Total Bilirubin 0.60, AST 27, ALT 17, Alkaline Phosphatase 96, Total Protein 5.7 L, Albumin 2.2 L, Globulin 3.5, Albumin/Globulin Ratio 0.6 L Assessment & Plan Assessment/Plan (1) Debility: (2) S/P total hip arthroplasty: QUALIFIERS: Laterality: left Qualified Code(s): Z96.642 - Presence of left artificial hip joint (3) Acute blood loss as cause of postoperative anemia: (4) HTN (hypertension): QUALIFIERS: Hypertension type: essential hypertension Hypertension goal: less than 140/90 Qualified Code(s): I10 - Essential (primary) hypertension (5) GERD (gastroesophageal reflux disease): QUALIFIERS: Esophagitis presence: without esophagitis Qualified Code(s): K21.9 - Gastro-esophageal reflux disease without esophagitis (6) Obstructive sleep apnea: PLAN: Noncompliant with CPAP (7) Morbid obesity with BMI of 40.0-44.9, adult: (8) Heart murmur, systolic: PLAN: ECHO in 2016 showed thickening and calcification of the aortic valve. She also had a PA systolic estimated at 32 and she has been on-compliant with CPAP. She tells me she had never been told she has a MM so may be developing some stenosis of the AV. PLAN: Plan PLAN PT for gait stability OT for ADL's Analgesics as needed Bowel protocol Fall precautions Assess for Anxiety/Depression GI prophylaxis -pantoprazole DVT prophylaxis with enoxaparin Follow up with PCP and Dr. Peralta following DC from IP Rehab AM lab including CMP, CBC, Mag and Phos-personally reviewed Claritin 10 mg p.o. nightly for allergic dermatitis Will try hydrocortisone topically for relief of pruritus not controlled with Claritin alone. She tells me that she is allergic to cortisone......gives he a migraine and causes her skin to feel hot (this sounds more like side effects to a high dose of oral/parenteral steroids. Will try a small test dose to the skin and if no adverse reaction will give Q8H PRN. Will discuss trying different appliances for tx of BLU with the sleep lab on Wednesday. I asked her to have her bring in her CPAP machine. May want to repeat the ECHO as an OP to re-evaluate the aortic valve. I discussed possible consequences of untreated BLU with her. Charges/Coding Visit Charges Inpatient E&M: 98356 Init Hosp L2
[2024-09-01] MEDS: oxyCODONE 5 MG Tablet PO (14:32)
[2024-09-01] MEDS: Hydrocortisone 2.5% Crm 1 APPLIC TOPICAL (15:42)
--- NOTE | 2024-09-01 16:29 | PCM.RU.PYE ---
Admission Information Primary Diagnosis:: Debility secondary to left total hip arthroplasty Status Changes from Prescreening?: No changes Identified Actual Problem List:: Skin Intergrity, Pain, ALteration in Cmfrt, Mobility Impaired, Self Care Deficit and Alteration-Leisure Activ. Potential Problem List:: DVT, Bleeding, Infection, UTI, Aspiration, Falls, Skin Integrity and Depression Risk of Complications DVT: LMWH and KATHIA Hose Bleeding: Monitor Lab Values, Nursing to Teach Precautions for anti-coagulation therapy., Wound, if applicable, to be assessed every shift. and Stroke patients assessed for lethargy or change in status. Infection: Clinical Staff to Monitor for S/S of infection: and S/S of infection include fever, redness, warmth, etc. Urinary Tract Infection: Monitor for frequency, burning, discomfort, or incontinence. and Nursing will obtain urine sample for urinalysis and C&S when ordered. Aspiration: Clinical staff will monitor for coughing, drooling, congestion., Speech will evaluate swallowing and dsyphasia. and Nursing will monitor patient swallowing during meals. Falls: Patient will be evaluated for Fall Precautions and Patient will be placed on Fall Precautions as indicated per protocol. Skin Breakdown: Nursing will assess skin daily using assessment tool. and Nursing will place on Skin Breakdown Precautions as indicated. Pain: Clinical staff will assess patient's pain level per protocol., Medications will be given, if needed, and the pain level reassessed. and Other methods: Massage, distraction, decrease stimulus, etc. used PRN. Plan of Care Patient requires physician specializing in physical medicine and rehab oversight to provide close medical supervision of rehab issues including: Pain Management, Sleep Problems, Bowel and Bladder, Medical and co-morbidity Management, DVT prophylaxis, Rehabilitation Leadership and Coordination of treatment team Patient needs Physical Therapy: For a minimum of 1 hour and At least 5 out of 7 days Patient needs Physical Therapy to improve:: Mobility, Strengthening, Transfers, Stretching, ROM, Endurance, Stairs, Gait and Balance Patient needs Occupational Therapy: For a minimum of 1 hour and At least 5 out of 7 days Patient needs Occupational Therapy to improve ADL's incl.: Eating, Grooming, Bathing, Dressing, Toileting, Toilet transfers, Community Reintegration, Higher functioning activities, Household tasks, Adaptive Equipment, Splinting and Other activities as determined Patient requires 24/ Rehabilitation Nursing for: Pain Issues, Identifying and preventing risk factors, Monitoring and reporting current medical conditions, Assisting with ambulation, transfer, and all ADL's, Teaching patients about disease process and medications, Family teaching, Providing safe environment, Bowel and Bladder Issues, Skin integrity and Medication Management Patient needs General Supervisor/ Case Management for: Discharge Planning, Arranging Home Equipment or Services and Family Interventions Patient needs Dietary and Nutrition Services for: Adequate Nutrition, Nutritional Supplements and Nutritional Education Goals Goals Patient will remain: free from falls Patient will perform eating at: MOD I level of assist. Patient will perform bed mobility at: MOD I level of assist. Patient will complete transfers from bed to chair at: MOD I level of assist. Patient will ambulate: - (350 feet with least restrictive device at mod I on various surfaces) Patient will complete upper body dressing at: MOD I level of assist. Patient will complete lower body dressing at: MOD I level of assist. (With adaptive equipment as needed) Patient will complete toilet transfer at: MOD I level of assist. Patient will complete toileting at: MOD I level of assist. Patient will perform bathing at: - (Upper body bathing independently and lower body bathing at mod I with adaptive equipment as needed.) Patient will perform Tub/Shower transfer at: - (Supervision) Patient will complete grooming at: MOD I level of assist. (While standing at the sink) Patient will complete home management skills at: MOD I level of assist. Patient will achieve: - (Patient will ascend/descend 3 steps with 1 handrail and least restrictive device at standby assist) Patient will have pain level of: of 3 or less Patient's skin will: remain intact Patient will receive: adequate nutrition. Discharge Planning Pt Prognosis for Sig. Practical Improv. w/in Reasonable Time: Good Estimated Length of stay (days): 21 Anticipated D/C Destination: Home with Outpt Therapy Was Preadmission Assessment Accurate?: Yes
[2024-09-01 18:00] VITALS: BP 107/59; PULSE 86; RESP 16; TEMP 36.8; O2SAT 97
[2024-09-01 21:03] VITALS: BP 122/62; PULSE 90
[2024-09-01] MEDS: Loratadine 10 MG Tablet PO (21:05)
[2024-09-01] MEDS: Amitriptyline 100 MG Tablet 150 MG PO (21:05)
[2024-09-01 21:06] VITALS: PULSE 90
[2024-09-01] MEDS: Atorvastatin Calcium 20 MG Tablet PO (21:06)
[2024-09-01] MEDS: MELATONIN 3 MG TABLET PO (21:06)
[2024-09-01] MEDS: Pantoprazole Sodium 20 MG Tablet PO (21:07)
[2024-09-01] MEDS: CLARIFY ORDER 1 EACH NOTE (21:13)
[2024-09-02] MEDS: Sucralfate 1 GM Tablet PO ×2 (05:53→16:49)
[2024-09-02 05:57] VITALS: BP 126/43; PULSE 94; RESP 20; TEMP 36.7; O2SAT 97
[2024-09-02 09:09] VITALS: BP 126/43; PULSE 94
[2024-09-02] MEDS: Senna/Docusate Sodium 1 Tablet 2 TABLET PO ×2 (09:09→21:29)
[2024-09-02] MEDS: Metoprolol Tartrate 25 MG Tablet PO ×2 (09:09→21:26)
[2024-09-02] MEDS: Enoxaparin 40 MG/0.4 ML Syringe SC (09:09)
[2024-09-02] MEDS: Cholecalciferol (VIT D3) 25 MCG TABLET (1,000 UNITS) 50 MCG PO (09:10)
[2024-09-02] MEDS: Verapamil 120 MG Tablet 60 MG PO ×2 (09:11→21:24)
[2024-09-02] MEDS: Acetaminophen 500 MG Tablet 1000 MG PO ×3 (09:12→21:23)
[2024-09-02] MEDS: Nystatin Powder 15gm Bottle 1 APPLIC TOPICAL ×2 (09:12→21:27)
[2024-09-02] MEDS: hydroCHLOROthiazide 25 MG Tablet PO (09:12)
[2024-09-02 18:00] VITALS: BP 126/62; PULSE 925; RESP 16; TEMP 37; O2SAT 95
[2024-09-02] MEDS: Loratadine 10 MG Tablet PO (21:24)
[2024-09-02] MEDS: Amitriptyline 100 MG Tablet 150 MG PO (21:25)
[2024-09-02 21:26] VITALS: BP 115/79; PULSE 98
[2024-09-02] MEDS: MELATONIN 3 MG TABLET PO (21:26)
[2024-09-02] MEDS: Atorvastatin Calcium 20 MG Tablet PO (21:26)
[2024-09-02] MEDS: Pantoprazole Sodium 20 MG Tablet PO (21:28)
[2024-09-02 21:29] VITALS: BP 115/79; PULSE 98; RESP 17; TEMP 37.1; O2SAT 96
[2024-09-03] MEDS: Acetaminophen 500 MG Tablet 1000 MG PO ×2 (02:46→11:41)
[2024-09-03 05:00] VITALS: BP 132/69; PULSE 85; RESP 16; TEMP 36.7; O2SAT 97
[2024-09-03] MEDS: Senna/Docusate Sodium 1 Tablet 2 TABLET PO (07:56)
[2024-09-03] MEDS: Cholecalciferol (VIT D3) 25 MCG TABLET (1,000 UNITS) 50 MCG PO (07:56)
[2024-09-03] MEDS: Verapamil 120 MG Tablet 60 MG PO ×2 (07:56→20:04)
[2024-09-03 07:57] VITALS: BP 132/69; PULSE 85
[2024-09-03] MEDS: Metoprolol Tartrate 25 MG Tablet PO ×2 (07:57→20:06)
[2024-09-03] MEDS: Nystatin Powder 15gm Bottle 1 APPLIC TOPICAL ×2 (07:57→20:07)
[2024-09-03] MEDS: hydroCHLOROthiazide 25 MG Tablet PO (07:57)
[2024-09-03] MEDS: Enoxaparin 40 MG/0.4 ML Syringe SC (07:57)
[2024-09-03] MEDS: Sucralfate 1 GM Tablet PO ×2 (11:41→15:59)
[2024-09-03] MEDS: Hydrocortisone 2.5% Crm 1 APPLIC TOPICAL ×2 (11:42→20:08)
[2024-09-03] MEDS: CLARIFY ORDER 1 EACH NOTE (11:56)
[2024-09-03 17:27] VITALS: BP 129/55; PULSE 95; RESP 15; TEMP 37; O2SAT 95
[2024-09-03 20:04] VITALS: BP 152/61; PULSE 98; RESP 17; TEMP 37.7; O2SAT 96
[2024-09-03] MEDS: Loratadine 10 MG Tablet PO (20:05)
[2024-09-03] MEDS: Amitriptyline 100 MG Tablet 150 MG PO (20:05)
[2024-09-03 20:06] VITALS: BP 152/61; PULSE 98
[2024-09-03] MEDS: Atorvastatin Calcium 20 MG Tablet PO (20:06)
[2024-09-03] MEDS: MELATONIN 3 MG TABLET PO (20:07)
[2024-09-03] MEDS: Pantoprazole Sodium 20 MG Tablet PO (20:08)
[2024-09-03 20:10] VITALS: TEMP 37.4
--- NOTE | 2024-09-03 20:40 | RAD_ITS ---
PROCEDURE: CHEST PA AND LATERAL REASON FOR EXAM: Fever, cough TECHNIQUE: Frontal and lateral views of the chest. COMPARISON: None. FINDINGS: The lungs are clear. No pleural effusion or pneumothorax. The cardiomediastinal silhouette is unremarkable. No acute osseous or soft tissue abnormality. Bilateral shoulder arthroplasties present. RAD/Chest PA and Lateral IMPRESSION: 1. No acute cardiopulmonary process. Reading Location: [facility]
[2024-09-03] MEDS: oxyCODONE 5 MG Tablet PO (22:10)
--- NOTE | 2024-09-03 22:44 | NURSING ---
[address] Lowry and updated her on patient condition and current vitals. Allergy list reviewed. New orders received.
[2024-09-03] MEDS: Doxycycline 100 MG CAPSULE PO (23:01)
[2024-09-04] VITALS (7 sets, daily range): BP systolic 108–163; BP diastolic 59–69; PULSE 83–96; RESP 15–16; TEMP 36.7–36.8; O2SAT 94–98
[2024-09-04] MEDS: Acetaminophen 500 MG Tablet 1000 MG PO ×2 (06:03→11:35)
[2024-09-04] MEDS: Enoxaparin 40 MG/0.4 ML Syringe SC (09:03)
[2024-09-04] MEDS: Doxycycline 100 MG CAPSULE PO ×2 (09:04→20:49)
[2024-09-04] MEDS: Cholecalciferol (VIT D3) 25 MCG TABLET (1,000 UNITS) 50 MCG PO (09:04)
[2024-09-04] MEDS: Metoprolol Tartrate 25 MG Tablet PO ×2 (09:04→20:49)
[2024-09-04] MEDS: Verapamil 120 MG Tablet 60 MG PO ×2 (09:05→20:49)
[2024-09-04] MEDS: hydroCHLOROthiazide 25 MG Tablet PO (09:05)
--- NOTE | 2024-09-04 09:26 | PCM.PROGNOTE ---
Subjective Subjective Pat was seen on team rounds today. Her was present in the room for rounds. Had a low grade fever day night to 100 and then 99.3 last night. AF this AM VSS -blood pressure over the weekend has ranged from 108/59 (this a.m.) to 152/61. Maintaining appropriate oxygen saturation on Oral intake - FOOD good FLUIDS good Discussed with nursing - no problems that need addressed Reviewed the THERAPY notes Medication list reviewed. Low grade fever with cough, nasal congestion and TORRES over the weekend. Resp panel and COVID negative. Started on Doxycycline last night. Tells me that she is feeling better today. CXR today shows no infiltrates, PVC or pleural effusions. Tells me she thinks she is well enough to go home tomorrow. Objective Data Objective Data Vital Signs: Vital Signs Temp Pulse Resp BP Pulse Ox O2 Del Method O2 Flow Rate 98.1 F 90 16 108/59 L 98 Room Air 2 09/04/24 09:02 09/04/24 09:04 09/04/24 06:05 09/04/24 09:02 09/04/24 06:52 09/04/24 06:52 09/03/24 05:00 Oxygen Flow Rate (L/min) 2 Oxygen Delivery Method Room Air Weight: 219 lb 6.394 oz Body Mass Index (BMI) 40.1 Intake & Output: Intake and Output for Last 24 Hours 09/02/24 09/03/24 09/04/24 23:59 23:59 23:59 Intake Total 2160 / 2560 2395 / 2395 340 / 340 Output Total 3050 / 3350 2600 / 2600 150 / 150 Balance -890 / -790 -205 / -205 190 / 190 Lab / Micro Data 09/01/24 06:03 09/01/24 06:03 Micro: Microbiology 09/02/24 19:55 Mucosa - Nasopharyngeal Respiratory Panel (PCR) - Final 09/02/24 16:40 Nasal Secretion SARS-CoV-2 Antigen (Rapid) - Final Radiography Diagnostic Testing: Radiology Impression Chest X-Ray 09/03/24 20:40 IMPRESSION: 1. No acute cardiopulmonary process. Reading Location: [facility] Physical Exam Const alert, oriented x3 and no apparent distress General Appearance: cooperative Orientation / Consciousness: Negative for confused HEENT HEENT Narrative: no pharyngeal exudate and no posterior pharyngeal injection. Neck no lymphadenopathy Neck Narrative: voice is no hoarse. Resp normal respiratory effort and clear to auscultation bilaterally Resp Narrative: No cough with deep breathing Effort and Inspection: Negative for tachypneic Cardio regular rate and regular rhythm Cardio Narrative: No ectopy GI normal to inspection, nondistended, normoactive bowel sounds, soft to palpation and non-tender GI Narrative: No guarding with palpation Extremity no calf tenderness Extremity Narrative: Incision is intact with no discharge, no significant parul-incisional erythema and no dehiscence. General Extremity: Negative for edema Skin Skin Narrative: The rash is much better and she requested the hydrocortisone cream be discontinued. Will continue with Claritin at bedtime. Psych affect normal Assessment & Plan Assessment/Plan (1) Debility: (2) S/P total hip arthroplasty: QUALIFIERS: Laterality: left Qualified Code(s): Z96.642 - Presence of left artificial hip joint (3) Acute blood loss as cause of postoperative anemia: (4) HTN (hypertension): QUALIFIERS: Hypertension type: essential hypertension Hypertension goal: less than 140/90 Qualified Code(s): I10 - Essential (primary) hypertension (5) GERD (gastroesophageal reflux disease): QUALIFIERS: Esophagitis presence: without esophagitis Qualified Code(s): K21.9 - Gastro-esophageal reflux disease without esophagitis (6) Obstructive sleep apnea: PLAN: Noncompliant with CPAP (7) Morbid obesity with BMI of 40.0-44.9, adult: (8) Heart murmur, systolic: PLAN: ECHO in 2016 showed thickening and calcification of the aortic valve. She also had a PA systolic estimated at 32 and she has been on-compliant with CPAP. She tells me she had never been told she has a MM so may be developing some stenosis of the AV. (9) Acute bronchitis: QUALIFIERS: Bronchitis organism: unspecified organism Qualified Code(s): J20.9 - Acute bronchitis, unspecified PLAN: Plan 1. Continue therapy today. 2. Plan DC home tomorrow with OP PT at [facility] 3. No DME needs 4. Continue Doxy for a total of 7 days. Charges/Coding Visit Charges Inpatient E&M: 75173 Subs Hosp L2
[2024-09-04] MEDS: Sucralfate 1 GM Tablet PO ×2 (11:35→16:51)
--- NOTE | 2024-09-04 13:19 | CASEMGMT ---
Social Work IDT met with patient for Team meeting. Discussed patient's progress in PT/OT/SN. Educated to Medicare benefit with approval for 9 days, EDC 09/09. Pt is requesting to DC 09/05. Pt is mod I using a FWW. SW offered outpatient therapy. Pt agrees and prefers [facility]. SW to fax referral for PT. No other issues for DC. 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
--- NOTE | 2024-09-04 14:24 | PCM.DC ---
Discharge Instructions Diet Discharge Diet: Low fat / Low cholesterol and - (low salt) DC O2, CPAP, BIPAP needs Home O2 Discharge instructions: No Dressing / Incision Discharge Activity: May Not Drive (Do not drive until Dr. Peralta tells you that you can resume driving. ) Weight Bearing Status: Full weight bearing Keep extremity elevated above heart level: Left Leg Dressing / Incision Call your doctor if your incision/area has: Continuous Slow Oozing, Sudden Increased Bleeding, Increased Pain/ Swelling, Increased Redness, Foul Smelling Discharge and Swelling at the incision site Call your doctor if you observe: Fever of 101 or Higher, Shortness of breath, Dizziness, Fainting spells, Swelling in the ankles, Chest pain, Increased palpitations (irregular heartbeat), Calf discomfort and Uncontrolled pain Suture Line Care: Avoid Pulling/Pushing and Avoid Pinching/Bending Cleanse incision/area with: Soap & Water Follow Up Care Please Follow Up With: Naresh Peralta DO When: Has an appt scheduled for 2 weeks post op. Will also need to follow up with Dr. Garner within 2 weeks of DC from rehab. Test Results: Test results from this visit will be discussed in further detail at your follow-up appointment, if applicable. Pending Tests Upon Discharge: none Discharge Plan Admission Admit Date/Time: 08/31/24 14:00 Primary Reason for Your Visit: Debility secondary to left total hip arthroplasty Attending Provider: Taryn Lowry Primary Care Provider: Jody Garner Instructions Patient Instructions: Caring for Your Incision, Pulmonary Hypertension Additional Instructions / Restrictions: 1. Take the Doxycycline twice a day with food until gone. Do not take with milk products. 2. Look at your incision every day. If there is redness around the incision or any discharge or the incision edges are call Dr. Peralta. 3. You have a heart murmur. You had an ultrasound of your heart (called and ECHO) in 2016. The aortic valve was mildly thickened and calcified. This may be getting worse. Please discuss with Dr. Garner obtaining a new ECHO to evaluate the aortic valve. The BP in the lungs was also mildly elevated at that time. Untreated sleep apnea can cause high BP in the lungs called pulmonary hypertension. I have given you a handout to read that talks about pulmonary hypertension and the symptoms associated with this. 4. Make sure to get up at least once an hour and take a walk around your house to keep your from getting joint stiffness. 5. The sleep lab can help you with getting a mask for your CPAP that you can tolerate. 6. Untreated sleep apnea can cause atrial fibrillation (AFIB) which can cause strokes. It can also cause depression, memory loss, daytime somnolence, high blood pressure in the lungs (which can lead to swelling in the legs and shortness of breath with exertion and insomnia. 7. You will be taking a shot called Lovenox (also called enoxaparin) daily at discharge to help prevent blood clots in your legs. After hip surgery there is an increased risk of blood clots in the legs because you are not moving around as much as you were prior to the surgery. You will take this shot for 21 days and then you can stop. It is OK to take a baby aspirin once a day even when on the blood thinner. Take the aspirin with food. 8. If you have any questions after you leave rehab please do not hesitate to call me. OFFICE: [phone] CELL: [phone] NURSES STATION ON REHAB: [phone] 1. Because you have had a stroke in the past the goal for your BP is < 130/80. The BP in the mornings is good but, the BP later in the day has been elevated in the 150's and 160's. It may be elevated due to pain related to the recent hip replacement. I recommend you consider purchasing a BP cuff and taking your BP a few times during the day at different times and keeping a record of the readings to take to Dr. Garner at your next visit. The bottom number is always less than 80. 2. You and your may qualify for counselling on diet and weight loss with the dieticians here at the hospital with a diagnosis of metabolic syndrome. The program the dieticians's run is called WHY WEIGHT and all you need is a referral from your family doctor. 3. Please stay in touch with the sleep lab so we can get a CPAP mask that you are able to tolerate. 4. We checked your oygen continuously while you were sleeping in the hospital. Your oxygen levels due drop at night when you are sleeping. If youi can not wear the CPAP you may need to have oxygen at home to wear when you are sleeping. Discharge Orders/Prescriptions Prescriptions: New doxycycline monohydrate 100 mg Capsule 100 mg PO BID Qty: 10 0RF Rx Instructions: ! tab twice a day until gone. aspirin [Aspirin Childrens] 81 mg tablet,chewable 81 mg PO DAILY Qty: 1 0RF Rx Instructions: Take with food. Continued sucralfate [Carafate] 1 gram tablet 1 g PO BID amitriptyline 150 MG tablet 150 mg PO QHS Patient Comments: HEADACHES omeprazole 20 MG capsule 20 mg PO QHS Patient Comments: STOMACH/ acid reflex hydrochlorothiazide 25 MG tablet 25 mg PO DAILY Patient Comments: BLOOD PRESSURE atorvastatin 10 MG tablet 20 mg PO QHS Patient Comments: CHOLESTEROL metoprolol tartrate 25 MG tablet 25 mg PO BID Patient Comments: high blood pressure verapamil 120 MG tablet 60 mg PO BID Patient Comments: blood pressure cholecalciferol (vitamin D3) 2,000 UNIT capsule 2,000 unit PO DAILY cranberry extract 300 mg Tablet 30,000 mg PO DAILY melatonin 12 mg Tablet 12 mg PO QHS Estriol 1 gm intrauterine TUFR acetaminophen 500 mg tablet 1,000 mg PO Q6H Qty: 100 0RF enoxaparin [Lovenox] 40 mg/0.4 mL syringe 40 mg subcut DAILY Qty: 21 0RF Changed oxycodone 5 mg tablet 5 mg PO Q4H PRN (Reason: pain) 7 Days Qty: 21 0RF Discontinued aspirin [Adult Low Dose Aspirin] 81 mg tablet,delayed release (DR/EC) 81 mg PO DAILY Patient Comments: STOP WEEK PER PCP melatonin 3 mg capsule 3 mg PO QHS Referrals / Follow Up: Jody Garner MD [Primary Care Provider] - (pcp will call back with appt ) Naresh Peralta DO [Med Staff - Active Staff] - 09/11/24 10:45 am Disposition Disposition (needs filled in before D/C Order can be placed): Home, Self Care
--- NOTE | 2024-09-04 15:08 | DS.PCM_ITS ---
Providers Date of Admission: 08/31/24 Date of Discharge: 09/05/24 Primary Care Physician: Dr. Jody Garner MD Reason For Visit: LEFT HIP REPLACEMENT Diagnosis Discharge Diagnosis (1) Debility: Status: Acute Code(s): R53.81 - Other malaise Plan: Due to generalized weakness and pain. (2) S/P total hip arthroplasty: Status: Acute Code(s): Z96.649 - Presence of unspecified artificial hip joint Qualifiers: Laterality: left Qualified Code(s): Z96.642 - Presence of left artificial hip joint Plan: Left hip on 08/29/[address] Peralta. (3) Acute blood loss as cause of postoperative anemia: Status: Acute Code(s): D62 - Acute posthemorrhagic anemia (4) HTN (hypertension): Status: Chronic Code(s): I10 - Essential (primary) hypertension Qualifiers: Hypertension goal: less than 140/90 Hypertension type: essential hypertension Qualified Code(s): I10 - Essential (primary) hypertension (5) GERD (gastroesophageal reflux disease): Status: Chronic Code(s): K21.9 - Gastro-esophageal reflux disease without esophagitis Qualifiers: Esophagitis presence: without esophagitis Qualified Code(s): K21.9 - Gastro-esophageal reflux disease without esophagitis (6) Obstructive sleep apnea: Status: Chronic Code(s): G47.33 - Obstructive sleep apnea (adult) (pediatric) Plan: Noncompliant with CPAP. (7) Morbid obesity with BMI of 40.0-44.9, adult: Status: Chronic Code(s): Z68.41 - Body mass index [BMI] 40.0-44.9, adult (8) Heart murmur, systolic: Status: Acute Code(s): R01.1 - Cardiac murmur, unspecified Plan: ECHO in 2016 showed thickening and calcification of the aortic valve. She also had a PA systolic estimated at 32 and she has been non-compliant with CPAP. She tells me she had never been told she has a MM so may be developing some stenosis of the AV. Repeat ECHO recommended to assess the AV for stenosis. She has a 2/6 systolic MM at the second RICS that radiated into the LVOT, LLSB, apex and into the left axilla. (9) Acute bronchitis: Status: Acute Code(s): J20.9 - Acute bronchitis, unspecified Qualifiers: Bronchitis organism: unspecified organism Qualified Code(s): J20.9 - Acute bronchitis, unspecified Plan: COVID and respiratory panel negative. No infiltrates on CXR. Plan 1. Continue therapy today. 2. Plan DC home tomorrow with OP PT at [facility] 3. No DME needs 4. Continue Doxy for a total of 7 days. Medications at Discharge Home Medications amitriptyline 150 mg tablet 150 mg PO QHS TORRES 09/07/13 hydrochlorothiazide 25 mg tablet 25 mg PO DAILY BP 09/07/13 omeprazole 20 mg capsule,delayed release 20 mg PO QHS GERD 09/07/13 atorvastatin 10 mg tablet 20 mg PO QHS CHOLESTEROL 09/21/14 metoprolol tartrate 25 mg tablet 25 mg PO BID BP 12/10/15 verapamil 120 mg tablet 60 mg PO BID BP 12/07/16 sucralfate 1 gram tablet (Carafate) 1 g PO BID STOMACH 01/09/19 cholecalciferol (vitamin D3) 50 mcg (2,000 unit) capsule 2,000 unit PO DAILY SUPPLEMENT 03/13/20 cranberry extract 300 mg tablet 30,000 mg PO DAILY SUPPLEMENT 11/26/20 melatonin 12 mg tablet 12 mg PO QHS SUPPLEMENT 11/05/22 Estriol 1 gm intrauterine TUFR SUPPLEMENT 12/08/22 acetaminophen 500 mg tablet 1,000 mg (2 x 500 mg) PO Q6H Pain #100 tabs 08/30/24 doxycycline monohydrate 100 mg capsule 100 mg PO BID #10 caps 09/04/24 enoxaparin 40 mg/0.4 mL subcutaneous syringe (Lovenox) 40 mg (0.4 mL) subcut DAILY Blood thinne #21 mL 09/04/24 oxycodone 5 mg tablet 5 mg PO Q4H PRN pain 7 days #21 tabs 09/04/24 aspirin 81 mg chewable tablet (Aspirin Childrens) 81 mg PO DAILY #1 TAB 09/05/24 Hospital Course Operations total hip replacement (08/29/[address] Peralta) Procedures None Summary of Care Provided Minutes Spent on Discharge: 35 Hospital Course: MAKEDA EM, is a 69 YO F with a past medical history of hyperlipidemia, diverticulosis, osteoporosis, obstructive sleep apnea ( has CPAP but, non-compliant) migraine headaches, TIA/stroke in 2016 , osteoarthritis, morbid obesity, hypertension and GERD who presented to [facility] on 08/29/2024 for an elective left total hip arthroplasty with Dr. Peralta. Postoperatively the HGB dropped from 12.8 pre-op to 9.2. She had no other complications. She had planned on going home after surgery but, she did not feel strong enough to go home and she did not feel she would be able to get up the 3 steps she has at home to get into the house from the garage. She was transferred to the acute inpt rehab unit at [facility] on 08/31/24 for 3 hours of therapy daily to restore function/independence at or near her level prior to the surgery. Has been fairly immobile for the past year due to severe L hip pain. She was using a walker at home. On PE at admission to rehab Lovely was noted to have a 2/6 systolic ejection murmur heard best at the second right intercostal space with radiation to the left ventricular outflow tract, lower left sternal border, apex and into the right axilla. She had an echocardiogram done in September 2015 that showed mild diffuse aortic valve thickening with focal aortic valve calcification. The right ventricular systolic pressure was estimated to be 32 which is mildly increased. She had trivial tricuspid valve insufficiency. She told me that she had never been told she had a heart murmur. I think it is possible the AV thickening/calcification has progressed over the past 9 years and I also suspect that she has not been compliant with wearing CPAP that the pulmonary pressure has increased. We discussed asking Dr. Garner for a referral for a repeat ECHO. Lovely's systolic BP has been elevated late in the afternoon and early evening. The diastolic is always < 80 but, the systolic has been in the 150's and 160's. This could be due to pain later in the day after therapy. I recommended she purchase a BP cuff and take her BP at different times throughout the day. She will keep a record of the results and bring them to Dr. Garner at her next appt. The goal for her BP since she has had a TIA/CVA in the past is < 130/80. While on rehab we applied oxygen anytime she was sleeping because she had not been using CPAP at home and did not know her settings. An overnight trending pulse ox was done and she desaturates while sleeping. Her brought her CPAP unit in and the sleep lab personnel worked with Lovely to find a mask that worked for her. Lovely noticed that she sleep better at night and she was not tired during the day when she was wearing oxygen at night. She now realizes she needs to wear CPAP and will continue to work with the sleep lab to find a set up that works for her. She was educated while on rehab about the consequences of untreated sleep apnea. Hemoglobin at admission to rehab was 9.2 and at discharge it is 9.8. BMP, liver profile, magnesium and phosphorus were all unremarkable. Lovely did very well on rehab and in fact was able to go home early. At the time of discharge from rehab she has ambulated up to 150 feet with [place] [facility] [place] surfaces. She needs minimal assistance getting her legs in and out of bed. She sleeps in a recliner at home and it has a lift. She is able to go from sitting to standing on various surfaces at [facility]. She can ascend/descend 2 6 steps with 2 HR's at contact-guard assist. She has 3 steps to enter her house from the garage with only 1 handrail but she feels confident she will be able to do this with her 's assistance. She is standby assist for grooming, upper body dressing, lower body dressing, toilet transfer, toileting and bathing. She is contact-guard assist for tub/shower transfer. Pain is well-controlled at the time of discharge on acetaminophen. She had not requested any oxycodone for 09/04 and 09/05. Lovely was discharged on 09/05/2024 and will follow-up with Dr. Garner within 2 weeks post DC from rehab. She has an appt with Dr. Peralta scheduled to remove the daija. She is going to have additional PT at [facility] post DC and she needed no DME at DC. She has a FWW that works well for her in her home. She felt confident that she would be able to manage at home with the assistance of her . Physical Exam Const alert, oriented x3 and no apparent distress General Appearance: cooperative Orientation / Consciousness: Negative for confused HEENT head/scalp atraumatic and hearing grossly normal bilaterally HEENT Narrative: no pharyngeal exudate and no posterior pharyngeal injection. MM are dry Eyes PERRL, EOMs intact bilaterally, conjunctivae normal and no scleral icterus Eyes Narrative: No discharge from the eyes Neck no lymphadenopathy Neck Narrative: voice is no hoarse. Resp normal respiratory effort and clear to auscultation bilaterally Resp Narrative: No cough with deep breathing Effort and Inspection: Negative for tachypneic Cardio regular rate and regular rhythm Cardio Narrative: No ectopy. she has a 2/6 LILIAM zat the 2nd RICS which radiates to the LVOT, LLSB, apex and also a systolic MM in the Left axilla. GI normal to inspection, nondistended, normoactive bowel sounds, soft to palpation and non-tender GI Narrative: No guarding with palpation Extremity no calf tenderness Extremity Narrative: Incision is intact with no discharge, no significant parul-incisional erythema and no dehiscence. General Extremity: Negative for edema Skin Skin Narrative: The rash is much better and she requested the hydrocortisone cream be discontinued. Will continue with Claritin at bedtime. Psych affect normal Weight / BMI Weight Weight: 219 lb 6.394 oz Body Mass Index (BMI) 40.1 ABG / Lab / Microbiology Data 09/05/24 05:21 09/01/24 06:03 Laboratory: Laboratory Results - last 24 hr 09/05/24 05:21: Hgb 9.8 L, Hct 29.9 L Microbiology: Microbiology 09/02/24 19:55 Mucosa - Nasopharyngeal Respiratory Panel (PCR) - Final 09/02/24 16:40 Nasal Secretion SARS-CoV-2 Antigen (Rapid) - Final Radiography Diagnostic Testing: Radiology Impression Chest X-Ray 09/03/24 20:40 IMPRESSION: 1. No acute cardiopulmonary process. Reading Location: [facility] Instructions Discharge Diet: Low fat / Low cholesterol and - (low salt) Weight Bearing Status: Full weight bearing Keep extremity elevated above heart level: Left Leg Call your doctor if your incision/area has: Continuous Slow Oozing, Sudden Increased Bleeding, Increased Pain/ Swelling, Increased Redness, Foul Smelling Discharge and Swelling at the incision site Call your doctor if you observe: Fever of 101 or Higher, Shortness of breath, Dizziness, Fainting spells, Swelling in the ankles, Chest pain, Increased palpitations (irregular heartbeat), Calf discomfort and Uncontrolled pain Suture Line Care: Avoid Pulling/Pushing and Avoid Pinching/Bending Cleanse incision/area with: Soap & Water DC O2, CPAP, BIPAP Needs PSN CPAP & BiPAP: BiPAP & CPAP Settings per PSN Fraction of Inspired Oxygen ( 09/04/24 22:27 FIO2) Home O2 Discharge instructions: No Pending Tests Upon Discharge: none Please Follow Up With: Naresh Peralta DO When: Has an appt scheduled for 2 weeks post op. Will also need to follow up with Dr. Garner. Meaningful Use Info Meaningful Use Meaningful Use Diagnoses (Choose all that apply): None applicable Ischemic Stroke Statin Dosing Therapy Reference: STATIN DOSE THERAPY REFERENCE: * Patients > 75 years receive moderate or high dose statin therapy. * Patients 75 years or YOUNGER should receive HIGH intensity statin dose unless contraindicated. You will be required to document reason for non-treatment if statin daily dose does not meet guidelines. HIGH DOSE STATIN THERAPY DAILY Atorvastatin > than or = to 40 mg Rosuvastatin > than or = to 20 mg Amlodipine + Atorvastatin > than or = to 2.5/40 mg Ezetimibe + Simvastatin 10/80 mg Simvastatin 80mg Discharge Plan Admission Admit Date/Time: 08/31/24 14:00 Primary Reason for Your Visit: Debility secondary to left total hip arthroplasty Attending Provider: Taryn Lowry Primary Care Provider: Jody Garner Instructions Patient Instructions: Caring for Your Incision, Pulmonary Hypertension Additional Instructions / Restrictions: 1. Take the Doxycycline twice a day with food until gone. Do not take with milk products. 2. Look at your incision every day. If there is redness around the incision or any discharge or the incision edges are call Dr. Peralta. 3. You have a heart murmur. You had an ultrasound of your heart (called and ECHO) in 2016. The aortic valve was mildly thickened and calcified. This may be getting worse. Please discuss with Dr. Garner obtaining a new ECHO to evaluate the aortic valve. The BP in the lungs was also mildly elevated at that time. Untreated sleep apnea can cause high BP in the lungs called pulmonary hypertension. I have given you a handout to read that talks about pulmonary hypertension and the symptoms associated with this. 4. Make sure to get up at least once an hour and take a walk around your house to keep your from getting joint stiffness. 5. The sleep lab can help you with getting a mask for your CPAP that you can tolerate. 6. Untreated sleep apnea can cause atrial fibrillation (AFIB) which can cause strokes. It can also cause depression, memory loss, daytime somnolence, high blood pressure in the lungs (which can lead to swelling in the legs and shortness of breath with exertion and insomnia. 7. You will be taking a shot called Lovenox (also called enoxaparin) daily at discharge to help prevent blood clots in your legs. After hip surgery there is an increased risk of blood clots in the legs because you are not moving around as much as you were prior to the surgery. You will take this shot for 21 days and then you can stop. It is OK to take a baby aspirin once a day even when on the blood thinner. Take the aspirin with food. 8. If you have any questions after you leave rehab please do not hesitate to call me. OFFICE: [phone] CELL: [phone] NURSES STATION ON REHAB: [phone] 1. Because you have had a stroke in the past the goal for your BP is < 130/80. The BP in the mornings is good but, the BP later in the day has been elevated in the 150's and 160's. It may be elevated due to pain related to the recent hip replacement. I recommend you consider purchasing a BP cuff and taking your BP a few times during the day at different times and keeping a record of the readings to take to Dr. Garner at your next visit. The bottom number is always less than 80. 2. You and your may qualify for counselling on diet and weight loss with the dieticians here at the hospital with a diagnosis of metabolic syndrome. The program the dieticians's run is called WHY WEIGHT and all you need is a referral from your family doctor. 3. Please stay in touch with the sleep lab so we can get a CPAP mask that you are able to tolerate. 4. We checked your oygen continuously while you were sleeping in the hospital. Your oxygen levels due drop at night when you are sleeping. If youi can not wear the CPAP you may need to have oxygen at home to wear when you are sleeping. Discharge Orders/Prescriptions Prescriptions: New doxycycline monohydrate 100 mg Capsule 100 mg PO BID Qty: 10 0RF Rx Instructions: ! tab twice a day until gone. aspirin [Aspirin Childrens] 81 mg tablet,chewable 81 mg PO DAILY Qty: 1 0RF Rx Instructions: Take with food. Continued sucralfate [Carafate] 1 gram tablet 1 g PO BID amitriptyline 150 MG tablet 150 mg PO QHS Patient Comments: HEADACHES omeprazole 20 MG capsule 20 mg PO QHS Patient Comments: STOMACH/ acid reflex hydrochlorothiazide 25 MG tablet 25 mg PO DAILY Patient Comments: BLOOD PRESSURE atorvastatin 10 MG tablet 20 mg PO QHS Patient Comments: CHOLESTEROL metoprolol tartrate 25 MG tablet 25 mg PO BID Patient Comments: high blood pressure verapamil 120 MG tablet 60 mg PO BID Patient Comments: blood pressure cholecalciferol (vitamin D3) 2,000 UNIT capsule 2,000 unit PO DAILY cranberry extract 300 mg Tablet 30,000 mg PO DAILY melatonin 12 mg Tablet 12 mg PO QHS Estriol 1 gm intrauterine TUFR acetaminophen 500 mg tablet 1,000 mg PO Q6H Qty: 100 0RF enoxaparin [Lovenox] 40 mg/0.4 mL syringe 40 mg subcut DAILY Qty: 21 0RF Changed oxycodone 5 mg tablet 5 mg PO Q4H PRN (Reason: pain) 7 Days Qty: 21 0RF Discontinued aspirin [Adult Low Dose Aspirin] 81 mg tablet,delayed release (DR/EC) 81 mg PO DAILY Patient Comments: STOP WEEK PER PCP melatonin 3 mg capsule 3 mg PO QHS Referrals / Follow Up: Jody Garner MD [Primary Care Provider] - (pcp will call back with appt ) Naresh Peralta DO [Med Staff - Active Staff] - 09/11/24 10:45 am Disposition Disposition (needs filled in before D/C Order can be placed): Home, Self Care Charges/Coding Visit Charges Inpatient E&M: 47979 Disch Hosp >30min
[2024-09-04] MEDS: Pantoprazole Sodium 20 MG Tablet PO (20:49)
[2024-09-04] MEDS: Atorvastatin Calcium 20 MG Tablet PO (20:49)
[2024-09-04] MEDS: Loratadine 10 MG Tablet PO (20:51)
[2024-09-04] MEDS: MELATONIN 3 MG TABLET PO (20:51)
[2024-09-04] MEDS: Amitriptyline 100 MG Tablet 150 MG PO (20:51)
[2024-09-04] MEDS: CARBOXYMETHYLCELLULOSE SODIUM 1 DRP DROPS OPHTHALMIC (22:24)
[2024-09-05] MEDS: guaiFENesin Dm 10 ML UDC PO (00:44)
[2024-09-05] MEDS: Acetaminophen 500 MG Tablet 1000 MG PO ×2 (05:08→11:28)
[2024-09-05 05:59] LABS: Hematocrit 29.9 % (37-47); Hemoglobin 9.8 g/dL (12.0-15.0)
[2024-09-05 06:00] VITALS: BP 131/66; PULSE 91; RESP 16; TEMP 37.1; O2SAT 96
[2024-09-05 07:00] VITALS: O2SAT 95
[2024-09-05] MEDS: Verapamil 120 MG Tablet 60 MG PO (08:40)
[2024-09-05] MEDS: Enoxaparin 40 MG/0.4 ML Syringe SC (08:40)
[2024-09-05] MEDS: hydroCHLOROthiazide 25 MG Tablet PO (08:41)
[2024-09-05] MEDS: Doxycycline 100 MG CAPSULE PO (08:41)
[2024-09-05] MEDS: Cholecalciferol (VIT D3) 25 MCG TABLET (1,000 UNITS) 50 MCG PO (08:42)
[2024-09-05 08:45] VITALS: BP 131/66; PULSE 91
[2024-09-05] MEDS: Metoprolol Tartrate 25 MG Tablet PO (08:45)
[2024-09-05] MEDS: Estrogens,Conj. 1 Tube 1 DOSE VAGINAL (08:46)
[2024-09-05] MEDS: Sucralfate 1 GM Tablet PO (11:28)
--- NOTE | 2024-09-05 12:39 | SLEEP ---
VISITED PT TO ASSESS USE OF HOME CPAP. SHE SAYS SHE HAS NOT WORN IN MANY YEARS D/T INTOLERANCE. SHE WAS FIT WITH P10 SMALL NASAL PILLOWS BY RT LAST EVENING BUT DID NOT WEAR HER HOME DEVICE. SHE SAYS SLEEP STUDIES WERE DONE AT [facility] MANY YEARS AGO. HER CPAP DEVICE WAS SET TO 16CM. I CHANGED THE FILTER IN HER MACHINE AND EDUCATED ON PROPER CLEANING ONCE SHE IS HOME. RAMP WAS SET TO AUTO WITH A START PRESSURE OF 7CM TO ALLOW PT TO ACCLIMATE. ENCOURAGED USE WHILE AWAKE TO ADJUST TO AGAIN WEARING IT AND ENCOURAGED USE WITH NAPS. SHE WAS ALSO PROVIDED A CHIN STRAP AND SHOWN HOW TO USE IT AND WHY. PREVIOUS DME WAS [employer]. SHE STATES SHE HAS F/U WITH PCP(DR. KIMBROUGH) IN 2 WEEKS AND WILL DISCUSS THE POTENTIAL NEED FOR NEW SLEEP STUDY TO DETERMINE CURRENT PRESSURE NEEDS. PT AND SPOUSE WERE PRESENT AND ENGAGED IN CONVERSATION. SLEEP LAB INFORMATION PROVIDED AND QUESTIONS ANSWERED. ENCOURAGED HER TO CALL IF SHE HAS FURTHER QUESTIONS OR CONCERNS.
== END 2024-09-05 12:51 | disposition home or self-care (01) | DRG 560 ==
PROVIDERS: Admitting Provider Internal Medicine; PCP Family Medicine; Referring Provider Internal Medicine; Visit Provider Internal Medicine
DX: Z47.1 Aftercare following joint replacement surgery (principal); D62 Acute posthemorrhagic anemia; Z68.41 Body mass index [BMI] 40.0-44.9, adult; I10 Essential (primary) hypertension; E66.01 Morbid (severe) obesity due to excess calories; E78.00 Pure hypercholesterolemia, unspecified; K21.9 Gastro-esophageal reflux disease without esophagitis; J20.9 Acute bronchitis, unspecified; G47.33 Obstructive sleep apnea (adult) (pediatric); R01.1 Cardiac murmur, unspecified; Z91.199 Patient's noncompliance with other medical treatment and regimen due to unspecified reason; Z79.899 Other long term (current) drug therapy; Z79.82 Long term (current) use of aspirin; Z79.01 Long term (current) use of anticoagulants; Z96.642 Presence of left artificial hip joint
CPT/HCPCS: 36415; 71046; 80053; 81001; 83735; 84100; 85014; 85018; 85025; 87633; 87811; 94668; 94762; 97110; 97116; 97162; 97166; 97530; 97535; 97802

== ENCOUNTER → 2024-09-27 | Outpatient (CLI) | payer MEDICARE, OTHER, SELFPAY ==
[2024-09-27 12:22] LABS: Absolute Lymphocyte Count 1.74 X10^3/uL (0.83-4.51); Absolute Neutrophil Count 2.8 X10^3/uL (2.0-7.7); Basophil# 0.04 X10^3/uL; Basophil% 0.8 % (0-1); Eosinophil# 0.22 X10^3/uL; Eosinophils% 4.3 % (0-5); Hematocrit 35.9 % (37-47); Hemoglobin 11.4 g/dL (12.0-15.0); Lymphocyte # 1.74 X10^3/ul (0.83-4.51); Lymphocyte % 34.3 % (19-41); Mean Corp Hgb Conc 31.8 g/dL (32-36); Mean Corpuscular Hgb 30.8 pg (27.0-32.0); Mean Platelet Vol. 9.9 fl (6.2-12.0); Monocyte# 0.28 X10^3/uL; Monocyte% 5.5 % (0-10); NRBC Flagged by Analyzer 0 % (0-5); Neutrophil # 2.77 X10^3/uL (2.7-7.7); Neutrophil % 54.5 % (47-70); Platelet Count 316 K/mm3 (150-450); RBC Distribution Width CV 13.3 % (11.6-14.6); White Blood Count 5.1 K/mm3 (4.4-11.0)
[2024-09-27 13:03] LABS: ALB/GLOB Ratio 1.4 RATIO (0.9-2.4); AST(SGOT) 22 U/L (<=31); Alanine Aminotransfer ALT/SGPT 15 U/L (<=34); Albumin, Serum 3.9 g/dL (3.4-4.8); Alkaline Phosphatase 97 U/L (35-104); Anion Gap 13 (5-15); BUN 16 mg/dL (4-19); BUN/Creat Ratio 18.4 RATIO (10-20); Calcium,Total 9.6 mg/dL (7.6-11.0); Carbon Dioxide 23.6 mmol/L (21.0-32.0); Chloride 104 mmol/L (98-108); Creatinine, Serum 0.88 mg/dL (0.70-1.20); EST Glomerular Filtration Rate 71 (>60); Globulin 2.8 g/dL (2.2-4.2); Glucose 162 mg/dL (70-99); Potassium 3.7 mmol/L (3.3-5.1); Protein, Total 6.7 g/dL (5.9-8.4); Sodium Level 141 mmol/L (133-145); Total Bilirubin 0.24 mg/dL (0.00-1.30)
== END | disposition home or self-care (01) ==
PROVIDERS: PCP Family Medicine; Visit Provider Nurse Practitioner Family
DX: I10 Essential (primary) hypertension (principal)
CPT/HCPCS: 36415; 80053; 85025

== ENCOUNTER → 2024-10-05 | Outpatient (CLI) | payer MEDICARE, OTHER, SELFPAY ==
--- NOTE | 2024-10-05 14:51 | ECHOD_ITS ---
Reason For Study Reason For Study: Aortic Stenosis Procedure This was a 2D Doppler, Color Flow transthoracic echocardiogram. Exam performed in department. Left Ventricle Normal LV size. Left ventricular systolic function is normal. The left ventricular ejection fraction is 65 %. Stage 1 diastolic dysfunction. No regional wall motion abnormalities noted. Right Ventricle Normal RV size. Normal systolic function. Atria Normal left atrium. Normal right atrium. Mitral Valve Normal mitral valve. Tricuspid Valve Normal tricuspid valve. Aortic Valve Trisinus/trileaflet aortic valve. Moderate focal aortic valve calcification. Pulmonic Valve Normal pulmonic valve. Great Vessels Normal aortic root. The pulmonary artery is normal size. Inferior vena cava collapse with respiration. Pericardium/Pleural No pericardial effusion. MMode/2D Measurements & Calculations LVIDd: 4.8 cm IVSd: 0.79 cm LVOT diam: 2.0 cm LVIDs: 3.0 cm LVPWd: 0.95 cm LVOT area: 3.1 cm2 RVDd: 3.4 cm FS: 38.3 % Ao root diam: 3.4 cm LAV(MOD-bp): 39.5 ml LA A4 area: 18.0 cm2 LAV(MOD-bp) Indexed: 20.2 ml/m2 LAV(MOD-sp2): 32.6 ml LAV(MOD-sp4): 47.7 ml LA dimension(2D): 3.5 cm TAPSE: 2.0 cm RA A4 area: 12.3 cm2 Time Measurements MV dec time: 0.23 sec Doppler Measurements & Calculations MV E max shahram: 82.2 cm/sec Lat Peak E' Shahram: 10.6 cm/sec Med Peak E' Shahram: 8.3 cm/sec MV A max shahram: 99.6 cm/sec E/E' lat: 7.7 E/E' med: 9.9 MV E/A: 0.83 MV V2 max: 110.0 cm/sec MV P1/2t max shahram: 91.7 cm/sec Ao V2 max: 172.8 cm/sec MV max P.8 mmHg MV P1/2t: 79.2 msec Ao max P.0 mmHg MV V2 mean: 64.8 cm/sec MV dec slope: 339.2 cm/sec2 Ao V2 mean: 115.8 cm/sec MV mean P.0 mmHg Ao mean P.2 mmHg MV V2 VTI: 23.8 cm MVA(P1/2t): 2.8 cm2 Ao V2 VTI: 35.3 cm MVA(VTI): 3.6 cm2 AV (velocity ratio): 0.80 TOSHIA(I,D): 2.4 cm2 TOSHIA(V,D): 2.3 cm2 LV V1 max: 128.1 cm/sec SV(LVOT): 86.2 ml PA V2 max: 126.9 cm/sec LV V1 max P.6 mmHg LV V1 mean P.7 mmHg LV V1 mean: 91.5 cm/sec LV V1 VTI: 28.0 cm TR max shahram: 251.4 cm/sec TR max P.3 mmHg ECHO/Echo Complete Interpretation Summary Normal LV size. Left ventricular systolic function is normal. The left ventricular ejection fraction is 65 %. Stage 1 diastolic dysfunction. Moderate focal aortic valve calcification. Ordering Physician: Jody Garner Referring Physician: Jody Garner Performed By: Sterling Jiménez RCS
== END | disposition home or self-care (01) ==
LOC: CVS 14:50
PROVIDERS: PCP Family Medicine; Referring Provider Family Medicine; Visit Provider Family Medicine
DX: I35.0 Nonrheumatic aortic (valve) stenosis (principal)
CPT/HCPCS: 93306

== ENCOUNTER → 2024-10-25 | Outpatient (CLI) | payer MEDICARE, OTHER, SELFPAY ==
--- NOTE | 2024-10-25 16:59 | STRESSREP ---
Stress Test Report Pharmacologic myocardial perfusion stress test. 69-year-old lady with a history of chest pain Resting EKG demonstrates sinus rhythm with a rate of 74 bpm. Resting blood pressure is 118/70 mmHg. 0.4 mg of regadenoson was infused per usual protocol followed by rapid intravenous saline flush injection. Continuous EKG monitoring was performed. The maximum heart rate was 85 bpm which was 56% of max impacted heart rate the maximum workload was 1 metabolic equivalent. At rest there were no ST or T wave changes noted to suggest ischemia and at peak infusion nonspecific ST changes were noted which did not meet the criteria for ischemia. No clinical angina is noted. The final blood pressure was 118/70 mmHg. Myocardial perfusion protocol. 14.6 mCi of technetium 99m sestamibi was injected at rest. 0.4 mg of regadenoson was infused per usual protocol. At peak infusion 45 mCi of technetium 99m sestamibi was injected stress images were obtained stress and rest images were reconstructed and compared in the short axis vertical long and horizontal long axis. Gated images were also obtained. Perfusion SPECT analysis: Review of the stress images demonstrate normal uptake of tracer noted in all areas of the myocardium. The resting images similar demonstrated normal uptake of tracer noted in all areas of the myocardium. No areas of reversibility are noted to suggest ischemia and no previous infarct is noted. Gated SPECT analysis: The gated ejection fraction is 72%. Conclusion: Normal pharmacologic myocardial perfusion stress test. Preserved ejection fraction.
== END | disposition home or self-care (01) ==
LOC: CVS 06:23
PROVIDERS: PCP Family Medicine; Referring Provider Family Medicine; Visit Provider Family Medicine
DX: R07.9 Chest pain, unspecified (principal)
CPT/HCPCS: 78452; 93017; A9500; A4216; J2785

== ENCOUNTER 2024-11-01 10:30 | Outpatient (RCR) | payer MEDICARE, OTHER, SELFPAY ==
--- NOTE | 2024-09-06 11:57 | HP.PTEVAL_ITS ---
Patient's Visit Information Visit Information Visit Information: MAKEDA EM is a 69 year old F referred to Physical Therapy by Dr. Taryn Lowry DO with a diagnosis of L BOBBY 08/29/24. Date of Evaluation: 09/06/24 Physical Therapist: Thomas Dias, ITZT, OCS, CSCS Visit Plan Frequency: 2x /Week Duration: 4-6 Weeks Plan: 2x/week for 4-6 weeks for IE: HEP GS, QS, AP, hip abd supine, bent leg raise, reviewed precautions, appropriate gait with wh walker and is to use it. Treat with progression of strength, gait, steps, ROM to L hip within post hip precuations, progress toward I gym adn home program. ice as needed, scar massage as needed. Subjective Subjective: L BOBBY 2.06.12. after months of trouble with it. Had 2 R hip glut max repairs last year. L hip pain was in groin and pretty bad and needed done. Surgery went well , 2 days on surgical floor the 5 days on rehab. Slept Ok last night at home. Has grabber she uses at home. Pain level is not a problem, sore at times, hurts only if she moves the wrong way. [place] still in and out next Wednesday. Home with in one story house with 3 steps with railing. no problem using r LE. helps her get socks and shoes and pants over foot. Spends time in chair and has lift chair. Getting up every hour. Uses walker to get around. HEP AP , pillow squeeze.unable to SLR. No precautions except no running or jumping. Wants to walk normal. Wants to do eveery day chores. using seat in shower , sits to get over tub and slides in. Hobbies: plays cards. Wants to go out to eat with friends. No regular exercises. Wants to use silver sneakers. Pain R hip: Pain Intensity (Out of 10): 0 Pain Intensity Range: 0 and 7 Comment: twisting worse or reaching. Objective Objective: Pushed into PT with WC holding feet up herself. Walks out of therapy with wh walker 250 feet mod I. Short R step length but good pattern otherwise. Can take a few steps without aD but feels unstable on L. Sit to stand to sit I with UE on chair. Table transfer I, slow L leeg movement and hesitant to lift but can do with bent leg. SLR L not able needing mod A and painful. Weakness in lateral hip mm make slightly unstable when moving L hip in and out in supine. ROM hip 85 l and 0 extension today 24# hip flexion seated L and 30# extension. TUG is 18 seconds. Incision is posterior and daija in place, no drainage and tissue around feels normal. has an iliac incison that is slightly red but improved according to patient who had a rash there previously. Able to recount for functional precautions but reviewed post approach precautions today. Balance/Special Test Scores WOMAC Total Score: 71 WOMAC Percentatge: 26.0500 Goals Goal 1:: I appropriate management of condition with HEP/gym ex Goal Time Frame: 4-6 Weeks Goal 2:: Pain 0-1/10 at allt imes and manageable Goal Time Frame: 4-6 Weeks Goal 3:: sleep without interruption in bed all night 7 hours Goal Time Frame: 4-6 Weeks Goal 4:: walk without AD and steps reciprocally with one rail Goal Time Frame: 4-6 Weeks Goal 5:: put on shoes and socks I Goal Time Frame: 4-6 Weeks Goal 6:: 25 or less womac score Rehabilitation Potential Physical Therapy Diagnosis: L hip pain and stiffness and weakness post surgery effecting function. Rehabilitation Potential: Fair Anticipated Interventions Patient/Client Instruction: Educate patient on: Condition and Plan of Care For the Purpose of:: To decrease pain, To increase ROM, To improve nutrient delivery to tissue, To improve muscle performance and motor function, To increase tolerance to activity/condition/position, To improve ability of physi kitty actions for home/community/work/leisure and To improve gait and locomotor functions Therapeutic Exercise to Include: Strength training, Postural training, Flexibilty training, Gait and locomotor training, Passive ROM and Active ROM For the Purpose of:: To decrease pain, To increase ROM, To improve nutrient delivery to tissue, To improve muscle performance and motor function, To increase tolerance to activity/condition/position and To improve gait and locomotor functions Manual Therapy Techniques to Include: Scar massage, Mobilization, Passive ROM and Soft tissue mobilization For the Purpose of:: To decrease swelling/inflammation, To improve nutrient delivery to tissue, To increase oxygenation perfusion and To improve muscle performance and motor function Cryotherapy (ice pack, ice massage): Yes For the Purpose of:: To decrease swelling/inflammation Text: Thank you for the opportunity to evaluate your patient. For Medicare and Medicare HMO plans, please review the plan of care and approve it. It will need to be FAXED BACK to us at [phone] for Medicare purposes. For Medicare only, by signing this I certify the plan of care. Please let me know if there are questions or concerns regarding this plan of care. Physician Signature: Date:
--- NOTE | 2024-10-04 11:47 | HP.PTREVAL ---
Re-Evaluation Intro: Dr. Taryn Lowry, DO, It has been my pleasure to treat MAKEDA EM over the last 8 visits for L BOBBY 08/29/24. Please see the progress note below for an update on the physical therapy plan of care! Subjective Subjective: Saw doctor regarding R hip pain and options are US, therapy or PRPs. Pt does not want PRPs.. r hip hurts in upper glut. 01/25 with ambulation but comfortable at rest. Rest adn ice ovr weeekend and did not help. Saw [facility] yesterday and thinks she is strained. PROM er was painful. L hip is doing good, no pain for a while. Gtting stronger. L hip 85% better but needs too be stronger. R hip is the problem. Objective Objective/Function: L hip 85% better, still weak and gives L trendelnberg gait but able to ambulate without cane and no pain. R hip is holding her back more and uncomfortable, has script for eval whcih will be done next visit after resting. Is tender over R trochanter and into glut. Able to lift R leg abd and flexion but painful, no difference iwth ir or er on lift into abduction, b oth painful. WOMAC not done because R hip is painfully holding her back more than L. main goal left on L hip is to get I with senior living strength which will be accomplished over next 4 weeks in conjunciton with R hip treatment when appropriate adn able. progressing nicely toward L hip goals which are still appropriate for next 4 weeks POC and highly dependent on tolerance to L hip pain which is being taken care of by [facility] doctor and pt may have US to ensure health of the tissue. Agreeable to rest over next 1-2 weeks to diminish R hip pain. Plan Plan Plan: Pt to rest in an effort to help R LE pain over next week and thn will come in for 2x/week for 4 weks for continued strength of L hip to I. Eval to be done on R hip for pain and weakness next session and will add that to treatment. Balance/Gait/Functional tests Balance/Special Test Scores WOMAC Total Score: 71 WOMAC Percentage: 26.0500 Goals Goals Goal 1:: I appropriate management of condition with HEP/gym ex Goal Time Frame: 4-6 Weeks Goal Progress: Progressing Goal 2:: Pain 0-1/10 at allt imes and manageable Goal Time Frame: 4-6 Weeks Goal Progress: Goal Met L hip Goal 3:: sleep without interruption in bed all night 7 hours Goal Time Frame: 4-6 Weeks Goal Progress: Goal Met L hip Goal 4:: walk without AD and steps reciprocally with one rail Goal Time Frame: 4-6 Weeks Goal Progress: cane due to R hip Goal 5:: put on shoes and socks I Goal Time Frame: 4-6 Weeks Goal Progress: Progressing Goal 6:: 25 or less womac score Goal Progress: Not tested. Anticipated Interventions Anticipated Interventions Patient/Client Instruction: Educate patient on: Condition and Plan of Care For the Purpose of:: To decrease pain, To increase ROM, To improve nutrient delivery to tissue, To improve muscle performance and motor function, To increase tolerance to activity/condition/position, To improve ability of physical actions for home/community/work/leisure and To improve gait and locomotor functions Therapeutic Exercise to Include: Strength training, Postural training, Flexibilty training, Gait and locomotor training, Passive ROM and Active ROM For the Purpose of:: To decrease pain, To increase ROM, To improve nutrient delivery to tissue, To improve muscle performance and motor function, To increase tolerance to activity/condition/position and To improve gait and locomotor functions Manual Therapy Techniques to Include: Scar massage, Mobilization, Passive ROM and Soft tissue mobilization For the Purpose of:: To decrease swelling/inflammation, To improve nutrient delivery to tissue, To increase oxygenation perfusion and To improve muscle performance and motor function Cryotherapy (ice pack, ice massage): Yes For the Purpose of:: To decrease swelling/inflammation Re-Evaluation Ending Re-evaluation ending: Please do not hesitate to contact me at [phone] by phone or if you have questions or concerns regarding this new plan of care! Sincerely, Thomas Dias, DPT, OCS, CSCS
--- NOTE | 2024-10-18 10:56 | HP.PTEVAL2 ---
Patient's Visit Information Visit Information Visit Information: MAKEDA EM is a 69 year old F referred to Physical Therapy by Dr. Taryn Lowry DO with a diagnosis of trochantric pain syndrome R hip , strain fascia. Date of Evaluation: 10/18/24 Physical Therapist: Thomas Dias, ITZT, OCS, CSCS Visit Plan Frequency: 2x /Week Duration: 4-6 Weeks Plan: 2x/week for 4 weeks for 1. US r glut max at iliac crest non theermal 2. STM and rollout to gluts on R side(careful of R BOBBY and L BOBBY), Leg pull and PROM gently grade 1. gentle contract relax on R 3. Ensure patient resting it at home from aggravating activitiy(is to use walker for a few days to take more stress off of it.) 4. non billed TENS and ice as if painful at rest. Pt still doing exercises for L hip via HEP that do not bother r hip and we can answer questions regarding her strength on L hip but nothing to cause R hip pain. Will not treat L hip at this time in PT and will hold in facvor of HEP for now. Subjective Subjective: R hip has been hurting. Needs US to see if torn again and can't not available until 11/02. Pain has been in r hip since 1 month ago. Had no pain then strengthening for L hip may have got her painful in R hip. Now needs to take pain pills and use cane for R hip pain. L hip is doing better nad doctor wants her to work toward a home program. r hip is pain in r LB R posterior hip. It is 7/10 with moving around. Worked at [employer] Wednesday and could not walk after. Sleep is in recliner due to L hip and now R hip pain and has been for long time since previous R hip surgeries. No low back probelms. No numbness or tingling. Has taken the last week off of strengthening and is not better in R hip. L hip still feels good. Wants to do L hip herself and focus on R hip in PT. Pain R hip: Intensity: 5 Pain Intensity Range: 0 and 7 Comment: 5 walking back to PT. Objective Objective: L trendelenberg still apparent, mild R antalgia, using cane in R UE. Walking with cane I. Pain in R post heip. Mod tender R GT, glut max at iliac crest adn into R Lumbar paraspinals. ankle and knee AROM WFL B. LB AROM wFL without increased pain. L hip moving well and painfree, R hip is painful to flex posteriorly but good strenth, abd3/5 R and painful laterally, ext 3/5 with minimal pain, bridging is painfree, Hip abd with IR 2/5 and xt rotation 3/5 on R. - JACK, - FADDIR within ROM limits. - R hip scour Trasnfers are slow but I stating pain R posterior hip. Goals Goal 1:: Pain in R hip 0 at rest adn 1/10 at worsst with ambulation and 75% better Goal Time Frame: 2-4 Weeks Goal 2:: Ambulate into and out of PT adn community without increased pain Goal Time Frame: 2-4 Weeks Goal 3:: Pt I iin appropriate HEP for continued improvement to tolerance, slow strength progression. Goal Time Frame: 2-4 Weeks Rehabilitation Potential Physical Therapy Diagnosis: pain in posterior R hip and lateral limiting comfortable function. Rehabilitation Potential: Questionable Anticipated Interventions Patient/Client Instruction: Educate patient on: Condition and Plan of Care For the Purpose of:: To decrease pain, To decrease swelling/inflammation, To improve nutrient delivery to tissue, To improve muscle performance and motor function and To increase tolerance to activity/condition/position Therapeutic Exercise to Include: Passive ROM and Active ROM For the Purpose of:: To decrease pain, To decrease swelling/inflammation, To improve nutrient delivery to tissue and To improve muscle performance and motor function Manual Therapy Techniques to Include: Mobilization, Passive ROM and Soft tissue mobilization For the Purpose of:: To decrease swelling/inflammation, To improve nutrient delivery to tissue, To improve muscle performance and motor function and To increase tolerance to activity/condition/position TENS: Yes Cryotherapy (ice pack, ice massage): Yes Ultrasound (thermal/non thermal): Yes For the Purpose of:: To decrease pain, To increase ROM, To improve nutrient delivery to tissue, To improve muscle performance and motor function and To increase tolerance to activity/condition/position text: Thank you for the opportunity to evaluate your patient. For Medicare and Medicare HMO plans, please review the plan of care and approve it. It will need to be FAXED BACK to us at [phone] for Medicare purposes. For Medicare only, by signing this I certify the plan of care. Please let me know if there are questions or concerns regarding this plan of care. Physician Signature: Date:
--- NOTE | 2024-12-27 15:49 | HP.PT.NRP(2) ---
Patient Information Patient Information: MAKEDA EM was seen in my office for initial evaluation on 10/18/24. The following Plan of Care was established for this patient: POC Established Initial Frequency: 2x /Week Initial Duration: 4-6 Weeks Plan from Re-Evaluation: 2x/week for 4 weeks for 1. US r glut max at iliac crest non thermal 2. STM and rollout to gluts on R side(careful of R BOBBY and L BOBBY), Leg pull and PROM gently grade 1. gentle contract relax on R 3. Ensure patient resting it at home from aggravating activitiy(is to use walker for a few days to take more stress off of it.) 4. non billed TENS and ice as if painful at rest. Pt still doing exercises for L hip via HEP that do not bother r hip and we can answer questions regarding her strength on L hip but nothing to cause R hip pain. Will not treat L hip at this time in PT and will hold in facvor of HEP for now. Anticipated Interventions Patient/Client Instruction: Educate patient on: Condition and Plan of Care For the Purpose of:: To decrease pain, To decrease swelling/inflammation, To improve nutrient delivery to tissue, To improve muscle performance and motor function and To increase tolerance to activity/condition/position Therapeutic Exercise to Include: Passive ROM and Active ROM For the Purpose of:: To decrease pain, To decrease swelling/inflammation, To improve nutrient delivery to tissue and To improve muscle performance and motor function Manual Therapy Techniques to Include: Mobilization, Passive ROM and Soft tissue mobilization For the Purpose of:: To decrease swelling/inflammation, To improve nutrient delivery to tissue, To improve muscle performance and motor function and To increase tolerance to activity/condition/position TENS: Yes Cryotherapy (ice pack, ice massage): Yes Ultrasound (thermal/non thermal): Yes For the Purpose of:: To decrease pain, To increase ROM, To improve nutrient delivery to tissue, To improve muscle performance and motor function and To increase tolerance to activity/condition/position Last Seen Last Seen: This patient was last seen in our office . Pertinent comments regarding their Physical therapy will appear below: Pt seen 5 visits of secondary chart but called to cancel all remaining appointments as she has another tear and will be addressing that. At this point I will be discontinuing this patient from physical therapy. I would be happy to see this patient again in the future if found appropriate by the physician. Thank you! Thomas Dias, DPT, OCS, CSCS
== END 2024-11-01 19:00 | disposition home or self-care (01) ==
LOC: PT 10:30
PROVIDERS: PCP Family Medicine; Referring Provider Internal Medicine; Visit Provider Internal Medicine
DX: Z96.642 Presence of left artificial hip joint (principal); M25.551 Pain in right hip; S76.011D Strain of muscle, fascia and tendon of right hip, subsequent encounter
CPT/HCPCS: 97035; 97110; 97140; 97161; 97530

== ENCOUNTER → 2024-12-14 | Outpatient (CLI) | payer MEDICARE, OTHER, SELFPAY ==
[2024-12-14 17:46] LABS: Absolute Neutrophil Count 3.1 X10^3/uL (2.0-7.7); Basophil# 0.04 X10^3/uL; Basophil% 0.6 % (0-1); Eosinophil# 0.26 X10^3/uL; Eosinophils% 4.1 % (0-5); Hematocrit 36.6 % (37-47); Hemoglobin 11.7 g/dL (12.0-15.0); Lymphocyte % 38.2 % (19-41); Mean Corpuscular Hgb 29.5 pg (27.0-32.0); Mean Corpuscular Volume 92.4 fL (81-99); Mean Platelet Vol. 10.4 fl (6.2-12.0); Monocyte# 0.44 X10^3/uL; NRBC Flagged by Analyzer 0 % (0-5); Neutrophil # 3.13 X10^3/uL (2.7-7.7); Neutrophil % 49.8 % (47-70); Platelet Count 321 K/mm3 (150-450); RBC Distribution Width CV 13.3 % (11.6-14.6); RBC Distribution Width SD 45.5 fl (35.1-43.9); Red Blood Count 3.96 M/mm3 (4.2-5.4); White Blood Count 6.3 K/mm3 (4.4-11.0)
== END | disposition home or self-care (01) ==
LOC: MTLAB 14:19
PROVIDERS: PCP Family Medicine; Referring Provider Family Medicine; Visit Provider Family Medicine
DX: D64.9 Anemia, unspecified (principal)
CPT/HCPCS: 36415; 85025

== ENCOUNTER → 2024-12-15 | Outpatient (CLI) | payer MEDICARE, OTHER, SELFPAY | END | disposition home or self-care (01) | LOC: SL 20:06 | PROVIDERS: PCP Family Medicine; Referring Provider Family Medicine; Visit Provider Family Medicine | DX: G47.33 Obstructive sleep apnea (adult) (pediatric) (principal) | CPT/HCPCS: 95810 ==

== ENCOUNTER → 2024-12-26 | Outpatient (CLI) | payer MEDICARE, OTHER, SELFPAY | END | disposition home or self-care (01) | LOC: SL 20:11 | PROVIDERS: PCP Family Medicine; Referring Provider Family Medicine; Visit Provider Family Medicine | DX: G47.33 Obstructive sleep apnea (adult) (pediatric) (principal) | CPT/HCPCS: 95811 ==

== ENCOUNTER 2025-04-13 14:00 | Outpatient (RCR) | payer MEDICARE, OTHER, SELFPAY ==
--- NOTE | 2025-01-16 15:04 | HP.PTEVAL ---
Patient's Visit Information Visit Information Visit Information: MAKEDA EM is a 69 year old F referred to Physical Therapy by Dr. Pratik Mercado MD with a diagnosis of R glute medius/minimus repair 01/01/25. Date of Evaluation: 01/16/25 Physical Therapist: Deep Saez, PT, ATC Visit Plan Frequency: 2x /Week Duration: 4-6 Weeks Plan: Follow protocol. No strengthening at this time. Focus on pain free ROM and knee/ankle strengthening. Subjective Subjective: Surgery on January 01 for Glute Med. Soreness at the incision site. Prior surgery was constant pain and afterwards pain is completely gone. orders not to lay on right leg and patient cant sleep laying flat, sleeping in recliner, takes shower with shower stool. Pt has not been walking yet dur to doctors order but will be able to be flat foot WB now. Pt denies any difficulty sleeping at night with no pain. Pt using crutch to climb 2 steps from the garage to enter the home. Denies any issues with bowel and bladder. Pt only takes Tylenol for soreness and stopped taking pain pills 2 days after surgery. Pt has follow-up on February 14. Pt has not been able to participate in activities at home like doing dishes and laundry due to being non-weight bearing however pt is able to dress and shower independently. Pt goal is to be able do more chores at home like dishes or shopping and just walking in general. Pain Right Hip: Pain Intensity (Out of 10): 0 Pain Intensity Range: 10 Objective Objective: Neuro: B LE sensation is WNL to light touch. Observation: Incision is looking and feeling well at this time per patient. She was just at the doctors today ROM: L hip flex= 100, R hip flex= 90 MMT: L hip flex= 9, abd= 20, add= 24 #F; R not tested Balance/Special Test Scores Lower Extremity Functional Score: 2 Goals Goal 1:: Decrease R hip pain x 50% to aid with transfers Goal Time Frame: 4-6 Weeks Goal 2:: Increase R hip strength to equal 90% of L hip strength to aid with stair negotiation Goal Time Frame: 4-6 Weeks Goal 3:: Increase R hip ROM to be equal to L hip ROM to aid with IADL's Goal Time Frame: 4-6 Weeks Goal 4:: I with HEP Goal Time Frame: 4-6 Weeks Rehabilitation Potential Physical Therapy Diagnosis: Pt has R hip pain, weakness, and limited ROM secondary to R glute medius/minimus repair Rehabilitation Potential: Good Anticipated Interventions Patient/Client Instruction: Educate patient on: Condition and Plan of Care For the Purpose of:: To improve self management Therapeutic Exercise to Include: Strength training, Endurance training, Balance training, Flexibilty training, Gait and locomotor training, Active ROM and Dynamic Lumbar Stabilization For the Purpose of:: To decrease pain, To increase ROM and To improve muscle performance and motor function Cryotherapy (ice pack, ice massage): Yes For the Purpose of:: To decrease pain Text: Thank you for the opportunity to evaluate your patient. For Medicare and Medicare HMO plans, please review the plan of care and approve it. It will need to be FAXED BACK to us at [phone] for Medicare purposes. For Medicare only, by signing this I certify the plan of care. Please let me know if there are questions or concerns regarding this plan of care. Physician Signature: Date:
--- NOTE | 2025-04-04 10:21 | HP.PTREVAL ---
Re-Evaluation Intro: Dr. Pratik Mercado MD, It has been my pleasure to treat MAKEDA EM over the last 13 visits for R glute medius/minimus repair 01/01/25. Please see the progress note below for an update on the physical therapy plan of care! Subjective Subjective: Pt reports Dr[place]lon [place] went well. He wants to give her an SIJ inection Objective Objective/Function: TU sec MMT: R hip flex= 7 (L= 17), abd= 26 (L=38), add= 32 (L=46) #F ROM: B hip ROM is WNL when compared bilaterally R hip pain ranges 5-02/25 Plan Plan Plan: 04/04/25- Continue with R hip stretching, light R hip and core strengthening in a pain free range Balance/Gait/Functional tests Balance/Special Test Scores Lower Extremity Functional Score: 2 Goals Goals Goal 1:: Decrease R hip pain x 50% to aid with transfers Goal Time Frame: 4-6 Weeks Goal 2:: Increase R hip strength to equal 90% of L hip strength to aid with stair negotiation Goal Time Frame: 4-6 Weeks Goal 3:: Increase R hip ROM to be equal to L hip ROM to aid with IADL's Goal Time Frame: 4-6 Weeks Goal 4:: I with HEP Goal Time Frame: 4-6 Weeks Anticipated Interventions Anticipated Interventions Patient/Client Instruction: Educate patient on: Condition and Plan of Care For the Purpose of:: To improve self management Therapeutic Exercise to Include: Strength training, Endurance training, Balance training, Flexibilty training, Gait and locomotor training, Active ROM and Dynamic Lumbar Stabilization For the Purpose of:: To decrease pain, To increase ROM and To improve muscle performance and motor function Cryotherapy (ice pack, ice massage): Yes For the Purpose of:: To decrease pain Re-Evaluation Ending Re-evaluation ending: Please do not hesitate to contact me at [phone] by phone or if you have questions or concerns regarding this new plan of care! Sincerely, Deep Saez, PT, ATC
== END 2025-04-13 19:00 | disposition home or self-care (01) ==
LOC: PT 14:00
PROVIDERS: PCP Family Medicine; Visit Provider Orthopaedic Surgery Sports Medicine
DX: M25.551 Pain in right hip (principal)
CPT/HCPCS: 97110; 97140; 97161; 97530

== ENCOUNTER → 2025-05-07 | Outpatient (CLI) | payer MEDICARE, OTHER, SELFPAY ==
--- NOTE | 2025-05-07 09:59 | BI_ITS ---
EXAM: SCRN MAMM (CAD)W/DENNY BILAT DATE: 05/07/2025 CLINICAL HISTORY: F, Age 70 y/o , SCREENING TECHNIQUE: Procedure Code: [id number] Modality: MG Procedure: SCRN MAMM (CAD)W/DENNY BILAT COMPARISON: Prior exam(s) dated 01/05/2024 and 11/20/2022. FINDINGS: TISSUE DENSITY: The breasts are almost entirely fatty. Bilateral Breast Mammographic Findings: There are no suspicious masses, suspicious clustered microcalcifications, architectural distortion or secondary signs of malignancy identified in either breast. Stable partially obscured isodense masses are seen in both breasts. Stable bilateral secretory type calcifications are seen. A radiopaque clip is seen in the superior outer aspect of the left breast. The biopsy was benign. Post biopsy site is stable. BI/SCRN MAMM (CAD)W/DENNY BILAT IMPRESSION: Benign screening mammogram. OVERALL FINAL ASSESSMENT BI-RADS 2: BENIGN RECOMMENDATION: Routine annual follow-up in 1 Year Additional Recommendation none A letter with findings and recommendations will be mailed to the patient. Reading Location: [id number]
--- OUTSIDE RECORDS SUMMARY | 2025-05-07 10:54 | XMS RPT_ITS | CCD ---
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 11:26am Start: 03-13-2020 End: 05-25-2020 Conjugated Estrogens Discont inued 1 DOSE VAGINAL DAILY March 13, 2020 12:00am May 25, 2020 11:26am famotidine 20 mg oral tablet (15 sources) Histamine-2 Receptor Antagonist Start: 01-06-2017 End: 01-09-2019 take 1 tablet by mouth once daily Famotidine 20 MG tablet Discontinued 20 mg PO DAILY January 06, 2017 12:00am January 09, 2019 9:51am ferrous sulfate 325 mg oral tablet (15 sources) Start: 01-06-2017 End: 01-09-2019 take 1 tablet by mouth twice daily at mealtime Ferrous Sulfate 325 MG tablet Discontinued 325 mg PO TWICE DAILY WITH MEALS January 06, 2017 12:00am January 09, 2019 9:51am folic acid 1 mg oral tablet (15 sources) Start: 01-06-2017 End: 01-09-2019 take 1 tablet by mouth twice daily at mealtime Folic Acid 1 MG tablet Discontinued 1 mg PO TWICE DAILY WITH MEALS January 06, 2017 12:00am January 09, 2019 9:51am gabapentin 100 mg oral capsule (15 sources) Anti-epileptic Agent Start: 12-10-2015 End: 01-09-2019 take 1 capsule by mouth twice daily Gabapentin 100 MG capsule Discontinued 100 mg PO TWICE A DAY December 10, 2015 12:00am January 09, 2019 9:51am ibandronic acid 150 mg oral tablet (15 sources) Bisphosphonate Start: 05-25-2020 End: 11-02-2022 take 1 tablet by mouth every month Ibandronate 150 mg tablet Discontinued 150 mg PO EVERY MONTH May 25, 2020 1:00am November 02, 2022 10:08am meclizine hydrochloride 25 mg oral tablet (15 sources) Antiemetic Start: 03-13-2020 End: 05-25-2020 take 1 mg by mouth three times daily as needed for dizziness Meclizine 25 MG tablet Discontinued mg PO THREE TIMES A DAY as needed for Dizziness March 13, 2020 12:00am May 25, 2020 11:26am Start: 03-13-2020 End: 05-25-2020 take 1 mg by mouth three times daily Meclizine Discontinued MG PO THREE TIMES A DAY March 13, 2020 12:00am May 25, 2020 11:26am melatonin 3 mg oral capsule (20 sources) Start: 08-31-2024 End: 09-04-2024 take 1 capsule by mouth at bedtime Melatonin 3 mg capsule Discontinued 3 mg PO AT BEDTIME August 31, 2024 1:00am September 04, 2024 3:33pm Start: 11-05-2022 take 1 tablet by candido th at bedtime Melatonin 12 mg Tablet Active 12 mg PO AT BEDTIME November 05, 2022 12:00am Start: 03-13-2020 End: 05-25-2020 take 1 mg by mouth once daily Melatonin 3 MG tablet Di scontinued mg PO DAILY March 13, 2020 12:00am May 25, 2020 11:26am Start: 03-13-2020 End: 05-25-2020 take 1 mg by mouth once daily Melatonin Discontinued M G PO DAILY March 13, 2020 12:00am May 25, 2020 11:26am meloxicam 15 mg oral tablet (15 sources) Nonsteroidal Anti-inflammatory Drug Start: 12-07-2016 End: 01-06-2017 take 1 tablet by mouth once daily Meloxicam (Mobic) 15 MG tablet Discontinued 15 mg PO DAILY December 07, 2016 12:00am January 06, 2017 7:06am metroNIDAZOLE 500 mg oral tablet (20 sources) Nitroimidazole Antimicrobial Start: 09-07-2013 End: 09-23-2014 take 1 tablet by mouth every eight hours Metronidazole 500 MG tablet Discontinued 500 mg PO Q8H 42 September 08, 2013 4:16pm September 23, 2014 12:53pm oxyCODONE hydrochloride 5 mg oral tablet (20 sources) Opioid Agonist Start: 08-30-2024 End: 09-11-2024 take 1 tablet by mouth every four hours as needed for pain Oxycodone 5 mg tablet Discontinued 5 mg PO Q4H as needed for pain 05 02September 04, 2024 September 11, 2024 11:57am Start: 12-22-2022 End: 12-29-2022 take 5-10 mg by mouth every four hours as needed for pain Oxycodone 5 mg tablet Discontinued 5 - 10 mg PO Q4H as needed for pain 60 7 December 22, 2022 December 28, 2022 12:00am December 29, 2022 12:04am Start: 12-22-2022 End: 12-22-2022 take 5-10 mg by mouth every four hours as needed for pain Oxycodone 10 mg tablet Discontinued 5 - 10 mg PO Q4H as needed for pain 30 7 December 22, 2022 December 22, 2022 10:52am Start: 12-22-2022 End: 12-22-2022 take 5-10 mg by mouth every four hours as needed for pain Oxycodone 10 mg tablet Discontinued 5 - 10 mg PO Q4H as needed for pain 60 7 December 22, 2022 December 22, 2022 1:11pm Start: 12-22-2022 End: 12-22-2022 take 5-10 mg by mouth every four hours as needed for pain Oxycodone 10 mg tablet Discontinued 5 - 10 mg PO Q4H as needed for pain 30 7 December 22, 2022 December 22, 2022 10:52am Start: 12-22-2022 End: 12-22-2022 take 5-10 mg by mouth every four hours as needed for pain Oxycodone 10 mg tablet Discontinued 5 - 10 mg PO Q4H as needed for pain 60 7 December 22, 2022 December 22, 2022 1:11pm Start: 12-22-2022 End: 12-22-2022 take 5-10 mg by mouth every four hours as needed for pain Oxycodone 10 mg tablet Discontinued 5 - 10 mg PO Q4H as needed for pain 30 7 December 22, 2022 December 22, 2022 10:52am Start: 12-22-2022 End: 12-22-2022 take 5-10 mg by mouth every four hours as needed for pain Oxycodone 10 mg tablet Discontinued 5 - 10 mg PO Q4H as needed for pain 60 7 December 22, 2022 December 22, 2022 1:11pm Start: 12-22-2022 End: 12-22-2022 take 5-10 mg by mouth every four hours as needed for pain Oxycodone 10 mg tablet Discontinued 5 - 10 mg PO Q4H as needed for pain 30 7 December 22, 2022 December 22, 2022 10:52am Start: 12-22-2022 End: 12-22-2022 take 5-10 mg by mouth every four hours as needed for pain Oxycodone 10 mg tablet Discontinued 5 - 10 mg PO Q4H as needed for pain 60 7 December 22, 2022 December 22, 2022 1:11pm Start: 12-22-2022 End: 12-22-2022 take 5-10 mg by mouth every four hours as needed for pain Oxycodone 10 mg tablet Discontinued 5 - 10 mg PO Q4H as needed for pain 30 7 December 22, 2022 December 22, 2022 10:52am Start: 12-22-2022 End: 12-22-2022 take 5-10 mg by mouth every four hours as needed for pain Oxycodone 10 mg tablet Discontinued 5 - 10 mg PO Q4H as needed for pain 60 7 December 22, 2022 December 22, 2022 1:11pm Start: 12-22-2022 End: 12-22-2022 take 5-10 mg by mouth every four hours as needed for pain Oxycodone 10 mg tablet Discontinued 5 - 10 mg PO Q4H as needed for pain 30 7 December 22, 2022 December 22, 2022 10:52am Start: 12-22-2022 End: 12-22-2022 take 5-10 mg by mouth every four hours as needed for pain Oxycodone 10 mg tablet Discontinued 5 - 10 mg PO Q4H as needed for pain 60 7 December 22, 2022 December 22, 2022 1:11pm Start: 12-22-2022 End: 12-22-2022 take 5-10 mg by mouth every four hours Oxycodone Discontinued 5 - 10 MG PO Q4H 30 7 December 22, 2022 December 22, 2022 10:52am Start: 12-22-2022 End: 12-22-2022 take 5-10 mg by mouth every four hours Oxycodone Discontinued 5 - 10 MG PO Q4H 60 7 December 22, 2022 December 22, 2022 1:11pm Start: 12-22-2022 End: 12-22-2022 take 5-10 mg by mouth every four hours Oxycodone Discontinued 5 - 10 MG PO Q4H 30 7 December 22, 2022 December 22, 2022 10:52am Start: 12-22-2022 End: 12-22-2022 take 5-10 mg by mouth every four hours Oxycodone Discontinued 5 - 10 MG PO Q4H 60 7 December 22, 2022 December 22, 2022 1:11pm Start: 12-22-2022 End: 12-22-2022 take 5-10 mg by mouth every four hours Oxycodone Discontinued 5 - 10 MG PO Q4H 30 7 December 22, 2022 December 22, 2022 9:52am Start: 12-22-2022 End: 12-22-2022 take 5-10 mg by mouth every four hours Oxycodone Discontinued 5 - 10 MG PO Q4H 60 7 December 22, 2022 December 22, 2022 12:11pm Start: 12-22-2022 End: 12-22-2022 take 5-10 mg by mouth every four hours Oxycodone Discontinued 5 - 10 MG PO Q4H 30 7 December 22, 2022 December 22, 2022 10:52am Start: 12-22-2022 End: 12-22-2022 take 5-10 mg by mouth every four hours Oxycodone Discontinued 5 - 10 MG PO Q4H 60 7 December 22, 2022 December 22, 2022 1:11pm Start: 12-22-2022 End: 12-22-2022 take 5-10 mg by mouth every four hours Oxycodone Discontinued 5 - 10 MG PO Q4H 30 7 December 22, 2022 December 22, 2022 10:52am Start: 12-22-2022 End: 12-22-2022 take 5-10 mg by mouth every four hours Oxycodone Discontinued 5 - 10 MG PO Q4H 60 7 December 22, 2022 December 22, 2022 1:11pm Start: 01-06-2017 End: 01-09-2019 take 5-10 mg by mouth every four hours as needed for pain Oxycodone 5 MG tablet Discontinued 5 - 10 mg PO EVERY 4 HOURS NEEDED as needed for Pain 90 January 06, 2017 12:00am January 09, 2019 9:52am Start: 12-11-2015 End: 12-12-2015 take 1 tablet by mouth twice daily Oxycodone (Oxycontin) 10 MG tablet Discontinued 10 mg PO TWICE A DAY 6 May 25th, 2016 12:00am December 12, 2015 6:29am rivaroxaban 10 mg oral tablet (15 sources) Factor Xa Inhibitor Start: 12-11-2015 End: 12-12-2015 take 1 tablet by mouth once daily Rivaroxaban (Xarelto) 10 MG tablet Discontinued 10 mg PO DAILY@0600 13 December 11, 2015 12:00am December 12, 2015 6:31am traMADol hydrochloride 50 mg oral tablet (20 sources) Opioid Agonist Start: 03-13-2020 End: 05-25-2020 take 1 tablet by mouth every four hours as needed for headache Tramadol 50 MG tablet Discontinued 50 mg PO EVERY 4 HOURS NEEDED as needed for Headache March 13, 2020 12:00am May 25, 2020 11:26am Start: 09-23-2015 End: 12-11-2015 take 1 tablet by mouth every six hours as needed for pain Tramadol 50 MG tablet Discontinued 50 mg PO EVERY 6 HOURS NEEDED as needed for Pain September 23, 2015 1:00am December 11, 2015 6:49am trimethoprim 100 mg oral tablet (15 sources) Dihydrofolate Reductase Inhibitor Antibacterial Start: 11-26-2020 End: 11-02-2022 take 1 tablet by mouth at bedtime Trimethoprim 100 mg Tablet Discontinued 100 mg PO AT BEDTIME November 26, 2020 12:00am November 02, 2022 10:10am Problems Active Problems Problem Classification Problem Date Documented Da te Episodic/Chronic Abdominal pain (20 sources) Abdominal pain; Translations: [Unspecified abdominal pain] 03-07-2022 Episodic Acute cerebrovascular disease (15 sources) Cerebrovascular accident; Translations: [Cerebral infarction, unspecified] 05-25-2020 Chronic Diverticulosis and diverticulitis (15 sources) Diverticulitis of intestine; Translations: [Diverticulitis of intestine, part unspecified, without perforation or abscess without bleeding] 03-13-2020 Chronic Esophageal disorders (20 sources) Gastroesophageal reflux disease; Translations: [Gastro-esophageal reflux disease without esophagitis] Onset: 5 11-26-2020 Chronic Comment on above: CONTROLLED WITH MED Essential hypertension (20 sources) Hypertensive disorder; Translations: [Essential (primary) hypertension] Onset: 5 11-26-2020 Chronic Comment on above: CONTROLLED WITH MEDS Fluid and electrolyte disorders (15 sources) Dehydration; Translations: [Dehydration] 03-13-2020 Episodic Genitourinary symptoms and ill-defined conditions (20 sources) Increased frequency of urination; Translations: [Frequency of micturition] 03-13-2020 Episodic Headache; including migraine (15 sources) Chronic headache disorder; Translations: [Chronic headache] 03-13-2020 Episodic Heart valve disorders (1 source) Nonrheumatic aortic (valve) stenosis; Translations: [Nonrheumatic aortic (valve) stenosis] Onset: Chronic Intestinal obstruction without hernia (15 sources) Small bowel obstruction; Translations: [Unspecified intestinal obstruction, unspecified as to partial versus complete obstruction] 03-13-2020 Episodic Nausea and vomiting (15 sources) Nausea and vomiting; Translations: [Nausea with vomiting, unspecified] 03-13-2020 Episodic Open wounds of head; neck; and trunk (15 sources) Open wound of anterior abdominal wall ; Translations: [Unspecified open wound of abdominal wall, unspecified quadrant without penetration into peritoneal cavity, initial encounter] 04-10-2020 Episodic Osteoarthritis (20 sources) Osteoarthritis of right hip joint; Translations: [Unilateral primary osteoarthritis, right hip] Onset: 0 03-13-2020 Chronic Other aftercare (20 sources) Follow-up status; Translations: [Encounter for other orthopedic aftercare] 03-29-2023 Episodic Other and unspecified benign neoplasm (15 sources) History of polyp of colon; Translations: [Personal history of colonic polyps] 11-29-2020 Episodic Other connective tissue disease (15 sources) History of operative procedure on shoulder; Translations: [Presence of unspecified artificial shoulder joint] 05-25-2020 Chronic Other connective tissue disease (15 sources) History of repair of hip joint; Translations: [Presence of unspecified artificial hip joint] 05-25-2020 Chronic Other connective tissue disease (20 sources) History of total knee arthroplasty; Translations: [Presence of unspecified artificial knee joint] 05-25-2020 Chronic Other connective tissue disease (20 sources) History of total hip arthroplasty; Translations: [Presence of unspecified artificial hip joint] 05-25-2020 Chronic Other connective tissue disease (3 sources) Presence of unspecified artificial hip joint; Translations: [Hip joint replacement] 08-04-2023 Chronic Other connective tissue disease (2 sources) Presence of left artificial shoulder joint; Translations: [Shoulder joint replacement] Onset: 0 05-28-2020 Chronic Other connective tissue disease (2 sources) Presence of right artificial shoulder joint; Translations: [Shoulder joint replacement] Onset: 9 03-17-2019 Chronic Other connective tissue disease (2 sources) Presence of left artificial hip joint; Translations: [Presence of left artificial hip joint] Onset: 5 Chronic Other connective tissue disease (15 sources) Diastasis recti; Translations: [Separation of muscle (nontraumatic), other site] 05-07-2021 Episodic Other connective tissue disease (10 sources) Pain in calf; Translations: [Pain in left lower leg] 12-25-2022 Episodic Other fractures (13 sources) Closed fracture of coccyx; Translations: [Fracture of coccyx, initial encounter for closed fracture] 11-05-2022 Episodic Other gastrointestinal disorders (14 sources) Obstipation; Translations: [Constipation, unspecified] 03-07-2022 Episodic Other injuries and conditions due to external causes (15 sources) Local infection of wound; Translations: [Other injury of unspecified body region, initial encounter] 03-20-2020 Episodic Other injuries and conditions due to external causes (15 sources) Closed injury of head; Translations: [Unspecified injury of head, initial encounter] 11-08-2018 Episodic Other injuries and conditions due to external causes (18 sources) Open wound with complication; Translations: [Other injury of unspecified body region, initial encounter] 04-10-2020 Episodic Other injuries and conditions due to external causes (12 sources) Open wound; Translations: [Other injury of unspecified body region, initial encounter] 03-20-2020 Episodic Other lower respiratory disease (15 sources) Dyspnea; Translations: [Shortness of breath] 05-25-2020 Episodic Other nervous system disorders (20 sources) Acute postoperative pain; Translations: [Other acute postprocedural pain] 12-22-2022 Episodic Other non-traumatic joint disorders (2 sources) Other specific arthropathies, not elsewhere classified, left shoulder; Translations: [Arthropathy, unspecified, shoulder region] Onset: 0 10-03-2024 Chronic Other non-traumatic joint disorders (2 sources) Other specific arthropathies, not elsewhere classified, right shoulder; Translations: [Arthropathy, unspecified, shoulder region] Onset: 9 10-03-2024 Chronic Other non-traumatic joint disorders (13 sources) Pain in left knee; Translations: [Left knee pain] 12-11-2022 Episodic Other non-traumatic joint disorders (9 sources) Hip pain; Translations: [Pain in right hip] 08-04-2023 Episodic Other non-traumatic joint disorders (6 sources) Pain in right hip; Translations: [Pain in joint, pelvic region and thigh] Onset: 5 08-04-2023 Episodic Other nutritional; endocrine; and metabolic disorders (20 sources) Body mass index 40+ - severely obese; Translations: [Body mass index (BMI) 40.0-44.9, adult] 03-20-2020 Chronic Other nutritional; endocrine; and metabolic disorders (1 source) Body mass index (BMI) 40.0-44.9, adult; Translations: [Body mass index [BMI] 40.0-44.9, adult] Onset: 5 Chronic Other screening for suspected conditions (not mental disorders or infectious disease) (16 sources) Liver function tests abnormal; Translations: [Other specified abnormal findings of blood chemistry] Onset: 5 03-13-2020 Episodic Other skin disorders (10 sources) Eruption; Translations: [Rash and other nonspecific skin eruption] 12-27-2022 Episodic Other skin disorders (1 source) Rash and other nonspecific skin eruption; Translations: [Rash and other nonspecific skin eruption] 12-27-2022 Episodic Residual codes; unclassified (20 sources) Obstructive sleep apnea syndrome; Translations: [Obstructive sleep apnea (adult) (pediatric)] 03-13-2020 Chronic Residual codes; unclassified (2 sources) Obstructive sleep apnea (adult) (pediatric); Translations: [Obstructive sleep apnea (adult) (pediatric)] Onset: 5 Chronic Residual codes; unclassified (15 sources) History of arthroscopic procedure on shoulder; Translations: [Other specified postprocedural states] 05-25-2020 Episodic Residual codes; unclassified (15 sources) History of repair of umbilical hernia; Translations: [Other specified postprocedural states] 11-26-2020 Episodic Comment on above: [address] Gilbert Ding X2 Residual codes; unclassified (15 sources) History of hernia repair; Translations: [Other specified postprocedural states] 05-25-2020 Episodic Spondylosis; intervertebral disc disorders; other back problems (2 sources) Inflammation of sacroiliac joint; Translations: [Sacroiliitis, not elsewhere classified] Onset: 04-03-2025 Chronic Superficial injury; contusion (20 sources) Contusion of shoulder region; Translations: [Contusion of right shoulder, initial encounter] 11-08-2018 Episodic Unclassified (6 sources) pcp will call back with appt Urinary tract infections (1 source) Urinary tract infection, site not specified; Translations: [Urinary tract infection, site not specified] Episodic Past or Other Problems Problem Classification Problem Date Documented Date Episodic/Chronic Acute bronchitis (13 sources) Acute bronchitis; Translations: [Acute bronchitis, unspecified] Onset: 09-05-2024 09-04-2024 Episodic Acute posthemorrhagic anemia (14 sources) Anemia following acute postoperative blood loss; Translations: [Acute posthemorrhagic anemia] Onset: 09-05-2024 09-01-2024 Episodic Deficiency and other anemia (1 source) Anemia, unspecified; Translations: [Anemia, unspecified] Onset: 12-19-2024 Episodic Heart valve disorders (13 sources) Systolic murmur; Translations: [Cardiac murmur, unspecified] Onset: 09-05-2024 09-01-2024 Episodic Malaise and fatigue (13 sources) Asthenia; Translations: [Other malaise] Onset: 09-05-2024 09-01-2024 Episodic Nonspecific chest pain (2 sources) Chest pain, unspecified; Translations: [Chest pain, unspecified] Onset: 11-01-2024 Episodic Other connective tissue disease (2 sources) Incomplete rotator cuff tear or rupture of left shoulder, not specified as traumatic; Translations: [Partial tear of rotator cuff] Onset: 11-08-2019 10-03-2024 Episodic Other connective tissue disease (2 sources) Bicipital tendinitis, left shoulder; Translations: [Bicipital tenosynovitis] Onset: 11-08-2019 10-03-2024 Episodic Other nervous system disorders (1 source) Other acute postprocedural pain; Translations: [Other acute postprocedural pain] Onset: 09-04-2024 Episodic Other non-traumatic joint disorders (1 source) Pain in left hip; Translations: [Pain in left hip] Onset: 08-07-2024 Episodic Sprains and strains (5 sources) Strain of muscle, fascia and tendon of right hip, subsequent encounter; Translations: [Other specified aftercare] Onset: 05-06-2018 10-03-2024 Episodic Unclassified (14 sources) history right shoulder repair 02-04-2022 Results Test Name Value Interpretation Reference Range Facility Re-Evaluation - PT (1)on Re-Evaluation - PT (1) [facility] [address] [place] [address] / REEVALUATION / MEDICARE RECERTIFICATION PHYSICAL THERAPY MR#: [id number] Acct: [id number] Name: MAKEDA NEGRON Rep #: [id number] : 1955 70 From: Deep Saez PT, ATC Referring Dr.: Dr. Pratik Mercado MD Status:REG R CR Insurance: MEDICARE PART A B [facility] Re-Evaluation Intro: Dr. Pratik Mercado MD, It has been my pleasure to treat MAKEDA NEGRON over the last 13 visits for R glute medius/minimus repair 01/01/25. Please see the progress note below for an update on the physical therapy plan of care! Subjective Subjective: Pt reports visit went well. He wants to give her an SIJ inection Objective Objective/Function: TU sec MMT: R hip flex= 7 (L= 17), abd= 26 (L=38), add= 32 (L=46) #F ROM: B hip ROM is WNL when compared bilaterally R hip pain ranges 5-8/10 Plan Plan Plan: 04/04/25- Continue with R hip stretching, light R hip and core strengthening in a pain free range Balance/Gait/Functional tests Balance/Special Test Scores Lower Extremity Functional Score: 2 Goals Goals Goal 1:: Decrease R hip pain x 50% to aid with transfers Goal Time Frame: 4-6 Weeks Goal 2:: Increase R hip strength to equal 90% of L hip strength to aid with stair negotiation Goal Time Frame: 4-6 Weeks Goal 3:: Increase R hip ROM to be equal to L hip ROM to aid with IADL's Goal Time Frame: 4-6 Weeks Goal 4:: I with HEP Goal Time Frame: 4-6 Weeks Anticipated Interventions Anticipated Interventions Patient/Client Instruction: Educate patient on: Condition and Plan of Care For the Purpose of:: To improve self management Therapeutic Exercise to Include: Strength training, Endurance training, Balance training, Flexibilty training, Gait and locomotor training, Active ROM and Dynamic Lumbar Stabilization For the Purpose of:: To decrease pain, To increase ROM and To improve muscle performance and motor function Cryotherapy (ice pack, ice massage): Yes For the Purpose of:: To decrease pain Re-Evaluation Ending Re-evaluation ending: Please do not hesitate to contact me at [phone] by phone or if you have questions or concerns regarding this new plan of care! Sincerely, Deep Saez, PT, ATC 04/04/25 1022 CC: Dr. Jody Garner MD; Dr. Pratik Mercado MD [facility] Signed For Medicare only, by signing this I certify the plan of care. Physicians Signature Date [facility] Relevant diagnostic tests/la boratory data Narrativeon 04-03-2025 Fall risk assessment no [employer] Work Phone: MEDS REVIEW Documentation of current medications (procedure) [email or web address] Work Phone: MEDS REVIEWD Medications reviewed without changes [email or web address] Work Phone: MRI HX of the right hip on 03/13/2025 at [facility] Work Phone: Relevant diagnostic tests/la boratory data Narrativeon 02-14-2025 Fall risk assessment no [employer] Work Phone: MEDS REVIEW Documentation of current medications (procedure) [email or web address] Work Phone: MEDS REVIEWD Medications reviewed without changes [email or web address] Work Phone: Inital Evaluation (1) - PTon 01-16-2025 Inital Evaluation (1) - PT [facility] [address] [facility] [facility] [place] [address] / REHABILITATION SERVICES INITIAL EVALUATION MR#: [id number] Acct: [id number] Name: MAKEDA NEGRON Rep #: [id number] : 1955 69 From: Deep Saez PT, ATC Referring Dr.: Dr. Pratik Mercado MD Status: REG RCR Insurance: MEDICARE PART A B [facility] Patient's Visit Information Visit Information Visit Information: MAKEDA NEGRON is a 69 year old F referred to Physical Therapy by Dr. Pratik Mercado MD with a diagnosis of R glute medius/minimus repair 01/01/25. Date of Evaluation: 01/16/25 Physical Therapist: Deep Saez PT, ATC Visit Plan Frequency: 2x /Week Duration: 4-6 Weeks Plan: Follow protocol. No strengthening at this time. Focus on pain free ROM and knee/ankle strengthening. Subjective Subjective: Surgery on January 01 for Glute Med. Soreness at the incision site. Prior surgery was constant pain and afterwards pain is completely gone. orders not to lay on right leg and patient cant sleep laying flat, sleeping in recliner, takes shower with shower stool. Pt has not been walking yet dur to doctors order but will be able to be flat foot WB now. Pt denies any difficulty sleeping at night with no pain. Pt using crutch to climb 2 steps from the garage to enter the home. Denies any issues with bowel and bladder. Pt only takes Tylenol for soreness and stopped taking pain pills 2 days after surgery. Pt has follow-up on February 14. Pt has not been able to participate in activities at home like doing dishes and laundry due to being non-weight bearing however pt is able to dress and shower independently. Pt goal is to be able do more chores at home like dishes or shopping and just walking in general. Pain Right Hip: Pain Intensity (Out of 10): 0 Pain Intensity Range: 10 Objective Objective: Neuro: B LE sensation is WNL to light touch. Observation: Incision is looking and feeling well at this time per patient. She was just at the doctors today ROM: L hip flex= 100, R hip flex= 90 MMT: L hip flex= 9, abd= 20, add= 24 #F; R not tested Balance/Special Test Scores Lower Extremity Functional Score: 2 Goals Goal 1:: Decrease R hip pain x 50% to aid with transfers Goal Time Frame: 4-6 Weeks Goal 2:: Increase R hip strength to equal 90% of L hip strength to aid with stair negotiation Goal Time Frame: 4-6 Weeks Goal 3:: Increase R hip ROM to be equal to L hip ROM to aid with IADL's Goal Time Frame: 4-6 Weeks Goal 4:: I with HEP Goal Time Frame: 4-6 Weeks Rehabilitation Potential Physical Therapy Diagnosis: Pt has R hip pain, weakness, and limited ROM secondary to R glute medius/minimus repair Rehabilitation Potential: Good Anticipated Interventions Patient/Client Instruction: Educate patient on: Condition and Plan of Care For the Purpose of:: To improve self management Therapeutic Exercise to Include: Strength training, Endurance training, Balance training, Flexibilty training, Gait and locomotor training, Active ROM and Dynamic Lumbar Stabilization For the Purpose of:: To decrease pain, To increase ROM and To improve muscle performance and motor function Cryotherapy (ice pack, ice massage): Yes For the Purpose of:: To decrease pain Text: Thank you for the opportunity to evaluate your patient. For Medicare and Medicare HMO plans, please review the plan of care and approve it. It will need to be FAXED BACK to us at [phone] for Medicare purposes. For Medicare only, by signing this I certify the plan of care. Please let me know if there are questions or concerns regarding this plan of care. Physician Signature: Date: 01/16/25 1504 CC: Dr. Jody Garner MD; Dr. Pratik Mercado MD [facility] Signed Normal [facility] Inital Evaluation (1) - PT [facility] [address] [facility] [facility] [place] [address] / REHABILITATION SERVICES INITIAL EVALUATION MR#: [id number] Acct: [id number] Name: MAKEDA NEGRON Rep #: [id number] : 1955 69 From: Deep Saez PT, ATC Referring Dr.: Dr. Pratik Mercado MD Status: REG RCR Insurance: MEDICARE PART A B [facility] Patient's Visit Information Visit Information Visit Information: MAKEDA NEGRON is a 69 year old F referred to Physical Therapy by Dr. Pratik Mercado MD with a diagnosis of R glute medius/minimus repair 01/01/25. Date of Evaluation: 01/16/25 Physical Therapist: Deep Saez PT, ATC Visit Plan Frequency: 2x /Week Duration: 4-6 Weeks Plan: Follow protocol. No strengthening at this time. Focus on pain free ROM and knee/ankle strengthening. Subjective Subjective: Surgery on January 01 for Glute Med. Soreness at the incision site. Prior surgery was constant pain and afterwards pain is completely gone. orders not to lay on right leg and patient cant sleep laying flat, sleeping in recliner, takes shower with shower stool. Pt has not been walking yet dur to doctors order but will be able to be flat foot WB now. Pt denies any difficulty sleeping at night with no pain. Pt using crutch to climb 2 steps from the garage to enter the home. Denies any issues with bowel and bladder. Pt only takes Tylenol for soreness and stopped taking pain pills 2 days after surgery. Pt has follow-up on February 14. Pt has not been able to participate in activities at home like doing dishes and laundry due to being non-weight bearing however pt is able to dress and shower independently. Pt goal is to be able do more chores at home like dishes or shopping and just walking in general. Pain Right Hip: Pain Intensity (Out of 10): 0 Pain Intensity Range: 10 Objective Objective: Neuro: B LE sensation is WNL to light touch. Observation: Incision is looking and feeling well at this time per patient. She was just at the doctors today ROM: L hip flex= 100, R hip flex= 90 MMT: L hip flex= 9, abd= 20, add= 24 #F; R not tested Balance/Special Test Scores Lower Extremity Functional Score: 2 Goals Goal 1:: Decrease R hip pain x 50% to aid with transfers Goal Time Frame: 4-6 Weeks Goal 2:: Increase R hip strength to equal 90% of L hip strength to aid with stair negotiation Goal Time Frame: 4-6 Weeks Goal 3:: Increase R hip ROM to be equal to L hip ROM to aid with IADL's Goal Time Frame: 4-6 Weeks Goal 4:: I with HEP Goal Time Frame: 4-6 Weeks Rehabilitation Potential Physical Therapy Diagnosis: Pt has R hip pain, weakness, and limited ROM secondary to R glute medius/minimus repair Rehabilitation Potential: Good Anticipated Interventions Patient/Client Instruction: Educate patient on: Condition and Plan of Care For the Purpose of:: To improve self management Therapeutic Exercise to Include: Strength training, Endurance training, Balance training, Flexibilty training, Gait and locomotor training, Active ROM and Dynamic Lumbar Stabilization For the Purpose of:: To decrease pain, To increase ROM and To improve muscle performance and motor function Cryotherapy (ice pack, ice massage): Yes For the Purpose of:: To decrease pain Text: Thank you for the opportunity to evaluate your patient. For Medicare and Medicare HMO plans, please review the plan of care and approve it. It will need to be FAXED BACK to us at [phone] for Medicare purposes. For Medicare only, by signing this I certify the plan of care. Please let me know if there are questions or concerns regarding this plan of care. Physician Signature: Date: 01/16/25 1504 CC: Dr. Jody Garner MD; Dr. Pratik Mercado MD [facility] Signed Normal [facility] Absolute lymphocyte countOrd ered By: Jodysimón Garner on 12-14-2024 Lymphocytes Auto (Unsp spec) [#/Vol] 2.40 10*3/uL 0.83-4.51 [facility] Absolute neutrophil countOrd ered By: Jody Tessiereena on 12-14-2024 Neutrophils (Bld) [#/Vol] 3.1 10*3/uL 2.0-7.7 [facility] Automated lymphocyte count a s percentage of total leukocytesOrdered By: Jody Garner on 12-14-2024 Lymphocytes/100 WBC Auto (Unsp spec) 38.2 % 19-41 [facility] Basophil percentageOrdered B y: Jody Garner on 12-14-2024 Basophils/100 WBC (Bld) 0.6 % 0-1 [facility] CBC W/Diff, Automatedon 11-17 Absolute Lymph 2.40 X10 3/uL Normal 0.83-4.51 [facility] Comment on above: Performed By: #### L 100.0100 #### [facility] [address] [place], [address] Absolute Neut 3.1 X10 3/uL Normal 2.0-7.7 [facility] Comment on above: Performed By: #### L 100.0100 #### [facility] [address] [place], [address] Basophils/100 WBC (Bld) 0.6 % Normal 0-1 [facility] Comment on above: Performed By: #### L 100.0100 #### [facility] [address] [place], [address] Eosinophils/100 WBC (Bld) 4.1 % Normal 0-5 [facility] Comment on above: Performed By: #### L 100.0100 #### [facility] [address] [place], [address] Erythrocyte distribution width (RBC) [Ratio] 13.3 % Normal 11.6-14.6 [facility] Comment on above: Performed By: #### L 100.0100 #### [facility] [address] [place], [address] Hematocrit (Bld) [Volume fraction] 36.6 % Low 37-47 [facility] Comment on above: Performed By: #### L 100.0100 #### [facility] [address] [place], [address] Hemoglobin (Bld) [Mass/Vol] 11.7 g/dL Low 12.0-15.0 [facility] Comment on above: Performed By: #### L 100.0100 #### [facility] [address] [place], [address] IG% 0.300 Normal 0.0-0.9 [facility] Comment on above: Result Comment: IG% - Immature Granulocytes (promyelocytes, myelocytes and metamyelocytes) > 1% indicates that a LEFT SHIFT is Present. Performed By: #### L 100.0100 #### [facility] [address] [place], [address] Lymphocytes/100 WBC (Bld) 38.2 % Normal 19-41 [facility] Comment on above: Performed By: #### L 100.0100 #### [facility] [address] [place], [address] MCH (RBC) [Entitic mass] 29.5 pg Normal 27.0-32.0 [facility] Comment on above: Performed By: #### L 100.0100 #### [facility] [address] [place], [address] MCHC (RBC) [Mass/Vol] 32.0 g/dL Normal 32-36 [facility] Comment on above: Performed By: #### L 100.0100 #### [facility] [address] [place], [address] MCV (RBC) [Entitic vol] 92.4 fL Normal 81-99 [facility] Comment on above: Performed By: #### L 100.0100 #### [facility] [address] [place], [address] Monocytes/100 WBC (Bld) 7.0 % Normal 0-10 [facility] Comment on above: Performed By: #### L 100.0100 #### [facility] [address] [place], [address] Neutrophils/100 WBC (Bld) 49.8 % Normal 47-70 [facility] Comment on above: Performed By: #### L 100.0100 #### [facility] [address] [place], [address] Nucleated RBC (Bld) [#/Vol] 0 10*3/uL Normal 0-5 [facility] Comment on above: Performed By: #### L 100.0100 #### [facility] [address] [place], [address] Platelet mean volume (Bld) [Entitic vol] 10.4 fL Normal 6.2-12.0 [facility] Comment on above: Performed By: #### L 100.0100 #### [facility] [address] [place], [address] Platelets (Bld) [#/Vol] 321 10*3/uL Normal 150-450 [facility] Comment on above: Performed By: #### L 100.0100 #### [facility] [address] [place], [address] RBC (Bld) [#/Vol] 3.96 10*6/uL Low 4.2-5.4 [facility] Comment on above: Performed By: #### L 100.0100 #### [facility] [address] [place], [address] RDW SD 45.5 fl High 35.1-43.9 [facility] Comment on above: Performed By: #### L 100.0100 #### [facility] [address] [place], [address] WBC (Bld) [#/Vol] 6.3 10*3/uL Normal 4.4-11.0 [facility] Comment on above: Performed By: #### L 100.0100 #### [facility] [address] [facility] [place], [address] Eosinophil percentageOrdered By: Jody Garner on 12-14-2024 Eosinophils/100 WBC (Bld) 4.1 % 0-5 [facility] Erythrocyte distribution wid th ratioOrdered By: Jody Pascual on 12-14-2024 Erythrocyte distribution width (RBC) [Ratio] 13.3 % 11.6-14.6 [facility] Erythrocyte distribution wid th standard deviationOrdered By: Jodysimón Garner on 12-14-2024 Erythrocyte distribution width (RBC) [Ratio] 45.5 fl High 35.1-43.9 [facility] Hematocrit Auto (Bld) [Volum e fraction]Ordered By: Jody Garner on 12-14-2024 Hematocrit (Bld) [Volume fraction] 36.6 % Low 37-47 [facility] Hemoglobin measurementOrdere d By: Jody Garner on 12-14-2024 Hemoglobin (Bld) [Mass/Vol] 11.7 g/dL Low 12.0-15.0 [facility] Immature granulocytes/100 WB C Auto (Bld)Ordered By: Jody Garner on 12-14-2024 Immature granulocytes/100 WBC (Bld) 0.300 % 0.0-0.9 [facility] Comment on above: IG% - Immature Granu locytes (promyelocytes, myelocytes and metamyelocytes) > 1% indicates that a LEFT SHIFT is Present. MCV (mean corpuscular volume ) determinationOrdered By: Jody Garner on 12-14-2024 MCV (RBC) [Entitic vol] 92.4 fL 81-99 [facility] Mean corpuscular hemoglobin (MCH) determinationOrdered By: Jody Garner on 12-14-2024 MCH (RBC) [Entitic mass] 29.5 pg 27.0-32.0 [facility] Mean corpuscular hemoglobin concentration (MCHC) determinationOrdered By: Jody Garner on 12-14-2024 MCHC (RBC) [Mass/Vol] 32.0 g/dL 32-36 [facility] Mean platelet volume determi nationOrdered By: Jody Garner on 12-14-2024 Platelet mean volume (Bld) [Entitic vol] 10.4 fL 6.2-12.0 [facility] Monocyte percentageOrdered B y: Jody Garner on 12-14-2024 Monocytes/100 WBC (Bld) 7.0 % 0-10 [facility] Neutrophil percentageOrdered By: Jody Garner on 12-14-2024 Neutrophils/100 WBC (Bld) 49.8 % 47-70 [facility] Nucleated red blood cell per centageOrdered By: Jody Garner on 12-14-2024 Nucleated RBC/100 WBC (Bld) [Ratio] 0 % 0-5 [facility] Platelet countOrdered By: Johnson Garner on 12-14-2024 Platelets (Bld) [#/Vol] 321 10*3/uL 150-450 [facility] RBC Auto (Bld) [#/Vol]Ordere d By: Jody Garner on 12-14-2024 RBC (Bld) [#/Vol] 3.96 10*6/uL Low 4.2-5.4 [facility] White blood cell (WBC) count Ordered By: Jody Garner on 12-14-2024 WBC (Bld) [#/Vol] 6.3 10*3/uL 4.4-11.0 [facility] stress test r eportOrdered By: Ken Cortez on 10-25-2024 Study report [facility] [address] [place] [address] MR#: [id number] Acct: [id number] Name: MAKEDA NEGRON Rep #: [id number] : 1955 69 From: Ken Cortez MD Primary Care: Dr. Jody Garner MD Statu s: REG CLI Referring Dr: Jody Garner MD Sex: F C Stress Test Report Pharmacologic myocardial perfusion stress test. 69-year-old lady with a history of chest pain Resting EKG demonstrates sinus rhythm with a rate of 74 bpm. Resting blood pressure is 118/70 mmHg. 0.4 mg of regadenoson was infused per usual protocol followed by rapid intravenous saline flush injection. Continuous EKG monitoringwas performed. The maximum heart rate was 85 bpm which was 56% of max impacted heart rate the maximum workload was 1 metabolic equivalent. At rest there were no ST or T wave changes noted to suggest ischemia and at peak infusion nonspecific ST changes were noted which did not meet the criteria for ischemia. No clinical angina is noted. The final blood pressure was 118/70 mmHg. Myocardial perfusion protocol. 14.6 mCi of technetium 99m sestamibi was injected at rest. 0.4 mg of regadenoson was infused per usual protocol. At peak infusion 45 mCi of technetium 99m sestamibi was injected stress images were obtained stress and rest images were reconstructed and compared in the short axis vertical long and horizontal long axis. Gated images were also obtained. Perfusion SPECT analysis: Review of the stress images demonstrate normal uptake of tracer noted in all areas of the myocardium. The resting images similar demonstrated normal uptake of tracer noted in all areas of the myocardium. No areas of reversibility are noted to suggest ischemia and no previous infarct is noted. Gated SPECT analysis: The gated ejection fraction is 72%. Conclusion: Normal pharmacologic myocardial perfusion stress test. Preserved ejection fraction. 10/25/24 1702 Date _ Ken Cortez MD CC: Dr. Jody Garner MD ~ Date Dictated: 10/25/241658 Date Transcribed: 10/25/241658 Pole Classifier: CO Signed [facility] Work Phone: Stress Reporton 10-25-2024 Stress Report [facility] [address] [place] [address] MR#: [id number] Acct: [id number] Name: MAKEDA NEGRON Rep #: [id number] : 1955 69 From: Ken Cortez MD Primary Care: Dr. Jody Garner MD Status: REG CLI Referring Dr: Jody Garner MD Sex: F C Stress Test Report Pharmacologic myocardial perfusion stress test. 69-year-old lady with a history of chest pain Resting EKG demonstrates sinus rhythm with a rate of 74 bpm. Resting blood pressure is 118/70 mmHg. 0.4 mg of regadenoson was infused per usual protocol followed by rapid intravenous saline flush injection. Continuous EKG monitoring was performed. The maximum heart rate was 85 bpm which was 56% of max impacted heart rate the maximum workload was 1 metabolic equivalent. At rest there were no ST or T wave changes noted to suggest ischemia and at peak infusion nonspecific ST changes were noted which did not meet the criteria for ischemia. No clinical angina is noted. The final blood pressure was 118/70 mmHg. Myocardial perfusion protocol. 14.6 mCi of technetium 99m sestamibi was injected at rest. 0.4 mg of regadenoson was infused per usual protocol. At peak infusion 45 mCi of technetium 99m sestamibi was injected stress images were obtained stress and rest images were reconstructed and compared in the short axis vertical long and horizontal long axis. Gated images were also obtained. Perfusion SPECT analysis: Review of the stress images demonstrate normal uptake of tracer noted in all areas of the myocardium. The resting images similar demonstrated normal uptake of tracer noted in all areas of the myocardium. No areas of reversibility are noted to suggest ischemia and no previous infarct is noted. Gated SPECT analysis: The gated ejection fraction is 72%. Conclusion: Normal pharmacologic myocardial perfusion stress test. Preserved ejection fraction. 10/25/24 1702 Date Ken Cortez MD CC: Dr. Jody Garner MD Date Dictated: 10/25/241658 Date Transcribed: 10/25/241658 Pole Classifier: CO Signed Normal [facility] Initial Evaluation (2) - PTo n 10-18-2024 Initial Evaluation (2) - PT [facility] [address] [facility] [facility] [place] [address] / REHABILITATION SERVICES INITIAL EVALUATION MR#: [id number] Acct: [id number] Name: MAKEDA NEGRON Rep #: [id number] : 1955 69 From: Thomas Dias DPT, OCS, CSCS Referring Dr.: Dr. Taryn Lowry DO Status: REG RCR Insurance: MEDICARE PART A B [facility] Patient's Visit Information Visit Information Visit Information: MAKEDA NEGRON is a 69 year old F referred to Physical Therapy by Dr. Taryn Lowry, with a diagnosis of trochantric pain syndrome R hip , strain fascia. Date of Evaluation: 10/18/24 Physical Therapist: Thomas Dias DPT, OCS, CSCS Visit Plan Frequency: 2x /Week Duration: 4-6 Weeks Plan: 2x/week for 4 weeks for 1. US r glut max at iliac crest non theermal 2. STM and rollout to gluts on R side(careful of R BOBBY and L BOBBY), Leg pull and PROM gently grade 1. gentle contract relax on R 3. Ensure patient resting it at home from aggravating activitiy(is to use walker for a few days to take more stress off of it.) 4. non billed TENS and ice as if painful at rest. Pt still doing exercises for L hip via HEP that do not bother r hip and we can answer questions regarding her strength on L hip but nothing to cause R hip pain. Will not treat L hip at this time in PT and will hold in facvor of HEP for now. Subjective Subjective: R hip has been hurting. Needs US to see if torn again and can't not available until 11/02. Pain has been in r hip since 1 month ago. Had no pain then strengthening for L hip may have got her painful in R hip. Now needs to take pain pills and use cane for R hip pain. L hip is doing better nad doctor wants her to work toward a home program. r hip is pain in r LB R posterior hip. It is 7/10 with moving around. Worked at [employer] Wednesday and could not walk after. Sleep is in recliner due to L hip and now R hip pain and has been for long time since previous R hip surgeries. No low back probelms. No numbness or tingling. Has taken the last week off of strengthening and is not better in R hip. L hip still feels good. Wants to do L hip herself and focus on R hip in PT. Pain R hip: Intensity: 5 Pain Intensity Range: 0 and 7 Comment: 5 walking back to PT. Objective Objective: L trendelenberg still apparent, mild R antalgia, using cane in R UE. Walking with cane I. Pain in R post heip. Mod tender R GT, glut max at iliac crest adn into R Lumbar paraspinals. ankle and knee AROM WFL B. LB AROM wFL without increased pain. L hip moving well and painfree, R hip is painful to flex posteriorly but good strenth, abd3/5 R and painful laterally, ext 3/5 with minimal pain, bridging is painfree, Hip abd with IR 2/5 and xt rotation 3/5 on R. - JACK, - FADDIR within ROM limits. - R hip scour Trasnfers are slow but I stating pain R posterior hip. Goals Goal 1:: Pain in R hip 0 at rest adn 1/10 at worsst with ambulation and 75% better Goal Time Frame: 2-4 Weeks Goal 2:: Ambulate into and out of PT adn community without increased pain Goal Time Frame: 2-4 Weeks Goal 3:: Pt I iin appropriate HEP for continued improvement to tolerance, slow strength progression. Goal Time Frame: 2-4 Weeks Rehabilitation Potential Physical Therapy Diagnosis: pain in posterior R hip and lateral limiting comfortable function. Rehabilitation Potential: Questionable Anticipated Interventions Patient/Client Instruction: Educate patient on: Condition and Plan of Care For the Purpose of:: To decrease pain, To decrease swelling/inflammation, To improve nutrient delivery to tissue, To improve muscle performance and motor function and To increase tolerance to activity/condition/posi tion Therapeutic Exercise to Include: Passive ROM and Active ROM For the Purpose of:: To decrease pain, To decrease swelling/inflammation, To improve nutrient delivery to tissue and To improve muscle performance and motor function Manual Therapy Techniques to Include: Mobilization, Passive ROM and Soft tissue mobilization For the Purpose of:: To decrease swelling/inflammation, To improve nutrient delivery to tissue, To improve muscle performance and motor function and To increase tolerance to activity/condition/posi tion TENS: Yes Cryotherapy (ice pack, ice massage): Yes Ultrasound (thermal/non thermal): Yes For the Purpose of:: To decrease pain, To increase ROM, To improve nutrient delivery to tissue, To improve muscle performance and motor function and To increase tolerance to activity/condition/posi tion text: Thank you for the opportunity to evaluate your patient. For Medicare and Medicare HMO plans, please review the plan of care and approve it. It will need to be FAXED BACK to us at [phone] for Medicare purposes. For Medicare only, by signing this I certi (more content not included)... Normal [facility] HIP, UNI W/ Pelvis 2-3 Views on 10-09-2024 HIP, UNI W/ Pelvis 2-3 Views [facility] Imaging Services [address] [place], [place] [address] HIP, UNI W/ Pelvis 2-3 Views MR#: [id number] Acct: [id number] Name: MAKEDA NEGRON Rep #: [id number] : 1955 F 69 From: Alexander Sanchez MD PCP: Dr. Jody Garner MD Status: DEP AMB Study: HIP, UNI W/ Pelvis 2-3 Views Date of Exam: Exam# [id number] Ordering Dr: Naresh Peralta DO EXAM: XR Bilateral Hips With Pelvis When Performed, 2 or 3 Views CLINICAL INDICATION: STATUS POST TOTAL REPLACEMENT OF LEFT HIP TECHNIQUE: Three or four views of the bilateral hips with pelvis when performed. COMPARISON: No relevant prior studies available. FINDINGS: BONES/JOINTS: Bilateral hip replacement. Intact hardware. Anatomic position. No acute fracture. No dislocation. SOFT TISSUES: Unremarkable. RAD/HIP, UNI W/ Pelvis 2-3 Views IMPRESSION: Postoperative changes as above. Reading [facility] CC: Dr. Jody Garner MD; Dr. Naresh Peralta DO Pole Classifier: Signed Normal [facility] Orthopedic Visit Reporton Orthopedic Visit Report [facility] [address] [place] [address] [address] [place] [address] OFFICE VISIT Date of Service: 10/09/24 MR#: [id number] Acct: [id number] Name: MAKEDA NEGRON Rep #: [id number] : 1955 Provider: Dr. Naresh howe DO Age/Sex: 69/F Location: [facility] Status: Signed Intake Vital Signs 07/24/24 10:09 09/01/24 11:16 10/09/24 10:43 Height 5 ft 2 in 5 ft 2 in 5 ft 2 in Weight: 212 lb 4 oz BMI 38.8 Intake Visit Reasons: left hip Chief Complaint: 6 week post op Accompanied by: Self Is patient in pain?: No Allergies Dressing: Non-Medicated (elastic) Allergy (Severe, Verified 10/09/24 10:44) Rash povidone-iodine (From Betadine) Allergy (Severe, Verified 10/09/24 10:44) Rash chlorhexidine (From ChloraPrep Clear) Allergy (Intermediate, Verified 10/09/24 10:44) Itching isopropyl alcohol (From ChloraPrep Clear) Allergy (Intermediate, Verified 10/09/24 10:44) Itching adhesive tape Allergy (Verified 10/09/24 10:44) Rash codeine Allergy (Verified 10/09/24 10:44) Hives levofloxacin Allergy (Verified 10/09/24 10:44) unknown cortisone Adverse Reaction (Severe, Verified 10/09/24 10:44) migraine and skin on fire prednisone Adverse Reaction (Severe, Verified 10/09/24 10:44) migraine and skin on fire NSAIDS (Non-Steroidal Anti-Inflamma Adverse Reaction (Verified 10/09/24 10:44) Upset Stomach promethazine HCl (From Phenergan) Adverse Reaction (Verified 10/09/24 10:44) RESTLESS LEG SYNDROME sulfamethoxazole (From Bactrim) Adverse Reaction (Verified 10/09/24 10:44) Nausea trimethoprim (From Bactrim) Adverse Reaction (Verified 10/09/24 10:44) Nausea Medications ???Medication ???Instructions ???Recorded ???Confirmed ???Type amitriptyline 150 mg tablet 150 mg PO QHS TORRES 09/07/13 10/09/24 History hydrochlorothiazide 25 mg tablet 25 mg PO DAILY BP 09/07/13 5 History omeprazole 20 mg capsule,delayed 20 mg PO QHS GERD 09/07/13 5 History release atorvastatin 10 mg tablet 20 mg PO QHS CHOLESTEROL 09/21/14 10/09/24 History verapamil 120 mg tablet 60 mg PO BID BP 12/07/16 10/09/24 History sucralfate 1 gram tablet (Carafate) 1 g PO BID STOMACH 01/09/19 History cholecalciferol (vitamin D3) 50 2,000 unit PO DAILY SUPPLEMENT 10/09/24 History mcg (2,000 unit) capsule cranberry extract 300 mg tablet 30,000 mg PO DAILY SUPPLEMENT 11/1610/09/24 History melatonin 12 mg tablet 12 mg PO QHS SUPPLEMENT 11/05/22 0 10/09/24 History Estriol 1 gm intrauterine TUFR SUPPLEMENT 12/08/22 10/09/24 History acetaminophen 500 mg tablet 1,000 mg (2 x 500 mg) PO Q6H Pain 08/30/24 10/09/24 Rx #100 tabs aspirin 81 mg chewable tablet 81 mg PO DAILY #1 TAB 09/05/24 Rx (Aspirin [facility]) celecoxib 50 mg capsule (Celebrex) 50 mg PO BID 10/09/24 10/09/24 H istory metoprolol tartrate 25 mg tablet 100 mg PO BID BP 10/09/24 10/09/24 History Have you fallen in the past year?: No PFSH Medical History Abrasion History of diverticulitis Shortness of breath on exertion History of edema Post-menopausal Ambulates with cane Bladder disease High cholesterol Injury of head and neck Diverticulosis History of ulceration Fractured coccyx Wears glasses Osteoporosis Non-smoker CPAP (continuous positive airway pressure) dependence Pain aggravated by walking Edema Migraine headache TIA (transient ischemic attack) History of trigger finger Nausea Abdominal pain Osteoarthritis of right hip Obstructive sleep apnea Morbid obesity with BMI of 40.0-44.9, adult Chronic headaches SBO (small bowel obstruction) HTN (hypertension) GERD (gastroesophageal reflux disease) Surgical History History of left hip replacement Hx of total knee replacement History of hip surgery Hx of right cataract extraction Hx of left cataract extraction Hx of colonoscopy Hx of cholecystectomy Hx of tonsillectomy History of partial hysterectomy Hx of shoulder surgery Hx of total shoulder replacement Hx of arthroscopy History of appendectomy History of reverse total replacement of left shoulder joint ( 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 number of children: 2 pets and animals: Yes pets and (more content not included)... Normal [facility] Echo Completeon 10-05-2024 Echo Complete [facility] [address] [place] [address] Echo Complete 10/05/24 1457 MR#: [id number] Acct: [id number] Name: MAKEDA NEGRON Rep #: [id number] : 1955 69 From: Ken Cortez MD Attending Dr: Dr. Jody Garnre MD Status: REG CLI Ordering Dr: Jody Garner MD Date: 10/05/24 Location: [facility]S Sex: F C Admitted: Reason For Study Reason For Study: Aortic Stenosis Procedure This was a 2D Doppler, Color Flow transthoracic echocardiogram. Exam performed in department. Left Ventricle Normal LV size. Left ventricular systolic function is normal. The left ventricular ejection fraction is 65 %. Stage 1 diastolic dysfunction. No regional wall motion abnormalities noted. Right Ventricle Normal RV size. Normal systolic function. Atria Normal left atrium. Normal right atrium. Mitral Valve Normal mitral valve. Tricuspid Valve Normal tricuspid valve. Aortic Valve Trisinus/trileaflet aortic valve. Moderate focal aortic valve calcification. Pulmonic Valve Normal pulmonic valve. Great Vessels Normal aortic root. The pulmonary artery is normal size. Inferior vena cava collapse with respiration. Pericardium/Pleural No pericardial effusion. MMode/2D Measurements Calculations LVIDd: 4.8 cm IVSd: 0.79 cm LVOT diam: 2.0 cm LVIDs: 3.0 cm LVPWd: 0.95 cm LVOT area: 3.1 cm2 RVDd: 3.4 cm FS: 38.3 % Ao root diam: 3.4 cm LAV(MOD-bp): 39.5 ml LA A4 area: 18.0 cm2 LAV(MOD-bp) Indexed: 20.2 ml/m2 LAV(MOD-sp2): 32.6 ml LAV(MOD-sp4): 47.7 ml LA dimension(2D): 3.5 cm TAPSE: 2.0 cm RA A4 area: 12.3 cm2 Time Measurements MV dec time: 0.23 sec Doppler Measurements Calculations MV E max symone: 82.2 cm/sec Lat Peak E' Symone: 10.6 cm/sec Med Peak E' Symone: 8.3 cm/sec MV A max symone: 99.6 cm/sec E/E' lat: 7.7 E/E' med: 9.9 MV E/A: 0.83 MV V2 max: 110.0 cm/sec MV P1/2t max symone: 91.7 cm/sec Ao V2 max: 172.8 cm/sec MV max P.8 mmHg MV P1/2t: 79.2 msec Ao max P.0 mmHg MV V2 mean: 64.8 cm/sec MV dec slope: 339.2 cm/sec2 Ao V2 mean: 115.8 cm/sec MV mean P.0 mmHg Ao mean P.2 mmHg MV V2 VTI: 23.8 cm MVA(P1/2t): 2.8 cm2 Ao V2 VTI: 35.3 cm MVA(VTI): 3.6 cm2 AV (velocity ratio): 0.80 TOSHIA(I,D): 2.4 cm2 TOSHIA(V,D): 2.3 cm2 LV V1 max: 128.1 cm/sec SV(LVOT): 86.2 ml PA V2 max: 126.9 cm/sec LV V1 max P.6 mmHg LV V1 mean P.7 mmHg LV V1 mean: 91.5 cm/sec LV V1 VTI: 28.0 cm TR max symone: 251.4 cm/sec TR max P.3 mmHg ECHO/Echo Complete Interpretation Summary Normal LV size. Left ventricular systolic function is normal. The left ventricular ejection fraction is 65 %. Stage 1 diastolic dysfunction. Moderate focal aortic valve calcification. Ordering Physician: Jody Garner Referring Physician: Jody Garner Performed By: Sterling Jiménez RCS 10/05/24 172 Date Ken Cortez MD CC: Dr. Jody Garner MD Date Dictated: 10/05/24 145 Date Transcribed: 10/05/24 172 Pole Classifier: Signed Normal [facility] Re-Evaluation - PT (1)on Re-Evaluation - PT (1) [facility] Physical Therapy Health[address] [place] [address] / REEVALUATION / MEDICARE RECERTIFICATION PHYSICAL THERAPY MR#: [id number] Acct: [id number] Name: MAKEDA NEGRON Rep #: [id number] : 1955 69 From: Tohmas Dias DPT, OCS, CSCS Referring Dr.: Dr. Taryn Lowry DO Status: REG RCR Insurance: MEDICARE PART A B [facility] Re-Evaluation Intro: Dr. Taryn Lowry, DO, It has been my pleasure to treat MAKEDA NEGRON over the last 8 visits for L BOBBY 08/29/24. Please see the progress note below for an update on the physical therapy plan of care! Subjective Subjective: Saw doctor regarding R hip pain and options are US, therapy or PRPs. Pt does not want PRPs.. r hip hurts in upper glut. 01/25 with ambulation but comfortable at rest. Rest adn ice ovr weeekend and did not help. Saw [facility] yesterday and thinks she is strained. PROM er was painful. L hip is doing good, no pain for a while. Gtting stronger. L hip 85% better but needs too be stronger. R hip is the problem. Objective Objective/Function: L hip 85% better, still weak and gives L trendelnberg gait but able to ambulate without cane and no pain. R hip is holding her back more and uncomfortable, has script for eval whcih will be done next visit after resting. Is tender over R trochanter and into glut. Able to lift R leg abd and flexion but painful, no difference iwth ir or er on lift into abduction, b oth painful. WOMAC not done because R hip is painfully holding her back more than L. main goal left on L hip is to get I with prison strength which will be accomplished over next 4 weeks in conjunciton with R hip treatment when appropriate adn able. progressing nicely toward L hip goals which are still appropriate for next 4 weeks POC and highly dependent on tolerance to L hip pain which is being taken care of by [facility] doctor and pt may have US to ensure health of the tissue. Agreeable to rest over next 1-2 weeks to diminish R hip pain. Plan Plan Plan: Pt to rest in an effort to help R LE pain over next week and thn will come in for 2x/week for 4 weks for continued strength of L hip to I. Eval to be done on R hip for pain and weakness next session and will add that to treatment. Balance/Gait/Functional tests Balance/Special Test Scores WOMAC Total Score: 71 WOMAC Percentage: 26.0500 Goals Goals Goal 1:: I appropriate management of condition with HEP/gym ex Goal Time Frame: 4-6 Weeks Goal Progress: Progressing Goal 2:: Pain 0-1/10 at allt imes and manageable Goal Time Frame: 4-6 Weeks Goal Progress: Goal Met L hip Goal 3:: sleep without interruption in bed all night 7 hours Goal Time Frame: 4-6 Weeks Goal Progress: Goal Met L hip Goal 4:: walk without AD and steps reciprocally with one rail Goal Time Frame: 4-6 Weeks Goal Progress: cane due to R hip Goal 5:: put on shoes and socks I Goal Time Frame: 4-6 Weeks Goal Progress: Progressing Goal 6:: 25 or less womac score Goal Progress: Not tested. Anticipated Interventions Anticipated Interventions Patient/Client Instruction: Educate patient on: Condition and Plan of Care For the Purpose of:: To decrease pain, To increase ROM, To improve nutrient delivery to tissue, To improve muscle performance and motor function, To increase tolerance to activity/condition/posi tion, To improve ability of physical actions for home/community/work/lei sure and To improve gait and locomotor functions Therapeutic Exercise to Include: Strength training, Postural training, Flexibilty training, Gait and locomotor training, Passive ROM and Active ROM For the Purpose of:: To decrease pain, To increase ROM, To improve nutrient delivery to tissue, To improve muscle performance and motor function, To increase tolerance to activity/condition/posi tion and To improve gait and locomotor functions Manual Therapy Techniques to Include: Scar massage, Mobilization, Passive ROM and Soft tissue mobilization For the Purpose of:: To decrease swelling/inflammation, To improve nutrient delivery to tissue, To increase oxygenation perfusion and To improve muscle performance and motor function Cryotherapy (ice pack, ice massage): Yes For the Purpose of:: To decrease swelling/inflammation Re-Evaluation Ending Re-evaluation ending: Please do not hesitate to contact me at [phone] by phone or if you have questions or concerns regarding this new plan of care! Sincerely, Thomas Dias, DPT, OCS, CSCS 10/04/24 1147 CC: Dr. Jody Garner MD; Dr. Taryn Lowry DO EBG Signed For Medicare only, by signing this I certify the plan of care. Physicians Signature Date Normal [facility] Absolute lymphocyte countOrd ered By: Michellewade Cage on 09-27-2024 Lymphocytes Auto (Unsp spec) [#/Vol] 1.74 10*3/uL 0.83-4.51 [facility] Absolute neutrophil countOrd ered By: [facility] 09-27-2024 Neutrophils (Bld) [#/Vol] 2.8 10*3/uL 2.0-7.7 [facility] Anion gap in Serum or Plasma Ordered By: Michellewade Cage on 09-27-2024 Anion gap [Moles/Vol] 13 mmol/L 5-15 [facility] Automated lymphocyte count a s percentage of total leukocytesOrdered By: [place] on 09-27-2024 Lymphocytes/100 WBC Auto (Unsp spec) 34.3 % - [facility] BUN/creatinine ratioOrdered By: [facility] on 09-27-2024 Urea nitrogen/Creatinine [Mass ratio] 18.4 mg/mg 10-20 [facility] Basophil percentageOrdered B y: Michelle Cage on 09-27-2024 Basophils/100 WBC (Bld) 0.8 % 0-1 [facility] Bilirubin, totalOrdered By: [place] on 09-27-2024 Bilirubin [Mass/Vol] 0.24 mg/dL 0.00-1.30 [facility] CBC W/Diff, Automatedon 09-16 Absolute Lymph 1.74 X10 3/uL Normal 0.83-4.51 [facility] Comment on above: Performed By: #### L 500.4050, L100.0100 #### [facility] [address] [place], [address] Absolute Neut 2.8 X10 3/uL Normal 2.0-7.7 [facility] Comment on above: Performed By: #### L 500.4050, L100.0100 #### [facility] [address] [place], [address] Basophils/100 WBC (Bld) 0.8 % Normal 0-1 [facility] Comment on above: Performed By: #### L 500.4050, L100.0100 #### [facility] [address] [place], [address] Eosinophils/100 WBC (Bld) 4.3 % Normal 0-5 [facility] Comment on above: Performed By: #### L 500.4050, L100.0100 #### [facility] [address] [place], [address] Erythrocyte distribution width (RBC) [Ratio] 13.3 % Normal 11.6-14.6 [facility] Comment on above: Performed By: #### L 500.4050, L100.0100 #### [facility] [address] [place], [address] Hematocrit (Bld) [Volume fraction] 35.9 % Low 37-47 [facility] Comment on above: Performed By: #### L 500.4050, L100.0100 #### [facility] [address] [place], [address] Hemoglobin (Bld) [Mass/Vol] 11.4 g/dL Low 12.0-15.0 [facility] Comment on above: Performed By: #### L 500.4050, L100.0100 #### [facility] [address] [place], [address] IG% 0.600 Normal 0.0-0.9 [facility] Comment on above: Result Comment: IG% - Immature Granulocytes (promyelocytes, myelocytes and metamyelocytes) > 1% indicates that a LEFT SHIFT is Present. Performed By: #### L 500.4050, L100.0100 #### [facility] [address] [place], [address] Lymphocytes/100 WBC (Bld) 34.3 % Normal 19-41 [facility] Comment on above: Performed By: #### L 500.4050, L100.0100 #### [facility] [address] [place], [address] MCH (RBC) [Entitic mass] 30.8 pg Normal 27.0-32.0 [facility] Comment on above: Performed By: #### L 500.4050, L100.0100 #### [facility] [address] [place], [address] MCHC (RBC) [Mass/Vol] 31.8 g/dL Low 32-36 [facility] Comment on above: Performed By: #### L 500.4050, L100.0100 #### [facility] [address] [place], [address] MCV (RBC) [Entitic vol] 97.0 fL Normal 81-99 [facility] Comment on above: Performed By: #### L 500.4050, L100.0100 #### [facility] [address] [place], [address] Monocytes/100 WBC (Bld) 5.5 % Normal 0-10 [facility] Comment on above: Performed By: #### L 500.4050, L100.0100 #### [facility] [address] [place], [address] Neutrophils/100 WBC (Bld) 54.5 % Normal 47-70 [facility] Comment on above: Performed By: #### L 500.4050, L100.0100 #### [facility] [address] [place], [address] Nucleated RBC (Bld) [#/Vol] 0 10*3/uL Normal 0-5 [facility] Comment on above: Performed By: #### L 500.4050, L100.0100 #### [facility] [address] [place], [address] Platelet mean volume (Bld) [Entitic vol] 9.9 fL Normal 6.2-12.0 [facility] Comment on above: Performed By: #### L 500.4050, L100.0100 #### [facility] [address] [place], [address] Platelets (Bld) [#/Vol] 316 10*3/uL Normal 150-450 [facility] Comment on above: Performed By: #### L 500.4050, L100.0100 #### [facility] [address] [place], [address] RBC (Bld) [#/Vol] 3.70 10*6/uL Low 4.2-5.4 [facility] Comment on above: Performed By: #### L 500.4050, L100.0100 #### [facility] [address] [place], [address] RDW SD 47.0 fl High 35.1-43.9 [facility] Comment on above: Performed By: #### L 500.4050, L100.0100 #### [facility] [address] [place], [address] WBC (Bld) [#/Vol] 5.1 10*3/uL Normal 4.4-11.0 [facility] Comment on above: Performed By: #### L 500.4050, L100.0100 #### [facility] [address] [place], [address] Carbon dioxide, total [Moles /volume] in Central venous bloodOrdered By: Michelle Cage on 09-27-2024 CO2 [Moles/Vol] 23.6 mmol/L 21.0-32.0 [facility] Chloride assayOrdered By: Ra diane Cage on 09-27-2024 Chloride [Moles/Vol] 104 mmol/L 98-108 [facility] Comprehensive Metabolic Prof ilon 09-27-2024 Albumin [Mass/Vol] 3.9 g/dL Normal 3.4-4.8 [facility] Comment on above: Performed By: #### L 500.4050, L100.0100 #### [facility] [address] [place], [address] Albumin/Globulin [Mass ratio] 1.4 {ratio} Normal 0.9-2.4 [facility] Comment on above: Performed By: #### L 500.4050, L100.0100 #### [facility] [address] [place], [address] ALK PHOS 97 U/L Normal 35-104 [facility] Comment on above: Performed By: #### L 500.4050, L100.0100 #### [facility] [address] [place], [address] ALT [Catalytic activity/Vol] 15 U/L Normal <=34 [facility] Comment on above: Performed By: #### L 500.4050, L100.0100 #### [facility] [address] [place], [address] AST [Catalytic activity/Vol] 22 U/L Normal <=31 [facility] Comment on above: Performed By: #### L 500.4050, L100.0100 #### [facility] [address] [place], [address] Bilirubin [Mass/Vol] 0.24 mg/dL Normal 0.00-1.30 [facility] Comment on above: Performed By: #### L 500.4050, L100.0100 #### [facility] [address] [place], [address] BUN/CRE 18.4 RATIO Normal 10-20 [facility] Comment on above: Performed By: #### L 500.4050, L100.0100 #### [facility] [address] [place], [address] Calcium [Mass/Vol] 9.6 mg/dL Normal 7.6-11.0 [facility] Comment on above: Performed By: #### L 500.4050, L100.0100 #### [facility] [address] [place], [address] Chloride [Moles/Vol] 104 mmol/L Normal 98-108 [facility] Comment on above: Performed By: #### L 500.4050, L100.0100 #### [facility] [address] [place], [address] CO2 [Moles/Vol] 23.6 mmol/L Normal 21.0-32.0 [facility] Comment on above: Performed By: #### L 500.4050, L100.0100 #### [facility] [address] [place], [address] Creatinine [Mass/Vol] 0.88 mg/dL Normal 0.70-1.20 [facility] Comment on above: Performed By: #### L 500.4050, L100.0100 #### [facility] [address] [place], [address] GAP 13 Normal 5-15 [facility] Comment on above: Performed By: #### L 500.4050, L100.0100 #### [facility] [address] [place], [address] GFR/1.73 sq M.predicted among non-blacks MDRD (S/P/Bld) [Vol rate/Area] 71 mL/min/{1.73_m2} Normal >60 [facility] Comment on above: Result Comment: mL/m in/1.73m2 CKD-EPI Creatinine Equation (2020) Performed By: #### L 500.4050, L100.0100 #### [facility] [address] [place], [address] Globulin (S) [Mass/Vol] 2.8 g/dL Normal 2.2-4.2 [facility] Comment on above: Performed By: #### L 500.4050, L100.0100 #### [facility] [address] [place], [address] Glucose [Mass/Vol] 162 mg/dL High 70-99 [facility] Comment on above: Performed By: #### L 500.4050, L100.0100 #### [facility] [address] [place], [address] Potassium [Moles/Vol] 3.7 mmol/L Normal 3.3-5.1 [facility] Comment on above: Performed By: #### L 500.4050, L100.0100 #### [facility] [address] [place], [address] Sodium [Moles/Vol] 141 mmol/L Normal 133-145 [facility] Comment on above: Performed By: #### L 500.4050, L100.0100 #### [facility] [address] [place], [address] T PROT 6.7 g/dL Normal 5.9-8.4 [facility] Comment on above: Performed By: #### L 500.4050, L100.0100 #### [facility] [address] [place], [address] Urea nitrogen [Mass/Vol] 16 mg/dL Normal 4-19 [facility] Comment on above: Performed By: #### L 500.4050, L100.0100 #### [facility] [address] [place], [address] Eosinophil percentageOrdered By: Michellewade Cage on 09-27-2024 Eosinophils/100 WBC (Bld) 4.3 % 0-5 [facility] Erythrocyte distribution wid th ratioOrdered By: Michellewade Cage on 09-27-2024 Erythrocyte distribution width (RBC) [Ratio] 13.3 % 11.6-14.6 [facility] Erythrocyte distribution wid th standard deviationOrdered By: Michellewade Cage on 09-27-2024 Erythrocyte distribution width (RBC) [Entitic vol] 47.0 fL High 35.1-43.9 [facility] Erythrocyte distribution width (RBC) [Ratio] 47.0 fl High 35.1-43.9 [facility] GFR/1.73 sq M.predicted huy g non-blacks MDRD (S/P/Bld) [Vol rate/Area]Ordered By: Michelle Cage on 09-27-2024 Estimated GFR (MDRD) Non-Af Amer 71 >60 [facility] Comment on above: mL/min/1.73m2 CKD-EP I Creatinine Equation (2020) Glomerular filtration rate ( GFR) estimation/1.73 sq m using serum, plasma, or whole bOrdered By: Michellewade Cage on 09-27-2024 GFR/1.73 sq M.predicted among non-blacks MDRD (S/P/Bld) [Vol rate/Area] 71 mL/min/{1.73_m2} >60 [facility] Comment on above: mL/min/1.73m2 CKD-EP I Creatinine Equation (2020) Hematocrit Auto (Bld) [Volum e fraction]Ordered By: Michelle Cage on 09-27-2024 Hematocrit (Bld) [Volume fraction] 35.9 % Low 37-47 [facility] Hemoglobin measurementOrdere d By: Michelle Cage on 09-27-2024 Hemoglobin (Bld) [Mass/Vol] 11.4 g/dL Low 12.0-15.0 [facility] Immature granulocytes/100 WB C Auto (Bld)Ordered By: Michelle Cage on 09-27-2024 Immature granulocytes/100 WBC (Bld) 0.600 % 0.0-0.9 [facility] Comment on above: IG% - Immature Granu locytes (promyelocytes, myelocytes and metamyelocytes) > 1% indicates that a LEFT SHIFT is Present. Laboratory - Chemistry and C hemistry - challengeOrdered By: Michelle Cage on 09-27-2024 AST [Catalytic activity/Vol] 22 U/L <32 [facility] Lymphocytes Auto (Unsp spec) [#/Vol]Ordered By: Michelle Cage on 09-27-2024 Lymphocytes (Bld) [#/Vol] 1.74 10*3/uL 0.83-4.51 [facility] Lymphocytes/100 WBC Auto (Un sp spec)Ordered By: Michelle Cage on 09-27-2024 Lymphocytes/100 WBC (Bld) 34.3 % 19-41 [facility] MCV (mean corpuscular volume ) determinationOrdered By: Michelle Cage on 09-27-2024 MCV (RBC) [Entitic vol] 97.0 fL 81-99 [facility] Mean corpuscular hemoglobin (MCH) determinationOrdered By: Michelle Cage on 09-27-2024 MCH (RBC) [Entitic mass] 30.8 pg 27.0-32.0 [facility] Mean corpuscular hemoglobin concentration (MCHC) determinationOrdered By: Michelle Cage on 09-27-2024 MCHC (RBC) [Mass/Vol] 31.8 g/dL Low 32-36 [facility] Mean platelet volume determi nationOrdered By: Michelle Cage on 09-27-2024 Platelet mean volume (Bld) [Entitic vol] 9.9 fL 6.2-12.0 [facility] Monocyte percentageOrdered B y: Michelle Cage on 09-27-2024 Monocytes/100 WBC (Bld) 5.5 % 0-10 [facility] Neutrophil percentageOrdered By: Michelle Cage on 09-27-2024 Neutrophils/100 WBC (Bld) 54.5 % 47-70 [facility] Nucleated red blood cell per centageOrdered By: Michelle Cage on 09-27-2024 Nucleated RBC/100 WBC (Bld) [Ratio] 0 % 0-5 [facility] Platelet countOrdered By: Ra diane Cage on 09-27-2024 Platelets (Bld) [#/Vol] 316 10*3/uL 150-450 [facility] Potassium (Unsp spec) [Mass/ Vol]Ordered By: Michelle Cage on 09-27-2024 Potassium [Moles/Vol] 3.7 mmol/L 3.3-5.1 [facility] Potassium measurement (mass/ volume)Ordered By: Michelle Cage on 09-27-2024 Potassium (Unsp spec) [Mass/Vol] 3.7 mmol/L 3.3-5.1 [facility] RBC Auto (Bld) [#/Vol]Ordere d By: Michelle Cage on 09-27-2024 RBC (Bld) [#/Vol] 3.70 10*6/uL Low 4.2-5.4 [facility] Serum creatinine measurement (mass/volume)Ordered By: Michelle Cage on 09-27-2024 Creatinine [Mass/Vol] 0.88 mg/dL 0.70-1.20 [facility] Serum globulin measurementOr dered By: Michelle Cage on 09-27-2024 Globulin (S) [Mass/Vol] 2.8 g/dL 2.2-4.2 [facility] Serum glucose measurement (m ass/volume)Ordered By: Michelle Cage on 09-27-2024 Glucose [Mass/Vol] 162 mg/dL High 70-99 [facility] Serum or plasma alanine downey otransferase (ALT) measurementOrdered By: Michelle Cage on 09-27-2024 ALT [Catalytic activity/Vol] 15 U/L <35 [facility] Serum or plasma albumin rolanda urement (mass/volume)Ordered By: Michelle Cage on 09-27-2024 Albumin [Mass/Vol] 3.9 g/dL 3.4-4.8 [facility] Serum or plasma albumin/glob ulin mass ratioOrdered By: Michelle Cage 09-27-2024 Albumin/Globulin [Mass ratio] 1.4 {ratio} 0.9-2.4 [facility] Serum or plasma alkaline fernando sphatase measurementOrdered By: Michelle Cage 09-27-2024 ALP [Catalytic activity/Vol] 97 U/L 35-104 [facility] Serum or plasma calcium rolanda urement (mass/volume)Ordered By: Michelle Najeragar on 09-27-2024 Calcium [Mass/Vol] 9.6 mg/dL 7.6-11.0 [facility] Serum or plasma urea nitroge n measurement (mass/volume)Ordered By: Michelle Cage on 09-27-2024 Urea nitrogen [Mass/Vol] 16 mg/dL 4-19 [facility] Sodium levelOrdered By: Danyarama membreno Edgar on 09-27-2024 Sodium [Moles/Vol] 141 mmol/L 133-145 [facility] Total proteinOrdered By: Dhruv wade Cage on 09-27-2024 Protein [Mass/Vol] 6.7 g/dL 5.9-8.4 [facility] White blood cell (WBC) count Ordered By: Michelle Cage on 09-27-2024 WBC (Bld) [#/Vol] 5.1 10*3/uL 4.4-11.0 [facility] Orthopedic Visit Reporton Orthopedic Visit Report [facility] [address] [place] [address] OFFICE VISIT Date of Service: 09/11/24 MR#: [id number] Acct: [id number] Name: MAKEDA NEGRON Rep #: [id number] : 1955 Provider: Dr. Naresh howe DO Age/Sex: 69/F Location: [facility] Status: Signed Intake Vital Signs 07/24/24 10:09 09/01/24 11:16 Height 5 ft 2 in 5 ft 2 in Intake Visit Reasons: left hip Chief Complaint: 2 week post-op Accompanied by: Is patient in pain?: Yes Allergies Dressing: Non-Medicated (elastic) Allergy (Severe, Verified 09/11/24 10:56) Rash povidone-iodine (From Betadine) Allergy (Severe, Verified 09/11/24 10:57) Rash chlorhexidine (From ChloraPrep Clear) Allergy (Intermediate, Verified 09/11/24 10:56) Itching isopropyl alcohol (From ChloraPrep Clear) Allergy (Intermediate, Verified 09/11/24 10:56) Itching adhesive tape Allergy (Verified 09/11/24 10:56) Rash codeine Allergy (Verified 09/11/24 10:56) Hives levofloxacin Allergy (Verified 09/11/24 10:56) unknown cortisone Adverse Reaction (Severe, Verified 09/11/24 10:56) migraine and skin on fire prednisone Adverse Reaction (Severe, Verified 09/11/24 10:56) migraine and skin on fire NSAIDS (Non-Steroidal Anti-Inflamma Adverse Reaction (Verified 09/11/24 10:56) Upset Stomach promethazine HCl (From Phenergan) Adverse Reaction (Verified 09/11/24 10:56) RESTLESS LEG SYNDROME sulfamethoxazole (From Bactrim) Adverse Reaction (Verified 09/11/24 10:56) Nausea trimethoprim (From Bactrim) Adverse Reaction (Verified 09/11/24 10:56) Nausea Medications ???Medication ???Instructions ???Recorded ???Confirmed ???Type amitriptyline 150 mg tablet 150 mg PO QHS TORRES 09/07/13 09/11/24 History hydrochlorothiazide 25 mg tablet 25 mg PO DAILY BP 09/07/13 5 History omeprazole 20 mg capsule,delayed 20 mg PO QHS GERD 09/07/13 5 History release atorvastatin 10 mg tablet 20 mg PO QHS CHOLESTEROL 09/21/14 09/11/24 History metoprolol tartrate 25 mg tablet 25 mg PO BID BP 12/10/15 09/11/24 History verapamil 120 mg tablet 60 mg PO BID BP 12/07/16 09/11/24 History sucralfate 1 gram tablet (Carafate) 1 g PO BID STOMACH 01/09/19 History cholecalciferol (vitamin D3) 50 2,000 unit PO DAILY SUPPLEMENT 09/11/24 History mcg (2,000 unit) capsule cranberry extract 300 mg tablet 30,000 mg PO DAILY SUPPLEMENT 11/1609/11/24 History melatonin 12 mg tablet 12 mg PO QHS SUPPLEMENT 11/05/22 0 09/11/24 History Estriol 1 gm intrauterine TUFR SUPPLEMENT 12/08/22 09/11/24 History acetaminophen 500 mg tablet 1,000 mg (2 x 500 mg) PO Q6H Pain 08/30/24 09/11/24 Rx #100 tabs enoxaparin 40 mg/0.4 mL 40 mg (0.4 mL) subcut DAILY Blood 09/04/24 09/11/24 Rx subcutaneous syringe (Lovenox) thinne #21 mL aspirin 81 mg chewable tablet 81 mg PO DAILY #1 TAB 09/05/24 Rx (Aspirin Childrens) cyclobenzaprine 10 mg tablet 10 mg PO TID PRN muscle spasm #30 09/11/24 09/11/24 Rx tabs Have you fallen in the past year?: No PFSH Medical History Abrasion History of diverticulitis Shortness of breath on exertion History of edema Post-menopausal Ambulates with cane Bladder disease High cholesterol Injury of head and neck Diverticulosis History of ulceration Fractured coccyx Wears glasses Osteoporosis Non-smoker CPAP (continuous positive airway pressure) dependence Pain aggravated by walking Edema Migraine headache TIA (transient ischemic attack) History of trigger finger Nausea Abdominal pain Osteoarthritis of right hip Obstructive sleep apnea Morbid obesity with BMI of 40.0-44.9, adult Chronic headaches SBO (small bowel obstruction) HTN (hypertension) GERD (gastroesophageal reflux disease) Surgical History Hx of total knee replacement History of hip surgery Hx of right cataract extraction Hx of left cataract extraction Hx of colonoscopy Hx of cholecystectomy Hx of tonsillectomy History of partial hysterectomy Hx of shoulder surgery Hx of total shoulder replacement Hx of arthroscopy History of appendectomy History of reverse total replacement of left shoulder joint ( 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 number of children: 2 pets and animals: Yes pets (more content not included)... Normal [facility] Inital Evaluation (1) - PTon 09-06-2024 Inital Evaluation (1) - PT [facility] Physical Therapy [facility] [address] [place] [address] / REHABILITATION SERVICES INITIAL EVALUATION MR#: [id number] Acct: [id number] Name: MAKEDA NEGRON Rep #: [id number] : 1955 69 From: Thomas Dias DPT, OCS, CSCS Referring Dr.: Dr. Taryn Lowry DO Status: REG RCR Insurance: MEDICARE PART A B [facility] Patient's Visit Information Visit Information Visit Information: MAKEDA NEGRON is a 69 year old F referred to Physical Therapy by Dr. Taryn Lowry DO with a diagnosis of L BOBBY 08/29/24. Date of Evaluation: 09/06/24 Physical Therapist: Thomas Dias, KELSEY, OCS, CSCS Visit Plan Frequency: 2x /Week Duration: 4-6 Weeks Plan: 2x/week for 4-6 weeks for IE: HEP GS, QS, AP, hip abd supine, bent leg raise, reviewed precautions, appropriate gait with wh walker and is to use it. Treat with progression of strength, gait, steps, ROM to L hip within post hip precuations, progress toward I gym adn home program. ice as needed, scar massage as needed. Subjective Subjective: L BOBBY 2... after months of trouble with it. Had 2 R hip glut max repairs last year. L hip pain was in groin and pretty bad and needed done. Surgery went well , 2 days on surgical floor the 5 days on rehab. Slept Ok last night at home. Has grabber she uses at home. Pain level is not a problem, sore at times, hurts only if she moves the wrong way. Vincent still in and out next Wednesday. Home with in one story house with 3 steps with railing. no problem using r LE. helps her get socks and shoes and pants over foot. Spends time in chair and has lift chair. Getting up every hour. Uses walker to get around. HEP AP , pillow squeeze.unable to SLR. No precautions except no running or jumping. Wants to walk normal. Wants to do eveery day chores. using seat in shower , sits to get over tub and slides in. Hobbies: plays cards. Wants to go out to eat with friends. No regular exercises. Wants to use silver sneakers. Pain R hip: Pain Intensity (Out of 10): 0 Pain Intensity Range: 0 and 7 Comment: twisting worse or reaching. Objective Objective: Pushed into PT with WC holding feet up herself. Walks out of therapy with wh walker 250 feet mod I. Short R step length but good pattern otherwise. Can take a few steps without aD but feels unstable on L. Sit to stand to sit I with UE on chair. Table transfer I, slow L leeg movement and hesitant to lift but can do with bent leg. SLR L not able needing mod A and painful. Weakness in lateral hip mm make slightly unstable when moving L hip in and out in supine. ROM hip 85 l and 0 extension today 24# hip flexion seated L and 30# extension. TUG is 18 seconds. Incision is posterior and daija in place, no drainage and tissue around feels normal. has an iliac incison that is slightly red but improved according to patient who had a rash there previously. Able to recount for functional precautions but reviewed post approach precautions today. Balance/Special Test Scores WOMAC Total Score: 71 WOMAC Percentatge: 26.0500 Goals Goal 1:: I appropriate management of condition with HEP/gym ex Goal Time Frame: 4-6 Weeks Goal 2:: Pain 0-1/10 at allt imes and manageable Goal Time Frame: 4-6 Weeks Goal 3:: sleep without interruption in bed all night 7 hours Goal Time Frame: 4-6 Weeks Goal 4:: walk without AD and steps reciprocally with one rail Goal Time Frame: 4-6 Weeks Goal 5:: put on shoes and socks I Goal Time Frame: 4-6 Weeks Goal 6:: 25 or less womac score Rehabilitation Potential Physical Therapy Diagnosis: L hip pain and stiffness and weakness post surgery effecting function. Rehabilitation Potential: Fair Anticipated Interventions Patient/Client Instruction: Educate patient on: Condition and Plan of Care For the Purpose of:: To decrease pain, To increase ROM, To improve nutrient delivery to tissue, To improve muscle performance and motor function, To increase tolerance to activity/condition/posi tion, To improve ability of physical actions for home/community/work/lei sure and To improve gait and locomotor functions Therapeutic Exercise to Include: Strength training, Postural training, Flexibilty training, Gait and locomotor training, Passive ROM and Active ROM For the Purpose of:: To decrease pain, To increase ROM, To improve nutrient delivery to tissue, To improve muscle performance and motor function, To increase tolerance to activity/condition/posi tion and To improve gait and locomotor functions Manual Therapy Techniques to Include: Scar massage, Mobilization, Passive ROM and Soft tissue mobilization For the Purpose of:: To decrease swelling/inflammation, To improve nutrient delivery to tissue, To increase oxygenation perfusion and To improve muscle performance and motor f (more content not included)... Normal [facility] HH, Hemoglobin AND Hematocri ton 09-05-2024 Hematocrit (Bld) [Volume fraction] 29.9 % Low [address] [place] [address] Comment on above: Performed By: #### L 100.0500 #### [facility] [address] [place], [address] Hemoglobin (Bld) [Mass/Vol] 9.8 g/dL Low 12.0-15.0 [facility] Comment on above: Performed By: #### L 100.0500 #### [facility] [address] [place], [address] Hematocrit Auto (Bld) [Volum e fraction]Ordered By: Taryn Lowry on 09-05-2024 Hematocrit (Bld) [Volume fraction] 29.9 % Low [address] [place] [address] Hemoglobin measurementOrdere d By: Taryn Lowry on 09-05-2024 Hemoglobin (Bld) [Mass/Vol] 9.8 g/dL Low 12.0-15.0 [facility] Discharge Instructionon 08-19 Discharge Instruction [facility] Medical Records Department [address] [place] [address] Instructions for Home/Discharge Instructions 09/04/24 1424 MR#: [id number] Acct: [id number] Name: MAKEDA NEGRON Rep #: [id number] : 1955 69 From: Taryn Lowry DO PCP: Dr. Jody Garner MD Status:ADM IN Discharge Instructions Diet Discharge Diet: Low fat / Low cholesterol and - (low salt) DC O2, CPAP, BIPAP needs Home O2 Discharge instructions: No Dressing / Incision Discharge Activity: May Not Drive (Do not drive until Dr. Peralta tells you that you can resume driving. ) Weight Bearing Status: Full weight bearing Keep extremity elevated above heart level: Left Leg Dressing / Incision Call your doctor if your incision/area has: Continuous Slow Oozing, Sudden Increased Bleeding, Increased Pain/ Swelling, Increased Redness, Foul Smelling Discharge and Swelling at the incision site Call your doctor if you observe: Fever of 101 or Higher, Shortness of breath, Dizziness, Fainting spells, Swelling in the ankles, Chest pain, Increased palpitations (irregular heartbeat), Calf discomfort and Uncontrolled pain Suture Line Care: Avoid Pulling/Pushing and Avoid Pinching/Bending Cleanse incision/area with: Soap Water Follow Up Care Please Follow Up With: Naresh Peralta DO When: Has an appt scheduled for 2 weeks post op. Will also need to follow up with Dr. Garner within 2 weeks of DC from rehab. Test Results: Test results from this visit will be discussed in further detail at your follow-up appointment, if applicable. Pending Tests Upon Discharge: none Discharge Plan Admission Admit Date/Time: 08/31/24 14:00 Primary Reason for Your Visit: Debility secondary to left total hip arthroplasty Attending Provider: Taryn Lowry Primary Care Provider: Jody Garner Instructions Patient Instructions: Caring for Your Incision, Pulmonary Hypertension Additional Instructions / Restrictions: 1. Take the Doxycycline twice a day with food until gone. Do not take with milk products. 2. Look at your incision every day. If there is redness around the incision or any discharge or the incision edges are call Dr. Peralta. 3. You have a heart murmur. You had an ultrasound of your heart (called and ECHO) in 2016. The aortic valve was mildly thickened and calcified. This may be getting worse. Please discuss with Dr. Garner obtaining a new ECHO to evaluate the aortic valve. The BP in the lungs was also mildly elevated at that time. Untreated sleep apnea can cause high BP in the lungs called pulmonary hypertension. I have given you a handout to read that talks about pulmonary hypertension and the symptoms associated with this. 4. Make sure to get up at least once an hour and take a walk around your house to keep your from getting joint stiffness. 5. The sleep lab can help you with getting a mask for your CPAP that you can tolerate. 6. Untreated sleep apnea can cause atrial fibrillation (AFIB) which can cause strokes. It can also cause depression, memory loss, daytime somnolence, high blood pressure in the lungs (which can lead to swelling in the legs and shortness of breath with exertion and insomnia. 7. You will be taking a shot called Lovenox (also called enoxaparin) daily at discharge to help prevent blood clots in your legs. After hip surgery there is an increased risk of blood clots in the legs because you are not moving around as much as you were prior to the surgery. You will take this shot for 21 days and then you can stop. It is OK to take a baby aspirin once a day even when on the blood thinner. Take the aspirin with food. 8. If you have any questions after you leave rehab please do not hesitate to call me. OFFICE: [phone] CELL: [phone] NURSES STATION ON REHAB: [phone] 1. Because you have had a stroke in the past the goal for your BP is < 130/80. The BP in the mornings is good but, the BP later in the day has been elevated in the 150's and 160's. It may be elevated due to pain related to the recent hip replacement. I recommend you consider purchasing a BP cuff and taking your BP a few times during the day at different times and keeping a record of the readings to take to Dr. Garner at your next visit. The bottom number is always less than 80. 2. You and your may qualify for counselling on diet and weight loss with the dieticians here at the hospital with a diagnosis of metabolic syndrome. The program the dieticians's run is called "WHY WEIGHT" and all you need is a referral from your family doctor. 3. Please stay in touch with the sleep lab so we can get a CPAP mask that you are able to tolerate. 4. We checked your oygen continuously while you were sleeping in the hospital. Your oxygen levels due drop at night when you are sleeping. If youi can not wear the CPAP you may need to have oxygen (more content not included)... Normal [facility] Chest PA and Lateralon 09-03 Chest PA and Lateral [facility] Imaging Services [address] [place], [place] [address] Chest PA and Lateral MR#: [id number] Acct: [id number] Name: MAKEDA NEGRON Rep #: [id number] : 1955 F 69 From: Marsha King MD PCP: Dr. Jody Garner MD Status: ADM IN Study: Chest PA and Lateral Date of Exam: 09/03/24 Exam# [id number] Ordering Dr: Taryn Lowry DO PROCEDURE: CHEST PA AND LATERAL REASON FOR EXAM: Fever, cough TECHNIQUE: Frontal and lateral views of the chest. COMPARISON: None. FINDINGS: The lungs are clear. No pleural effusion or pneumothorax. The cardiomediastinal silhouette is unremarkable. No acute osseous or soft tissue abnormality. Bilateral shoulder arthroplasties present. RAD/Chest PA and Lateral IMPRESSION: 1. No acute cardiopulmonary process. [facility]: Dr. Jody Garner MD; Dr. Taryn Lowry DO Pole Classifier: Signed Normal [facility] RESPIRATORY PANEL MOLECULARo n 09-03-2024 RP PANEL ADENOVIRUS Not Detected INFLUENZA A Not Detected INFLUENZA A (SUBTYPE H1) Not Detected INFLUENZA A (SUBTYPE H3) Not Detected INFLUENZA B Not Detected HUMAN METAPHNEUMO Not Detected PARAINFLUENZA 1 Not Detected PARAINFLUENZA 2 Not Detected PARAINFLUENZA 3 Not Detected PARAINFLUENZA 4 Not Detected RHINOVIRUS Not Detected RSV A Not Detected RSV B Not Detected Normal [facility] Comment on above: Performed By: #### L 100.0500 #### [facility] [address] [place], [address] COVID 19 AG RAPID (RN CARLOS T)on 09-02-2024 SARS-CoV-2 (COVID-19) RNA JENN+probe Ql (Unsp spec) *Negative results from patients with symptom onset beyond five days should be treated as presumptive and confirmed by a molecular assay if clinically necessary. Negative results should not be used as the sole basis for treatment or for patient management. SARS-CoV-2 Ag Resp Ql IA.rapid *Positive results do not differentiate between SARS-CoV and SARS-CoV-2. If differentiation of the specific SARS virus is desired an additional sample and an additional order is required. SARS-CoV-2 Ag Resp Ql IA.rapid * This test has not been FDA cleared or approved; the test has been authorized by FDA under an Emergency Use Authorization (EAU) for use by laboratories certified under CLIA that meet the requirements to perform moderate, high, or waived complexity tests. SARS-CoV-2 Ag Resp Ql IA.rapid Normal Reference Range: Negative SARS-CoV-2 (COVID 19) Negative RAPID METHOD [employer] COVID19 Ag Card Normal [facility] Comment on above: Performed By: #### M 100.505 ####[facility] [address] [place], [address] COVID-19 virus antigen assay Ordered By: Taryn Lowry on 09-02-2024 SARS-CoV-2 (COVID-19) Ag IA.rapid Ql (Resp) [facility] Respiratory pathogens DNA an d RNA panel JENN+probe (Resp)Ordered By: Taryn Lowry on 09-02-2024 Respiratory Panel (PCR) [facility] Respiratory pathogens detect ion panel by molecular detection methodOrdered By: Taryn Lowry on 09-02-2024 Respiratory pathogens DNA and RNA panel JENN+probe (Resp) [facility] SARS-CoV-2 (COVID-19) Ag IA. rapid Ql (Resp)Ordered By: Taryn Lowry on 09-02-2024 SARS-CoV-2 Antigen (Rapid) [facility] Absolute lymphocyte countOrd ered By: Taryn Alen on 09-01-2024 Lymphocytes Auto (Unsp spec) [#/Vol] 1.59 10*3/uL 0.83-4.51 [facility] Absolute neutrophil countOrd ered By: Taryn Alen on 09-01-2024 Neutrophils (Bld) [#/Vol] 4.6 10*3/uL 2.0-7.7 [facility] Albumin to globulin ratioOrd ered By: Taryn Lowry on 09-01-2024 Albumin/Globulin [Mass ratio] 0.6 {ratio} Low 0.9-2.4 [facility] Automated lymphocyte count a s percentage of total leukocytesOrdered By: Taryn Lowry on 09-01-2024 Lymphocytes/100 WBC Auto (Unsp spec) 22.3 % 19-41 [facility] Basophil percentageOrdered B y: Taryn Lowry on 09-01-2024 Basophils/100 WBC (Bld) 0.3 % 0-1 [facility] Bilirubin, totalOrdered By: Taryn Lowry on 09-01-2024 Bilirubin [Mass/Vol] 0.60 mg/dL 0.20-1.00 [facility] Comment on above: For patients on eltr ombopag therapy, use of Dimension [place] TBIL is not recommended. Blood urea nitrogen (BUN)/cr eatinine ratioOrdered By: Taryn Lowry on 09-01-2024 Urea nitrogen/Creatinine [Mass ratio] 22.7 mg/mg High 10-20 [facility] CBC W/Diff, Automatedon 08-19 Absolute Lymph 1.59 X10 3/uL Normal 0.83-4.51 [facility] Comment on above: Performed By: #### L 501.2300, L501.5200, L500.4050, L100.0100 ####[facility] [address] [place], [address] Absolute Neut 4.6 X10 3/uL Normal 2.0-7.7 [facility] Comment on above: Performed By: #### L 501.2300, L501.5200, L500.4050, L100.0100 ####[facility] [address] [place], [address] Basophils/100 WBC (Bld) 0.3 % Normal 0-1 [facility] Comment on above: Performed By: #### L 501.2300, L501.5200, L500.4050, L100.0100 ####[facility] [address] [place], [address] Eosinophils/100 WBC (Bld) 4.6 % Normal 0-5 [facility] Comment on above: Performed By: #### L 501.2300, L501.5200, L500.4050, L100.0100 ####[facility] [address] [place], [address] Erythrocyte distribution width (RBC) [Ratio] 13.2 % Normal 11.6-14.6 [facility] Comment on above: Performed By: #### L 501.2300, L501.5200, L500.4050, L100.0100 ####[facility] [address] [place], [address] Hematocrit (Bld) [Volume fraction] 28.7 % Low 37-47 [facility] Comment on above: Performed By: #### L 501.2300, L501.5200, L500.4050, L100.0100 ####[facility] [address] [place], [address] Hemoglobin (Bld) [Mass/Vol] 9.2 g/dL Low 12.0-15.0 [facility] Comment on above: Performed By: #### L 501.2300, L501.5200, L500.4050, L100.0100 ####[facility] [address] [place], [address] IG% 0.300 Normal 0.0-0.9 [facility] Comment on above: Result Comment: IG% - Immature Granulocytes (promyelocytes, myelocytes and metamyelocytes) > 1% indicates that a LEFT SHIFT is Present. Performed By: #### L 501.2300, L501.5200, L500.4050, L100.0100 ####[facility] [address] [place], [address] Lymphocytes/100 WBC (Bld) 22.3 % Normal 19-41 [facility] Comment on above: Performed By: #### L 501.2300, L501.5200, L500.4050, L100.0100 ####[facility] [address] [place], [address] MCH (RBC) [Entitic mass] 30.5 pg Normal 27.0-32.0 [facility] Comment on above: Performed By: #### L 501.2300, L501.5200, L500.4050, L100.0100 ####[facility] [address] [place], [address] MCHC (RBC) [Mass/Vol] 32.1 g/dL Normal 32-36 [facility] Comment on above: Performed By: #### L 501.2300, L501.5200, L500.4050, L100.0100 ####[facility] [address] [place], [address] MCV (RBC) [Entitic vol] 95.0 fL Normal 81-99 [facility] Comment on above: Performed By: #### L 501.2300, L501.5200, L500.4050, L100.0100 ####[facility] [address] [place], [address] Monocytes/100 WBC (Bld) 7.6 % Normal 0-10 [facility] Comment on above: Performed By: #### L 501.2300, L501.5200, L500.4050, L100.0100 ####[facility] [address] [place], [address] Neutrophils/100 WBC (Bld) 64.9 % Normal 47-70 [facility] Comment on above: Performed By: #### L 501.2300, L501.5200, L500.4050, L100.0100 ####[facility] [address] [place], [address] Nucleated RBC (Bld) [#/Vol] 0 10*3/uL Normal 0-5 [facility] Comment on above: Performed By: #### L 501.2300, L501.5200, L500.4050, L100.0100 ####[facility] [address] [place], [address] Platelet mean volume (Bld) [Entitic vol] 9.8 fL Normal 6.2-12.0 [facility] Comment on above: Performed By: #### L 501.2300, L501.5200, L500.4050, L100.0100 ####[facility] [address] [place], [address] Platelets (Bld) [#/Vol] 219 10*3/uL Normal 150-450 [facility] Comment on above: Performed By: #### L 501.2300, L501.5200, L500.4050, L100.0100 ####[facility] [address] [place], [address] RBC (Bld) [#/Vol] 3.02 10*6/uL Low 4.2-5.4 [facility] Comment on above: Performed By: #### L 501.2300, L501.5200, L500.4050, L100.0100 ####[facility] [address] [place], [address] RDW SD 45.9 fl High 35.1-43.9 [facility] Comment on above: Performed By: #### L 501.2300, L501.5200, L500.4050, L100.0100 ####[facility] [address] [place], [address] WBC (Bld) [#/Vol] 7.1 10*3/uL Normal 4.4-11.0 [facility] Comment on above: Performed By: #### L 501.2300, L501.5200, L500.4050, L100.0100 ####[facility] [address] [place], [address] CBC-Complete Blood Cnt No Di ffon 09-01-2024 HCT Normal 37-47 [facility] Comment on above: Result Comment: Canc elled via OM: Order cancelled - Patient discharged Performed By: #### L 100.0500 #### [facility] [address] [place], [address] HGB Normal 12.0-15.0 [facility] Comment on above: Result Comment: Canc elled via OM: Order cancelled - Patient discharged Performed By: #### L 100.0500 #### [facility] [address] [place], [address] MCH Normal 27.0-32.0 [facility] Comment on above: Result Comment: Canc elled via OM: Order cancelled - Patient discharged Performed By: #### L 100.0500 #### [facility] [address] [place], [address] MCHC Normal 32-36 [facility] Comment on above: Result Comment: Canc elled via OM: Order cancelled - Patient discharged Performed By: #### L 100.0500 #### [facility] [address] [place], [address] MCV Normal 81-99 [facility] Comment on above: Result Comment: Canc elled via OM: Order cancelled - Patient discharged Performed By: #### L 100.0500 #### [facility] [address] [place], [address] PLT Normal 150-450 [facility] Comment on above: Result Comment: Canc elled via OM: Order cancelled - Patient discharged Performed By: #### L 100.0500 #### [facility] [address] [place], [address] RBC Normal 4.2-5.4 [facility] Comment on above: Result Comment: Canc elled via OM: Order cancelled - Patient discharged Performed By: #### L 100.0500 #### [facility] [address] [place], [address] RDW CV Normal 11.6-14.6 [facility] Comment on above: Result Comment: Canc elled via OM: Order cancelled - Patient discharged Performed By: #### L 100.0500 #### [facility] [address] [place], [address] RDW SD Normal 35.1-43.9 [facility] Comment on above: Result Comment: Canc elled via OM: Order cancelled - Patient discharged Performed By: #### L 100.0500 #### [facility] [address] [place], [address] WBC Normal 4.4-11.0 [facility] Comment on above: Result Comment: Canc elled via OM: Order cancelled - Patient discharged Performed By: #### L 100.0500 #### [facility] [address] [place], [address] Carbon dioxide measurementOr dered By: Taryn Lowry on 09-01-2024 CO2 [Moles/Vol] 28.0 mmol/L 21.0-32.0 [facility] Chloride measurementOrdered By: Taryn Lowry on 09-01-2024 Chloride [Moles/Vol] 105 mmol/L 98-107 [facility] Comprehensive Metabolic Prof ilon 09-01-2024 Albumin [Mass/Vol] 2.2 g/dL Low 3.2-5.0 [facility] Comment on above: Performed By: #### L 501.2300, L501.5200, L500.4050, L100.0100 ####[facility] [address] [place], [address] Albumin/Globulin [Mass ratio] 0.6 {ratio} Low 0.9-2.4 [facility] Comment on above: Performed By: #### L 501.2300, L501.5200, L500.4050, L100.0100 ####[facility] [address] [place], [address] ALK P 96 U/L Normal 45-117 [facility] Comment on above: Performed By: #### L 501.2300, L501.5200, L500.4050, L100.0100 ####[facility] [address] [place], [address] ALT [Catalytic activity/Vol] 17 U/L Normal 13-56 [facility] Comment on above: Performed By: #### L 501.2300, L501.5200, L500.4050, L100.0100 ####[facility] [address] [place], [address] AST [Catalytic activity/Vol] 27 U/L Normal 15-37 [facility] Comment on above: Performed By: #### L 501.2300, L501.5200, L500.4050, L100.0100 ####[facility] [address] [place], [address] Bilirubin [Mass/Vol] 0.60 mg/dL Normal 0.20-1.00 [facility] Comment on above: Result Comment: For patients on eltrombopag therapy, use of Dimension [place] TBIL is not recommended. Performed By: #### L 501.2300, L501.5200, L500.4050, L100.0100 ####[facility] [address] [place], [address] BUN/CRE 22.7 RATIO High 10-20 [facility] Comment on above: Performed By: #### L 501.2300, L501.5200, L500.4050, L100.0100 ####[facility] [address] [place], [address] CA,Total 9.1 mg/dL Normal 8.5-10.1 [facility] Comment on above: Performed By: #### L 501.2300, L501.5200, L500.4050, L100.0100 ####[facility] [address] [place], [address] Chloride [Moles/Vol] 105 mmol/L Normal 98-107 [facility] Comment on above: Performed By: #### L 501.2300, L501.5200, L500.4050, L100.0100 ####[facility] [address] [place], [address] CO2 [Moles/Vol] 28.0 mmol/L Normal 21.0-32.0 [facility] Comment on above: Performed By: #### L 501.2300, L501.5200, L500.4050, L100.0100 ####[facility] [address] [place], [address] Creatinine [Mass/Vol] 0.53 mg/dL Low 0.55-1.02 [facility] Comment on above: Result Comment: The validity of the calculated GFR GFRAA in patients over 70 years has not been determined. Clinical correlation is essential. Performed By: #### L 501.2300, L501.5200, L500.4050, L100.0100 ####[facility] [address] [place], [address] ECRCL 72.17 ml/min Normal [facility] Comment on above: Performed By: #### L 501.2300, L501.5200, L500.4050, L100.0100 ####[facility] [address] [place], [address] EST GFR - AA 147 mL/min Normal >60 [facility] Comment on above: Result Comment: Afri can [place] GFR Calc Performed By: #### L 501.2300, L501.5200, L500.4050, L100.0100 ####[facility] [address] [place], [address] GAP 5 Normal 5-15 [facility] Comment on above: Performed By: #### L 501.2300, L501.5200, L500.4050, L100.0100 ####[facility] [address] [place], [address] GFR/1.73 sq M.predicted among non-blacks MDRD (S/P/Bld) [Vol rate/Area] 122 mL/min/{1.73_m2} Normal >60 [facility] Comment on above: Result Comment: Non- GFR Calc Performed By: #### L 501.2300, L501.5200, L500.4050, L100.0100 ####[facility] [address] [place], [address] Globulin (S) [Mass/Vol] 3.5 g/dL Normal 2.2-4.2 [facility] Comment on above: Performed By: #### L 501.2300, L501.5200, L500.4050, L100.0100 ####[facility] [address] [place], [address] Glucose [Mass/Vol] 90 mg/dL Normal 74-106 [facility] Comment on above: Performed By: #### L 501.2300, L501.5200, L500.4050, L100.0100 ####[facility] [address] [place], [address] Potassium [Moles/Vol] 3.7 mmol/L Normal 3.5-5.1 [facility] Comment on above: Performed By: #### L 501.2300, L501.5200, L500.4050, L100.0100 ####[facility] [address] [place], [address] Sodium [Moles/Vol] 138 mmol/L Normal 136-145 [facility] Comment on above: Performed By: #### L 501.2300, L501.5200, L500.4050, L100.0100 ####[facility] [address] [place], [address] T PROT 5.7 g/dL Low 6.4-8.2 [facility] Comment on above: Performed By: #### L 501.2300, L501.5200, L500.4050, L100.0100 ####[facility] [address] [place], [address] Urea nitrogen [Mass/Vol] 12 mg/dL Normal 7-18 [facility] Comment on above: Performed By: #### L 501.2300, L501.5200, L500.4050, L100.0100 ####[facility] [address] [place], [address] Eosinophil percentageOrdered By: Taryn Lowry on 09-01-2024 Eosinophils/100 WBC (Bld) 4.6 % 0-5 [facility] Erythrocyte distribution wid th ratioOrdered By: Taryn Lowry on 09-01-2024 Erythrocyte distribution width (RBC) [Ratio] 13.2 % 11.6-14.6 [facility] Erythrocyte distribution wid th standard deviationOrdered By: Taryn Lowry on 09-01-2024 Erythrocyte distribution width (RBC) [Entitic vol] 45.9 fL High 35.1-43.9 [facility] Erythrocyte distribution width (RBC) [Ratio] 45.9 fl High 35.1-43.9 [facility] Estimated glomerular filtrat ion rate (GFR) AmericanOrdered By: Taryn Lowry on 09-01-2024 Estimated GFR (MDRD) Amer 147 mL/min >60 [facility] Comment on above: GFR Calc Estimation of creatinine hilda aranceOrdered By: Taryn Lowry on 09-01-2024 Estimated Creatinine Clearance Calc 72.17 ml/min [facility] Glomerular filtration rate ( GFR) estimationOrdered By: Taryn Gomezjeffrey on 09-01-2024 Estimated GFR (MDRD) Non-Af Amer 122 mL/min >60 [facility] Comment on above: Non- GFR Calc GFR/1.73 sq M.predicted among non-blacks MDRD (S/P/Bld) [Vol rate/Area] 122 mL/min/{1.73_m2} >60 [facility] Comment on above: Non- GFR Calc Glucose measurementOrdered B y: Taryn Gomezjeffrey on 09-01-2024 Glucose [Mass/Vol] 90 mg/dL 74-106 [facility] Immature granulocytes/100 WB C Auto (Bld)Ordered By: Taryn Alen on 09-01-2024 Immature granulocytes/100 WBC (Bld) 0.300 % 0.0-0.9 [facility] Comment on above: IG% - Immature Granu locytes (promyelocytes, myelocytes and metamyelocytes) > 1% indicates that a LEFT SHIFT is Present. Laboratory - Chemistry and C hemistry - challengeOrdered By: Taryn Alen on 09-01-2024 AST [Catalytic activity/Vol] 27 U/L 15-37 [facility] Lymphocytes Auto (Unsp spec) [#/Vol]Ordered By: Taryn Alen on 09-01-2024 Lymphocytes (Bld) [#/Vol] 1.59 10*3/uL 0.83-4.51 [facility] Lymphocytes/100 WBC Auto (Un sp spec)Ordered By: Taryn Alen on 09-01-2024 Lymphocytes/100 WBC (Bld) 22.3 % 19-41 [facility] MCV (mean corpuscular volume ) determinationOrdered By: Taryn Lowry on 09-01-2024 MCV (RBC) [Entitic vol] 95.0 fL 81-99 [facility] Magnesiumon 09-01-2024 Magnesium [Mass/Vol] 2.2 mg/dL Normal 1.6-2.6 [facility] Comment on above: Performed By: #### L 501.2300, L501.5200, L500.4050, L100.0100 ####[facility] [address] [place], [place], [id number] Magnesium measurementOrdered By: Taryn Alen on 09-01-2024 Magnesium [Mass/Vol] 2.2 mg/dL 1.6-2.6 [facility] Mean corpuscular hemoglobin (MCH) determinationOrdered By: Taryn Lowry on 09-01-2024 MCH (RBC) [Entitic mass] 30.5 pg 27.0-32.0 [facility] Mean corpuscular hemoglobin concentration (MCHC) determinationOrdered By: Taryn Lowry on 09-01-2024 MCHC (RBC) [Mass/Vol] 32.1 g/dL 32-36 [facility] Mean platelet volume determi nationOrdered By: Taryn Lowry on 09-01-2024 Platelet mean volume (Bld) [Entitic vol] 9.8 fL 6.2-12.0 [facility] Monocyte percentageOrdered B y: Taryn Lowry on 09-01-2024 Monocytes/100 WBC (Bld) 7.6 % 0-10 [facility] Neutrophil percentageOrdered By: Taryn Lowry on 09-01-2024 Neutrophils/100 WBC (Bld) 64.9 % 47-70 [facility] Nucleated red blood cell per centageOrdered By: Taryn Lowry on 09-01-2024 Nucleated RBC/100 WBC (Bld) [Ratio] 0 % 0-5 [facility] Phosphoruson 09-01-2024 Phosphate [Mass/Vol] 2.5 mg/dL Normal 2.5-4.9 [facility] Comment on above: Performed By: #### L 501.2300, L501.5200, L500.4050, L100.0100 ####[facility] [address] [place], [place], [address] Phosphorus measurementOrdere d By: Taryn Lowry on 09-01-2024 Phosphorus Level 2.5 mg/dL 2.5-4.9 [facility] Platelet countOrdered By: Gus Lowry on 09-01-2024 Platelets (Bld) [#/Vol] 219 10*3/uL 150-450 [facility] Potassium measurementOrdered By: Taryn Lowry on 09-01-2024 Potassium [Moles/Vol] 3.7 mmol/L 3.5-5.1 [facility] RBC Auto (Bld) [#/Vol]Ordere d By: Taryn Alen on 09-01-2024 RBC (Bld) [#/Vol] 3.02 10*6/uL Low 4.2-5.4 [facility] Serum anion gap measurementO rdered By: Taryn Lowry on 09-01-2024 Anion gap [Moles/Vol] 5 mmol/L 5-15 [facility] Serum globulin measurementOr dered By: Taryn Lowry on 09-01-2024 Globulin (S) [Mass/Vol] 3.5 g/dL 2.2-4.2 [facility] Serum or plasma alanine downey otransferase (ALT) measurementOrdered By: Taryn Lowry on 09-01-2024 ALT [Catalytic activity/Vol] 17 U/L 13-56 [facility] Serum or plasma albumin rolanda urement (mass/volume)Ordered By: Taryn Lowry on 09-01-2024 Albumin [Mass/Vol] 2.2 g/dL Low 3.2-5.0 [facility] Serum or plasma alkaline fernando sphatase measurementOrdered By: Taryn Lowry on 09-01-2024 ALP [Catalytic activity/Vol] 96 U/L 45-117 [facility] Serum or plasma calcium rolanda urement (mass/volume)Ordered By: Taryn Lowry on 09-01-2024 Calcium [Mass/Vol] 9.1 mg/dL 8.5-10.1 [facility] Serum or plasma creatinine m easurement (mass/volume)Ordered By: Taryn Lowry on 09-01-2024 Creatinine [Mass/Vol] 0.53 mg/dL Low 0.55-1.02 [facility] Comment on above: The validity of the calculated GFR & GFRAA in patients over 70 years has not been determined. Clinical correlation is essential. Serum or plasma urea nitroge n measurement (mass/volume)Ordered By: Taryn Lowry on 09-01-2024 Urea nitrogen [Mass/Vol] 12 mg/dL 7-18 [facility] Sodium levelOrdered By: Taryn Lowry on 09-01-2024 Sodium [Moles/Vol] 138 mmol/L 136-145 [facility] Total proteinOrdered By: Zulema Lowry on 09-01-2024 Protein [Mass/Vol] 5.7 g/dL Low 6.4-8.2 [facility] White blood cell (WBC) count Ordered By: Taryn Lowry on 09-01-2024 WBC (Bld) [#/Vol] 7.1 10*3/uL 4.4-11.0 [facility] Bilirubin Test strip Ql (U)O rdered By: Taryn Lowry on 08-31-2024 Bilirubin Ql (U) Negative Negative [facility] CBC-Complete Blood Cnt No Di ffon 08-31-2024 Erythrocyte distribution width (RBC) [Ratio] 13.1 % Normal 11.6-14.6 [facility] Comment on above: Performed By: #### L 100.0500 #### [facility] [address] [place], [address] Hematocrit (Bld) [Volume fraction] 31.4 % Low 37-47 [facility] Comment on above: Performed By: #### L 100.0500 #### [facility] [address] [place], [address] Hemoglobin (Bld) [Mass/Vol] 10.1 g/dL Low 12.0-15.0 [facility] Comment on above: Performed By: #### L 100.0500 #### [facility] [address] [place], [address] MCH (RBC) [Entitic mass] 30.6 pg Normal 27.0-32.0 [facility] Comment on above: Performed By: #### L 100.0500 #### [facility] [address] [place], [address] MCHC (RBC) [Mass/Vol] 32.2 g/dL Normal 32-36 [facility] Comment on above: Performed By: #### L 100.0500 #### [facility] [address] [place], [address] MCV (RBC) [Entitic vol] 95.2 fL Normal 81-99 [facility] Comment on above: Performed By: #### L 100.0500 #### [facility] [address] [place], [address] Platelet mean volume (Bld) [Entitic vol] 9.8 fL Normal 6.2-12.0 [facility] Comment on above: Performed By: #### L 100.0500 #### [facility] [address] [place], [address] Platelets (Bld) [#/Vol] 214 10*3/uL Normal 150-450 [facility] Comment on above: Performed By: #### L 100.0500 #### [facility] [address] [place], [address] RBC (Bld) [#/Vol] 3.30 10*6/uL Low 4.2-5.4 [facility] Comment on above: Performed By: #### L 100.0500 #### [facility] [address] [place], [address] RDW SD 45.2 fl High 35.1-43.9 [facility] Comment on above: Performed By: #### L 100.0500 #### [facility] [address] [place], [address] WBC (Bld) [#/Vol] 7.1 10*3/uL Normal 4.4-11.0 [facility] Comment on above: Performed By: #### L 100.0500 #### [facility] [address] [place], [address] Epithelial cells.squamous LM Ql (Urine sed)Ordered By: Taryn Lowry on 08-31-2024 Epithelial cells.squamous LM.HPF (Urine sed) [#/Area] 0 /[HPF] 5-10 [facility] Erythrocyte distribution wid th ratioOrdered By: Naresh Peralta on 08-31-2024 Erythrocyte distribution width (RBC) [Ratio] 13.1 % 11.6-14.6 [facility] Erythrocyte distribution wid th standard deviationOrdered By: Naresh Peralta on 08-31-2024 Erythrocyte distribution width (RBC) [Entitic vol] 45.2 fL High 35.1-43.9 [facility] Erythrocyte distribution width (RBC) [Ratio] 45.2 fl High 35.1-43.9 [facility] Glucose Ql (U)Ordered By: Gus Lowry on 08-31-2024 Urine Glucose (UA) Normal mg/dl Normal [facility] Hematocrit Auto (Bld) [Volum e fraction]Ordered By: Naresh Peralta on 08-31-2024 Hematocrit (Bld) [Volume fraction] 31.4 % Low 37-47 [facility] Hemoglobin measurementOrdere d By: Naresh Peralta on 08-31-2024 Hemoglobin (Bld) [Mass/Vol] 10.1 g/dL Low 12.0-15.0 [facility] Ketones Test strip Ql (U)Ord ered By: Taryn Lowry on 08-31-2024 Ketones Ql (U) Negative Negative [facility] MCV (mean corpuscular volume ) determinationOrdered By: Naresh Peralta on 08-31-2024 MCV (RBC) [Entitic vol] 95.2 fL 81-99 [facility] Mean corpuscular hemoglobin (MCH) determinationOrdered By: Naresh Peralta on 08-31-2024 MCH (RBC) [Entitic mass] 30.6 pg 27.0-32.0 [facility] Mean corpuscular hemoglobin concentration (MCHC) determinationOrdered By: Naresh Peralta on 08-31-2024 MCHC (RBC) [Mass/Vol] 32.2 g/dL 32-36 [facility] Mean platelet volume determi nationOrdered By: Naresh Peralta on 08-31-2024 Platelet mean volume (Bld) [Entitic vol] 9.8 fL 6.2-12.0 [facility] Microscopic analysis of urin e for red blood cells (RBC)Ordered By: Taryn Lowry on 08-31-2024 Microscopic analysis of urine for red blood cells (RBC) 0 SEEN /hpf 0-5 [facility] Urine RBC 0 SEEN /hpf 0-5 [facility] Mucus LM Ql (Urine sed)Order ed By: Taryn Gomezjeffrey on 08-31-2024 Mucus Ql (Urine sed) 0 SEEN /hpf [facility] Nitrite Test strip Ql (U)Ord ered By: Taryn Gomezjeffrey on 08-31-2024 Nitrite Ql (U) Negative Negative [facility] Platelet countOrdered By: Mary Peralta on 08-31-2024 Platelets (Bld) [#/Vol] 214 10*3/uL 150-450 [facility] Protein Test strip Ql (U)Ord ered By: Taryn Gomezjeffrey on 08-31-2024 Protein Ql (U) 30 mg/dl High Negative [facility] RBC Auto (Bld) [#/Vol]Ordere d By: Naresh Kathryn on 08-31-2024 RBC (Bld) [#/Vol] 3.30 10*6/uL Low 4.2-5.4 [facility] Squamous epithelial cells de tection in urine sediment by light microscopyOrdered By: Taryn Alen on 08-31-2024 Epithelial cells.squamous LM Ql (Urine sed) 0 SEEN /hpf 5-10 [facility] Urinalysis, Completeon 08-31 RBC 0 SEEN Normal 0-5 [facility] Comment on above: Order Comment: EDY CTOR TO SPECIFY Performed By: #### L 100.0500 #### [facility] [address] [place], [address] BACTERIA 0 SEEN Normal None Seen [facility] Comment on above: Order Comment: EDY CTOR TO SPECIFY Performed By: #### L 100.0500 #### [facility] [address] [place], [address] EPI,SQUAMOUS 0 SEEN Normal 5-10 [facility] Comment on above: Order Comment: EDY CTOR TO SPECIFY Performed By: #### L 100.0500 #### [facility] [address] [place], [place], [id number] Mucus Ql (Urine sed) 0 SEEN Normal [facility] Comment on above: Order Comment: EDY CTOR TO SPECIFY Performed By: #### L 100.0500 #### [facility] [address] [place], [place], [address] WBC 0 SEEN Normal 0-5 [facility] Comment on above: Order Comment: EDY CTOR TO SPECIFY Performed By: #### L 100.0500 #### [facility] [address] [place], [place], [id number] Urine blood detectionOrdered By: Taryn Lowry on 08-31-2024 Urine Occult Blood 10 /ul High Negative [facility] Urine clarityOrdered By: Zulema Lowry on 08-31-2024 Clarity (U) Clear Clear [facility] Urine color determinationOrd ered By: Taryn Lowry on 08-31-2024 Color (U) Yellow Yellow [facility] Urine glucose detectionOrder ed By: Taryn Lowry on 08-31-2024 Glucose Ql (U) Normal mg/dl Normal [facility] Urine leukocyte esterase det ection by dipstickOrdered By: Taryn Lowry on 08-31-2024 Leukocyte esterase Test strip Ql (U) Negative Negative [facility] Urine pHOrdered By: Taryn wray on 08-31-2024 pH (U) 6.0 [pH] 5.0 - 8.0 [facility] Urine sediment bacteria coun t by microscopy (number/high power field)Ordered By: Taryn Lowry on 08-31-2024 Bacteria LM.HPF (Urine sed) [#/Area] 0 /[HPF] None Seen [facility] Urine specific gravity measu rementOrdered By: Taryn Lowry on 08-31-2024 Specific gravity (U) [Rel density] 1.015 1.002-1.030 [facility] Urine urobilinogen measureme ntOrdered By: Taryn Lowry on 08-31-2024 Urobilinogen Ql (U) Normal mg/dl Normal [facility] Urobilinogen Ql (U)Ordered B y: Taryn Lowry on 08-31-2024 Urine Urobilinogen Normal mg/dl Normal [facility] White blood cell (WBC) count Ordered By: Naresh Peralta on 08-31-2024 WBC (Bld) [#/Vol] 7.1 10*3/uL 4.4-11.0 [facility] White blood cell countOrdere d By: Taryn Lowry on 08-31-2024 Urine WBC 0 SEEN /hpf 0-5 [facility] White blood cell count 0 SEEN /hpf 0-5 [facility] Basic Metabolic Profile (BMP )on 08-30-2024 BUN/CRE 18.5 RATIO Normal 10-20 [facility] Comment on above: Performed By: #### L 500.2500, L100.0500 #### [facility] [address] [place], [address] CA,Total 8.5 mg/dL Normal 8.5-10.1 [facility] Comment on above: Performed By: #### L 500.2500, L100.0500 #### [facility] [address] [place], [address] Chloride [Moles/Vol] 104 mmol/L Normal 98-107 [facility] Comment on above: Performed By: #### L 500.2500, L100.0500 #### [facility] [address] [place], [address] CO2 [Moles/Vol] 24.0 mmol/L Normal 21.0-32.0 [facility] Comment on above: Performed By: #### L 500.2500, L100.0500 #### [facility] [address] [place], [address] Creatinine [Mass/Vol] 0.76 mg/dL Normal 0.55-1.02 [facility] Comment on above: Result Comment: The validity of the calculated GFR GFRAA in patients over 70 years has not been determined. Clinical correlation is essential. Performed By: #### L 500.2500, L100.0500 #### [facility] [address] [place], [address] ECRCL 70.72 ml/min Normal [facility] Comment on above: Performed By: #### L 500.2500, L100.0500 #### [facility] [address] [place], [address] EST GFR - AA 97 mL/min Normal >60 [facility] Comment on above: Result Comment: Afri can [place] GFR Calc Performed By: #### L 500.2500, L100.0500 #### [facility] [address] [place], [address] GAP 6 Normal 5-15 [facility] Comment on above: Performed By: #### L 500.2500, L100.0500 #### [facility] [address] [place], [address] GFR/1.73 sq M.predicted among non-blacks MDRD (S/P/Bld) [Vol rate/Area] 80 mL/min/{1.73_m2} Normal >60 [facility] Comment on above: Result Comment: Non- GFR Calc Performed By: #### L 500.2500, L100.0500 #### [facility] [address] [place], [address] Glucose [Mass/Vol] 113 mg/dL High 74-106 [facility] Comment on above: Result Comment: Fast ing Glucose result from 100 to 125 mg/dL suggests IMPAIRED HOMEOSTASIS per A.D.A. criteria. Performed By: #### L 500.2500, L100.0500 #### [facility] [address] [place], [address] Potassium [Moles/Vol] 3.9 mmol/L Normal 3.5-5.1 [facility] Comment on above: Performed By: #### L 500.2500, L100.0500 #### [facility] [address] [place], [address] Sodium [Moles/Vol] 134 mmol/L Low 136-145 [facility] Comment on above: Performed By: #### L 500.2500, L100.0500 #### [facility] [address] [place], [address] Urea nitrogen [Mass/Vol] 14 mg/dL Normal 7-18 [facility] Comment on above: Performed By: #### L 500.2500, L100.0500 #### [facility] [address] [place], [address] Blood urea nitrogen (BUN)/cr eatinine ratioOrdered By: Naresh Peralta on 08-30-2024 Urea nitrogen/Creatinine [Mass ratio] 18.5 mg/mg 10-20 [facility] CBC-Complete Blood Cnt No Di ffon 08-30-2024 Erythrocyte distribution width (RBC) [Ratio] 13.1 % Normal 11.6-14.6 [facility] Comment on above: Performed By: #### L 500.2500, L100.0500 #### [facility] [address] [place], [address] Hematocrit (Bld) [Volume fraction] 30.4 % Low 37-47 [facility] Comment on above: Performed By: #### L 500.2500, L100.0500 #### [facility] [address] [place], [address] Hemoglobin (Bld) [Mass/Vol] 9.9 g/dL Low 12.0-15.0 [facility] Comment on above: Performed By: #### L 500.2500, L100.0500 #### [facility] [address] [place], [address] MCH (RBC) [Entitic mass] 31.1 pg Normal 27.0-32.0 [facility] Comment on above: Performed By: #### L 500.2500, L100.0500 #### [facility] [address] [place], [address] MCHC (RBC) [Mass/Vol] 32.6 g/dL Normal 32-36 [facility] Comment on above: Performed By: #### L 500.2500, L100.0500 #### [facility] [address] [place], [address] MCV (RBC) [Entitic vol] 95.6 fL Normal 81-99 [facility] Comment on above: Performed By: #### L 500.2500, L100.0500 #### [facility] [address] [place], [address] Platelet mean volume (Bld) [Entitic vol] 9.9 fL Normal 6.2-12.0 [facility] Comment on above: Performed By: #### L 500.2500, L100.0500 #### [facility] [address] [place], [address] Platelets (Bld) [#/Vol] 227 10*3/uL Normal 150-450 [facility] Comment on above: Performed By: #### L 500.2500, L100.0500 #### [facility] [address] [place], [address] RBC (Bld) [#/Vol] 3.18 10*6/uL Low 4.2-5.4 [facility] Comment on above: Performed By: #### L 500.2500, L100.0500 #### [facility] [address] [place], [address] RDW SD 46.0 fl High 35.1-43.9 [facility] Comment on above: Performed By: #### L 500.2500, L100.0500 #### [facility] [address] [place], [address] WBC (Bld) [#/Vol] 7.4 10*3/uL Normal 4.4-11.0 [facility] Comment on above: Performed By: #### L 500.2500, L100.0500 #### [facility] [address] [place], [address] Carbon dioxide measurementOr dered By: Naresh Peralta on 08-30-2024 CO2 [Moles/Vol] 24.0 mmol/L 21.0-32.0 [facility] Chloride measurementOrdered By: Naresh Peralta on 08-30-2024 Chloride [Moles/Vol] 104 mmol/L 98-107 [facility] Discharge Instructionon 08-19 Discharge Instruction [facility] Medical Records Department [address] [place] [address] Instructions for Home/Discharge Instructions 08/30/24 1215 MR#: [id number] Acct: [id number] Name: MAKEDA NEGRON Rep #: [id number] : 1955 69 From: Naresh Peralta DO PCP: Dr. Jody Garner MD Status:ADM IN Discharge Instructions Diet Discharge Diet: No restrictions DC O2, CPAP, BIPAP needs Home O2 Discharge instructions: No Dressing / Incision Call your doctor if you observe: Shortness of breath and Chest pain Additional Dressing/Incision Instructions:: Do not shower 72hrs. Begin daily showering warm water antibacterial soap postop day #3( 72hrs Post-operatively) and then daily. Leave the dressing on for 72 hours postoperatively then may remove prior to first shower and change dressing daily after this until no drainage for 2 consecutive days then may leave open to air. Follow hip precautions that were reviewed in hospital. Wear compression stockings, may remove at night. Start physical therapy as directed in hospital. Follow prescriptions instructions do not take any other pain medication or differ dosing without consulting your physician. Do not take oral NSAIDs until blood thinner has been completed , then may begin the day after completion if needed . Call Dr. Peralta's office with any concerns. Follow Up Care Please Follow Up With: Naresh Peralta DO When: 2 weeks Test Results: Test results from this visit will be discussed in further detail at your follow-up appointment, if applicable. Discharge Plan Admission Admit Date/Time: 08/29/24 10:26 Primary Reason for Your Visit: Left total hip arthroplasty Attending Provider: Naresh Peralta Primary Care Provider: Jody Garner Discharge Orders/Prescriptions Prescriptions: New acetaminophen 500 mg tablet 1,000 mg PO Q6H Qty: 100 0RF oxycodone 5 mg tablet 5 - 15 mg PO Q4H PRN (Reason: pain) 7 Days Qty: 60 0RF enoxaparin [Lovenox] 40 mg/0.4 mL syringe 40 mg subcut DAILY Qty: 21 0RF Continued sucralfate [Carafate] 1 gram tablet 1 g PO BID amitriptyline 150 MG tablet 150 mg PO QHS Patient Comments: HEADACHES omeprazole 20 MG capsule 20 mg PO QHS Patient Comments: STOMACH/ acid reflex hydrochlorothiazide 25 MG tablet 25 mg PO DAILY Patient Comments: BLOOD PRESSURE atorvastatin 10 MG tablet 20 mg PO QHS Patient Comments: CHOLESTEROL metoprolol tartrate 25 MG tablet 25 mg PO BID Patient Comments: high blood pressure verapamil 120 MG tablet 60 mg PO BID Patient Comments: blood pressure cholecalciferol (vitamin D3) 2,000 UNIT capsule 2,000 unit PO DAILY cranberry extract 300 mg Tablet 30,000 mg PO DAILY melatonin 12 mg Tablet 12 mg PO QHS Estriol 1 gm intrauterine TUFR Held aspirin [Adult Low Dose Aspirin] 81 mg tablet,delayed release (DR/EC) 81 mg PO DAILY Hold Instructions: Resume on 09/06/24. Patient Comments: STOP WEEK PER PCP Referrals / Follow Up: Jody Garner MD [Primary Care Provider] - 08/30/24 1223 Naresh Peralta DO CC: Dr. Jody Garner MD Signed ADDENDUM by Dr. Naresh Peralta DO on 08/31/24 at 0800 . 08/31/24 0800 Naresh Peralta DO cc: Dr. Jody Garner MD * Signed Normal [facility] Estimated glomerular filtrat ion rate (GFR) AmericanOrdered By: Naresh Peralta on 08-30-2024 Estimated GFR (MDRD) Amer 97 mL/min >60 [facility] Comment on above: GFR Calc Estimation of creatinine hilda aranceOrdered By: Naresh Peralta on 08-30-2024 Estimated Creatinine Clearance Calc 70.72 ml/min [facility] Glomerular filtration rate ( GFR) estimationOrdered By: Naresh Peralta on 08-30-2024 Estimated GFR (MDRD) Non-Af Amer 80 mL/min >60 [facility] Comment on above: Non- GFR Calc GFR/1.73 sq M.predicted among non-blacks MDRD (S/P/Bld) [Vol rate/Area] 80 mL/min/{1.73_m2} >60 [facility] Comment on above: Non- GFR Calc Glucose measurementOrdered B y: Naresh Peralta on 08-30-2024 Glucose [Mass/Vol] 113 mg/dL High 74-106 [facility] Comment on above: Fasting Glucose resu lt from 100 to 125 mg/dL suggests IMPAIRED HOMEOSTASIS per A.D.A. criteria. Potassium measurementOrdered By: Naresh Peralta on 08-30-2024 Potassium [Moles/Vol] 3.9 mmol/L 3.5-5.1 [facility] Serum anion gap measurementO rdered By: Naresh Peralta on 08-30-2024 Anion gap [Moles/Vol] 6 mmol/L 5-15 [facility] Serum or plasma calcium rolanda urement (mass/volume)Ordered By: Naresh Peralta on 08-30-2024 Calcium [Mass/Vol] 8.5 mg/dL 8.5-10.1 [facility] Serum or plasma creatinine m easurement (mass/volume)Ordered By: Naresh Peralta on 08-30-2024 Creatinine [Mass/Vol] 0.76 mg/dL 0.55-1.02 [facility] Comment on above: The validity of the calculated GFR & GFRAA in patients over 70 years has not been determined. Clinical correlation is essential. Serum or plasma urea nitroge n measurement (mass/volume)Ordered By: Naresh Peralta on 08-30-2024 Urea nitrogen [Mass/Vol] 14 mg/dL 7-18 [facility] Sodium levelOrdered By: Jose Peralta on 08-30-2024 Sodium [Moles/Vol] 134 mmol/L Low 136-145 [facility] Decalcification bone/plaqueo n 08-29-2024 Decalcification bone/plaque Patient Age/Sex Location Account Attending Physician MAKEDA NEGRON 69/F MS3 [id number] Dr. Naresh Peralta, Specimen: [id number] Received: 08/29/24 Status: KWAN Santana Num: [id number] Spec Type: TOTAL HIP Subm Dr: Dr. Naresh Peralta DO [employer] OPERATION: Left total hip replacement robotic arm assist PRE-OP DIAGNOSIS: Degenerative joint disease of left hip TISSUE SUBMITTED: Left hip bone and tissue MICROSCOPIC DIAGNOSIS Left hip bone and soft tissue, total hip replacement/resection: Femoral head with degenerative osteoarthritic changes. SJ: 09/01/2024 MICROSCOPIC DESCRIPTION Slides are reviewed. GROSS DESCRIPTION Received is one container labeled with the patient's name and designated "bone and soft tissue left hip." The specimen consists of a poe femoral head with portion of femoral neck. The femoral head measures 4 x 4.5 x 3 cm and the femoral neck measures up to 1 cm in length. The articular surface displays prominent osteophyte formation and bone erosion. No soft tissue is identified. Supervisor Shop sections from femoral head are submitted in two cassettes after decalcification. / 08/29/2024 TC: 5 [facility]: [id number], [id number] Patient Age/Sex Location Account Attending Physician MAKEDA NEGRON 69/F MS3 [id number] Dr. Naresh Peralta, DO Signed (signature on file) Dr. Sanjeev Alonzo MD 09/01/24 1220 Normal [facility] Comment on above: Performed By: #### P DEC ####[facility] [id number] [place], [address] Hip Min 2 Views (Portable)on 08-29-2024 Hip Min 2 Views (Portable) [facility] Imaging Services [address] [place], [place] [address] Hip Min 2 Views (Portable) MR#: [id number] Acct: [id number] Name: MAKEDA NEGRON Rep #: [id number] : 1955 F 69 From: Adin sarmiento MD PCP: Dr. Jody Garner MD Status: ADM IN Study: Hip Min 2 Views (Portable) Date of Exam: 08/29 Exam# [id number] Ordering Dr: Naresh Peralta DO EXAM: HIP MIN 2 VIEWS (PORTABLE) CLINICAL HISTORY: Status post left hip replacement. COMPARISON: Comparison is made with prior examination dated May 25, 2024. TECHNIQUE: Two views were obtained. FINDINGS: The patient is status post left hip replacement. There is good alignment. Postoperative soft tissue changes. RAD/Hip Min 2 Views (Portable) IMPRESSION: Status post left total hip replacement. There is good alignment. Postoperative soft tissue changes. Reading Location: [facility] CC: Dr. Jody Garner MD; Dr. Naresh Peralta DO Pole Classifier: Signed Normal [facility] MR/POSTOP.Steven 08-29-2024 MR/POSTOP[facility] Medical Records Department [address] [place] [address] Anesthesia Postop Eval I 08/29/24 1037 MR#: [id number] Acct: [id number] Name: MAKEDA NEGRON Rep #: [id number] : 1955 69 From: Stanley Vo CRNA PCP: Dr. Jody Garner MD Status:ADM IN Y Race: C Location: [place] [address] Anesthesia: Postop Eval I Current Vital Signs Temperature: 98.4 F Pulse Rate: 69 Blood Pressure: 101/53 Respiratory Rate: 16 Pulse Ox: 98 Assessment Airway patent: Yes Spontaneous unlabored respirations: Yes nausea: No Vomiting: No Anesthesia Complication: No Fluid Hydration Crystalloid volume administer (ml): 1,200 Total IV fluid infused: 1,200 Progress Note Anesthesia document: Postop Eval 1 completed: Yes 08/29/24 1037 Date Stanley Vo VISUAL MERCHANDISE MANAGER Cosigner Signature: Date CC: Signed Normal [facility] MR/[id number] 08-29-2024 [facility] Medical Records Department [address] [place] [address] Anesthesia Postop Eval II 08/29/24 1312 MR#: [id number] Acct: [id number] Name: MAKEDA NEGRON Rep #: [id number] : 1955 69 From: Michael Melvin MD PCP: Dr. Jody Garner MD Status:ADM IN Y Race: C Location: [place] [address] Anesthesia Postop Eval I Sum Postop Eval Completion status Anesthesia document: Postop Eval 1 completed: Yes Anesthesia Postop Eval I Summary Anesthesia Postop Eval I Summary: Anesthesia Postop Eval I: Assessment Summary Airway patent Yes 08/29/24 10:37 VISUAL MERCHANDISE MANAGER.TNES Spontaneous unlabored Yes 08/29/24 10:37 VISUAL MERCHANDISE MANAGER.TNES respirations Mental status nausea No 08/29/24 10:37 VISUAL MERCHANDISE MANAGER.TNES Vomiting No 08/29/24 10:37 VISUAL MERCHANDISE MANAGER.TNES Anesthesia Postop Eval I: Fluid Summary Crystalloid volume administer 1,200 08/29/24 10:37 VISUAL MERCHANDISE MANAGER.TNES (ml) Colloids volume administered ( ml) Blood Product volume administered (ml) Total IV fluid infused 1,200 08/29/24 10:37 VISUAL MERCHANDISE MANAGER.TNES Anesthesia Postop Eval I: Summary Notes Anesthesia Complication No 08/29/24 10:37 VISUAL MERCHANDISE MANAGER.TNES Anesthesia Complication Comment: Post-operative progress note Anesthesia: Postop Eval II Evaluation Mental status: Awake and Calm Pain Level: 1 nausea: No Vomiting: No Complications Anesthesia Complication: No 08/29/24 1313 Date Michael Morseignmicki Signature: Date CC: Signed Normal [facility] Operative Reporton 5 Operative Report [facility] Medical Records Department [address] [place] [address] Operative Report 08/29/24 1030 MR#: [id number] Acct: [id number] Name: MAKEDA NEGRON Rep #: [id number] : 1955 69 From: Naresh Peralta DO PCP: Dr. Jody Garner MD Status:ADM IN Location: [place] [address] Operative Report (Standard) Operative Information Date of Procedure: 08/29/24 Pre-Operative Diagnosis: Left hip DJD Post-Operative Diagnosis: Same Surgery/Procedure Performed: Left total hip arthroplasty field crop farming supervisor: Yes Production Aide: Yohan Eduardo Tasks completed by maintenance assistant: Opening closing Additional certified teacher assistant?: No Type of Anesthesia: Spinal RN Documented Start/Stop Times: Operation Date: 08/29/24 08:00 Case Time Into Pre-Op 08/29/24 06:08 Anesthesia Start 08/29/24 08:06 Into Room 08/29/24 08:06 Procedure Start 08/29/24 08:39 Procedure End 08/29/24 10:22 Anesthesia End 08/29/24 10:28 Out of Room 08/29/24 10:28 Procedure Start Time: 08:39 Procedure Stop Time: 10:22 Select all DRAINS/GRAFTS/IMPLANTS that apply: Prosthetic device Prosthetic device details: [place] Estimated Blood Loss: 125 Specimen collected: No Description of surgery: Preoperative diagnosis: Left hip DJD Postoperative diagnosis: Same Procedure: CT-guided Makoplasty assisted left total hip arthroplasty Implants: Aby Accolade II stem size 3, 127 degree neck angle +4 head neck length 44 mm Trident II acetabular shell with 40 mm cancellous screw, and a 20 mm cancellous screw 32mm ceramic head, Trident X3 polyethylene insert. Anesthesia: Spinal EBL: 125 cc Complications: None Condition: Stable to PACU Sanitary Aide Yohan Eduardo. My physician certified teacher assistant was a vital part of this case. He was important in appropriate retraction during the case, and protection of soft tissues during procedure. His intimate knowledge of the case and my steps aided in safe and expedient completion of the procedure as well as appropriate position of the extremity during the case. He was also vital in assisting with closure under my direct supervision. Aminata Little nurse practitioner was second assist also help with holding retractors and suction Indication for procedure: This is a 69-year-old female who has had long-standing arthrosis of the hip who has failed conservative treatment and wished to undergo total hip arthroplasty. We did discuss operative versus nonoperative intervention including risks of bleeding, infection , nerve artery tissue damage, need for further surgery, fracture, leg length discrepancy dislocation blood clot and need for postoperative physical therapy and postoperative expectations. An informed consent was signed. Procedure: Patient was met in the preoperative holding area once again the operative extremity was identified by both patient and physician and was marked. Patient was met by anesthesia . Anesthesia was started. patient was then positioned in the lateral decubitus position on a well-padded pegboard with an axillary roll. All bony prominences were checked and padded. The patient was prepped and draped in the usual sterile fashion. A timeout was called to ensure the proper patient procedure and extremity were being contemplated. Anatomic landmarks were palpated and marked for a standard posterior lateral approach. Prior to this the ASIS was palpated and 3 fingerbreadths proximal to this 3 pins were placed at a 45 degree angle into the iliac crest with good purchase, stab incisions were made with a 15 blade into the skin prior to placement. The Makoplasty array was then secured. A 10 blade scalpel was used to make a posterior incision through the skin and subcutaneous tissue. retractors were used and electrocautery was used to maintain meticulous hemostasis and dissect full-thickness flaps until the gluteal fascia was reached. The gluteal fascia was incised in line with the gluteal fibers. The bursal tissue was then freed from the underside and a Charnley retractor was placed. The femoral trochanteric checkpoint was placed and leg length was assessed using the trochanteric checkpoint and an EKG lead that was placed on the knee prior to prepping the leg .the fat pad was then elevated off of the external rotators with electrocautery and the external rotators were dissected off of the greater trochanter including the piriformis and were tagged with #1 Ethibond for later repair. The joint capsule opened with posterior trapdoor technique. The hip was surgically dislocated. The measurement on the preoperative CT from the top of the lesser trochanter to the femoral neck cut was marked Drewann was placed around the lesser trochanter. A neck cutting guide was used to alexander the neck with a Bovie and an oscillating saw was used complete the femoral neck cut. The femoral head was then removed and sized (more content not included)... Normal [facility] Fructosamineon 08-17-2024 FRUCTOSAMINE 200 umol/L Normal 0-285 [facility] Comment on above: Result Comment: Publ ished reference interval for apparently healthy subjects between age 20 and 60 is 205 - 285 umol/L and in a poorly controlled diabetic population is 228 - 563 umol/L with a mean of 396 umol/L. Performed at: - [facility] [id number] Tools Developer: Altaf Weiss PhD, Phone: [phone] Performed By: #### L 501.5200, L300.4310, L3400.0100, BTSPAT, L500.2500, L300.3900, L100.0100, L501.9985, M100.651 ####[facility] [id number] [place], [address] MR/Liz 08-17-2024 MR/[facility] Medical Records Department [address] [place] [address] PAT - Anesthesia 08/17/24 2304 MR#: [id number] Acct: [id number] Name: MAKEDA NEGRON Rep #: [id number] : 1955 69 From: Michael Melvin MD PCP: Dr. Jody Garner MD Status:PRE IN Y Race: C Location: [facility] Pre-Assessment Diagnosis/Proposed Procedure Planned Operative Procedure(s): (L) Left Total Hip Replacement Robotic Arm Assisted Anesthesia History Anesthesia History - patient transportation driver: Anesthesia History - patient transportation driver Hx Hospitalization No 08/15/24 08:47 Any Problems With Anesthesia Yes: N,V 08/15/24 08:47 Cholinesterase deficiency No 08/15/24 08:47 You/Your Family Experience No 08/15/24 08:47 fever (hyperthermia) with Relationship Recent Exposure to Contagious No 06/07/24 15:12 Disease Does patient have nerve No 08/15/24 08:47 stimulator Patient instructed to have device shut off --Does patient have Pacemaker or ICD? When Was Last Pacemaker Check QUESTION #4 FULL TEXT: You/Your Family Experience fever (hyperthermia) with Anesthesia Last Oral Intake Last Oral intake: Last Oral Intake NPO since Meds taken in AM with sips of water? Meds patient instructed to take am of surgery PONV PONV - patient transportation driver: PONV - patient transportation driver Female Yes 08/15/24 08:47 HX of Motion Sickness No 08/15/24 08:47 HX of N/V After Surgery Yes 08/15/24 08:47 Non-Smoker Yes 08/15/24 08:47 Duration of Surgery greater Yes 08/15/24 08:47 than 60 minutes Number of Risk Factors 4 08/15/24 08:47 PONV Score Severe Risk 08/15/24 08:47 Height Weight Height Weight: Anesthesia: Height Weight Height 5 ft 2 in 07/24/24 10:09 Respiratory Assessment Respiratory Assessment - patient transportation driver: Respiratory Tract Infection Hx - patient transportation driver Hx Respiratory Tract Infection No 08/15/24 08:47 STOP Sleep Apnea STOP Sleep Apnea - patient transportation driver: STOP Sleep Apnea - patient transportation driver Hx Hypertension Yes: CONTROLLED WITH MED 08/15/24 08:47 Hx Sleep Apnea Yes 08/15/24 08:47 CPAP Yes: NONCOMPLIANT 08/15/24 08:47 BIPAP No 08/15/24 08:47 Do you snore loudly (louder than talking or can be heard Do you often feel tired/ fatigued/ sleepy during daytime? Has anyone observed you stop breathing during sleep? STOP Results Positive 08/15/24 08:47 QUESTION #5 FULL TEXT : Do you snore loudly (louder than talking or can be heard through closed doors)? Tobacco Use History Tobacco Use History - patient transportation driver: Tobacco Use History - patient transportation driver Tobacco Use Non-smoker 06/07/24 15:12 Smoking Status Never smoker 08/15/24 08:47 Hx Tobacco Use No 08/15/24 08:47 Years Smoking Packs Smoked per Day Smoking Cessation Date was within the last 15 years Hx Smoking Cessation Date Hx Smoking Cessation No 08/15/24 08:47 Counseling Hematologic Medial History Hematologic Hx - patient transportation driver: Hematologic Medical Hx - paper maker Hx of Blood Transfusion No 08/15/24 08:47 Hx of Transfusion in last 3 No 08/15/24 08:47 Months Date of Last Transfusion (if within last 3 months) Ever experience any problems No 08/15/24 08:47 with transfusion(s)? Specify any problems Hx of Preganancy in last 3 No 08/15/24 08:47 Months Nurse Filling Out Transfusion VCHRISTIN 08/15/24 08:47 Questions: Date: 08/15/24 08/15/24 08:47 Time: 08:49 08/15/24 08:47 Patient unable to answer at this time (ie. confused, unrespo /Reproduction History /Reproductive History - patient transportation driver: /Reproductive Hx- patient transportation driver Hx Now No 08/15/24 08:47 Gestational Age (in weeks): EDC: Hx Hx Para Hx Section SAB No 08/15/24 08:47 PFSH Medical History (Updated 08/15/24 @ 08:47 by Theresa Brooks) Abrasion History of diverticulitis Shortness of breath on exertion History of edema Post-menopausal Ambulates with cane Bladder disease High cholesterol Injury of head and neck Diverticulosis History of ulceration Fractured coccyx Wears glasses Osteoporosis Non-smoker CPAP (continuous positive airway pressure) dependence Pain aggravated by walking Edema Migraine headache TIA (transient ischemic attack) History of trigger finger Nausea Abdominal pain Osteoarthritis of right hip Obstructive sleep apnea Morbid obesity with BMI of 40.0-44.9, adult Chronic headaches SBO (small bowel obstruction) HTN (hypertension) GERD (gastroesophageal reflux disease) Home Medications ???Medication ???Instructions ???Recorded ???Last Taken ???Type amitriptyline 150 mg t (more content not included)... Normal [facility] MRSA/SAID NASAL SCREENon MRSA+SAID SCRN Reason for Exam: Surgery MRSA MRSA Negative S. AUREUS S. aureus Negative Normal [facility] Comment on above: Performed By: #### L 501.5200, L300.4310, L3400.0100, BTSPAT, L500.2500, L300.3900, L100.0100, L501.9985, M100.651 ####[facility] [address] [facility] [place], [address] 12 Lead EKGon 08-16-2024 12 Lead EKG [facility] Cardiovascular Services [address] [place] [address] 12 Lead EKG 08/16/24 0845 MR#: [id number] Acct: [id number] Name: MAKEDA NEGRON Rep #: [id number] : 1955 69 From: Krystian Neely MD Attending Dr: Dr. Naresh Peralta, Status: CT E IN Ordering Dr: Naresh Peralta DO Date: 08/16/24 Location: [facility] Sex: F C Admitted: Test Reason : PRE OP Blood Pressure : */* mmHG Vent. Rate : 79 BPM Atrial Rate : 79 BPM P-R Int : 196 ms QRS Dur : 82 ms QT Int : 380 ms P-R-T Axes : 63 16 63 degrees QTcB Int : 435 ms Normal sinus rhythm with sinus arrhythmia Low voltage QRS Borderline ECG Confirmed by FLORINDA PHAM, CECI ([id number]), editor sound VERNON STNISON ([id number]) on 08/17/2024 6:35:11 AM Referred By: KATHRYN Confirmed By: CECI NEELY MD 08/17/24 0635 Date Krystian Neely MD CC: Dr. Jody Garner MD; Dr. Naresh Peralta, DO Signed Normal [facility] Absolute lymphocyte countOrd ered By: Naresh Peralta on 08-16-2024 Lymphocytes Auto (Unsp spec) [#/Vol] 1.92 10*3/uL 0.83-4.51 [facility] Absolute neutrophil countOrd ered By: Naresh Peralta on 08-16-2024 Neutrophils (Bld) [#/Vol] 4.9 10*3/uL 2.0-7.7 [facility] Activated partial thrombopla stin time (aPTT) in platelet poor plasma by coagulation aOrdered By: Naresh Peralta on 08-16-2024 aPTT Coag (PPP) [Time] 26.1 s 24.1-36.2 [facility] Automated lymphocyte count a s percentage of total leukocytesOrdered By: Naresh Peralta on 08-16-2024 Lymphocytes/100 WBC Auto (Unsp spec) 25.1 % 19-41 [facility] Basic Metabolic Profile (BMP )on 08-16-2024 BUN/CRE 24.0 RATIO High 10-20 [facility] Comment on above: Performed By: #### L 501.5200, L300.4310, L3400.0100, BTSPAT, L500.2500, L300.3900, L100.0100, L501.9985, M100.651 ####[facility] [address] [place], [place], [id number] CA,Total 9.5 mg/dL Normal 8.5-10.1 [facility] Comment on above: Performed By: #### L 501.5200, L300.4310, L3400.0100, BTSPAT, L500.2500, L300.3900, L100.0100, L501.9985, M100.651 ####[facility] [address] [place], [address] Chloride [Moles/Vol] 106 mmol/L Normal 98-107 [facility] Comment on above: Performed By: #### L 501.5200, L300.4310, L3400.0100, BTSPAT, L500.2500, L300.3900, L100.0100, L501.9985, M100.651 ####[facility] [address] [place], [address] CO2 [Moles/Vol] 24.0 mmol/L Normal 21.0-32.0 [facility] Comment on above: Performed By: #### L 501.5200, L300.4310, L3400.0100, BTSPAT, L500.2500, L300.3900, L100.0100, L501.9985, M100.651 ####[facility] [address] [place], [address] Creatinine [Mass/Vol] 0.84 mg/dL Normal 0.55-1.02 [facility] Comment on above: Result Comment: The validity of the calculated GFR GFRAA in patients over 70 years has not been determined. Clinical correlation is essential. Performed By: #### L 501.5200, L300.4310, L3400.0100, BTSPAT, L500.2500, L300.3900, L100.0100, L501.9985, M100.651 ####[facility] [address] [place], [address] EST GFR - AA 87 mL/min Normal >60 [facility] Comment on above: Result Comment: Afri can [place] GFR Calc Performed By: #### L 501.5200, L300.4310, L3400.0100, BTSPAT, L500.2500, L300.3900, L100.0100, L501.9985, M100.651 ####[facility] [address] [place], [address] GAP 10 Normal 5-15 [facility] Comment on above: Performed By: #### L 501.5200, L300.4310, L3400.0100, BTSPAT, L500.2500, L300.3900, L100.0100, L501.9985, M100.651 ####[facility] [address] [place], [address] GFR/1.73 sq M.predicted among non-blacks MDRD (S/P/Bld) [Vol rate/Area] 72 mL/min/{1.73_m2} Normal >60 [facility] Comment on above: Result Comment: Non- GFR Calc Performed By: #### L 501.5200, L300.4310, L3400.0100, BTSPAT, L500.2500, L300.3900, L100.0100, L501.9985, M100.651 ####[facility] [address] [place], [place], [id number] Glucose [Mass/Vol] 100 mg/dL Normal 74-106 [facility] Comment on above: Result Comment: Fast ing Glucose result from 100 to 125 mg/dL suggests IMPAIRED HOMEOSTASIS per A.D.A. criteria. Performed By: #### L 501.5200, L300.4310, L3400.0100, BTSPAT, L500.2500, L300.3900, L100.0100, L501.9985, M100.651 ####[facility] [address] [place], [place], [id number] Potassium [Moles/Vol] 3.8 mmol/L Normal 3.5-5.1 [facility] Comment on above: Performed By: #### L 501.5200, L300.4310, L3400.0100, BTSPAT, L500.2500, L300.3900, L100.0100, L501.9985, M100.651 ####[facility] [address] [place], [address] Sodium [Moles/Vol] 139 mmol/L Normal 136-145 [facility] Comment on above: Performed By: #### L 501.5200, L300.4310, L3400.0100, BTSPAT, L500.2500, L300.3900, L100.0100, L501.9985, M100.651 ####[facility] [address] [place], [address] Urea nitrogen [Mass/Vol] 20 mg/dL High 7-18 [facility] Comment on above: Performed By: #### L 501.5200, L300.4310, L3400.0100, BTSPAT, L500.2500, L300.3900, L100.0100, L501.9985, M100.651 ####[facility] [address] [place], [address] Basophil percentageOrdered B y: Naresh Nunestawana on 08-16-2024 Basophils/100 WBC (Bld) 0.5 % 0-1 [facility] CBC W/Diff, Automatedon 07-20 Absolute Lymph 1.92 X10 3/uL Normal 0.83-4.51 [facility] Comment on above: Performed By: #### L 501.5200, L300.4310, L3400.0100, BTSPAT, L500.2500, L300.3900, L100.0100, L501.9985, M100.651 ####[facility] [address] [place], [address] Absolute Neut 4.9 X10 3/uL Normal 2.0-7.7 [facility] Comment on above: Performed By: #### L 501.5200, L300.4310, L3400.0100, BTSPAT, L500.2500, L300.3900, L100.0100, L501.9985, M100.651 ####[facility] [address] [place], [address] Basophils/100 WBC (Bld) 0.5 % Normal 0-1 [facility] Comment on above: Performed By: #### L 501.5200, L300.4310, L3400.0100, BTSPAT, L500.2500, L300.3900, L100.0100, L501.9985, M100.651 ####[facility] [address] [place], [address] Eosinophils/100 WBC (Bld) 3.7 % Normal 0-5 [facility] Comment on above: Performed By: #### L 501.5200, L300.4310, L3400.0100, BTSPAT, L500.2500, L300.3900, L100.0100, L501.9985, M100.651 ####[facility] [address] [place], [address] Erythrocyte distribution width (RBC) [Ratio] 13.1 % Normal 11.6-14.6 [facility] Comment on above: Performed By: #### L 501.5200, L300.4310, L3400.0100, BTSPAT, L500.2500, L300.3900, L100.0100, L501.9985, M100.651 ####[facility] [address] [place], [address] Hematocrit (Bld) [Volume fraction] 39.2 % Normal 37-47 [facility] Comment on above: Performed By: #### L 501.5200, L300.4310, L3400.0100, BTSPAT, L500.2500, L300.3900, L100.0100, L501.9985, M100.651 ####[facility] [address] [place], [address] Hemoglobin (Bld) [Mass/Vol] 12.8 g/dL Normal 12.0-15.0 [facility] Comment on above: Performed By: #### L 501.5200, L300.4310, L3400.0100, BTSPAT, L500.2500, L300.3900, L100.0100, L501.9985, M100.651 ####[facility] [address] [place], [address] IG% 0.300 Normal 0.0-0.9 [facility] Comment on above: Result Comment: IG% - Immature Granulocytes (promyelocytes, myelocytes and metamyelocytes) > 1% indicates that a LEFT SHIFT is Present. Performed By: #### L 501.5200, L300.4310, L3400.0100, BTSPAT, L500.2500, L300.3900, L100.0100, L501.9985, M100.651 ####[facility] [address] [place], [address] Lymphocytes/100 WBC (Bld) 25.1 % Normal 19-41 [facility] Comment on above: Performed By: #### L 501.5200, L300.4310, L3400.0100, BTSPAT, L500.2500, L300.3900, L100.0100, L501.9985, M100.651 ####[facility] [address] [place], [address] MCH (RBC) [Entitic mass] 30.4 pg Normal 27.0-32.0 [facility] Comment on above: Performed By: #### L 501.5200, L300.4310, L3400.0100, BTSPAT, L500.2500, L300.3900, L100.0100, L501.9985, M100.651 ####[facility] [address] [place], [address] MCHC (RBC) [Mass/Vol] 32.7 g/dL Normal 32-36 [facility] Comment on above: Performed By: #### L 501.5200, L300.4310, L3400.0100, BTSPAT, L500.2500, L300.3900, L100.0100, L501.9985, M100.651 ####[facility] [address] [place], [address] MCV (RBC) [Entitic vol] 93.1 fL Normal 81-99 [facility] Comment on above: Performed By: #### L 501.5200, L300.4310, L3400.0100, BTSPAT, L500.2500, L300.3900, L100.0100, L501.9985, M100.651 ####[facility] [address] [place], [address] Monocytes/100 WBC (Bld) 6.5 % Normal 0-10 [facility] Comment on above: Performed By: #### L 501.5200, L300.4310, L3400.0100, BTSPAT, L500.2500, L300.3900, L100.0100, L501.9985, M100.651 ####[facility] [address] [place], [address] Neutrophils/100 WBC (Bld) 63.9 % Normal 47-70 [facility] Comment on above: Performed By: #### L 501.5200, L300.4310, L3400.0100, BTSPAT, L500.2500, L300.3900, L100.0100, L501.9985, M100.651 ####[facility] [address] [place], [address] Nucleated RBC (Bld) [#/Vol] 0 10*3/uL Normal 0-5 [facility] Comment on above: Performed By: #### L 501.5200, L300.4310, L3400.0100, BTSPAT, L500.2500, L300.3900, L100.0100, L501.9985, M100.651 ####[facility] [address] [place], [address] Platelet mean volume (Bld) [Entitic vol] 9.5 fL Normal 6.2-12.0 [facility] Comment on above: Performed By: #### L 501.5200, L300.4310, L3400.0100, BTSPAT, L500.2500, L300.3900, L100.0100, L501.9985, M100.651 ####[facility] [address] [place], [address] Platelets (Bld) [#/Vol] 262 10*3/uL Normal 150-450 [facility] Comment on above: Performed By: #### L 501.5200, L300.4310, L3400.0100, BTSPAT, L500.2500, L300.3900, L100.0100, L501.9985, M100.651 ####[facility] [address] [place], [address]) RBC (Bld) [#/Vol] 4.21 10*6/uL Normal 4.2-5.4 [facility] Comment on above: Performed By: #### L 501.5200, L300.4310, L3400.0100, BTSPAT, L500.2500, L300.3900, L100.0100, L501.9985, M100.651 ####[facility] [address] [place], [address] RDW SD 44.3 fl High 35.1-43.9 [facility] Comment on above: Performed By: #### L 501.5200, L300.4310, L3400.0100, BTSPAT, L500.2500, L300.3900, L100.0100, L501.9985, M100.651 ####[facility] [address] [place], [address] WBC (Bld) [#/Vol] 7.6 10*3/uL Normal 4.4-11.0 [facility] Comment on above: Performed By: #### L 501.5200, L300.4310, L3400.0100, BTSPAT, L500.2500, L300.3900, L100.0100, L501.9985, M100.651 ####[facility] [address] [place], [address] Eosinophil percentageOrdered By: Naresh Peralta on 08-16-2024 Eosinophils/100 WBC (Bld) 3.7 % 0-5 [facility] FructosamineOrdered By: Jose Peralta on 08-16-2024 Fructosamine 200 umol/L 0-285 [facility] Comment on above: Published reference interval for apparently healthysubjects between age 20 and 60 is 205 - 285 umol/L and in apoorly controlled diabetic population is 228 - 563 umol/Lwith a mean of 396 umol/L.Performed at: [facility] [id number] Director: Altaf Weiss PhD, Phone: [phone] Hemoglobin A1con 08-16-2024 HbA1c (Bld) [Mass fraction] 5.5 % Normal 3.8-5.6 [facility] Comment on above: Result Comment: Norm al < 5.7 % Prediabetic 5.7 - 6.4 % Diabetic >or= 6.5 % Please note range changes. Performed By: #### L 501.5200, L300.4310, L3400.0100, BTSPAT, L500.2500, L300.3900, L100.0100, L501.9985, M100.651 ####[facility] [address] [place], [place], [address] Hemoglobin A1c percentageOrd ered By: Naresh Peralta on 08-16-2024 HbA1c (Bld) [Mass fraction] 5.5 % 3.8-5.6 [facility] Comment on above: Normal < 5.7 % Predi abetic 5.7 - 6.4 % Diabetic >or= 6.5 % Please note range changes. Immature granulocytes/100 WB C Auto (Bld)Ordered By: Naresh Peralta on 08-16-2024 Immature granulocytes/100 WBC (Bld) 0.300 % 0.0-0.9 [facility] Comment on above: IG% - Immature Granu locytes (promyelocytes, myelocytes and metamyelocytes) > 1% indicates that a LEFT SHIFT is Present. International normalized rat io (INR) calculationOrdered By: Naresh Peralta on 08-16-2024 INR Coag (Bld) [Relative time] 1.0 {INR} [facility] Lymphocytes Auto (Unsp spec) [#/Vol]Ordered By: Naresh Peralta on 08-16-2024 Lymphocytes (Bld) [#/Vol] 1.92 10*3/uL 0.83-4.51 [facility] Lymphocytes/100 WBC Auto (Un sp spec)Ordered By: Naresh Peralta on 08-16-2024 Lymphocytes/100 WBC (Bld) 25.1 % 19-41 [facility] MRSA screenOrdered By: Jacinto Peralta on 08-16-2024 MRSA DNA JENN+probe Ql (Unsp spec) [facility] Nasal Screen MRSA/MSSA [facility] Magnesiumon 08-16-2024 Magnesium [Mass/Vol] 2.1 mg/dL Normal 1.6-2.6 [facility] Comment on above: Performed By: #### L 501.5200, L300.4310, L3400.0100, BTSPAT, L500.2500, L300.3900, L100.0100, L501.9985, M100.651 ####[facility] [address] [place], [place], [address] Magnesium measurementOrdered By: Naresh Peralta on 08-16-2024 Magnesium [Mass/Vol] 2.1 mg/dL 1.6-2.6 [facility] Monocyte percentageOrdered B y: Naresh Peralta on 08-16-2024 Monocytes/100 WBC (Bld) 6.5 % 0-10 [facility] Neutrophil percentageOrdered By: Naresh Peralta on 08-16-2024 Neutrophils/100 WBC (Bld) 63.9 % 47-70 [facility] Nucleated red blood cell per centageOrdered By: Naresh Peralta on 08-16-2024 Nucleated RBC/100 WBC (Bld) [Ratio] 0 % 0-5 [facility] Partial Thromboplast Timeon 08-16-2024 aPTT Coag (Bld) [Time] 26.1 s Normal 24.1-36.2 [facility] Comment on above: Performed By: #### L 501.5200, L300.4310, L3400.0100, BTSPAT, L500.2500, L300.3900, L100.0100, L501.9985, M100.651 ####[facility] [address] [place], [place], [id number] Prothrombin Time w/INRon INR Coag (PPP) [Relative time] 1.0 {INR} Normal [facility] Comment on above: Performed By: #### L 501.5200, L300.4310, L3400.0100, BTSPAT, L500.2500, L300.3900, L100.0100, L501.9985, M100.651 ####[facility] [address] [place], [place], [id number] PT Coag (PPP) [Time] 13.7 s Normal 11.7-14.9 [facility] Comment on above: Performed By: #### L 501.5200, L300.4310, L3400.0100, BTSPAT, L500.2500, L300.3900, L100.0100, L501.9985, M100.651 ####[facility] [address] [place], [place], [id number] Prothrombin timeOrdered By: Naresh Peralta on 08-16-2024 PT Coag (PPP) [Time] 13.7 s 11.7-14.9 [facility] Type AND Screen - PAT ONLYon 08-16-2024 ABO and Rh group Nom (Bld) Blood group O Rh(D) positive Normal [facility] Comment on above: Order Comment: Surge ry Date: 08/29/24Reason for Laboratory Test PRE-[id number](L) Left Total Hip Replacement Robotic Arm Assisted Performed By: #### L 501.5200, L300.4310, L3400.0100, BTSPAT, L500.2500, L300.3900, L100.0100, L501.9985, M100.651 ####[facility] [address] [facility] [place], [place], [id number] aPTT Coag (PPP) [Time]Ordere d By: Naresh Peralta on 08-16-2024 aPTT Coag (Bld) [Time] 26.1 s 24.1-36.2 [facility] Extremity Lower without Cont raon 08-14-2024 Extremity Lower without Contra [facility] Imaging Services [address] [place], [place] [address] Extremity Lower without Contra MR#: [id number] Acct: [id number] Name: MAKEDA NEGRON Rep #: [id number] : 1955 F 69 From: Rodrigo Grimm MD PCP: Dr. Jody Garner MD Status: REG CLI Study: Extremity Lower without Contra Date of Exam: 0 08/14/24 Exam# [id number] Ordering [place]: [place] [id number] CT LEFT LOWER EXTREMITY WITH 3-D IMAGING CLINICAL INDICATION: Templating for left BOBBY TECHNIQUE: Axial CT images of the left lower extremity (including hips and knees) was performed without IV contrast material. Coronal and sagittal reformats were provided. The protocol utilizes one or more of the following dose reduction techniques: automated exposure control, adjustment of mA and/or kV according to patient size, and/or use of iterative reconstruction technique. RADIATION DOSAGE (If Supplied By Facility): CTDIvol = ( 13.83 ) mGy, DLP = ( 823.82 ) mGycm COMPARISON: Left hip CT dated 06/02/2024. FINDINGS: Bones: There is persistent moderate degenerative arthrosis of the left hip joint with joint space narrowing, small marginal osteophyte formation, and small foci of subchondral cyst formation in the superolateral aspect of the left acetabulum. There is a right hip arthroplasty in place. There is mild degenerative arthrosis of the sacroiliac joints bilaterally. 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 There is degenerative disc disease at L5-S1. Osseous structures are intact without evidence of fracture or dislocation. No lytic or blastic osseous masses. Soft Tissues: There is chronic sigmoid diverticulosis without acute diverticulitis. The deep soft tissue structures are unremarkable. The superficial soft tissues are unremarkable without evidence of edema, hematoma, or foreign body. CT/Extremity Lower without Contra IMPRESSION: Persistent moderate degenerative arthrosis of the left hip joint. Electronically Signed: Rodrigo Grimm MD at 13:51 EST Reading Location ID and State: [address] [place] [address] , Service support , CC: Dr. Jody Garner MD; Dr. Naresh Peralta DO Pole Classifier: Signed Normal [facility] Orthopedic Visit Reporton Orthopedic Visit Report [facility] [address] [place] [address] [address] [place] [address] OFFICE VISIT Date of Service: 07/24/24 MR#: [id number] Acct: [id number] Name: MAKEDA NEGRON Rep #: [id number] : 1955 Provider: Dr. Naresh howe DO Age/Sex: 69/F Location: [facility] Status: Signed Intake Vital Signs 06/26/24 08:07 07/24/24 10:09 Height 5 ft 2 in 5 ft 2 in Weight: 212 lb 211 lb 4 oz BMI 38.7 38.6 Intake Visit Reasons: LEFT HIP Chief Complaint: left hip pain Is patient in pain?: Yes Allergies adhesive tape Allergy (Verified 07/24/24 10:03) Rash codeine Allergy (Verified 07/24/24 10:03) Hives levofloxacin Allergy (Verified 07/24/24 10:03) unknown cortisone Adverse Reaction (Severe, Verified 07/24/24 10:03) migraine and skin on fire prednisone Adverse Reaction (Severe, Verified 07/24/24 10:03) migraine and skin on fire NSAIDS (Non-Steroidal Anti-Inflamma Adverse Reaction (Verified 07/24/24 10:03) Upset Stomach promethazine HCl (From Phenergan) Adverse Reaction (Verified 07/24/24 10:03) RESTLESS LEG SYNDROME sulfamethoxazole (From Bactrim) Adverse Reaction (Verified 07/24/24 10:03) Nausea trimethoprim (From Bactrim) Adverse Reaction (Verified 07/24/24 10:03) Nausea Medications ???Medication ???Instructions ???Recorded ???Confirmed ???Type amitriptyline 150 mg tablet 150 mg PO QHS 09/07/13 07/24/24 History hydrochlorothiazide 25 mg tablet 25 mg PO DAILY 09/07/13 07/24/24 History omeprazole 20 mg capsule,delayed 20 mg PO QHS 09/07/13 07/24/24 History release atorvastatin 10 mg tablet 20 mg PO QHS 09/21/14 07/24/24 History metoprolol tartrate 25 mg tablet 25 mg PO BID 12/10/15 07/24/24 History verapamil 120 mg tablet 60 mg PO BID 12/07/16 07/24/24 History aspirin 81 mg tablet,delayed 81 mg PO DAILY 01/09/19 07/24/24 History release (Adult Low Dose Aspirin) sucralfate 1 gram tablet (Carafate) 1 g PO BID 01/09/19 07/24/24 History cholecalciferol (vitamin D3) 50 2,000 unit PO DAILY 03/13/20 07/24/24 History mcg (2,000 unit) capsule cranberry extract 300 mg tablet 30,000 mg PO DAILY 11/26/20 07/24/24 History acetaminophen 325 mg capsule 325 mg PO PRN PRN Pain 11/02/22 07/24/24 History (Tylenol) melatonin 12 mg tablet 12 mg PO QHS 11/05/22 07/24/24 History Estriol 1 gm intrauterine TUTH 12/08/22 07/24/24 History acetaminophen 500 mg tablet 1,000 mg (2 x 500 mg) PO Q6H PRN 12/22/22 07/24/24 Rx #100 tabs celecoxib 100 mg capsule (Celebrex) 100 mg PO BID #42 caps 06/26/24 07/24/24 Rx Have you fallen in the past year?: No PFSH Medical History Post-menopausal Ambulates with cane Bladder disease High cholesterol Injury of head and neck Diverticulosis History of ulceration Fractured coccyx Wears glasses Osteoporosis Non-smoker CPAP (continuous positive airway pressure) dependence Pain aggravated by walking Edema Migraine headache TIA (transient ischemic attack) History of trigger finger Nausea Abdominal pain Osteoarthritis of right hip Obstructive sleep apnea Morbid obesity with BMI of 40.0-44.9, adult Chronic headaches SBO (small bowel obstruction) HTN (hypertension) GERD (gastroesophageal reflux disease) Surgical History History of hip surgery Hx of right cataract extraction Hx of left cataract extraction Hx of colonoscopy Hx of cholecystectomy Hx of tonsillectomy History of partial hysterectomy Hx of shoulder surgery Hx of total shoulder replacement Hx of arthroscopy History of appendectomy History of reverse total replacement of left shoulder joint ( 05/20/20) history right shoulder repair History of right hip replacement History of right knee joint replacement History of umbilical hernia repair Family History Sister Colon cancer Father Diabetes Mother Heart disease Hypertension Social History household members: spouse Smoking Status: Never smoker alcohol intake: never substance use type: does not use HPI LEFT HIP Details: This documentation accurately reflects the service provided and the decisions made by me, Dr. Naresh Peralta, DO 07/24/24 0756. Part of today???s visit was documented by [ ], acting as scribe. MAKEDA NEGRON is a 69 year old F here today for a followup on her left hip. Patient notes that she has no improvement since her last visit. Her pain is constant. She has pain from her groin into her lateral hip. She continues to use a walker to ambulate. Patient notes that she is taking tylenol and celebrex for pain. She denies any oral steroids. Patient denies any numbness or tingling. She notes that (more content not included)... Normal [facility] Orthopedic Visit Reporton Orthopedic Visit Report [facility] [address] [place] [address] [address] [place] [address] OFFICE VISIT Date of Service: 06/26/24 MR#: [id number] Acct: [id number] Name: MAKEDA NEGRON Rep #: [id number] : 1955 Provider: Dr. Naresh howe DO Age/Sex: 69/F Location: [facility] Status: Signed Intake Vital Signs 01/10/24 09:38 06/07/24 15:12 06/26/24 08:07 Height 5 ft 2 in 5 ft 2 in 5 ft 2 in Weight: 212 lb BMI 38.7 Intake Visit Reasons: LEFT HIP Chief Complaint: left hip pain Accompanied by: Allergies adhesive tape Allergy (Verified 06/26/24 08:07) Rash codeine Allergy (Verified 06/26/24 08:07) Hives levofloxacin Allergy (Verified 06/26/24 08:07) unknown cortisone Adverse Reaction (Severe, Verified 06/26/24 08:07) migraine and skin on fire prednisone Adverse Reaction (Severe, Verified 06/26/24 08:07) migraine and skin on fire NSAIDS (Non-Steroidal Anti-Inflamma Adverse Reaction (Verified 06/26/24 08:07) Upset Stomach promethazine HCl (From Phenergan) Adverse Reaction (Verified 06/26/24 08:07) RESTLESS LEG SYNDROME sulfamethoxazole (From Bactrim) Adverse Reaction (Verified 06/26/24 08:07) Nausea trimethoprim (From Bactrim) Adverse Reaction (Verified 06/26/24 08:07) Nausea Medications ???Medication ???Instructions ???Recorded ???Confirmed ???Type amitriptyline 150 mg tablet 150 mg PO QHS 09/07/13 01/10/24 History hydrochlorothiazide 25 mg tablet 25 mg PO DAILY 09/07/13 01/10/24 History omeprazole 20 mg capsule,delayed 20 mg PO QHS 09/07/13 01/10/24 History release atorvastatin 10 mg tablet 20 mg PO QHS 09/21/14 01/10/24 History metoprolol tartrate 25 mg tablet 25 mg PO BID 12/10/15 01/10/24 History verapamil 120 mg tablet 60 mg PO BID 12/07/16 01/10/24 History aspirin 81 mg tablet,delayed 81 mg PO DAILY 01/09/19 01/10/24 History release (Adult Low Dose Aspirin) sucralfate 1 gram tablet (Carafate) 1 g PO BID 01/09/19 01/10/24 History cholecalciferol (vitamin D3) 50 2,000 unit PO DAILY 03/13/20 01/10/24 History mcg (2,000 unit) capsule cranberry extract 300 mg tablet 30,000 mg PO DAILY 11/26/20 01/10/24 History acetaminophen 325 mg capsule 325 mg PO PRN PRN Pain 11/02/22 01/10/24 History (Tylenol) melatonin 12 mg tablet 12 mg PO QHS 11/05/22 01/10/24 History Estriol 1 gm intrauterine TUTH 12/08/22 01/10/24 History acetaminophen 500 mg tablet 1,000 mg (2 x 500 mg) PO Q6H PRN 12/22/22 01/10/24 Rx #100 tabs celecoxib 100 mg capsule (Celebrex) 100 mg PO BID #42 caps 06/26/24 06/26/24 Rx Have you fallen in the past year?: No PFSH Medical History Post-menopausal Ambulates with cane Bladder disease High cholesterol Injury of head and neck Diverticulosis History of ulceration Fractured coccyx Wears glasses Osteoporosis Non-smoker CPAP (continuous positive airway pressure) dependence Pain aggravated by walking Edema Migraine headache TIA (transient ischemic attack) History of trigger finger Nausea Abdominal pain Osteoarthritis of right hip Obstructive sleep apnea Morbid obesity with BMI of 40.0-44.9, adult Chronic headaches SBO (small bowel obstruction) HTN (hypertension) GERD (gastroesophageal reflux disease) Surgical History History of hip surgery Hx of right cataract extraction Hx of left cataract extraction Hx of colonoscopy Hx of cholecystectomy Hx of tonsillectomy History of partial hysterectomy Hx of shoulder surgery Hx of total shoulder replacement Hx of arthroscopy History of appendectomy History of reverse total replacement of left shoulder joint ( 05/20/20) history right shoulder repair History of right hip replacement History of right knee joint replacement History of umbilical hernia repair Family History Sister Colon cancer Father Diabetes Mother Heart disease Hypertension Social History household members: spouse Smoking Status: Never smoker alcohol intake: never substance use type: does not use HPI LEFT HIP Details: This documentation accurately reflects the service provided and the decisions made by me, Dr. Naresh Peralta, DO 06/26/24 0850. Part of today???s visit was documented by [ ], acting as scribe. MAKEDA NEGRON is a 69 year old F here today for left hip pain ambulating with a walker. She is using the walker because of the left hip. She states that she started having pain after her last PT appointment which was on May 24. She was doing PT for surgery she had on her right hip. Her pain starts in her groin and radiates up onto her lateral hip. She has been hearing a click and has be (more content not included)... Normal [facility] Lower Ext Joint Only (Routin e)on 06-21-2024 Lower Ext Joint Only (Routine) [facility] Imaging Services [address] [place], [place] [address] Lower Ext Joint Only (Routine) MR#: [id number] Acct: [id number] Name: MAKEDA NEGRON Rep #: [id number] : 1955 F 69 From: Rodrigo Grimm MD PCP: Dr. Jody Garner MD Status: REG CLI Study: Lower Ext Joint Only (Routine) Date of Exam: 08/22/23 Exam# [id number] Ordering [place]: [place] [id number] STUDY: MRI LEFT HIP REASON FOR EXAM: Female, 69 years old. PAIN, OSTEOPOROSIS TECHNIQUE: Standardized fat and water weighted pulse sequences were obtained in all 3 orthogonal planes. COMPARISON: CT left hip dated 06/02/2024. FINDINGS: There is moderate degenerative arthrosis of the left hip joint with joint space narrowing, marginal osteophyte formation, chondral thinning, and subchondral marrow edema on both sides of the joint. There is a small left hip joint effusion. There is a right hip arthroplasty in place, with surrounding metallic susceptibility artifact. There is mild right trochanteric bursitis and mild subcutaneous soft tissue edema along the lateral aspect of the right hip. Normal gluteus minimus, medius and iliopsoas tendons and distal insertions. There is no trochanteric, iliopsoas or iliopectineal bursitis. Normal superior and inferior pubic rami. Normal pubic symphysis. Normal ischial tuberosity. Normal origin of the hamstring tendons. Normal visualized iliac wing, sacroiliac joint, and sacral ala. Normal visualized soft tissue structures of the pelvis. There is mild degenerative disc disease at L5-S1. MRI/Lower Ext Joint Only (Routine) IMPRESSION: Moderate degenerative arthrosis of the left hip joint. Small left hip joint effusion. Right hip arthroplasty, with mild right trochanteric bursitis and mild subcutaneous soft tissue edema along the lateral aspect of the right hip. Electronically Signed: Rodrigo Grimm MD at 11:03 EST Reading Location ID and State: [address] [place] [address] , Service support , CC: Dr. Jody Garner MD Pole Classifier: Signed Normal [facility] Extremity Lower without Cont raon 06-02-2024 Extremity Lower without Contra [facility] Imaging Services [address] [place] [address] Extremity Lower without Contra MR#: [id number] Acct: [id number] Name: MAKEDA NEGRON GOMEZ Rep #: [id number] : 1955 F 69 From: Rodrigo Grimm MD PCP: Dr. Jody Garner MD Status: REG CLI Study: Extremity Lower without Contra Date of Exam: 08/02/23 Exam# [id number] Ordering Dr: [place] [id number] STUDY: CT LEFT HIP REASON FOR EXAM: Female, 69 years old. Possible occult fracture left hip. No injury. CONTRAST: None. TECHNIQUE: Transaxial imaging of the left hip was performed with reformatted sagittal and coronal images. The protocol utilizes one or more of the following dose reduction techniques: automated exposure control, adjustment of mA and/or kV according to patient size, and/or use of iterative reconstruction technique. COMPARISON: Pelvis and left hip radiographs dated 05/25/2024. FINDINGS: HIP There is moderate degenerative arthrosis of the left hip joint with joint space narrowing, small marginal osteophyte formation, and small foci of subchondral cyst formation in the superolateral aspect of the left acetabulum. Intact acetabulum. Intact femoral neck and intertrochanteric region. There is no demonstrated fracture of the left hip. VISUALIZED OSSEOUS PELVIS Normal left superior and inferior pubic rami. 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 Normal left ischial tuberosity. Intact visualized left iliac wing and sacral ala. There is mild degenerative arthrosis of the left sacroiliac joint, with small foci of intra-articular gas. There is no demonstrated fracture of the osseous pelvis. Normal visualized soft tissue structures of the pelvis. CT/Extremity Lower without Contra IMPRESSION: Moderate degenerative arthrosis of the left hip joint. No demonstrated acute fracture. Electronically Signed: Rodrigo Grimm MD at 11:46 EST , CC: Dr. Jody Garner MD Pole Classifier: Signed Normal [facility] HIP, UNI W/ Pelvis 2-3 Views on 05-25-2024 HIP, UNI W/ Pelvis 2-3 Views [facility] Imaging Services [address] [place] [address] HIP, UNI W/ Pelvis 2-3 Views MR#: [id number] Acct: [id number] Name: MAKEDA NEGRON Rep #: [id number] : 1955 F 69 From: Lokesh Thao MD PCP: Dr. Jody Garner MD Status: REG CLI Study: HIP, UNI W/ Pelvis 2-3 Views Date of Exam: 02/08 Exam# [id number] Ordering Dr: [place] [id number] STUDY: X-RAY - PELVIS AND LEFT HIP REASON FOR EXAM: Female, 69 years old. LEFT GROIN PAIN/PAIN WITH STANDING TECHNIQUE: 3 views of the pelvis and hip. COMPARISON: 08/04/2023 FINDINGS: There is a non-specific bowel gas pattern. Normal visualized soft tissue structures. Normal bilateral iliac wings, sacroiliac joints and visualized sacrum. Normal bilateral superior and inferior pubic rami. Normal pubic symphysis. Normal bilateral ischial tuberosities. Normal visualized femoral head. There is osteoarthritic spur formation of the acetabular rim. There is moderate articular joint space narrowing of the hip. RAD/HIP, UNI W/ Pelvis 2-3 Views IMPRESSION: Moderate arthrosis. Electronically Signed: Lokesh Thao MD at 12:55 EST , CC: Dr. Jody Garner MD Pole Classifier: Signed Normal [facility] Re-Evaluation - PT (1)on Re-Evaluation - PT (1) [facility] Physical Therapy [facility] [address] [facility] [place] [address] / REEVALUATION / MEDICARE RECERTIFICATION PHYSICAL THERAPY MR#: [id number] Acct: [id number] Name: MAKEDA NEGRON Rep #: [id number] : 1955 69 From: Deep Saez PT, ATC Referring DrWaylon: OUT OF TOWN DOCTOR Status:REG RCR Insurance: MEDICARE PART A B [facility] Re-Evaluation Intro: LEA LANGE, It has been my pleasure to treat MAKEDA NEGRON over the last 11 visits for R glute repair 03/16/24. Please see the progress note below for an update on the physical therapy plan of care! Subjective Subjective: I am a little sore today. Not painful though Objective Objective/Function: 0/10 R glute pain R hip ROM: flex= 65, abd= 40, ext= 0 degrees MMT: R hip flex= 12, abd= 2, Ext= 24 #F Gait: Pt is able to ambulate greater than 300 feet with WW Pt is making significant progress at this time. Still lacks functional strength and ROM Plan Plan Plan: Follow surgical protocol in chart. Balance/Gait/Functional tests Balance/Special Test Scores Lower Extremity Functional Score: 40 Goals Goals Goal 1:: Pt will increase R hip strength to within 90% of L hip strength to aid with ascending/descending stairs. Goal Time Frame: 4-6 Weeks Goal Progress: Progressing Goal 2:: Pt will increase R hip ROM to within 90% of L hip ROM to aid with getting in and out of the car. Goal Time Frame: 4-6 Weeks Goal Progress: Progressing Goal 3:: Pt will be able to ambulate 300 ft with the least restrictive device to assist in community ambulation. Goal Time Frame: 4-6 Weeks Goal Progress: Goal Met Goal 4:: I with HEP Goal Time Frame: 4-6 Weeks Goal Progress: Goal Met Anticipated Interventions Anticipated Interventions Patient/Client Instruction: Educate patient on: Plan of Care For the Purpose of:: To improve self management Therapeutic Exercise to Include: Strength training, Balance training and Body mechanics For the Purpose of:: To decrease pain, To increase ROM, To improve muscle performance and motor function and To improve ability to perform ADL's Re-Evaluation Ending Re-evaluation ending: Please do not hesitate to contact me at [phone] by phone or if you have questions or concerns regarding this new plan of care! Sincerely, Deep Saez, PT, ATC 05/11/24 8366 CC: Dr. Jody Garner MD; [facility] Signed For Medicare only, by signing this I certify the plan of care. Physicians Signature Date Normal [facility] Absolute lymphocyte countOrd ered By: Jody Garner on 10-01-2023 Lymphocytes Auto (Unsp spec) [#/Vol] 2.51 10*3/uL 0.83-4.51 [facility] Automated lymphocyte count a s percentage of total leukocytesOrdered By: Jody Garner on 10-01-2023 Lymphocytes/100 WBC Auto (Unsp spec) 37.4 % 19-41 [facility] Basophil percentageOrdered B y: Jody Garner on 10-01-2023 Basophils/100 WBC (Bld) 0.6 % 0-1 [facility] Chloride [Moles/Vol] 106 mmol/L 98-[address] [facility] Eosinophils/100 WBC (Bld) 3.7 % 0-5 [facility] Glucose [Mass/Vol] 74 mg/dL 74-106 [facility] Hemoglobin (Bld) [Mass/Vol] 12.9 g/dL 12.0-15.0 [facility] Monocytes/100 WBC (Bld) 8.0 % 0-10 [facility] Neutrophils (Bld) [#/Vol] 3.4 10*3/uL 2.0-7.7 [facility] Neutrophils/100 WBC (Bld) 49.9 % 47-70 [facility] Potassium [Moles/Vol] 3.6 mmol/L 3.5-5.1 [facility] Sodium [Moles/Vol] 140 mmol/L 136-145 [facility] WBC (Bld) [#/Vol] 6.7 10*3/uL 4.4-11.0 [facility] Determination of erythrocyte mean corpuscular volume (MCV)Ordered By: Jody Garner on 10-01-2023 MCV (RBC) [Entitic vol] 95.4 fL 81-99 [facility] Erythrocyte distribution wid th ratioOrdered By: Jody Garner on 10-01-2023 Erythrocyte distribution width (RBC) [Ratio] 12.5 % 11.6-14.6 [facility] Erythrocyte distribution wid th standard deviationOrdered By: Jody Garner on 10-01-2023 Erythrocyte distribution width (RBC) [Entitic vol] 43.9 fL 35.1-43.9 [facility] Hematocrit Auto (Bld) [Volum e fraction]Ordered By: Jody Garner on 10-01-2023 Hematocrit (Bld) [Volume fraction] 39.8 % 37-47 [facility] Immature granulocytes/100 WB C Auto (Bld)Ordered By: Jody Garner on 10-01-2023 Immature granulocytes/100 WBC (Bld) 0.400 % 0.0-0.9 [facility] Comment on above: IG% - Immature Granu locytes (promyelocytes, myelocytes and metamyelocytes) > 1% indicates that a LEFT SHIFT is Present. Laboratory - Chemistry and C hemistry - challengeOrdered By: Jody Garner on 10-01-2023 CO2 [Moles/Vol] 29.0 mmol/L 21.0-32.0 [facility] Urea nitrogen/Creatinine [Mass ratio] 23.5 mg/mg 10-20 [facility] Laboratory - Hematology and Cell countsOrdered By: Jody Garner on 10-01-2023 MCH (RBC) [Entitic mass] 30.9 pg 27.0-32.0 [facility] MCHC (RBC) [Mass/Vol] 32.4 g/dL 32-36 [facility] Nucleated RBC/100 WBC (Bld) [Ratio] 0 % 0-5 [facility] Platelet mean volume (Bld) [Entitic vol] 9.9 fL 6.2-12.0 [facility] Platelets (Bld) [#/Vol] 286 10*3/uL 150-450 [facility] No Panel InformationOrdered By: Jody Garner on 10-01-2023 Estimated GFR (MDRD) Amer 90 mL/min >60 [facility] Comment on above: GFR Calc Estimated GFR (MDRD) Non-Af Amer 74 mL/min >60 [facility] Comment on above: Non- GFR Calc RBC Auto (Bld) [#/Vol]Ordere d By: Jody Garner on 10-01-2023 RBC (Bld) [#/Vol] 4.17 10*6/uL 4.2-5.4 [facility] Serum or plasma calcium rolanda urement (mass/volume)Ordered By: Jody Garner on 10-01-2023 Calcium [Mass/Vol] 9.4 mg/dL 8.5-10.1 [facility] Serum or plasma creatinine m easurement (mass/volume)Ordered By: Jody Garner on 10-01-2023 Creatinine [Mass/Vol] 0.81 mg/dL 0.55-1.02 [facility] Comment on above: The validity of the calculated GFR & GFRAA in patients over 70 years has not been determined. Clinical correlation is essential. Serum or plasma urea nitroge n measurement (mass/volume)Ordered By: Jody Garner on 10-01-2023 Urea nitrogen [Mass/Vol] 19 mg/dL 7-18 [facility] Thin prep Papanicolaou smear with manual screeningOrdered By: Jody Garner on 10-01-2023 Thin prep Papanicolaou smear with manual screening 5 - [facility] Absolute lymphocyte countOrd ered By: Naresh Peralta on 08-04-2023 Lymphocytes Auto (Unsp spec) [#/Vol] 2.46 10*3/uL 0.83-4.51 [facility] Automated lymphocyte count a s percentage of total leukocytesOrdered By: Naresh Peralta on 08-04-2023 Lymphocytes/100 WBC Auto (Unsp spec) 36.1 % 19-41 [facility] Basophil percentageOrdered B y: Naresh Peralta on 08-04-2023 Basophils/100 WBC (Bld) 0.4 % 0-1 [facility] Eosinophils/100 WBC (Bld) 2.9 % 0-5 [facility] Hemoglobin (Bld) [Mass/Vol] 13.1 g/dL 12.0-15.0 [facility] Monocytes/100 WBC (Bld) 5.6 % 0-10 [facility] Neutrophils (Bld) [#/Vol] 3.7 10*3/uL 2.0-7.7 [facility] Neutrophils/100 WBC (Bld) 54.7 % 47-70 [facility] WBC (Bld) [#/Vol] 6.8 10*3/uL 4.4-11.0 [facility] Determination of erythrocyte mean corpuscular volume (MCV)Ordered By: Naresh Peralta on 08-04-2023 MCV (RBC) [Entitic vol] 96.8 fL 81-99 [facility] Erythrocyte distribution wid th ratioOrdered By: Naresh Peralta on 08-04-2023 Erythrocyte distribution width (RBC) [Ratio] 12.6 % 11.6-14.6 [facility] Erythrocyte distribution wid th standard deviationOrdered By: Naresh Peralta on 08-04-2023 Erythrocyte distribution width (RBC) [Entitic vol] 45.3 fL 35.1-43.9 [facility] Erythrocyte sedimentation ra teOrdered By: Naresh Peralta on 08-04-2023 ESR (Bld) [Velocity] 28 mm/h 0-30 [facility] Hematocrit Auto (Bld) [Volum e fraction]Ordered By: Naresh Peralta on 08-04-2023 Hematocrit (Bld) [Volume fraction] 39.7 % 37-47 [facility] Immature granulocytes/100 WB C Auto (Bld)Ordered By: Naresh Peralta on 08-04-2023 Immature granulocytes/100 WBC (Bld) 0.300 % 0.0-0.9 [facility] Comment on above: IG% - Immature Granu locytes (promyelocytes, myelocytes and metamyelocytes) > 1% indicates that a LEFT SHIFT is Present. Laboratory - Hematology and Cell countsOrdered By: Naresh Peralta on 08-04-2023 MCH (RBC) [Entitic mass] 32.0 pg 27.0-32.0 [facility] MCHC (RBC) [Mass/Vol] 33.0 g/dL 32-36 [facility] Nucleated RBC/100 WBC (Bld) [Ratio] 0 % 0-5 [facility] Platelets (Bld) [#/Vol] 304 10*3/uL 150-450 [facility] No Panel InformationOrdered By: Naresh Peralta on 08-04-2023 C-Reactive Protein Extended Range 6.54 mg/L 0.0-3.0 [facility] Comment on above: C-Reactive Protein ( CRP) provides useful information for thediagnosis, therapy and monitoring of inflammatory processesand associated diseases. For the evaluation of Relative Riskfor Cardiovascular Disease, a High Sensitivity CRP (HSCRP)should be ordered. Platelet mean volume Luigi-Ec ker (Bld) [Entitic vol]Ordered By: Naresh Peralta on 08-04-2023 Platelet mean volume (Bld) [Entitic vol] 10.0 fL 6.2-12.0 [facility] RBC Auto (Bld) [#/Vol]Ordere d By: Naresh Peralta on 08-04-2023 RBC (Bld) [#/Vol] 4.10 10*6/uL 4.2-5.4 [facility] Serum or plasma uric acid me asurement (mass/volume)Ordered By: Naresh Peralta on 08-04-2023 Urate [Mass/Vol] 6.9 mg/dL 2.6-6.0 [facility] Comment on above: The drugs N-Acetylcy steine and Metamizole may falsely depress this assay. Glucose Glucometer (BldC) [M ass/Vol]Ordered By: Dr. Peralta on 12-22-2022 Glucose [Mass/Vol] 96 mg/dL 74-106 [facility] Comment on above: MANAGEMENT OF PATIEN T CARE PER NURSING PROTOCOL No Panel InformationOrdered By: Dr. Peralta on 12-12-2022 Nasal Screen MRSA/MSSA [facility] INR in Blood by Coagulation assayOrdered By: Dr. Peralta on 12-11-2022 INR Coag (Bld) [Relative time] 1.0 {INR} [facility] Laboratory - Chemistry and C hemistry - challengeOrdered By: Dr. Giang on 12-11-2022 Magnesium [Mass/Vol] 2.2 mg/dL 1.6-2.6 [facility] Laboratory - CoagulationOrde red By: Dr. Peralta on 12-11-2022 aPTT Coag (Bld) [Time] 26.8 s 24.1-36.2 [facility] PT Coag (PPP) [Time] 13.2 s 11.7-14.9 [facility] No Panel InformationOrdered By: Dr. Peralta on 12-11-2022 Fructosamine 206 umol/L 0-285 [facility] Comment on above: Published reference interval for apparently healthysubjects between age 20 and 60 is 205 - 285 umol/L and in apoorly controlled diabetic population is 228 - 563 umol/Lwith a mean of 396 umol/L.Performed at: [address] Director: Altaf Weiss PhD, Phone: [phone] Absolute lymphocyte countOrd ered By: Dr. Garner on 10-30-2022 Lymphocytes Auto (Unsp spec) [#/Vol] 2.25 10*3/uL 0.83-4.51 [facility] Basophil percentageOrdered B y: Dr. Garner on 10-30-2022 Basophils/100 WBC (Bld) 0.7 % 0-1 [facility] Bilirubin [Mass/Vol] 0.50 mg/dL 0.20-1.00 [facility] Comment on above: For patients on eltr ombopag therapy, use of Dimension [place] TBIL is not recommended. Chloride [Moles/Vol] 107 mmol/L 98-107 [facility] Cholesterol [Mass/Vol] 181 mg/dL <200 [facility] Comment on above: <200 mg/dL Desirable 200-240 mg/dL Borderline >240 mg/dL High Risk Eosinophils/100 WBC (Bld) 3.2 % 0-5 [facility] Glucose [Mass/Vol] 98 mg/dL 74-106 [facility] Neutrophils (Bld) [#/Vol] 3.1 10*3/uL 2.0-7.7 [facility] Neutrophils/100 WBC (Bld) 52.0 % 47-70 [facility] Potassium [Moles/Vol] 3.7 mmol/L 3.5-5.1 [facility] Protein [Mass/Vol] 6.7 g/dL 6.4-8.2 [facility] Sodium [Moles/Vol] 138 mmol/L 136-145 [facility] Triglyceride [Mass/Vol] 99 mg/dL <199 [facility] Comment on above: The drugs N-Acetylcy steine and Metamizole may falsely depress this assay.Serum Triglycerides Reference Interval Normal <150 mg/dL Borderline high 150 - 199 mg/dL High 200 - 499 mg/dL Very High > or = 500 mg/dL WBC (Bld) [#/Vol] 5.9 10*3/uL 4.4-11.0 [facility] Blood erythrocytes count (nu mber/volume)Ordered By: Dr. Garner on 10-30-2022 RBC (Bld) [#/Vol] 4.16 10*6/uL 4.2-5.4 [facility] Blood hemoglobin measurement (mass/volume)Ordered By: Dr. Garner on 10-30-2022 Hemoglobin (Bld) [Mass/Vol] 13.0 g/dL 12.0-15.0 [facility] Blood lymphocytes/100 leukoc ytesOrdered By: Dr. Garner on 10-30-2022 Lymphocytes/100 WBC (Bld) 38.1 % 19-41 [facility] Blood monocytes/100 leukocyt esOrdered By: Dr. Garner on 10-30-2022 Monocytes/100 WBC (Bld) 5.8 % 0-10 [facility] Blood platelet mean volumeOr dered By: Dr. Garner on 10-30-2022 Platelet mean volume (Bld) [Entitic vol] 10.1 fL 6.2-12.0 [facility] Determination of erythrocyte mean corpuscular volume (MCV)Ordered By: Dr. Garner on 10-30-2022 MCV (RBC) [Entitic vol] 96.6 fL 81-99 [facility] Hematocrit Auto (Bld) [Volum e fraction]Ordered By: Dr. Garner on 10-30-2022 Hematocrit (Bld) [Volume fraction] 40.2 % 37-47 [facility] Laboratory - Chemistry and C hemistry - challengeOrdered By: Dr. Garner on 10-30-2022 ALP [Catalytic activity/Vol] 84 U/L 45-117 [facility] ALT [Catalytic activity/Vol] 19 U/L 13-56 [facility] CO2 [Moles/Vol] 26.0 mmol/L 21.0-32.0 [facility] Globulin (S) [Mass/Vol] 3.4 g/dL 2.2-4.2 [facility] Urea nitrogen/Creatinine [Mass ratio] 27.5 mg/mg 10-20 [facility] Laboratory - Hematology and Cell countsOrdered By: Dr. Garner on 10-30-2022 Erythrocyte distribution width (RBC) [Entitic vol] 45.5 fL 35.1-43.9 [facility] Erythrocyte distribution width (RBC) [Ratio] 12.7 % 11.6-14.6 [facility] Immature granulocytes/100 WBC (Bld) 0.200 % 0.0-0.9 [facility] Comment on above: IG% - Immature Granu locytes (promyelocytes, myelocytes and metamyelocytes) > 1% indicates that a LEFT SHIFT is Present. MCH (RBC) [Entitic mass] 31.3 pg 27.0-32.0 [facility] Nucleated RBC/100 WBC (Bld) [Ratio] 0 % 0-5 [facility] MCHC Auto (RBC) [Mass/Vol]Or dered By: Dr. Garner on 10-30-2022 MCHC (RBC) [Mass/Vol] 32.3 g/dL 32-36 [facility] No Panel InformationOrdered By: Dr. Garner on 10-30-2022 Estimated GFR (MDRD) Amer 79 mL/min >60 [facility] Comment on above: GFR Calc Estimated GFR (MDRD) Non-Af Amer 65 mL/min >60 [facility] Comment on above: Non- GFR Calc Vitamin D 25-Hydroxy 39.3 ng/mL [facility] Comment on above: Vitamin D 25(OH) Sta tus Range Deficiency <20 ng/mL (50nmol/L) Insufficiency 20 - 30 ng/mL (50 - 75 nmol/L) Sufficiency 30 - 100 ng/mL (75 - 250 nmol/L) Toxicity >100 ng/mL (>250 nmol/L) Platelets bldOrdered By: Dr. Garner on 10-30-2022 Platelets (Bld) [#/Vol] 289 10*3/uL 150-450 [facility] Serum or plasma albumin rolanda urement (mass/volume)Ordered By: Dr. Garner on 10-30-2022 Albumin [Mass/Vol] 3.3 g/dL 3.2-5.0 [facility] Serum or plasma albumin/glob ulin mass ratioOrdered By: Dr. Garner on 10-30-2022 Albumin/Globulin [Mass ratio] 1.0 {ratio} 0.9-2.4 [facility] Serum or plasma calcium rolanda urement (mass/volume)Ordered By: Dr. Garner on 10-30-2022 Calcium [Mass/Vol] 9.1 mg/dL 8.5-10.1 [facility] Serum or plasma cholesterol in HDL measurement (mass/volume)Ordered By: Dr. Garner on 10-30-2022 Cholesterol in HDL [Mass/Vol] 53 mg/dL >40 [facility] Comment on above: The drugs N-Acetylcy steine and Metamizole may falsely depress this assay. Reference Range HDL <40 mg/dL Low HDL Cholesterol HDL >or= 60 mg/dL High HDL Cholesterol Serum or plasma cholesterol in VLDL measurement (mass/volume)Ordered By: Dr. Garner on 10-30-2022 Cholesterol in VLDL [Mass/Vol] 20 mg/dL 5-40 [facility] Serum or plasma creatinine m easurement (mass/volume)Ordered By: Dr. Garner on 10-30-2022 Creatinine [Mass/Vol] 0.91 mg/dL 0.55-1.02 [facility] Comment on above: The validity of the calculated GFR & GFRAA in patients over 70 years has not been determined. Clinical correlation is essential. Serum or plasma low density lipoprotein (LDL) cholesterol measurement (mass/volume)Ordered By: Dr. Garner on 10-30-2022 Cholesterol in LDL [Mass/Vol] 108 mg/dL 0-130 [facility] Serum or plasma urea nitroge n measurement (mass/volume)Ordered By: Dr. Garner on 10-30-2022 Urea nitrogen [Mass/Vol] 25 mg/dL 7-18 [facility] Thin prep Papanicolaou smear with manual screeningOrdered By: Dr. Garner on 10-30-2022 Thin prep Papanicolaou smear with manual screening 14 U/L 15-37 [facility] Thin prep Papanicolaou smear with manual screening 5 5-15 [facility] Whole blood hemoglobin A1c/t otal hemoglobin ratio (mass fraction)Ordered By: Dr. Garner on 10-30-2022 HbA1c (Bld) [Mass fraction] 5.3 % 3.8-5.6 [facility] Comment on above: Normal < 5.7 % Predi abetic 5.7 - 6.4 % Diabetic >or= 6.5 % Please note range changes. Absolute lymphocyte counton 02-27-2022 Lymphocytes Auto (Unsp spec) [#/Vol] 2.76 10*3/uL 0.83-4.51 [facility] Work Phone: Basophil percentageon 2021 Basophil percentage 0-5 SEEN /hpf 0-5 [facility] Work Phone: Basophils/100 WBC (Bld) 0.4 % 0-1 [facility] Work Phone: Chloride [Moles/Vol] 105 mmol/L 98-107 [facility] Work Phone: Eosinophils/100 WBC (Bld) 1.7 % 0-5 [facility] Work Phone: Glucose [Mass/Vol] 110 mg/dL 74-106 [facility] Work Phone: Comment on above: Fasting Glucose resu lt from 100 to 125 mg/dL suggests IMPAIRED HOMEOSTASIS per A.D.A. criteria. Neutrophils (Bld) [#/Vol] 5.7 10*3/uL 2.0-7.7 [facility] Work Phone: [phone] Neutrophils/100 WBC (Bld) 60.8 % 47-70 [facility] Work Phone: [phone] Potassium [Moles/Vol] 3.6 mmol/L 3.5-5.1 [facility] Work Phone: [phone] Sodium [Moles/Vol] 141 mmol/L 136-145 [facility] Work Phone: [phone] WBC (Bld) [#/Vol] 9.3 10*3/uL 4.4-11.0 [facility] Work Phone: [phone] Bilirubin Test strip Ql (U)o n 02-27-2022 Bilirubin Ql (U) Negative Negative [facility] Work Phone: [phone] Blood erythrocytes count (nu mber/volume)on 02-27-2022 RBC (Bld) [#/Vol] 4.74 10*6/uL 4.2-5.4 [facility] Work Phone: [phone] Blood hemoglobin measurement (mass/volume)on 02-27-2022 Hemoglobin (Bld) [Mass/Vol] 14.8 g/dL 12.0-15.0 [facility] Work Phone: [phone] Blood lymphocytes/100 leukoc yteson 02-27-2022 Lymphocytes/100 WBC (Bld) 29.6 % 19-41 [facility] Work Phone: [phone] Blood monocytes/100 leukocyt eson 02-27-2022 Monocytes/100 WBC (Bld) 7.1 % 0-10 [facility] Work Phone: [phone] Blood platelet mean volumeon 02-27-2022 Platelet mean volume (Bld) [Entitic vol] 9.8 fL 6.2-12.0 [facility] Work Phone: [phone] Determination of erythrocyte mean corpuscular volume (MCV)on 02-27-2022 MCV (RBC) [Entitic vol] 94.5 fL 81-99 [facility] Work Phone: Hematocrit Auto (Bld) [Volum e fraction]on 02-27-2022 Hematocrit (Bld) [Volume fraction] 44.8 % 37-47 [facility] Work Phone: [phone] Ketones Test strip Ql (U)on 02-27-2022 Ketones Ql (U) 5 mg/dl Negative [facility] Work Phone: [phone] Laboratory - Chemistry and C hemistry - challengeon 02-27-2022 CO2 [Moles/Vol] 27.0 mmol/L 21.0-32.0 [facility] Work Phone: Urea nitrogen/Creatinine [Mass ratio] 24.9 mg/mg 10-20 [facility] Work Phone: [phone] Bilirubin Ql (U) Negative [facility] Work Phone: [phone] Glucose Ql (U) Negative [facility] Work Phone: Ketones Ql (U) Negative [facility] Work Phone: [phone] pH (U) 5.0 [pH] [facility] Work Phone: [phone] Specific gravity (U) [Rel density] 1.005 [facility] Work Phone: [phone] Urobilinogen (U) [Mass/Vol] Negative [facility] Work Phone: [phone] Laboratory - Hematology and Cell countson 02-27-2022 Erythrocyte distribution width (RBC) [Entitic vol] 42.9 fL 35.1-43.9 [facility] Work Phone: [phone] Erythrocyte distribution width (RBC) [Ratio] 12.2 % 11.6-14.6 [facility] Work Phone: [phone] Immature granulocytes/100 WBC (Bld) 0.400 % 0.0-0.9 [facility] Work Phone: [phone] Comment on above: IG% - Immature Granu locytes (promyelocytes, myelocytes and metamyelocytes) > 1% indicates that a LEFT SHIFT is Present. MCH (RBC) [Entitic mass] 31.2 pg 27.0-32.0 [facility] Work Phone: Nucleated RBC/100 WBC (Bld) [Ratio] 0 % 0-5 [facility] Work Phone: Hemoglobin Ql (U) Negative [facility] Work Phone: Laboratory - Specimen inform ationon 02-27-2022 Clarity (U) Clear [facility] Work Phone: Color (U) Straw [facility] Work Phone: Laboratory - Urinalysison Nitrite Ql (U) Negative [facility] Work Phone: Protein Ql (U) Negative [facility] Work Phone: MCHC Auto (RBC) [Mass/Vol]on 02-27-2022 MCHC (RBC) [Mass/Vol] 33.0 g/dL 32-36 [facility] Work Phone: Mucus LM Ql (Urine sed)on Mucus Ql (Urine sed) 0 SEEN /hpf [facility] Work Phone: Nitrite Test strip Ql (U)on 02-27-2022 Nitrite Ql (U) Negative Negative [facility] Work Phone: No Panel Informationon 02-27 Estimated Creatinine Clearance Calc 48.39 ml/min [facility] Work Phone: [phone] Estimated GFR (MDRD) Amer 82 mL/min >60 [facility] Work Phone: [phone] Comment on above: GFR Calc Estimated GFR (MDRD) Non-Af Amer 68 mL/min >60 [facility] Work Phone: [phone] Comment on above: Non- GFR Calc Urine Leukocytes Negatve [facility] Work Phone: [phone] Urine Non-Hemolyzed Blood Negative [facility] Work Phone: Platelets bldon 02-27-2022 Platelets (Bld) [#/Vol] 297 10*3/uL 150-450 [facility] Work Phone: Protein Test strip Ql (U)on 02-27-2022 Protein Ql (U) Negative Negative [facility] Work Phone: Serum or plasma calcium rolanda urement (mass/volume)on 02-27-2022 Calcium [Mass/Vol] 9.9 mg/dL 8.5-10.1 [facility] r [facility] Work Phone: Serum or plasma creatinine m easurement (mass/volume)on 02-27-2022 Creatinine [Mass/Vol] 0.88 mg/dL 0.55-1.02 [facility] ster [facility] Work Phone: Comment on above: The validity of the calculated GFR & GFRAA in patients over 70 years has not been determined. Clinical correlation is essential. Serum or plasma urea nitroge n measurement (mass/volume)on 02-27-2022 Urea nitrogen [Mass/Vol] 22 mg/dL 7-18 [facility] Work Phone: Squamous epithelial cells de tection in urine sediment by light microscopyon 02-27-2022 Epithelial cells.squamous LM Ql (Urine sed) 0-5 SEEN /hpf 5-10 [facility] Work Phone: Thin prep Papanicolaou smear with manual screeningon 02-27-2022 Thin prep Papanicolaou smear with manual screening 9 5-15 [facility] Work Phone: Urine blood detectionon 02-16 RBC Ql (U) Negative Negative [facility] Work Phone: RBC Ql (U) 0 SEEN /hpf 0-5 [facility] Work Phone: [phone] Urine clarityon 02-27-2022 Clarity (U) Clear Clear [facility] Work Phone: Urine color determinationon 02-27-2022 Color (U) Yellow Yellow [facility] Work Phone: Urine glucose detectionon Glucose Ql (U) Normal mg/dl Normal [facility] Work Phone: Urine leukocyte esterase det ection by dipstickon 02-27-2022 Leukocyte esterase Test strip Ql (U) 100 /ul Negative [facility] Work Phone: Urine pHon 02-27-2022 pH (U) 6.5 [pH] 5.0 - 8.0 [facility] Work Phone: Urine sediment bacteria coun t by microscopy (number/high power field)on 02-27-2022 Bacteria LM.HPF (Urine sed) [#/Area] 0 /[HPF] None Seen [facility] Work Phone: Urine specific gravity measu rementon 02-27-2022 Specific gravity (U) [Rel density] 1.010 1.002-1.030 [facility] Work Phone: Urobilinogen Auto test strip Ql (U)on 02-27-2022 Urobilinogen Ql (U) Normal mg/dl Normal [facility] Work Phone: Absolute lymphocyte counton 10-23-2021 Lymphocytes Auto (Unsp spec) [#/Vol] 2.99 10*3/uL 0.83-4.51 [facility] Work Phone: Basophil percentageon 2021 Basophils/100 WBC (Bld) 0.5 % 0-1 [facility] Work Phone: Bilirubin [Mass/Vol] 0.50 mg/dL 0.20-1.00 [facility] Work Phone: Comment on above: For patients on eltr ombopag therapy, use of Dimension [place] TBIL is not recommended. Chloride [Moles/Vol] 105 mmol/L 98-107 [facility] Work Phone: Cholesterol [Mass/Vol] 192 mg/dL <200 [facility] Work Phone: Comment on above: <200 mg/dL Desirable 200-240 mg/dL Borderline >240 mg/dL High Risk Eosinophils/100 WBC (Bld) 2.9 % 0-5 [facility] Work Phone: Glucose [Mass/Vol] 109 mg/dL 74-106 [facility] Work Phone: Comment on above: Fasting Glucose resu lt from 100 to 125 mg/dL suggests IMPAIRED HOMEOSTASIS per A.D.A. criteria. Neutrophils (Bld) [#/Vol] 4.1 10*3/uL 2.0-7.7 [facility] Work Phone: Neutrophils/100 WBC (Bld) 52.2 % 47-70 [facility] Work Phone: Potassium [Moles/Vol] 3.2 mmol/L 3.5-5.1 [facility] Work Phone: Protein [Mass/Vol] 7.4 g/dL 6.4-8.2 [facility] Work Phone: Sodium [Moles/Vol] 139 mmol/L 136-145 [facility] Work Phone: Triglyceride [Mass/Vol] 96 mg/dL [facility] Work Phone: Comment on above: The drugs N-Acetylcy steine and Metamizole may falsely depress this assay.Serum Triglycerides Reference Interval Normal <150 mg/dL Borderline high 150 - 199 mg/dL High 200 - 499 mg/dL Very High > or = 500 mg/dL WBC (Bld) [#/Vol] 7.9 10*3/uL 4.4-11.0 [facility] Work Phone: Blood erythrocytes count (nu mber/volume)on 10-23-2021 RBC (Bld) [#/Vol] 4.51 10*6/uL 4.2-5.4 [facility] Work Phone: Blood hemoglobin measurement (mass/volume)on 10-23-2021 Hemoglobin (Bld) [Mass/Vol] 14.2 g/dL 12.0-15.0 [facility] Work Phone: Blood lymphocytes/100 leukoc yteson 10-23-2021 Lymphocytes/100 WBC (Bld) 38.0 % 19-41 [facility] Work Phone: Blood monocytes/100 leukocyt eson 10-23-2021 Monocytes/100 WBC (Bld) 6.1 % 0-10 [facility] Work Phone: Blood platelet mean volumeon 10-23-2021 Platelet mean volume (Bld) [Entitic vol] 10.0 fL 6.2-12.0 [facility] Work Phone: Determination of erythrocyte mean corpuscular volume (MCV)on 10-23-2021 MCV (RBC) [Entitic vol] 94.9 fL 81-99 [facility] Work Phone: Hematocrit Auto (Bld) [Volum e fraction]on 10-23-2021 Hematocrit (Bld) [Volume fraction] 42.8 % 37-47 [facility] Work Phone: Laboratory - Chemistry and C hemistry - challengeon 10-23-2021 ALP [Catalytic activity/Vol] 89 U/L 45-117 [facility] Work Phone: ALT [Catalytic activity/Vol] 20 U/L 13-56 [facility] Work Phone: CO2 [Moles/Vol] 29.0 mmol/L 21.0-32.0 [facility] Work Phone: Globulin (S) [Mass/Vol] 3.8 g/dL 2.2-4.2 [facility] Work Phone: Urea nitrogen/Creatinine [Mass ratio] 27.8 mg/mg 10-20 [facility] Work Phone: Laboratory - Hematology and Cell countson 10-23-2021 Erythrocyte distribution width (RBC) [Entitic vol] 43.0 fL 35.1-43.9 [facility] Work Phone: Erythrocyte distribution width (RBC) [Ratio] 12.3 % 11.6-14.6 [facility] Work Phone: Immature granulocytes/100 WBC (Bld) 0.300 % 0.0-0.9 [facility] Work Phone: Comment on above: IG% - Immature Granu locytes (promyelocytes, myelocytes and metamyelocytes) > 1% indicates that a LEFT SHIFT is Present. MCH (RBC) [Entitic mass] 31.5 pg 27.0-32.0 [facility] Work Phone: Nucleated RBC/100 WBC (Bld) [Ratio] 0 % 0-5 [facility] Work Phone: [phone] MCHC Auto (RBC) [Mass/Vol]on 10-23-2021 MCHC (RBC) [Mass/Vol] 33.2 g/dL 32-36 [facility] Work Phone: No Panel Informationon 10-23 Estimated GFR (MDRD) Amer 93 mL/min >60 [facility] Work Phone: Comment on above: GFR Calc Estimated GFR (MDRD) Non-Af Amer 77 mL/min >60 [facility] Work Phone: [phone] Comment on above: Non- GFR Calc Vitamin D 25-Hydroxy 49.7 ng/mL [facility] Work Phone: Comment on above: Vitamin D 25(OH) Sta tus Range Deficiency <20 ng/mL (50nmol/L) Insufficiency 20 - 30 ng/mL (50 - 75 nmol/L) Sufficiency 30 - 100 ng/mL (75 - 250 nmol/L) Toxicity >100 ng/mL (>250 nmol/L) Platelets bldon 10-23-2021 Platelets (Bld) [#/Vol] 316 10*3/uL 150-450 [facility] Work Phone: [phone] Serum or plasma albumin rolanda urement (mass/volume)on 10-23-2021 Albumin [Mass/Vol] 3.6 g/dL 3.2-5.0 [facility] Work Phone: [phone] Serum or plasma albumin/glob ulin mass ratioon 10-23-2021 Albumin/Globulin [Mass ratio] 0.9 {ratio} 0.9-2.4 [facility] Work Phone: Serum or plasma calcium rolanda urement (mass/volume)on 10-23-2021 Calcium [Mass/Vol] 9.2 mg/dL 8.5-10.1 [facility] Work Phone: Serum or plasma cholesterol in HDL measurement (mass/volume)on 10-23-2021 Cholesterol in HDL [Mass/Vol] 57 mg/dL [facility] Work Phone: Comment on above: The drugs N-Acetylcy steine and Metamizole may falsely depress this assay. Reference Range HDL <40 mg/dL Low HDL Cholesterol HDL >or= 60 mg/dL High HDL Cholesterol Serum or plasma cholesterol in VLDL measurement (mass/volume)on 10-23-2021 Cholesterol in VLDL [Mass/Vol] 19 mg/dL 5-40 [facility] Work Phone: Serum or plasma creatinine m easurement (mass/volume)on 10-23-2021 Creatinine [Mass/Vol] 0.79 mg/dL 0.55-1.02 [facility] Work Phone: Comment on above: The validity of the calculated GFR & GFRAA in patients over 70 years has not been determined. Clinical correlation is essential. Serum or plasma low density lipoprotein (LDL) cholesterol measurement (mass/volume)on 10-23-2021 Cholesterol in LDL [Mass/Vol] 116 mg/dL 0-130 [facility] Work Phone: Serum or plasma urea nitroge n measurement (mass/volume)on 10-23-2021 Urea nitrogen [Mass/Vol] 22 mg/dL 7-18 [facility] Work Phone: Thin prep Papanicolaou smear with manual screeningon 10-23-2021 Thin prep Papanicolaou smear with manual screening 11 U/L 15-37 [facility] Work Phone: Thin prep Papanicolaou smear with manual screening 5 5-15 [facility] Work Phone: Laboratory - Microbiology an d Antimicrobial susceptibilityon 07-30-2021 SARS-CoV-2 (COVID-19) RNA JENN+probe Ql (Unsp spec) Not detected Not Detect [facility] Work Phone: Comment on above: Normal Reference Ran ge: Not DetectedMethod:(RT-PCR) real-time reverse transcriptase PCRLuminex KELLY Instrument*The Food and Drug Administration (FDA) has issued an Emergency Use Authorization (EAU) for the KELLY SARS-CoV-2 Assay for the rapid detection of the virus that causes COVID-19. This test has been validated, but the FDAs independent review of this validation is pending.*Negative results do not preclude infection and should not be used as the sole basis for treatment or patient management. Optimum specimen types and timing for peak viral levels during infections caused by SARS-CoV-2 have not been determined. Collection of multiple specimens from the same patient may be necessary to detect the virus. The possibility of a false negative result should be considered if the patient has clinical presentation or has had recent exposure. Deangelo 10-07-2020 JONELLE Telephone (GENBRIGID) MAKEDA NEGRON ([id number]) 1955 F Date Time Provider Department 10/07/20 CONCHA BOYD) PATRICIA During your visit today, we recorded the following information about you: Concha Boyd APRN.CNP 10/07/2020 10:26 AM Signed Spoke with patient regarding eligibility to schedule repeat colonoscopy. Patient wanted to schedule procedure so scheduling hotline numbers were provided to patient: [phone] and [phone] for patient to call at her earliest convenience. Orders placed. Concha Boyd APRN.CNP October 07, 2020 10:26 AM Allergies As of Date: 10/07/2020 Noted Allergy Reaction BACTRIM (SULFAMETHOXAZOLE-TRIME TH*05/11/2005 16 - Unknown bandaid [Other] 03/28/2009 2 - Rash CODEINE 05/11/2005 4 - Hives CORTISONE 05/11/2005 9 - Itching Comments: Skin feels like it is burning NSAIDS (NON-STEROIDAL ANTI-INFLAM*05/11/2005 8 - GI Upset PHENERGAN (PROMETHAZINE HCL) 05/11/2005 13 - Dystonia PREDNISOLONE 05/11/2005 4 - Hives ULTRAM (TRAMADOL HCL) 05/11/2005 16 - Unknown LEVOFLOXACIN 02/15/2013 7 - Swelling Comments: Joint swelling and pain Date Reviewed: 08/01/2018 Reviewed by: Mekhi Escalera - Fully Assessed Reason for Visit: Prehemmer - Other [3602] Prescriptions as of 10/07/2020 Sig: HYDROCHLOROTHIAZIDE 25 MG TAB* TAKE 1 TABLET EVERY DAY OMEPRAZOLE 20 MG CAPSULE,JENS* TAKE 1 CAPSULE EVERY DAY METOPROLOL TARTRATE 25 MG TAB* TAKE 1 TABLET TWICE DAILY SUCRALFATE 1 GRAM TABLET TAKE 1 TABLET TWICE DAILY VERAPAMIL 120 MG TABLET TAKE 1/2 TABLET 4 TIMES A DAY AMITRIPTYLINE 150 MG TABLET Take 1 tablet by mouth daily * ATORVASTATIN 20 MG TABLET Take 1 tablet by mouth once d* IBANDRONATE 150 MG TABLET Take 1 tablet by mouth once e* ALBUTEROL SULFATE HFA 90 MCG/* Inhale 2 Puffs as instructed * Patient not taking: Reported on 12/08/2017 BENZONATATE 100 MG CAPSULE Take 1-2 capsules by mouth th* Patient not taking: Reported on 12/08/2017 ASPIRIN 81 MG TABLET,DELAYED * Take 1 tablet by mouth once d* CHOLECALCIFEROL (VITAMIN D3) * Take 1 tablet by mouth once d* COMPOUNDED PRESCRIPTION BLOOD PRESSURE CUFF FOR HOME * Patient not taking: Reported on 06/03/2018 Problem List As Of Date 10/07/2020 Noted Resolved Irritable bowel syndrome [K58.9] 05/11/2005 Obesity, Class III, BMI 40-49.9 (morbid obesity*05/11/2005 Pure hypercholesterolemia [E78.00] 11/11/2006 Esophageal reflux [K21.9] 12/26/2007 Essential hypertension, benign [I10] 12/26/2007 Impaired fasting glucose [R73.01] 03/28/2009 Osteoporosis, postmenopausal [M81.0] 05/02/2009 Arthritis of right knee [M17.11] 02/20/2014 Encounter Status:Closed by CONCHA BOYD CNP on 10/07/20 [facility] HISTORY AND PHYSICAL EXAMon 08-22-2018 HISTORY AND PHYSICAL EXAM [facility] HISTORY & PHYSICAL NAME ACCOUNT SEX AGE ADMIT DISCHARGE PT MED. RECORD# NUMBER DATE DATE TYPE MARIA ANTONIA [id number] F 63 1 MAKEDA Guzman [id number] ROOM: DATE OF : 53 DICTATING PHYSICIAN: Amelia Collier PROCEDURE TYPE: Right shoulder arthroscopy, subacromial decompression and rotator cuff repair. PROCEDURE DATE: August 15, 2018 ATTENDING PHYSICIAN: Dr. Sanchez Parsons. HISTORY OF PRESENT ILLNESS: This is a 63-year-old female with a chief complaint of right shoulder pain that has been bothering her since lifting a heavy box in November of 2017. The shoulder was fine before that. She has persisted with pain and stiffness as well as weakness ever since. She feels it is getting worse. She has been through physical therapy. She had a cortisone injection, which did not significantly relieve her shoulder pain. She feels the cortisone injection gave her a migraine headache that lasted 19 days. She is not able to work because of her right shoulder pain and weakness. She is having trouble sleeping. The pain is in the anterior shoulder. She is not having any pain at the acromioclavicular joint. MRI was consistent with a tear of the rotator cuff, AC joint arthritis, SLAP tear, and biceps tendinopathy. After failing conservative measures and discussing and reviewing all treatment options with Dr. Sanchez Parsons, the patient does wish to proceed with right shoulder arthroscopy, subacromial decompression, and rotator cuff repair. PAST MEDICAL HISTORY: Documented in the [facility] medical history sheet. Please refer to the attached document. PAST SURGICAL HISTORY: Documented in the [facility] medical history sheet. Please refer to the attached document. MEDICATIONS: Documented in the [facility] medical history sheet. Please refer to the attached document. ALLERGIES: Documented in the [facility] medical history sheet. Please refer to the attached document. SOCIAL HISTORY: Documented in the [facility] medical history sheet. Please refer to the attached document. REVIEW OF SYSTEMS: Documented in the [facility] medical history sheet. Please refer to the attached document. Page 1 of 3 MAKEDA NEGRON History & Physical PHYSICAL EXAMINATION GENERAL APPEARANCE: The patient is alert and oriented x3, in no acute distress at rest, breathing easily without respiratory distress. VITAL SIGNS: Height is 62 inches. Weight is 227 pounds. BMI is 41.5. Blood pressure is 138/78, pulse 68, respirations 16, and temperature 98.8. HEENT: Head: Normocephalic, atraumatic. Eyes: PERRLA, EOMI. Sclerae anicteric. Conjunctivae without injection. Ears: Auditory acuity is grossly intact bilaterally. Nose: Bilateral patent nares without tenderness or drainage. Throat: Pharynx is clear without erythema or exudate. Tongue and uvula are midline. Buccal mucosa is pink and moist. NECK: Supple without adenopathy, JVD, carotid bruit, masses or tenderness. CHEST: Symmetrical and nontender to palpation. AP diameter within normal limits. LUNGS: Clear to auscultation bilaterally without wheezes, rales or rhonchi. HEART: Regular rate and rhythm without murmurs, rubs or gallops appreciated at this time. ABDOMEN: Soft, nondistended. Normoactive bowel sounds x4 without tenderness. EXTREMITIES/MUSCULOSKEL ETAL: The right shoulder has pain and crepitus, positive impingement sign, and near full passive range of motion. Active motion in forward elevation is 90 degrees. Abduction is 80 degrees due to pain and weakness. Internal rotation with grade 5 strength. External rotation with grade 5- strength. Supraspinatus testing with grade 4 strength. No pain on palpation of the acromioclavicular joint. Pain at the bicipital groove. Mild pain with Speed's and Yergason's test. No warmth or redness about the shoulder. Arm is neurovascularly intact distally. NEUROLOGICAL: Cranial nerves II through XII are grossly intact without any focal sensory or motor deficits noted. DIAGNOSTIC DATA: Previous x-rays of the right shoulder are with acromioclavicular joint arthritis, narrowing of the superior shoulder joint space, and a type II acromion. MRI of the right shoulder dated June 28, 2018, from [facility] [place] is consistent with a supraspinatus tendon tear with retraction, significant acromioclavicular joint arthritis with inferior bone spurring, SLAP tear, biceps tendinopathy, and an interstitial tear of the subscapularis. IMPRESSION: Right shoulder rotator cuff tear, impingement syndrome, biceps tendinitis, possible SLAP tear, and seemingly asymptomatic acromioclavicular joint Page 2 of 3 MAKEDA NEGRON History & Physical arthritis. PLAN: Dr. Sanchez Parsons did discuss and review with the patient all treatment options, including surgical versus nonsurgical. At this time, the patient does wish to proceed with a right shoulder arthroscopy, subacromial decompression, and rotator cuff repair. The potential risks, benefits, and complications of this procedure were reviewed in detail, including but not limited to , infection, nerve and blood vessel damage, persistent pain, numbness, tingling, paresthesias, blood clot, pulmonary embolism, and requirement of possible further surgery. The patient expressed full understanding. She has no further questions for the doctor and does agree to proceed with the above-stated procedure and signed the appropriate surgery consent form. Dictated By: Amelia Collier PA-C 07/26/18 09:36 JOB #: [id number] Transcribed By: pancho 07/26/18 13:11 Electronically signed by: E-sign Amelia AGUILAR 08/22/18 09:42 Update to H&P: [ ] No changes: I have examined the patient and reviewed the H&P and there are no changes. [ ] As previously dictated with the following changes: PHYSICIAN SIGNATURE: __ TIME: DATE: Page 3 of 3 MAKEDA NEGRON History & Physical Normal [facility] OPERATIVE PROCEDURESon 08-17 Protein [facility] OPERATIVE REPORT NAME ACCOUNT SEX AGE ADMIT DISCHARGE PT MED. RECORD# NUMBER DATE DATE TYPE MARIA ANTONIA [id number] F 63 08/15/18 1 MAKEDA Guzman [id number] [facility] DATE OF : 1955 DICTATING PHYSICIAN: Sanchez Parsons DATE OF SURGERY: August 15, 2018 SURGEON: Sanchez Parsons MD INSIGHTS MANAGER: Amelia Collier PA-C ANESTHESIOLOGIST: Buster Ellington MD ANESTHETIC: Interscalene nerve block and general anesthesia. PREOPERATIVE DIAGNOSIS: Right shoulder rotator cuff tear and impingement syndrome. POSTOPERATIVE DIAGNOSIS: Right shoulder rotator cuff tear and impingement syndrome. OPERATION PERFORMED: Right shoulder diagnostic video arthroscopy, arthroscopic subacromial decompression, and arthroscopic rotator cuff repair using the Arthrex SpeedBridge implant system. COMPLICATIONS: ESTIMATED BLOOD LOSS: SPECIAL MEDICATIONS: Ancef. INDICATIONS FOR SURGERY: The patient is a 63-year-old female with a history of right shoulder injury in November. She has not been able to lift or use her arm normally since. She has had pain and weakness. Due to persistent symptoms despite conservative measures, she wished to have surgery. Appropriate informed consent was obtained and signed. FINDINGS: Intraoperative findings were consistent with the history and the physical and radiographic examinations. She does have a full-thickness tear of the supraspinatus tendon that is retracted almost to the joint. She has a type 2 acromion. She underwent a standard arthroscopic evaluation of the shoulder, arthroscopic subacromial Page 1 of 3 MAKEDA NEGRON Operative Report decompression, and rotator cuff repair using the Arthrex SpeedBridge implant system. This brought the tendon nicely back towards its anatomic location and stabilized it nicely against the bone that was prepared. industrial hire sales assistant, physician certified teacher assistant was utilized throughout the entire procedure. She helped with patient positioning, holding of limbs, and holding of retractors. She helped with holding the scope, holding of implants, placement of implants, suture retrieval, cuff stabilization, wound closure, bandage application, sling application, and patient transfer. Without surgical elastic knitter, surgical time would have been increased and surgical outcome could have been less optimal. DESCRIPTION OF OPERATION: The patient was taken to the operating room and transferred to the OR table. She had been given an interscalene nerve block. She was given a general anesthetic. Appropriate time-out was performed. She was placed in the James beach chair position. The right shoulder and upper extremity were prepped, padded and draped in the usual orthopedic sterile fashion for the procedure. She had KATHIA hose and SCDs on the lower limbs. The right shoulder was examined and found to be stable. After prepping and draping, we knocked out our arthroscopy portals. The posterior portal was taken through skin with a knife. With the certified teacher assistant distracting the shoulder laterally, I atraumatically introduced the cannula into the shoulder joint. We scoped the shoulder and found a full-thickness rotator cuff tear. We found a type 2 acromion looking up through the tear. The biceps was intact. Mild synovitis was noted. We established a portal from an inside-out technique. We established our anterior portal. We brought in a shaver. We lightly debrided the joint. We debrided the torn tendon edge. The biceps was left intact. At this point, we went to the subacromial space and the posterior portal. We established our lateral portal with a knife, with a dull trocar taking me into the lateral aspect of the subacromial space. We used an ArthroCare wand as well as a shaver to free the bursal tissue from the undersurface of the acromion as well as cleaned up bursal tissue from over top the rotator cuff tear site. We used a shaver as well and then a bur to perform the acromioplasty, making the acromion flat from the anterolateral aspect to the AC joint. We then placed the scope in the lateral portal and the bur in the posterior portal, again making sure this was flat from [id number] and [id number], from the anterolateral portion of the acromion to the AC joint. Once adequate decompression was done, we freed up the rotator cuff. We used a Shelbiana for this. We placed our cannula in the lateral portal. Next, we prepared the bony site for the repair on the humeral head with a shaver and bur. We lightly removed soft tissue and bone for a good attachment site. We also freshened the tendon edges with the shaver. At this point, we used the SpeedBridge implant system with secondary portals just off the acromion, one anterior and one posterior, each bringing a suture down in with the implant. We used FiberTape and TigerTape in each implant. Ultimately, one of the TigerTapes and one of the FiberTapes were brought out our working portal. We placed our next implant, which was a BioComposite SwiveLock with each of the sutures, one anterior and again one posterior with the other two sutures attached crisscrossing them and stabilizing them nicely to the greater tuberosity. Once this was done, we established our tear. It was nicely repaired to the bone and had a good resting position. The shoulder could be placed through range of motion. It was Page 2 of 3 MAKEDA NEGRON Operative Report nicely intact. Each of the sutures were cut off above the implant. A final set of pictures was taken. The cannula and arthroscopic instruments were removed, as was excess fluid from the joint. The portals were closed with 4-0 nylon sutures, simple and mattress-type sutures. We placed Xeroform, 4x4s, ABDs, tape, ABD in the axilla, and an arm sling. She was awakened from her anesthetic and transferred back to her own bed in the recovery room in satisfactory condition. Hopefully she will be ready to be discharged home later this evening. Dictated By: Sanchez Parsons MD 08/15/18 17:03 JOB #: [id number] Transcribed By: pancho 08/15/18 17:05 Electronically signed by: E-SIGN DR. SANCHEZ PARSONS M.D. 08/17/18 10:27 Page 3 of 3 MAKEDA NEGRON Operative Report Normal [facility] CHEST 2 VIEWSon 07-22-2018 CHEST 2 VIEWS [place] [address] Patient: MAKEDA NEGRON. Phone#: : 1955 Age: 63 Gender: F Pt. Type: Out Account: [id number] Location: Ordering: SANCHEZ PARSONS Exam Date: 07/22/2018/15:02 Family Phys: CINDY WRIGHT Charge Code: 650091 Physician: [place] Order #: [id number] DLP Dose#: PROCEDURE: X-RAY CHEST 2 VIEWS COMPARISON: None. INDICATIONS: Surgery clearance FINDINGS: LUNGS: Normal. No significant pulmonary parenchymal abnormalities. VASCULATURE: Normal. Unremarkable pulmonary vasculature. CARDIAC: Normal. No cardiac silhouette abnormality or cardiomegaly. MEDIASTINUM: Normal. No visible mass or adenopathy. PLEURA: Normal. No effusion or pleural thickening. BONES: Degenerative changes of the spine. OTHER: Negative. CONCLUSION: 1. No acute osseous abnormality. Dictated by: Claire Humphries MD on 07/22/2018 at 15:57 Approved by: Claire Humphries MD on 07/22/2018 at 15:57 Normal [facility] Vital Signs Date Time Vital Sign Value Performing Clinician Facility 04-03-2025 09:40-0400 Body height 157 cm Yohan [place] PA-C Work Phone: [facility] 04-03-2025 09:40-0400 Body height 157.48 cm Yohan [place] PA-C Work Phone: [facility] 04-03-2025 09:40-0400 Body mass index (BMI) [Ratio] 38.55 kg/m2 Yohan [place] PA-C Work Phone: [facility] 04-03-2025 09:40-0400 Body weight 95 kg Yohan [place] PA-C Work Phone: [facility] 04-03-2025 09:40-0400 Body weight 95.26 kg Yohan [place] PA-C Work Phone: [facility] 04-03-2025 09:40-0400 HGHTCHNVIS Yohan [place] PA-C Work Phone: [facility] 04-03-2025 09:40-0400 VITALSDONE Yohan Champion PA-C Work Phone: [facility] 02-14-2025 08:00-0400 Body height 157 cm Pratik Mercado MD Work Phone: [facility] 02-14-2025 08:00-0400 Body height 157.48 cm Pratik Mercado MD Work Phone: [facility] 02-14-2025 08:00-0400 Body mass index (BMI) [Ratio] 38.55 kg/m2 Pratik Mercado MD Work Phone: [facility] 02-14-2025 08:00-0400 Body weight 95 kg Pratik Mercado MD Work Phone: [facility] 02-14-2025 08:00-0400 Body weight 95.26 kg Pratik Mercado MD Work Phone: [facility] 02-14-2025 08:00-0400 BP SITE #1 Pratik Mercado MD Work Phone: [facility] 02-14-2025 08:00-0400 Diastolic blood pressure 82 mm[Hg] Pratik Mercado MD Work Phone: [facility] 02-14-2025 08:00-0400 Heart rate 87 /min Pratik Mercado MD Work Phone: [facility] 02-14-2025 08:00-0400 HGHTCHNVIS Pratik Mercado MD Work Phone: [facility] 02-14-2025 08:00-0400 Systolic blood pressure 123 mm[Hg] Pratik Mercado MD Work Phone: [facility] 02-14-2025 08:00-0400 VITALKEEONE Pratik Mercado MD Work Phone: [facility] 10-09-2024 10:43-0400 Body height 157.[address] Jody Garner MD Work Phone: [facility] 10-09-2024 10:43-0400 Body mass index (BMI) [Ratio] 38.8 kg/m2 Dr. Jody Garner MD Work Phone: [facility] 10-09-2024 10:43-0400 Body weight 96.[address] Jody Garner MD Work Phone: [facility] 09-05-2024 08:45-0500 Diastolic blood pressure 66 mm[Hg] Dr. Jody Garner MD Work Phone: [facility] 09-05-2024 08:45-0500 Heart rate 91 /min Dr. Jody Garner MD Work Phone: [facility] 09-05-2024 08:45-0500 Systolic blood pressure 131 mm[Hg] Dr. Jody Garner MD Work Phone: [facility] 09-05-2024 07:00-0500 SaO2% (BldA) [Mass fraction] 95 % Dr. Jody Garner MD Work Phone: [facility] 09-05-2024 06:00-0500 Body temperature 98.7 [degF] Dr. Jody Garner MD Work Phone: [facility] 09-05-2024 06:00-0500 Respiratory rate 16 /min Dr. Jody Garner MD Work Phone: [facility] 09-04-2024 22:27-0500 Inhaled oxygen concentration 21 % Dr. Jody Garner MD Work Phone: [facility] 09-04-2024 22:27-0500 Inhaled oxygen flow rate 0 L/min Dr. Jody Garner MD Work Phone: [facility] 09-01-2024 11:16-0500 Body height 157.[address] Jody Garner MD Work Phone: [facility] 09-01-2024 11:16-0500 Body weight 99.[address] Jody Garner MD Work Phone: [facility] 08-31-2024 14:57-0500 Body mass index (BMI) [Ratio] 40.1 kg/m2 Dr. Jody Garner MD Work Phone: [facility] 08-31-2024 13:40-0500 Body temperature 98.6 [degF] Dr. Jody Garner MD Work Phone: [facility] 08-31-2024 13:40-0500 Diastolic blood pressure 50 mm[Hg] Dr. Jody Garner MD Work Phone: [facility] 08-31-2024 13:40-0500 Heart rate 95 /min Dr. Jody Garner MD Work Phone: [facility] 08-31-2024 13:40-0500 Respiratory rate 15 /min Dr. Jody Garner MD Work Phone: [facility] 08-31-2024 13:40-0500 SaO2% (BldA) [Mass fraction] 100 % Dr. Jody Garner MD Work Phone: [facility] 08-31-2024 13:40-0500 Systolic blood pressure 114 mm[Hg] Dr. Jody Garner MD Work Phone: [facility] 08-29-2024 15:27-0500 Body mass index (BMI) [Ratio] 38.7 kg/m2 Dr. Jody Garner MD Work Phone: [facility] 08-29-2024 15:27-0500 Body weight [address] Jody Garner MD Work Phone: [facility] 08-29-2024 11:45-0500 Inhaled oxygen flow rate 4 L/min Dr. Jody Garner MD Work Phone: [facility] 07-24-2024 10:09-0500 Body mass index (BMI) [Ratio] 38.6 kg/m2 Dr. Jody Garner MD Work Phone: [facility] 07-24-2024 10:09-0500 Body weight 95.[address] Jody Garner MD Work Phone: [facility] 06-26-2024 08:07-0500 Body mass index (BMI) [Ratio] 38.7 kg/m2 Dr. Jody Garner MD Work Phone: [facility] 06-26-2024 08:07-0500 Body weight 96.[address] Jody Garner MD Work Phone: [facility] 07-20-2023 09:49-0500 Body height 157.[address] Jody Garner Work Phone: [facility] 12-27-2022 10:29-0400 Body temperature 97.8 [degF] Dr. Jody Garner Work Phone: [facility] 12-27-2022 10:29-0400 Diastolic blood pressure 68 mm[Hg] Dr. Jody Garner Work Phone: [facility] 12-27-2022 10:29-0400 Heart rate 86 /min Dr. Jody Garner Work Phone: [facility] 12-27-2022 10:29-0400 Respiratory rate 16 /min Dr. Jody Garner Work Phone: [facility] 12-27-2022 10:29-0400 SaO2% (BldA) [Mass fraction] 97 % Dr. Jody Garner Work Phone: [facility] 12-27-2022 10:29-0400 Systolic blood pressure 128 mm[Hg] Dr. Jody Garner Work Phone: [facility] 12-22-2022 15:12-0400 Body temperature 98 [degF] Dr. Jody Garner Work Phone: [facility] 12-22-2022 15:12-0400 Diastolic blood pressure 74 mm[Hg] Dr. Jody Garner Work Phone: [facility] 12-22-2022 15:12-0400 Heart rate 68 /min Dr. Jody Garner Work Phone: [facility] 12-22-2022 15:12-0400 Respiratory rate 16 /min Dr. Jody Garner Work Phone: [facility] 12-22-2022 15:12-0400 SaO2% (BldA) [Mass fraction] 98 % Dr. Jody Garner Work Phone: [facility] 12-22-2022 15:12-0400 Systolic blood pressure 136 mm[Hg] Dr. Jody Garner Work Phone: [facility] 12-22-2022 11:15-0400 Inhaled oxygen flow rate 4 L/min Dr. Jody Garner Work Phone: [facility] 12-22-2022 06:20-0400 Body height 157.[address] Jody Garner Work Phone: [facility] 12-22-2022 06:20-0400 Body mass index (BMI) [Ratio] 38.2 kg/m2 Dr. Jody Garner Work Phone: [facility] 12-22-2022 06:20-0400 Body weight [address] Jody Garner Work Phone: [facility] 11-05-2022 17:12-0400 Body height 157.[address] Jody Garner Work Phone: [facility] 11-05-2022 17:12-0400 Body mass index (BMI) [Ratio] 39.5 kg/m2 Dr. Jody Garner Work Phone: [facility] 11-05-2022 17:12-0400 Body temperature 97.7 [degF] Dr. Jody Garner Work Phone: [facility] 11-05-2022 17:12-0400 Body weight 98.[address] Jody Garner Work Phone: [facility] 11-05-2022 17:12-0400 Diastolic blood pressure 98 mm[Hg] Dr. Jody Garner Work Phone: [facility] 11-05-2022 17:12-0400 Heart rate 100 /min Dr. Jody Garner Work Phone: [facility] 11-05-2022 17:12-0400 Respiratory rate 16 /min Dr. Joyd Garner Work Phone: [facility] 11-05-2022 17:12-0400 SaO2% (BldA) [Mass fraction] 99 % Dr. Jody Garner Work Phone: [facility] 11-05-2022 17:12-0400 Systolic blood pressure 172 mm[Hg] Dr. Jody Garner Work Phone: [facility] 11-02-2022 10:01-0400 Body mass index (BMI) [Ratio] 39.2 kg/m2 Dr. Jody Garner Work Phone: [facility] 11-02-2022 10:01-0400 Body weight 97.[address] Jody Garner Work Phone: [facility] 02-27-2022 16:33-0400 Body temperature 96.9 [degF] Dr. Jody Garner Work Phone: [facility] Work Phone: 02-27-2022 16:33-0400 Diastolic blood pressure 90 mm[Hg] Dr. Jody Garner Work Phone: [facility] Work Phone: 02-27-2022 16:33-0400 Heart rate 113 /min Dr. Jody Garner Work Phone: [facility] Work Phone: 02-27-2022 16:33-0400 Respiratory rate 14 /min Dr. Jody Garner Work Phone: [facility] Work Phone: 02-27-2022 16:33-0400 SaO2% (BldA) [Mass fraction] 97 % Dr. Jody Garner Work Phone: [facility] Work Phone: 02-27-2022 16:33-0400 Systolic blood pressure 182 mm[Hg] Dr. Jody Garner Work Phone: [facility] Work Phone: 02-27-2022 16:31-0400 Body height 157.[address] Jody Garner Work Phone: [facility] Work Phone: 02-27-2022 16:31-0400 Body mass index (BMI) [Ratio] 38.3 kg/m2 Dr. Jody Garner Work Phone: [facility] Work Phone: 02-27-2022 16:31-0400 Body weight 95.[address] Jody Garner Work Phone: [facility] Work Phone: 02-27-2022 15:46-0400 Body temperature 98.2 [degF] Dr. Jody Garner Work Phone: [facility] Work Phone: 02-27-2022 15:46-0400 Diastolic blood pressure 98 mm[Hg] Dr. Jody Garner Work Phone: [facility] Work Phone: 02-27-2022 15:46-0400 Heart rate 119 /min Dr. Jody Garner Work Phone: [facility] Work Phone: 02-27-2022 15:46-0400 Respiratory rate 17 /min Dr. Jody Garner Work Phone: [facility] Work Phone: 02-27-2022 15:46-0400 SaO2% (BldA) [Mass fraction] 96 % Dr. Jody Garner Work Phone: [facility] Work Phone: 02-27-2022 15:46-0400 Systolic blood pressure 210 mm[Hg] Dr. Jody Garner Work Phone: [facility] Work Phone: Encounters Encounter Date Encounter Type Care Provider Facility Start: 05-07-2025 ambulatory [facility] Facility: [facility]: [facility] Start: 04-03-2025 In-person encounter Yohan torrez PA-C Work Phone: [facility] Work Phone: Start: 04-03-2025 Visit out of hours Yohan padilla PACarloC Work Phone: [employer] Work Phone: Start: 02-14-2025 In-person encounter Pratik Linares MD Work Phone: [facility] Work Phone: Start: 02-14-2025 Visit out of hours Pratik mendieta MD Work Phone: [facility] Work Phone: Start: 12-26-2024 End: 12-26-[address] Jody Garner MD Work Phone: [facility] Work Phone: Start: 12-26-2024 End: 12-26-[address] Jody Garner MD -Sleep Lab Work Phone: Start: 12-26-2024 End: 12-26-2024 ambulatory Jody Garner Facility:[facility] Start: 12-15-2024 End: 12-15-[address] Jody Garner MD Work Phone: [facility] Work Phone: Start: 12-15-2024 End: 12-15-[address] Jody Garner MD -Sleep Lab Work Phone: Start: 12-14-2024 End: 12-15-[address] Jody Garner MD Work Phone: [facility] Work Phone: Start: 12-14-2024 End: 12-14-[address] Jody Garner MD -Laboratory [place] Work Phone: Start: 12-14-2024 End: 12-14-2024 ambulatory Jody Garner Facility:[facility] Start: 11-01-2024 End: 11-01-[address] Jody Garner MD Work Phone: [facility] Work Phone: Start: 11-01-2024 End: 11-01-[address] Taryn Lowry DO -Physical Therapy Work Phone: Start: 11-01-[address] Taryn Lowry DO -Physical Therapy Work Phone: Start: 10-27-[address] Taryn Lowry DO -Physical Therapy Work Phone: Start: 10-25-2024 ambulatory [facility] Facility: [facility] Start: 10-25-2024 Non-patient / [facility] Start: 10-25-2024 End: 10-25-[address] Jody Garner MD Work Phone: [facility] Work Phone: Start: 10-25-2024 End: 10-25-[address] Jody Garner MD -Cardiovascular Services Work Phone: Start: 10-25-2024 End: 10-25-2024 ambulatory [facility] Facility:[facility] Start: 10-09-2024 End: 10-09-2024 ambulatory [facility] Facility:[facility] Start: 10-09-2024 End: 10-09-[address] Naresh Peralta DO -[facility] Work Phone: Start: 10-05-2024 ambulatory [facility] Facility: [facility] Start: 10-05-2024 Non-patient / [facility] Start: 10-05-2024 End: 10-05-[address] Jody Garner MD -Cardiovascular Services Work Phone: Start: 10-05-2024 End: 10-05-2024 ambulatory [facility] Facility:[facility] Start: 10-04-[address] Taryn Lowry DO -Physical Therapy Work Phone: Start: 09-27-2024 End: 09-27-[address] Jody Garner MD Work Phone: [facility] Work Phone: Start: 09-27-2024 End: 09-27-2024 Patient encounter procedure Michelle Cage STAFF FIELD ENGINEER-C -Laboratory, [facility]aila Betts [facility] Start: 09-27-2024 End: 09-27-2024 ambulatory [facility] Facility:[facility] Start: 09-11-2024 End: 09-11-[address] Naresh Peralta DO -[facility] Work Phone: Start: 09-11-2024 End: 09-11-2024 ambulatory [facility] Facility:[facility] Start: 09-06-2024 Encounter for other preprocedural examination [facility] Start: 09-04-2024 Non-patient / Non-visit Dr. Gus Lowry [facility] Work Phone: Start: 09-01-2024 Non-patient / Non-visit Dr. Gus Lowry [facility] Work Phone: Start: 08-31-2024 ambulatory [facility] Facility: [facility] Start: 08-31-2024 End: 09-05-2024 Evaluation and management of inpatient Dr. Taryn Lowry DO -Rehab Unit Work Phone: Start: 08-31-2024 Non-patient / Non-[facility] Start: 08-30-2024 Non-patient / Non-visit [facility] Start: 08-29-2024 ambulatory Naresh Peralta [facility] Start: 08-29-2024 End: 08-31-2024 Evaluation and management of inpatient Dr. Naresh Peralta DO -[facility] Work Phone: Start: 08-29-2024 Non-patient / Non-visit [facility]. [facility] Start: 08-29-2024 ambulatory [facility] Start: 08-16-2024 End: 08-16-2024 ambulatory [facility] Facility:[facility] Start: 08-16-2024 End: 08-16-2024 Non-patient / Non-visit Dr. Krystian Neely MD -[facility] Work Phone: Start: 08-14-2024 End: 08-14-[address] Naresh Peralta DO -[facility] Work Phone: Start: 08-14-2024 End: 08-14-2024 ambulatory Jody Pascual Facility:[facility] Start: 07-24-2024 End: 07-24-[address] Naresh Peralta DO -[facility] Work Phone: Start: 07-24-2024 End: 07-24-2024 ambulatory Jody Miedhaseeb Facility:[facility] Start: 06-26-2024 End: 06-26-[address] Naresh Peralta DO -[facility] Work Phone: Start: 06-26-2024 End: 06-26-2024 ambulatory Jody Mied Facility:[facility] Start: 06-21-2024 End: 06-21-[address] Jody Garner MD -[facility] Work Phone: Start: 06-21-2024 End: 06-21-2024 ambulatory Jody Tessieedhaseeb Facility:[facility] Start: 06-02-2024 End: 06-02-2024 ambulatory Jody Tessieedhaseeb Facility:[facility] Start: 05-24-2024 End: 05-25-2024 ambulatory Jody Mied Facility:[facility] Start: 10-01-2023 End: 10-01-[address] Jody Garner Work Phone: [facility] Work Phone: Start: 10-01-2023 End: 10-01-[address] Jody Garner Work Phone: [facility] Work Phone: Start: 08-04-2023 End: 08-04-[address] Jody Garner Work Phone: [facility] Work Phone: Start: 08-04-2023 End: 08-04-[address] Jody Garner Work Phone: [facility] Work Phone: Start: 07-09-2023 End: 07-09-[address] Jody Garner Work Phone: [facility] Work Phone: Start: 07-09-2023 End: 07-09-[address] Jody Garner Work Phone: [facility]-Physical Therapy Work Phone: Start: 07-09-[address] Susanne Garner Work Phone: [facility] Therapy Work Phone: Start: 12-29-[address] Susanne Garner Work Phone: [facility]-Physical Therapy Start: 12-27-2022 End: 12-27-[address] Jody Garner Work Phone: [facility] Start: 12-25-2022 Non-patient / Non-visit Dr. Johnson Garner Work Phone: [facility] Start: 12-25-2022 End: 12-25-[address] Jody Ganrer Work Phone: [facility] Work Phone: Start: 12-25-2022 End: 12-25-[address] Jody Garner Work Phone: [facility]iov[facility] Start: 12-22-2022 Non-patient / Non-visit Dr. Johnson Garner Work Phone: [facility] Start: 12-22-2022 End: 12-22-2022 Admission to same day surgery center Dr. Jody Garner Work Phone: [facility] Start: 12-22-2022 End: 12-22-[address] Jody Garner Work Phone: [facility] Work Phone: Start: 12-11-2022 End: 12-11-[address] Jody Garner Work Phone: [facility] Start: 11-20-2022 End: 11-20-[address] Jody Garner Work Phone: [facility] Work Phone: Start: 11-20-2022 End: 11-20-[address] Jody Garner Work Phone: [facility] Start: 11-05-2022 End: 11-05-2022 Emergency department patient visit Dr. Jody Garner Work Phone: [facility]-Emergency Department Start: 11-02-2022 End: 11-02-[address] Jody Garner Work Phone: [facility] Start: 10-30-2022 End: 10-30-[address] Jody Garner Work Phone: [facility] Start: 02-27-2022 End: 02-27-2022 Emergency department patient visit Dr. Jody Garner Work Phone: [facility]-Emergency Department Start: 02-27-2022 End: 02-27-[address] Jody Garner Work Phone: [facility] Start: 11-18-2021 End: 11-18-[address] Jody Garner Work Phone: [facility]-Outpatient Bone Densitometry Start: 10-23-2021 End: 10-23-2021 Patient encounter procedure [facility]-Laboratory, [place] Start: 07-31-2021 End: 07-31-2021 Patient encounter procedure [facility]-Laboratory, Specimen Start: 08-15-2018 End: 08-15-2018 Patient encounter procedure SANCHEZ PARSONS [facility] Start: 07-22-2018 End: 07-22-2018 Patient encounter procedure SANCHEZ PARSONS [facility] Procedures Date Procedure Procedure Detail Performing Clinician Start: 04-03-2025 Blood pressure scree charity not performed - reason not given Yohan [place] PA-C Work Phone: Start: 04-03-2025 BMI documented as ab ove normal parameters - follow-up documented Yohan [place] PA-C Work Phone: Start: 04-03-2025 Current tobacco non- user cad cap copd pv dm Yohan [place] PA-C Work Phone: Start: 04-03-2025 Documentation of cur rent medications Yohan [place] PA-C Work Phone: Start: 04-03-2025 Pain assessment documented as positive - no follow-up/reason not given Yohan [place] PA-C Work Phone: Start: 04-03-2025 Physical therapy management Yohan [place] PA-C Work Phone: Start: 02-14-2025 Blood pressure withi n normal parameters - no follow-up required Pratik Mercado MD Work Phone: Start: 02-14-2025 BMI outside of ora l parameters - no follow-up plan/reason not given Pratik Mercado MD Work Phone: Start: 02-14-2025 Current tobacco non- user cad cap copd pv dm Pratik Mercado MD Work Phone: Start: 02-14-2025 Documentation of cur rent medications Pratik Mercado MD Work Phone: Start: 02-14-2025 Pain assessment documented as negative - follow-up not required Pratik Mercado MD Work Phone: Start: 10-25-2024 Cardiovascular stres s test using pharmacologic stress agent Dr. Jody Garner MD Work Phone: Start: 10-09-2024 Plain x-ray of pelvi s and lower extremity Dr. Jody Garner MD Work Phone: Start: 09-03-2024 X-ray of chest, PA a nd lateral views Dr. Jody Garner MD Work Phone: Start: 09-02-[address] Jody Garner MD Work Phone: Start: 09-02-[address] Jody Garner MD Work Phone: Start: 09-01-2024 Assay of phosphorus inorganic Dr. Jody Garner MD Work Phone: Start: 09-01-[address] Jody Garner MD Work Phone: Start: 09-01-2024 Measurement of renal function Dr. Jody Garner MD Work Phone: Comment on above: GFR Calc Start: 08-31-2024 Urnls dip stick/tabl et reagent auto microscopy Dr. Jody Garner MD Work Phone: Start: 08-30-[address] Jody Garner MD Work Phone: Start: 08-30-2024 Measurement of renal function Dr. Jody Garner MD Work Phone: Comment on above: GFR Calc Start: 08-29-2024 Plain X-ray of hip Dr. Jody Garner MD Work Phone: Start: 08-29-2024 Total replacement of hip Dr. Jody Garner MD Work Phone: Start: 08-16-2024 Methicillin resistan t Staphylococcus aureus screening test Dr. Jody Garner MD Work Phone: Start: 08-16-[address] Jody Garner MD Work Phone: Comment on above: Published reference interval for apparently healthysubjects between age 20 and 60 is 205 - 285 umol/L and in apoorly controlled diabetic population is 228 - 563 umol/Lwith a mean of 396 umol/L.Performed at: [place] [id number] Director: Altaf Weiss PhD, Phone: [phone] Start: 08-14-2024 MRI of lower extremity Dr. Jody Garner MD Work Phone: Start: 06-21-2024 MRI of joint of lowe r extremity Dr. Jody Garner MD Work Phone: Start: 08-04-2023 Plain x-ray of pelvi s and lower extremity Dr. Jody Garner Work Phone: Start: 12-22-2022 Radiologic examinati on of knee Dr. Jody Garner Work Phone: Start: 12-22-2022 Total Knee Replaceme nt Robotic Arm Carlos (Left) Dr. Jody Garner Work Phone: Start: 11-20-2022 Screening mammography William Garner Work Phone: Start: 11-20-2022 MRI of lower extremity Dr. Jody Garner Work Phone: Start: 11-05-[address]22 CT of lumbar spine Dr. Jody Garner Work Phone: Start: 11-05-2022 Radiography of sacrococcygeal spine Dr. Jody Garner Work Phone: Start: 11-05-2022 CT cervical spine wi thout contrast Dr. Jody Garner Work Phone: Start: 11-05-2022 CT of head without contrast Dr. Jody Garner Work Phone: Start: 11-02-2022 Radiologic examinati on of knee Dr. Jody Garner Work Phone: Start: 02-27-2022 CT of abdomen and pe lvis without contrast Dr. Jody Garner Work Phone: Start: 11-18-2021 Dual energy X-ray absorptiometry Dr. Jody Garner Work Phone: Start: 11-18-2021 Screening mammography William Garner Work Phone: H/O: hysterectomy History of par tial hysterectomy H/O: surgery S/P trigger fing er release History of appendectomy Hx of appendectom y History of cholecystectomy Hx of cholecystectomy Nasal Screen MRSA/MSSA Dr. Rama Garner Work Phone: Plan of Treatment Date Care Activity Detail Author Start: 04-03-2025 End: 04-03-2025 [email or web address] Work Phone: Start: 04-03-2025 Inject si joint arthrgrphy&/anes/steroid w/pura [facility] Work Phone: Start: 09-05-2024 Patient discharge [facility] Start: 09-01-2024 [facility] Start: 08-31-2024 Following clinical pathway protocol [facility] Start: 08-31-2024 End: 08-31-2024 Recommendation to continue with treatment [facility] Start: 08-31-2024 Referral to service [facility] Start: 08-31-2024 Urinary bladder training [facility] Start: 08-31-2024 Admission procedure [facility] Start: 08-31-2024 Measuring intake and output [facility] Start: 08-31-2024 Patient referral to dietitian [facility] Start: 08-31-2024 Referral to occupational therapist [facility] Start: 08-31-2024 Vital signs measurements [facility] Start: 08-31-2024 End: 08-31-2024 [facility] Start: 08-31-2024 Patient discharge [facility] Start: 08-30-2024 Referral to service [facility] Start: 08-30-2024 Application of intermittent pneumatic compression device [facility] Start: 08-30-2024 Consultation [facility] Start: 08-29-2024 Following clinical pathway protocol [facility] Start: 08-29-2024 Transfusion of blood product [facility] Start: 08-29-2024 Provision of overbed trapeze [facility] Start: 08-29-2024 Recommendation to continue with treatment [facility] Start: 08-29-2024 Ambulation therapy management [facility] Start: 08-29-2024 Application of device [facility] Start: 08-29-2024 Assessment of risk of venous thromboembolism [facility] Start: 08-29-2024 Catheterization of vein [facility] Start: 08-29-2024 Exercises [facility] Start: 08-29-2024 Following clinical pathway protocol [facility] Start: 08-29-2024 Incentive spirometry [facility] Start: 08-29-2024 Introduction of urinary catheter [facility] Start: 08-29-2024 Measuring intake and output [facility] Start: 08-29-2024 Neurovascular assessment [facility] Start: 08-29-2024 Patient education [facility] Start: 08-29-2024 Procedure discontinued [facility] Start: 08-29-2024 Provision of activity privileges [facility] Start: 08-29-2024 Referral to occupational therapist [facility] Start: 08-29-2024 Referral to service [facility] Start: 08-29-2024 Vital signs measurements [facility] Start: 08-29-2024 Wound care [facility] Start: 08-29-2024 [facility] Start: 08-29-2024 Admission procedure [facility] Start: 12-22-2022 Anesth open/surg arthrs total knee arthroplasty ANESTH KNEE ARTHROPLASTY [facility] Start: 12-22-2022 Arthrp kne condyle&platu medial&lat compartments TOTAL KNEE ARTHROPLASTY [facility] Start: 12-22-2022 Injection aa&/strd femoral nerve NJX AA&/STRD FEMORAL NRV IMG [facility] Start: 12-22-2022 Application of ice collar, cap or bag [facility] Start: 12-22-2022 Patient discharge [facility] Start: 12-22-2022 Referral to service [facility] Start: 12-22-2022 Exercises [facility] Start: 12-22-2022 Incentive spirometry [facility] Start: 12-22-2022 Neurovascular assessment [facility] Start: 12-22-2022 Patient education [facility] Start: 12-22-2022 Provision of activity privileges [facility] Start: 12-22-2022 Recommendation to continue with treatment [facility] Start: 12-22-2022 Vital signs measurements [facility] Start: 12-22-2022 Wound care [facility] Start: 12-22-2022 End: 12-22-2022 [facility] Start: 11-02-2022 Patient referral [facility] Work Phone: Patient Education [facility] Work Phone: Patient referral [facility] Work Phone: Urinalysis complete panel - Urine [facility] Work Phone: Immunizations Immunization Date Immunization Notes Care Provider [facility] 05-26-2024 Pfizer Covid-19 (Comirnaty) Dr. Jody Garner MD Work Phone: [facility] 05-28-2023 Covid (Spikevax) Dr. Jody Garner MD Work Phone: [facility] 05-24-2021 Covid (Moderna) Dr. Jody gracia MD Work Phone: [facility] 10-02-2020 Covid (Moderna) Dr. Jody gracia MD Work Phone: [facility] 09-05-2020 Covid (Moderna) Dr. Jody gracia MD Work Phone: [facility] 05-01-2020 pneumococcal polysaccharide vaccine, [address] Jody Garner MD Work Phone: [facility] 04-21-2019 pneumococcal conjuga te vaccine, 13 valent [facility] 08-01-2018 tetanus and diphther ia toxoids, adsorbed, preservative free, for adult use (2 Lf of tetanus toxoid and 2 Lf of diphtheria toxoid) Dr. Jody Garner MD Work Phone: [facility] 05-07-2015 influenza, injectabl e, quadrivalent, preservative free Dr. Jody Garner Work Phone: [facility] 05-07-2015 influenza, seasonal, injectable [facility] 05-29-2014 zoster vaccine, live Dr. Lee Garner MD Work Phone: [facility] 04-18-2014 Influenza virus vaccine [facility] 06-18-2013 Influenza virus vaccine [facility] Payers Date Payer Category Payer Self-pay [id number] 2019 Medicare [id number] 2016 Unknown [id number] 1955 Unknown [id number] 2.16.84 0.1.982541.3.579.2.651 1955 Unknown [id number] 2.16.84 0.1.680933.3.579.2.651 Unknown [id number] 2.16.8 40.1.694651.3.579.2.462 Unknown [id number] 2.16.8 40.1.045850.3.579.2.462 Unknown [id number] 2.16.8 40.1.097551.3.579.2.462 Unknown [id number] 2.16.8 40.1.882611.3.579.2.462 Unknown [id number] 2.16.8 40.1.660476.3.579.2.462 Unknown [id number] 2.16.8 40.1.975001.3.579.2.462 Unknown [id number] 2.16.8 40.1.562235.3.579.2.462 Unknown [id number] 2.16.8 40.1.204104.3.579.2.462 Unknown [id number] 2.16.8 40.1.033917.3.579.2.462 Unknown [id number] 2.16.8 40.1.511117.3.579.2.462 Unknown [id number] 2.16.8 40.1.991480.3.579.2.462 Unknown [id number] 2.16.8 40.1.205559.3.579.2.462 Unknown [id number] 2.16.8 40.1.426092.3.579.2.462 Unknown [id number] 2.16.8 40.1.760028.3.579.2.462 Unknown [id number] 2.16.8 40.1.368552.3.579.2.462 Unknown [id number] 2.16.8 40.1.918100.3.579.2.462 Unknown [id number] 2.16.8 40.1.167880.3.579.2.462 Unknown [id number] 2.16.8 40.1.437311.3.579.2.462 Unknown [id number] 2.16.8 40.1.312569.3.579.2.462 Unknown [id number] 2.16.8 40.1.610339.3.579.2.462 Unknown [id number] 2.16.8 40.1.062870.3.579.2.462 Unknown [id number] 2.16.8 40.1.168748.3.579.2.462 Unknown [id number] 2.16.8 40.1.974979.3.579.2.462 Unknown [id number] 2.16.8 40.1.255649.3.579.2.462 Unknown [id number] 2.16.8 40.1.963488.3.579.2.462 Unknown [id number] 2.16.8 40.1.117537.3.579.2.462 Unknown [id number] 2.16.8 40.1.995607.3.579.2.462 Unknown [id number] 2.16.8 40.1.429881.3.579.2.462 Unknown [id number] 2.16.8 40.1.918782.3.579.2.462 Social History Date Type Detail Facility Start: 05-23-2021 End: 08-04-2023 Tobacco smoking status NHIS Unknown if ever smoked [facility] Start: 09-23-2015 Rare [facility] Start: 09-23-2015 None [facility] Start: 01-05-2017 Spouse/ Signif icant Other [facility] Start: 05-23-2021 Non-smoker [facility] Start: 1955 Sex Assigned At Female [facility] Start: 09-01-2024 Tobacco smoking status NHIS Never smoked tobacco (finding) [facility] Start: 10-07-2024 End: 10-30-2024 Sex Female (finding) [facility] Start: 02-14-2025 End: 04-03-2025 social history reviewed E&M Done [email or web address] Work Phone: NEGATED: Highlighted row [facility] NEGATED: Highlighted row Not [facility] Medical Equipment Procedure Code Equipment Code Equipment Origin al Text Equipment Identifier Dates Arthroplasty, hip, total, using robot-assisted navigation ([id number]) Ceramic femoral head prosthesis ()[id number] FDA Start: 08-29-2024 Arthroplasty, hip, total, using robot-assisted navigation ([id number]) Coated hip femur prosthesis, modular ()[id number] FDA Start: 08-29-2024 Arthroplasty, hip, total, using robot-assisted navigation Non-constrained polyethylene acetabular liner ()[id number] FDA Start: 08-29-2024 Arthroplasty, hip, total, using robot-assisted navigation Acetabular shell ()[id number] FDA Start: 08-29-2024 Arthroplasty, hip, total, using robot-assisted navigation ([id number]) Orthopaedic bone screw, non-bioabsorbable, sterile ()[id number] FDA Start: 08-29-2024 Arthroplasty, hip, total, using robot-assisted navigation ([id number]) Orthopaedic bone screw, non-bioabsorbable, sterile ()[id number] FDA Start: 08-29-2024 ([id number]) Metal-backed pat darrius prosthesis ()[id number] FDA Start: 12-22-2022 ([id number]) Coated knee femu r prosthesis ()[id number] FDA Start: 12-22-2022 ([id number]) Coated knee tibi a prosthesis ()[id number] FDA Start: 12-22-2022 Tibial insert ()[id number] FDA Start: 12-22-2022 Goals Date Patient Goal Desired Activity /State Functional Status Date Assessment Result Facility 04-03-2025 Functional Status right [facility] Work Phone: 04-03-2025 dependent [facility] Work Phone: 09-05-2024 Functional status Activity Ability Indepe ndent [facility] Work Phone: 09-04-2024 Functional status Ambulates;Up ad ada [place] [facility] Work Phone: 08-31-2024 Functional status Bathroom Privilege [facility] Work Phone: Mental Status Date Assessment Result Facility 09-05-2024 Cognitive function Voice/Name [facility] Work Phone: 08-31-2024 Cognitive function Voice/Name [facility] Work Phone: 12-22-2022 Cognitive function Voice/Name [facility] Work Phone: 11-05-2022 Cognitive function Level Of Cons ciousness Awake;Alert;Appropriate [facility] Work Phone: 02-27-2022 Cognitive function Level Of Cons ciousness Awake;Alert;Appropriate;Follow s Commands [facility] Work Phone: Clinical Notes 11-05-2022 to 12-27-2024 Note Date & Type Note Facility 12-27-2024 Discharge summary Note Date/Time December 27, 2024 3:49pm [facility] Physical Therapy [facility] [address] [place] [address] [address] [place] [address] / REHABILITATION SERVICES DISCHARGE SUMMARY MR#: [id number] Acct: [id number] Name: MAKEDA NEGRON Rep #: [id number] : 1955 69 From: Thomas Dias DPT, OCS, CSCS Referring DrWaylon: Dr. Taryn Lowry, DO Status: REG RCR Insurance: MEDICARE PART A B [facility] Patient Information Patient Information: MAKEDA NEGRON was seen in my office for initial evaluation on 10/18/24. The following Plan of Care was established for this patient: POC Established Initial Frequency: 2x /Week Initial Duration: 4-6 Weeks Plan from Re-Evaluation: 2x/week for 4 weeks for 1. US r glut max at iliac crest non thermal 2. STM and rollout to gluts on R side(careful of R BOBBY and L BOBBY), Leg pull and PROM gently grade 1. gentle contract relax on R 3. Ensure patient resting it at home from aggravating activitiy(is to use walkerfor a few days to take more stress off of it.) 4. non billed TENS and ice as if painful at rest. Pt still doing exercises for L hip via HEP that do not bother r hip and we can answer questions regarding her strength on L hip but nothing to cause R hip pain. Will not treat L hip at this time in PT and will hold in facvor of HEP for now. Anticipated Interventions Patient/Client Instruction: Educate patient on: Condition and Plan of Care For the Purpose of:: To decrease pain, To decrease swelling/inflammation, To improve nutrient delivery to tissue, To improve muscle performance and motor function and To increase tolerance to activity/condition/position Therapeutic Exercise to Include: Passive ROM and Active ROM For the Purpose of:: To decrease pain, To decrease swelling/inflammation, To improve nutrient delivery to tissue and To improve muscle performance and motor function Manual Therapy Techniques to Include: Mobilization, Passive ROM and Soft tissue mobilization For the Purpose of:: To decrease swelling/inflammation, To improve nutrient delivery to tissue, To improve muscle performance and motor function and To increase tolerance to activity/condition/position TENS: Yes Cryotherapy (ice pack, ice massage): Yes Ultrasound (thermal/non thermal): Yes For the Purpose of:: To decrease pain, To increase ROM, To improve nutrient delivery to tissue, To improve muscle performance and motor function and To increase tolerance to activity/condition/position Last Seen Last Seen: This patient was last seen in our office . Pertinent comments regarding their Physical therapy will appear below: Pt seen 5 visits of secondary chart but called to cancel all remaining appointments as she has another tear and will be addressing that. At this point I will be discontinuing this patient from physical therapy. I would be happy to see this patient again in the future if found appropriate by the physician. Thank you! Thomas Dias, DPT, OCS, CSCS <Electronically signed by Thomas Dias DPT, OCS, CSCS> 06/11/25 1549 CC: Dr. Jody Garner MD; Dr. Taryn Lowry, DO ~ [facility] Signed [facility] Work Phone: 1(481) 720-979306-11-2025 Discharge summary [facility] Physical Therapy [facility] [place] [address] / REHABILITATION SERVICES DISCHARGE SUMMARY MR#: [id number] Acct: [id number] Name: MAKEDA NEGRON Rep #: [id number] : 1955 69 From: Thomas Dias DPT, OCS, CSCS Referring Dr.: Dr. Taryn Lowry, DO Status: REG RCR Insurance: MEDICARE PART A B [facility] Patient Information Patient Information: MAKEDA NEGRON was seen in my office for initial evaluation on 10/18/24. The following Plan of Care was established for this patient: POC Established Initial Frequency: 2x /Week Initial Duration: 4-6 Weeks Plan from Re-Evaluation: 2x/week for 4 weeks for 1. US r glut max at iliac crest non thermal 2. STM and rollout to gluts on R side(careful of R BOBBY and L BOBBY), Leg pull and PROM gently grade 1. gentle contract relax on R 3. Ensure patient resting it at home from aggravating activitiy(is to use walkerfor a few days to take more stress off of it.) 4. non billed TENS and ice as if painful at rest. Pt still doing exercises for L hip via HEP that do not bother r hip and we can answer questions regarding her strength on L hip but nothing to cause R hip pain. Will not treat L hip at this time in PT and will hold in facvor of HEP for now. Anticipated Interventions Patient/Client Instruction: Educate patient on: Condition and Plan of Care For the Purpose of:: To decrease pain, To decrease swelling/inflammation, To improve nutrient delivery to tissue, To improve muscle performance and motor function and To increase tolerance to activity/condition/position Therapeutic Exercise to Include: Passive ROM and Active ROM For the Purpose of:: To decrease pain, To decrease swelling/inflammation, To improve nutrient delivery to tissue and To improve muscle performance and motor function Manual Therapy Techniques to Include: Mobilization, Passive ROM and Soft tissue mobilization For the Purpose of:: To decrease swelling/inflammation, To improve nutrient delivery to tissue, To improve muscle performance and motor function and To increase tolerance to activity/condition/position TENS: Yes Cryotherapy (ice pack, ice massage): Yes Ultrasound (thermal/non thermal): Yes For the Purpose of:: To decrease pain, To increase ROM, To improve nutrient delivery to tissue, To improve muscle performance and motor function and To increase tolerance to activity/condition/position Last Seen Last Seen: This patient was last seen in our office . Pertinent comments regarding their Physical therapy willappear below: Pt seen 5 visits of secondary chart but called to cancel all remaining appointments as she has another tear and will be addressing that. At this point I will be discontinuing this patient from physical therapy. I would be happy to see this patient again in the future if found appropriate by the physician. Thank you! Thomas Dias, DPT, OCS, CSCS 12/27/24 1549 CC: Dr. Jody Garner MD; Dr. Taryn Lowry DO ~ [facility]02-17-2025 [facility] Medical Records Department [address] [place] [address] Discharge Summary 09/04/24 1508 MR#: [id number] Acct: [id number] Name: MAKEDA NEGRON Rep #: [id number] : 1955 69 From: Taryn Lowry DO PCP: Dr. Jody Garner MD Status:ADM IN Location: [place] [address] Providers Date of Admission: 08/31/24 Date of Discharge: 09/05/24 Primary Care Physician: Dr. Jody Garner MD Reason For Visit: LEFT HIP REPLACEMENT Diagnosis Discharge Diagnosis (1) Debility: Status: Acute Code(s): R53.81 - Other malaise Plan: Due to generalized weakness and pain. (2) S/P total hip arthroplasty: Status: Acute Code(s): Z96.649 - Presence of unspecified artificial hip joint Qualifiers: Laterality: left Qualified Code(s): Z96.642 - Presence of left artificial hip joint Plan: Left hip on 08/29/[address] Peralta. (3) Acute blood loss as cause of postoperative anemia: Status: Acute Code(s): D62 - Acute posthemorrhagic anemia (4) HTN (hypertension): Status: Chronic Code(s): I10 - Essential (primary) hypertension Qualifiers: Hypertension goal: less than 140/90 Hypertension type: essential hypertension Qualified Code(s): I10 - Essential (primary) hypertension (5) GERD (gastroesophageal reflux disease): Status: Chronic Code(s): K21.9 - Gastro-esophageal reflux disease without esophagitis Qualifiers: Esophagitis presence: without esophagitis Qualified Code(s): K21.9 - Gastro-esophageal reflux disease without esophagitis (6) Obstructive sleep apnea: Status: Chronic Code(s): G47.33 - Obstructive sleep apnea (adult) (pediatric) Plan: Noncompliant with CPAP. (7) Morbid obesity with BMI of 40.0-44.9, adult: Status: Chronic Code(s): Z68.41 - Body mass index [BMI] 40.0-44.9, adult (8) Heart murmur, systolic: Status: Acute Code(s): R01.1 - Cardiac murmur, unspecified Plan: ECHO in 2016 showed thickening and calcification of the aortic valve. She also had a PA systolic estimated at 32 and she has been non-compliant with CPAP. She tells me she had never been told she has a MM so may be developing some stenosis of the AV. Repeat ECHO recommended to assess the AV for stenosis. She has a 2/6 systolic MM at the second RICS that radiated into the LVOT, LLSB, apex and into the left axilla. (9) Acute bronchitis: Status: Acute Code(s): J20.9 - Acute bronchitis, unspecified Qualifiers: Bronchitis organism: unspecified organism Qualified Code(s): J20.9 - Acute bronchitis, unspecified Plan: COVID and respiratory panel negative. No infiltrates on CXR. Plan 1. Continue therapy today. 2. Plan DC home tomorrow with OP PT at [facility] 3. No DME needs 4. Continue Doxy for a total of 7 days. Medications at Discharge Home Medications amitriptyline 150 mg tablet 150 mg PO QHS TORRES 09/07/13 hydrochlorothiazide 25 mg tablet 25 mg PO DAILY BP 09/07/13 omeprazole 20 mg capsule,delayed release 20 mg PO QHS GERD 09/07/13 atorvastatin 10 mg tablet 20 mg PO QHS CHOLESTEROL 09/21/14 metoprolol tartrate 25 mg tablet 25 mg PO BID BP 12/10/15 verapamil 120 mg tablet 60 mg PO BID BP 12/07/16 sucralfate 1 gram tablet (Carafate) 1 g PO BID STOMACH 01/09/19 cholecalciferol (vitamin D3) 50 mcg (2,000 unit) capsule 2,000 unit PO DAILY SUPPLEMENT 03/13/20 cranberry extract 300 mg tablet 30,000 mg PO DAILY SUPPLEMENT 11/26/20 melatonin 12 mg tablet 12 mg PO QHS SUPPLEMENT 11/05/22 Estriol 1 gm intrauterine TUFR SUPPLEMENT 12/08/22 acetaminophen 500 mg tablet 1,000 mg (2 x 500 mg) PO Q6H Pain #100 tabs 08/30/24 doxycycline monohydrate 100 mg capsule 100 mg PO BID #10 caps 09/04/24 enoxaparin 40 mg/0.4 mL subcutaneous syringe (Lovenox) 40 mg (0.4 mL) subcut DAILY Blood thinne #21 mL 09/04/24 oxycodone 5 mg tablet 5 mg PO Q4H PRN pain 7 days #21 tabs 09/04/24 aspirin 81 mg chewable tablet (Aspirin Childrens) 81 mg PO DAILY #1 TAB 09/05/24 Hospital Course Operations total hip replacement (08/29/[address] Peralta) Procedures None Summary of Care Provided Minutes Spent on Discharge: 35 Hospital Course: MAKEDA NEGRON, is a 69 YO F with a past medical history of hyperlipidemia, diverticulosis, osteoporosis, obstructive sleep apnea ( has CPAP but, non-compliant) migraine headaches, TIA/stroke in 2016 , osteoarthritis, morbid obesity, hypertension and GERD who presented to [facility] on 08/29/2024 for an elective left total hip arthroplasty with Dr. Peralta. Postoperatively the HGB dropped from 12.8 pre-op to 9.2. She had no other complications. She had planned on going home after surgery but, she did not feel strong enough to go home and she did not feel she would be able to get up the 3 steps she has at home to get into the house from the garage. She was transferred to the acute inpt rehab unit at [facility] on 08/31/24 for 3 hours of therapy daily to restore function/indepe (more content not included)...[facility] 09-01-2024 [facility] Medical Records Department [address] [place] [address] History Physical Exam 09/01/24 1246 MR#: [id number] Acct: [id number] Name: MAKEDA NEGRON Rep #: [id number] : 1955 69 From: Taryn Lowry DO PCP: Dr. Jdoy Garner MD Status:ADM IN Location: CS339-7 HPI - General General Date of Admission: 08/31/24 Date of Service: 09/01/24 HPI Narrative MAKEDA NEGRON, is a 69 YO F with a past medical history of hyperlipidemia, diverticulosis, osteoporosis, obstructive sleep apnea on CPAP but, non-compliant with CPAP, migraine headaches, TIA, osteoarthritis, morbid obesity, hypertension and GERD who presented to [facility] on 08/29/2024 for an elective left total hip arthroplasty with Dr. Peralta. Postoperatively the HGB dropped from 12.8 pre-op to 9.2 (today). She had no other complications. She had planned on going home after surgery but, she did not feel strong enough to go home and she did not feel she would be able to get up the 3 steps she has at home to get into the house from the garage. She was transferred to the acute inpt rehab unit at [facility] on 08/31/24 for 3 hours of therapy daily to restore function/independence at or near her level prior to the surgery. Has been fairly immobile for the past year due to severe L hip pain. She was using a walker at home. She tells me that her pain is well controlled. Her dose of Oxycodone was decreased to just 5 mg Q 4 H PRN. She has taken only 2 doses since arriving on rehab. She is non-complaint with CPAP because it sounds as though the mask is leaking. She had her sleep study years ago here at [facility]. Does not know her CPAP settings. Denies restless legs. Takes 150 mg of Elavil at HS. Has had a stroke in the past. Denies a hx of PAF. PA pressure in 2016 was estimated at 32 mmHg. The aortic valve was trileaflet with mild diffuse aortic valve thickening and mild focal aortic valve calcification. Bubble study was negative. Feels Rested when she gets up in the morning. She falls asleep watching TV but, not when talking with people or riding in the car. Admits to having gained wt since her sleep study. STOP BANG IS AT LEAST 4. We are going to measure her neck circumference. She is wondering if she could try the nasal apparatus while she is on rehab. Will discuss with the sleep lab. Sleeping well at night. Denies constipation and dysuria. She has a rash from tape around the incision. [facility] Medical History Abrasion History of diverticulitis Shortness of breath on exertion History of edema Post-menopausal Ambulates with cane Bladder disease High cholesterol Injury of head and neck Diverticulosis History of ulceration Fractured coccyx Wears glasses Osteoporosis Non-smoker CPAP (continuous positive airway pressure) dependence Pain aggravated by walking Edema Migraine headache TIA (transient ischemic attack) History of trigger finger Nausea Abdominal pain Osteoarthritis of right hip Obstructive sleep apnea Morbid obesity with BMI of 40.0-44.9, adult Chronic headaches SBO (small bowel obstruction) HTN (hypertension) GERD (gastroesophageal reflux disease) Home Medications ???Medication ???Instructions ???Recorded ???Last Taken ???Type amitriptyline 150 mg tablet 150 mg PO QHS TORRES 09/07/13 08/28/24 22:00 History hydrochlorothiazide 25 mg tablet 25 mg PO DAILY BP 09/07/13 5 08:00 History omeprazole 20 mg capsule,delayed 20 mg PO QHS GERD 09/07/13 5 22:00 History release atorvastatin 10 mg tablet 20 mg PO QHS CHOLESTEROL 09/21/14 08/28/24 22:00 History metoprolol tartrate 25 mg tablet 25 mg PO BID BP 12/10/15 08/29/24 04:00 History verapamil 120 mg tablet 60 mg PO BID BP 12/07/16 08/29/24 04:00 History aspirin 81 mg tablet,delayed 81 mg PO DAILY BLODD THINNER 01/0908/22/24 History release (Adult Low Dose Aspirin) Held on 08/30/24. Instructions: Resume on 09/06/24. sucralfate 1 gram tablet (Carafate) 1 g PO BID STOMACH 01/09/1905/12 22:00 History cholecalciferol (vitamin D3) 50 2,000 unit PO DAILY SUPPLEMENT 08/28/24 08:00 History mcg (2,000 unit) capsule cranberry extract 300 mg tablet 30,000 mg PO DAILY SUPPLEMENT 11/16 08/08 Unknown History Held on 08/31/24. Instructions: MD Ordered melatonin 12 mg tablet 12 mg PO QHS SUPPLEMENT 11/05/22 0 08/27/24 22:00 History Held on 08/31/24. Instructions: MD Ordered Estriol 1 gm intrauterine TUFR SUPPLEMENT 12/08/22 08/25/24 History acetaminophen 500 mg tablet 1,000 mg (2 x 500 mg) PO Q6H Pain 08/30/24 Unknown Rx #100 tabs enoxaparin 40 mg/0.4 mL 40 mg (0.4 mL) subcut DAILY Blood 08/30/24 Unknown Rx subcutaneous syringe (Lovenox) thinne #21 mL melatonin 3 mg capsule 3 mg PO (more content not included)...[facility]02-13-2025 Evaluation note* Diagnosis Onset Date Resolution Status Admit Date Acute blood loss as cause of postoperative anemia acute August 312024 2:00pm Acute bronchitis acute August 31, 2024 2:00pm Debility acute August 31, 2024 2:00pm Heart murmur, systolic acute Fe bruary 2024 2:00pm S/P total hip arthroplasty acute August 31, 2024 2:00pm GERD (gastroesophageal reflu x disease) inactive August 31, 025 2:00pm HTN (hypertension) inactive 2024 2:00pm Morbid obesity with BMI of 40.0-44.9, adult inactive August 31, 2024 2:00pm Obstructive sleep apnea inactive F ebruary 2024 2:00pm Orthopedic aftercare acute Febr uary 2024 10:41am Orthopedic aftercare acute [place]audel h 2024 10:[address] [place] [address] Work Phone: 1(948) 240-988402-13-2025 [facility] Medical Records Department [address] [place] [address] Discharge Summary 08/31/24 0800 MR#: [id number] Acct: [id number] Name: MAKEDA NEGRON Rep #: [id number] : 1955 69 From: Naresh Peralta DO PCP: Dr. Jody Garner MD Status:ADM IN Location: [facility] RM977-0 Providers Date of Admission: 08/29/24 Primary Care Physician: Dr. Jody Garner MD Reason For Visit: Left Total Hip Replacement Robotic Arm Assisted Diagnosis Discharge Diagnosis (1) S/P total hip arthroplasty: Status: Acute Code(s): Z96.649 - Presence of unspecified artificial hip joint Qualifiers: Laterality: left Qualified Code(s): Z96.642 - Presence of left artificial hip joint Plan Postop day #2 left total hip arthroplasty PT OT weightbearing as tolerated with hip precautions DVT prophylaxis SCDs KATHIA hose Lovenox 40 mg subcu daily for 3 weeks postop DC planning rehab today Follow-up in the office 2 weeks Medications at Discharge Home Medications amitriptyline 150 mg tablet 150 mg PO QHS TORRES 09/07/13 hydrochlorothiazide 25 mg tablet 25 mg PO DAILY BP 09/07/13 omeprazole 20 mg capsule,delayed release 20 mg PO QHS GERD 09/07/13 atorvastatin 10 mg tablet 20 mg PO QHS CHOLESTEROL 09/21/14 metoprolol tartrate 25 mg tablet 25 mg PO BID BP 12/10/15 verapamil 120 mg tablet 60 mg PO BID BP 12/07/16 aspirin 81 mg tablet,delayed release (Adult Low Dose Aspirin) 81 mg PO DAILY BLODD THINNER 01/09/19 Held on 08/30/24. Instructions: Resume on 09/06/24. sucralfate 1 gram tablet (Carafate) 1 g PO BID STOMACH 01/09/19 cholecalciferol (vitamin D3) 50 mcg (2,000 unit) capsule 2,000 unit PO DAILY SUPPLEMENT 03/13/20 cranberry extract 300 mg tablet 30,000 mg PO DAILY SUPPLEMENT 11/26/20 melatonin 12 mg tablet 12 mg PO QHS SUPPLEMENT 11/05/22 Estriol 1 gm intrauterine TUFR SUPPLEMENT 12/08/22 acetaminophen 500 mg tablet 1,000 mg (2 x 500 mg) PO Q6H #100 tabs 08/30/24 enoxaparin 40 mg/0.4 mL subcutaneous syringe (Lovenox) 40 mg (0.4 mL) subcut DAILY #21 mL 08/30/24 oxycodone 5 mg tablet 5 - 15 mg (1 - 3 x 5 mg) PO Q4H PRN pain 7 days #60 tabs 08/30/24 Hospital Course Operations total hip replacement Summary of Care Provided Hospital Course: Patient with 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 Patient underwent total hip arthroplasty day of admission. Patient did receive pre-and postoperative antibiotics which were discontinued within 23 hours postoperatively. Patient did receive spinal anesthesia and postoperatively pain was controlled with both IV and p.o. pain medication she did require increase to up to 15 mg of oxycodone every 4 hours to control her pain. Patient did receive 2 g of tranexamic acid. hemoglobin and hematocrit were monitored postoperatively as well as vital signs and the patient did not require any blood transfusion. Dressing will be changed daily beginning postop day #3 before shower will be removed and replaced after. Pt was started on Lovenox 40 mg subcu daily postop day #1 for which will continue for 3 weeks post hospital discharge . Patient was seen by physical therapy was ambulating the halls with assistance but did not feel stable or confident enough to be discharged home. patient will be discharged to rehab and will start outpatient physical therapy upon discharge from their. will follow-up in the office in 2 weeks. No intrahospital complications. Weight / BMI Weight Weight: 211 lb 10.3 oz Body Mass Index (BMI) 38.7 ABG / Lab / Microbiology Data 08/31/24 06:30 08/30/24 05:28 Laboratory: Laboratory Results - last 24 hr 08/31/24 06:30: WBC 7.1, RBC 3.30 L, Hgb 10.1 L, Hct 31.4 L, MCV 95.2, MCH 30.6, MCHC 32.2, RDW Std Deviation 45.2 H, RDW Coeff of Carrillo 13.1, Plt Count 214, MPV 9.8 Microbiology: Microbiology 08/16/24 08:57 Swab (Method) Nasal Screen MRSA/MSSA - Final D/C Instructions Discharge Diet: No restrictions Call your doctor if you observe: Shortness of breath and Chest pain Additional Dressing/Incision Instructions: Do not shower 72hrs. Begin daily showering warm water antibacterial soap postop day #3( 72hrs Post-operatively) and then daily. Leave the dressing on for 72 hours postoperatively then may remove prior to first shower and change dressing daily after this until no drainage for 2 consecutive days then may leave open to air. Follow hip precautions that were reviewed in hospital. Wear compression stockings, may remove at night. Start physical therapy as directed in hospital. Follow prescriptions instructions do not take any other pain medication or differ dosing without consulting your physician. Do not take oral NSAIDs until blood thinner has been completed , then may begin the day after completion if needed . Call Dr. Peralta's office with any concerns. DC O2, CPAP, BIPAP (more content not included)...[facility] 08-29-2024 Evaluation note* Diagnosis Onset Date Resolution Status Admit Date S/P total hip arthroplasty acute August 29, 2024 10:26am Acute blood loss as cause of postoperative anemia acute August 312024 2:00pm Acute bronchitis acute August 31, 2024 2:00pm Debility acute August 31, 2024 2:00pm Heart murmur, systolic acute Fe bruary 2024 2:00pm S/P total hip arthroplasty acute August 31, 2024 2:00pm GERD (gastroesophageal reflu x disease) inactive August 31 2:00pm HTN (hypertension) inactive ry 2024 2:00pm Morbid obesity with BMI of 40.0-44.9, adult inactive August 31, 2024 2:00pm Obstructive sleep apnea inactive F ebruary 2024 2:00pm Orthopedic aftercare acute Febr uary 2024 10:41am Orthopedic aftercare acute Raudel h 2024 10:41am [facility] Work Phone: 1(955) 240-705102-11-2025 [facility] Medical Records Department [address] [place] [address] History Physical Exam 08/29/24 0729 MR#: [id number] Acct: [id number] Name: MAKEDA NEGRON Rep #: [id number] : 1955 69 From: Naresh Peralta DO PCP: Dr. Jody Garner MD Status:ADM IN Location: [place] [address] History and Physical Date of Admission: 08/29/24 [facility] [address] [place] [address] [address] [place] [address] OFFICE VISIT Date of Service: 07/24/24 MR#: [id number] Acct: [id number] Name: MAKEDA NEGRON Rep #: [id number] : 1955 Provider: Dr. Naresh Peralta DO Age/Sex: 69/F Location: [facility] Status: Signed Intake Vital Signs 06/26/2408:07 07/24/2509:09 Height 5 ft 2 in 5 ft 2 in Weight: 212 lb 211 lb 4 oz BMI 38.7 38.6 Intake Visit Reasons: LEFT HIP Chief Complaint: left hip pain Is patient in pain?: Yes Allergies adhesive tape Allergy (Verified 07/24/24 10:03) Rashcodeine Allergy (Verified 07/24/24 10:03) Hiveslevofloxacin Allergy (Verified 07/24/24 10:03) unknowncortisone Adverse Reaction (Severe, Verified 07/24/24 10:03) migraine and skin on fireprednisone Adverse Reaction (Severe, Verified 07/24/24 10:03) migraine and skin on fireNSAIDS (Non-Steroidal Anti-Inflamma Adverse Reaction (Verified 07/24/24 10:03) Upset Stomachpromethazine HCl (From Phenergan) Adverse Reaction (Verified 07/24/24 10:03) RESTLESS LEG SYNDROMEsulfamethoxazole (From Bactrim) Adverse Reaction (Verified 07/24/24 10:03) Nauseatrimethoprim (From Bactrim) Adverse Reaction (Verified 07/24/24 10:03) Nausea Medications ???Medication ???Instructions ???Recorded ???Confirmed ???Type amitriptyline 150 mg tablet 150 mg PO QHS 09/07/13 07/24/24 History hydrochlorothiazide 25 mg tablet 25 mg PO DAILY 09/07/13 07/24/24 History omeprazole 20 mg capsule,delayed 20 mg PO QHS 09/07/13 07/24/24 History release atorvastatin 10 mg tablet 20 mg PO QHS 09/21/14 07/24/24 History metoprolol tartrate 25 mg tablet 25 mg PO BID 12/10/15 07/24/24 History verapamil 120 mg tablet 60 mg PO BID 12/07/16 07/24/24 History aspirin 81 mg tablet,delayed 81 mg PO DAILY 01/09/19 07/24/24 History release (Adult Low Dose Aspirin) sucralfate 1 gram tablet (Carafate) 1 g PO BID 01/09/19 07/24/24 History cholecalciferol (vitamin D3) 50 2,000 unit PO DAILY 03/13/20 07/24/24 History mcg (2,000 unit) capsule cranberry extract 300 mg tablet 30,000 mg PO DAILY 11/26/20 07/24/24 History acetaminophen 325 mg capsule 325 mg PO PRN PRN Pain 11/02/22 07/24/24 History (Tylenol) melatonin 12 mg tablet 12 mg PO QHS 11/05/22 07/24/24 History Estriol 1 gm intrauterine TUTH 12/08/22 07/24/24 History acetaminophen 500 mg tablet 1,000 mg (2 x 500 mg) PO Q6H PRN 12/22/22 07/24/24 Rx #100 tabs celecoxib 100 mg capsule (Celebrex) 100 mg PO BID #42 caps 06/26/24 07/24/24 Rx Have you fallen in the past year?: No PFSH Medical History Post-menopausal Ambulates with cane Bladder disease High cholesterol Injury of head and neck Diverticulosis History of ulceration Fractured coccyx Wears glasses Osteoporosis Non-smoker CPAP (continuous positive airway pressure) dependence Pain aggravated by walking Edema Migraine headache TIA (transient ischemic attack) History of trigger finger Nausea Abdominal pain Osteoarthritis of right hip Obstructive sleep apnea Morbid obesity with BMI of 40.0-44.9, adult Chronic headaches SBO (small bowel obstruction) HTN (hypertension) GERD (gastroesophageal reflux disease) Surgical History History of hip surgery Hx of right cataract extraction Hx of left cataract extraction Hx of colonoscopy Hx of cholecystectomy Hx of tonsillectomy History of partial hysterectomy Hx of shoulder surgery Hx of total shoulder replacement Hx of arthroscopy History of appendectomy History of reverse total replacement of left shoulder joint ( 05/20/20) history right shoulder repair History of right hip replacement History of right knee joint replacement History of umbilical hernia repair Family History Sister Colon cancerFather DiabetesMother Heart disease Hypertension Social History household members: spouse Smoking Status: Never smoker alcohol intake: never substance use type: does not use HPI LEFT HIP Details: This documentation accurately reflects the service provided and the d (more content not included)...[facility]01-06-2025 Evaluation note* Diagnosis Onset Date Resolution Status Admit Date 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 acute July 24 9:53am S/P total hip arthroplasty acute August 29, 2024 10:26am Acute blood loss as cause of postoperative anemia acute August 312024 2:00pm Acute bronchitis acute August 31, 2024 2:00pm Debility acute August 31, 2024 2:00pm Heart murmur, systolic acute Fe bruary 2024 2:00pm S/P total hip arthroplasty acute August 31, 2024 2:00pm GERD (gastroesophageal reflu x disease) inactive August 31, 2 025 2:00pm HTN (hypertension) inactive ry 2024 2:00pm Morbid obesity with BMI of 40.0-44.9, adult inactive August 31, 2024 2:00pm Obstructive sleep apnea inactive F ebruary 2024 2:00pm Orthopedic aftercare acute Febr uary 2024 10:41am Orthopedic aftercare acute Raudel h 2024 10:41am [facility] Work Phone: 1(619) 752-662512-09-2024 Evaluation note* Diagnosis Onset Date Resolution Status Admit Date 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 acute June 26 7:56am 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 acute July 24 9:53am S/P total hip arthroplasty acute August 29, 2024 10:26am Acute blood loss as cause of postoperative anemia acute August 312024 2:00pm Acute bronchitis acute August 31, 2024 2:00pm Debility acute August 31, 2024 2:00pm Heart murmur, systolic acute Fe bruary 2024 2:00pm S/P total hip arthroplasty acute August 31, 2024 2:00pm GERD (gastroesophageal reflu x disease) inactive August 31 2:00pm HTN (hypertension) inactive 2024 2:00pm Morbid obesity with BMI of 40.0-44.9, adult inactive August 31, 2024 2:00pm Obstructive sleep apnea inactive F ebruary 2024 2:00pm Orthopedic aftercare acute 2024 10:41am [facility] Work Phone: 1(175) 152-259104-11-2024 Discharge summary Author Deep Saez [facility] October 28, 2023 3:15pm Note Date/Time October 28, 2023 3:1 5pm [facility] Physical Therapy [facility] [address] [place] [address]. [address] [place] [id number] / REHABILITATION SERVICES DISCHARGE SUMMARY MR#: [id number] Acct: [id number] Name: MAKEAD NEGRON Rep #: [id number] : 1955 68 From: Deep Saez PT, ATC Referring Dr.: JEFF THAO Status: REG RCR Insurance: MEDICARE PART A B [facility] Discharge Summary D/C summary: It has been my pleasure to treat MAKEDA NEGRON referred by JEFF THAO, with the diagnosis of R glute medius and minimus strain for a total of 7 visit(s). Discharge Date: Please see the following information for a summary of their discharge status. Subjective Subjective: I am still no able to sleep secondary to pain. I am so sore Pain R hip pain: Pain Intensity (Out of 10): 2 Overall Improvement % Improvement: 50 Objective Objective/Function: R hip pain ranges from 2-8/10 R hip MMT: flex= 6, abd= 14, add= 41 #F I with HEP Goals Goal 1:: Decrease R hip pain x 50% to aid with sleep Goal Progress: Progressing Goal 2:: Increase R hip strength x 5-10#F to aid with stair negotaiaition Goal 3:: I with HEP Goal Progress: Goal Met Goal 4:: Pt will ambulate with no signs of a Trendelenburg gait pattern Plan Plan: Discharge secondary to lack of progress, RTD D/C Information d/c sentence: If there are questions or concerns regarding this patient's physical therapy, please feel free to call me at [phone]. Thank you for the referral of thispatient. Sincerely, Deep Saez, PT, ATC Balance/Gait/Functional tests Balance/Special Test Scores Lower Extremity Functional Score: 32 Improvement % Improvement: 50 <Electronically signed by Deep Saez PT, ATC> 10/28/23 1515 CC: Dr. Jody Garner MD; JEFF THAO ~ [facility] Signed [facility] Work Phone: 1(496) 785-480006-06-[address] Peralta [facility] December 22, 2022 10:12am Note Date/Time December 22, 2022 10:05 am [facility] Medical Records Department [address] [place] [address] Instructions for Home/Discharge Instructions 12/22/22 1004 MR#: [id number] Acct: [id number] Name: MAKEDA NEGRON Rep #:[id number] : 1955 67 From: Naresh Peralta DO PCP: Dr. Jody Garner MD Status:REG [facility] Discharge Instructions Diet Discharge Diet: No restrictions (A high sugar diet increases the risk of infection in the perioperative period) Activity Weight Bearing Status: Weight bearing as tolerated Dressing / Incision Call your doctor if you observe: Shortness of breath and Chest pain Additional Dressing/Incision Instructions:: Ice and elevate lower extremities 2 weeks while not ambulating. Ambulation is encouraged. Weight bearing as tolerated. Use assistive devise for stability. Encourage FULL knee extension and flexion 1 time EVERY time you get up and down and MULTIPLE times per day. No showering 72 hours after surgery. Begin showering postop day #3. Remove the dressing prior to shower and gently wash with warm water and antibacterial soap then pat dry and place abdominal pad (or plain gauze) and KATHIA hose over top. This is to be done daily. Do not submerge for 3 weeks. If not showering daily after the initial 72 hours then you must clean incision and change dressing daily. Do not allow animals near the incision area. Keep clean. Follow anti-coagulation recommendations as prescribed. Do not take any NSAIDs while on blood thinner. Do not take any additional narcotic pain medication other than what was prescribed on your surgery day without discussing with physician. Narcotic medication can be addictive. Do not drink alcohol while taking narcotics. Supplement narcotic prescription with acetaminophen 1000 mg 4 times aday. Start physical therapy. If you are not currently scheduled for physical therapy or you are unsure of appointment time please call office [facility] to arrange. Call Dr. Peralta with any concerns. Follow Up Care Please Follow Up With: Naresh Peralta DO When: 2 weeks Test Results: Test results from this visit will be discussed in further detail at your follow- up appointment, if applicable. Discharge Plan Admission Primary Reason for Your Visit: Left total knee arthroplasty Attending Provider: Naresh Peralta Primary Care Provider: Jody Garner Discharge Orders/Prescriptions Prescriptions: New acetaminophen [acetaminophen] 500 mg tablet 1,000 mg PO Q6H PRN Qty: 100 0RF cephalexin [cephalexin] 500 mg capsule 1,000 mg PO Q8 Qty: 4 0RF Rx Instructions: take 2 tabs at 9:00 pm and 2 tabs after 5 am when you wake up Eliquis 2.5 mg tablet 2.5 mg PO BID Qty: 42 0RF Rx Instructions: Begin morning after surgery oxycodone 10 mg tablet 5 - 10 mg PO Q4H PRN (Reason: pain) 7 Days Qty: 30 0RF Continued aspirin [Adult Low Dose Aspirin] 81 mg tablet,delayed release (DR/EC) 81 mg PO DAILY sucralfate [Carafate] 1 gram tablet 1 g PO BID amitriptyline 150 MG tablet 150 mg PO QHS Label Comments: HEADACHES omeprazole 20 MG capsule 20 mg PO QHS Label Comments: STOMACH/ acid reflex hydrochlorothiazide 25 MG tablet 25 mg PO DAILY Label Comments: BLOOD PRESSURE atorvastatin 10 MG tablet 20 mg PO QHS Label Comments: CHOLESTEROL metoprolol tartrate 25 MG tablet 25 mg PO BID Label Comments: high blood pressure verapamil 120 MG tablet 60 mg PO BID Label Comments: blood pressure cholecalciferol (vitamin D3) 2,000 UNIT capsule 2,000 unit PO DAILY cranberry extract 300 mg Tablet 30,000 mg PO DAILY melatonin 12 mg Tablet 12 mg PO QHS Estriol 1 gm intrauterine TUTH No Action acetaminophen [Tylenol] 325 mg capsule 325 mg PO PRN PRN (Reason: Pain) Referrals / Follow Up: Jody Garner MD [Primary Care Provider] - Disposition Disposition (needs filled in before D/C Order can be placed): Home, Self Care 12/22/22 1012<Electronically signed by Naresh Peralta DO>Naresh Peralta DO CC: Dr. Jody Garner MD ~ Signed [facility] Work Phone: 1(797) 695-434506-06-2023 Procedure [facility] 12-22-2022 History and physical note Author Dr. Peralta [facility] December 22, 2022 7:07am Note Date/Time December 22, 2022 7:07a m [facility] Medical Records Department [address] [place] [address] History & Physical Exam 12/22/22705 MR#: [id number] Acct: [id number] Name: MAKEDA NEGRON Rep #:[id number] : 1955 67 From: Naresh Peralta DO PCP: Dr. Jody Garner MD Status:[facility] Location: [address] History and Physical Date of Admission: 12/22/22 [facility] [address] [place] [address] [place] [address] OFFICE VISIT Date of Service:? 11/02/22 MR#: [id number] Acct: [id number] Name:MAKEDA CRYSTAL Rep #: [id number] : 1955 ? ? Provider: Dr. Naresh Peralta DO Age/Sex:? 67/F ? ? Location: [facility] Status: Signed Intake Vital Signs ? 02/28/2216:31 11/02/2309:01 Height 5 ft 2 in 5 ft 2 in Weight: ? 214 lb 8 oz BMI ? 39.2 Intake Visit Reasons:?LEFT KNEE Is patient in pain?: Yes Allergies adhesive tape Allergy (Verified 11/02/22 10:06) Rashcodeine Allergy (Verified 11/02/22 10:06) Hiveslevofloxacin Allergy (Verified 11/02/22 10:06) unknowncortisone Adverse Reaction (Severe, Verified 11/02/22 10:06) migraine and skin on fireprednisone Adverse Reaction (Severe, Verified 11/02/22 10:06) migraine and skin on fireNSAIDS (Non-Steroidal Anti-Inflamma Adverse Reaction (Verified 11/02/22 10:06) Upset Stomachpromethazine HCl [From Phenergan] Adverse Reaction (Verified 11/02/22 10:06) RESTLESS LEG SYNDROMEsulfamethoxazole [From Bactrim] Adverse Reaction (Verified 11/02/22 10:06) Nauseatrimethoprim [From Bactrim] Adverse Reaction (Verified 11/02/22 10:06) Nausea Medications amitriptyline 150 mg tablet 150 mg PO QHS 09/07/13 [History Confirmed 11/02/22] hydrochlorothiazide 25 mg tablet 25 mg PO DAILY 09/07/13 [History Confirmed 11/02/22] omeprazole 20 mg capsule,delayed release 20 mg PO QHS 09/07/13 [History Confirmed 11/02/22] atorvastatin 10 mg tablet 20 mg PO QHS 09/21/14 [History Confirmed 11/02/22] metoprolol tartrate 25 mg tablet 25 mg PO BID 12/10/15 [History Confirmed 11/02/22] verapamil 120 mg tablet 60 mg PO TID 12/07/16 [History Confirmed 11/02/22] aspirin 81 mg tablet,delayed release (Adult Low Dose Aspirin) 81 mg PO DAILY 01/09/19 [History Confirmed 11/02/22] sucralfate 1 gram tablet (Carafate) 1 g PO BID 01/09/19 [History Confirmed 11/02/22] cholecalciferol (vitamin D3) 50 mcg (2,000 unit) capsule 2,000 unit PO DAILY 03/13/20 [History Confirmed 11/02/22] cranberry extract 300 mg tablet 300 mg PO BID 11/26/20 [History Confirmed 11/02/22] acetaminophen 325 mg capsule (Tylenol) 325 mg PO ONCE PRN 11/02/22 [History Confirmed 11/02/22] PFSH Medical History? Abdominal pain Chronic headaches CPAP (continuous positive airway pressure) dependence Edema GERD (gastroesophageal reflux disease) History of trigger finger HTN (hypertension) Migraine headache Morbid obesity with BMI of 40.0-44.9, adult Nausea Non-smoker Obstructive sleep apnea Open wound Osteoarthritis of right hip Osteoporosis Pain aggravated by walking SBO (small bowel obstruction) TIA (transient ischemic attack) Wears glasses Surgical History? History of appendectomy History of partial hysterectomy History of reverse total replacement of left shoulder joint (~05/20/20) History of right hip replacement History of right knee joint replacement History of umbilical hernia repair history right shoulder repair Hx of arthroscopy Hx of shoulder surgery Hx of total shoulder replacement Family History? Sister Colon cancerFather DiabetesMother Heart disease Hypertension Social History?(Updated 02/27/22 @ 16:[address] Crispin Balderas MD) household members:? spouse Smoking Status:? Never smoker alcohol intake:? never substance use type:? does not use HPI LEFT KNEE Details: Parts of this documentation were recorded by a scribe, this documentation accurately reflects the service provided and the decisions made by me, Dr. Naresh Peralta, DO 11/02/22 0843. MAKEDA NEGRON is a 67 year old F here today for left knee pain. Patient statesthat she fell 4 times last week due to her knee giving out. She denies any injury to her knee.? Patient notes that her pain has progressively worsened. Shecomplains of pain over her anterior and posterior knee. Patient has grinding in her knee. She denies any knee swelling. Patient is not doing activities due to the fear of her knee giving out. She has been icing her knee. Patient uses a cane to ambulate. She denies any recent injections, physical therapy or xrays. She has a knee brace which does not fit her properly. Patient takes tylenol and ibuprofen for pain which is not helpful. Ortho Exam General General: Yes no acute distress Neurologic: Yes alert and Yes oriented x3 Psychologic: Yes reasonable and appropriate Right Knee Patella Translation: 1 Left Knee Skin/Wound: Yes CDI, No ecchymosis, No erythema and No swelling Knee ROM: Yes ROM-Extension -20 to 0 (-10) and Yes ROM-Flexion 0-140 (90) Examination: Yes med jt line tenderness and Yes Lat jt line tenderness Stability: NML: Anterior Drawer, NML: Posterior Drawer, NML: Valgus 30 (valgus deformity) and NML: Varus 30 Patella Translation: 1 Patella Grind: Yes KNEE: skin lesion on medial thigh. Head: Normocephalic Atraumatic Chest: symmetrical rise, non-labored breathing, no audible wheeze Abdomen: no guarding, non-rigid Supplemental Info 11/02/2022 x-ray left knee: Advanced knee arthrosis with valgus deformity severe lateral and patellofemoral joint 09/04/2020 x-ray left knee: Advanced lateral compartment arthrosis [id number] valgus deformity moderate moderate to advanced patellofemoral arthrosis Coding Level of Care Code Off vis,est,level 3 Diagnoses Osteoarthritis of left knee? M17.12 Assessment and Plan Assessment and Plan (1) Osteoarthritis of left knee: ? ? ? Orders: Orders Knee 4 or More Views Today M25.562 - Pain in left knee ? Referrals Physical Therapy Referral ? M17.12 - Unilateral primary osteoarthritis, left knee ? Plan Educated the patient about the anatomy of the knee. Spoke with her about her options- injections, total knee arthroplasty. Spoke with her about the risk of injury to the peroneal nerve due to valgus deformity. She is unable to have a steroid injections due to an allergy. She has dental work at the end of these month for a filling. Spoke with her about the surgery procedure and recovery. She will be on a blood thinner post op to prevent blood clot. Explained that she might have a mechanical feel to her knee. Spoke with the patient about risk of stiffness due to her pre-op stiffness. Recommended thepatient do prehab. She will do physical therapy after surgery as well. Patient may travel but has an increased risk of blood clots. Recommend she take a baby aspirin twice a day while traveling. We will need to get medical and dental clearance. She will need a CT scan for makoplasty. Risks, benefits and alternatives of surgery reviewed including but not limited to bleeding, infection, nerve, artery and/or tissue damage, fracture, VTE, mechanical feel of the knee, continued pain, stiffness and expected post-operative course. Follow up for 2 week post op or sooner if pain, swelling, numbness or associatedsymptoms, or concerns develop.? All questions answered. Patient in agreement of plan. 11/02/22 1157 <Electronically signed by Naresh Peralta DO> Date Naresh Peralta DO Cosigner Signature: Date (if applicable) ? CC: ? ~ I have examined the patient and the H&P has been reviewed. There are no clinicalchanges since date of exam. 12/22/22 0707 <Electronically signed by Naresh Peralta DO> Cosigner Signature (if applicable): CC: Dr. Jody Garner MD; Dr. Naresh Peralta DO~ Signed [facility] Work Phone: 1(194) 802-448004-20-[address] Bangura [facility] November 05, 2022 8:09pm Note Date/Time November 05, 2022 7:3 7pm [facility] Medical Records Department [address] [place] [address] Emergency Department Summary 11/05/22 MR#: [id number] Acct: [id number] Name: MAKEDA NEGRON Rep #:[id number] : 1955 67 From: Kevin Bangura DO PCP: Dr. Jody Garner MD Status:REG ER Location: ED HPI History of Present Illness Chief Complaint: Weakness Narrative Narrative: 67-year-old female presenting with headache. Patient states her knee keeps giving out on her. She has had 4 falls this week prior to yesterday and yesterday she fell hitting the back of her head. She denies no LOC. She does have a mild headache. She states that she has a cephalhematoma which is improving. She does not feel lightheaded or dizzy. She does have concern that she is having an increased tremor this week. Patient was seen by orthopedics onthe and had x-rays of the knee. This showed degenerative changes without acute fracture. She denies any new injury to the knee. She does state that shelanded on her sacrum and this is hurting her now is able to ambulate but is using a cane at this point. She is been using this for about 2 weeks. [facility] Medical History Abdominal pain Chronic headaches CPAP (continuous positive airway pressure) dependence Edema GERD (gastroesophageal reflux disease) History of trigger finger HTN (hypertension) Migraine headache Morbid obesity with BMI of 40.0-44.9, adult Nausea Non-smoker Obstructive sleep apnea Open wound Osteoarthritis of right hip Osteoporosis Pain aggravated by walking SBO (small bowel obstruction) TIA (transient ischemic attack) Wears glasses Home Medications amitriptyline 150 mg tablet 150 mg PO QHS 09/07/13 [History Last Taken 09/22/15] hydrochlorothiazide 25 mg tablet 25 mg PO DAILY 09/07/13 [History Last Taken 09/23/15] omeprazole 20 mg capsule,delayed release 20 mg PO QHS 09/07/13 [History Last Taken 04/07/16 22:30] atorvastatin 10 mg tablet 20 mg PO QHS 09/21/14 [History Last Taken 09/22/15] metoprolol tartrate 25 mg tablet 25 mg PO BID 12/10/15 [History Last Taken 01/05/17 07:00 25 MG] verapamil 120 mg tablet 60 mg PO TID 12/07/16 [History Last Taken 01/05/17 07:00 60 MG] aspirin 81 mg tablet,delayed release (Adult Low Dose Aspirin) 81 mg PO DAILY 01/09/19 [History Last Taken 11/22/20] sucralfate 1 gram tablet (Carafate) 1 g PO BID 01/09/19 [History Last Taken Unknown] cholecalciferol (vitamin D3) 50 mcg (2,000 unit) capsule 2,000 unit PO DAILY 03/13/20 [History Last Taken Unknown] cranberry extract 300 mg tablet 300 mg PO BID 11/26/20 [History Last Taken Unknown] acetaminophen 325 mg capsule (Tylenol) 325 mg PO ONCE PRN Pain 11/02/22 [History Last Taken Unknown] estriol (bulk) 100 % powder See Rx Instructions .Route .COMPLEX 11/05/22 [History Last Taken Unknown] hydrocodone-acetaminophen 5-325mg 5mg-325mg 1 tab PO Q6H PRN PRN Pain 3 days #12TABLETS 11/05/22 [Rx Last Taken Unknown] melatonin 12 mg tablet 12 mg PO QHS 11/05/22 [History Last Taken Unknown] Allergy/AdvReac Type Severity Reaction Status Date / Time adhesive tape Allergy Rash Verified 11/05/22 17:12 codeine Allergy Hives Verified 11/05/22 17:12 levofloxacin Allergy unknown Verified 11/05/22 17:12 cortisone AdvReac Severe migraine Verified 11/05/22 17:12 and skin on fire prednisone AdvReac Severe migraine Verified 11/05/22 17:12 and skin on fire NSAIDS (Non-Steroidal AdvReac Upset Verified 11/05/22 17:12 Anti-Inflamma Stomach promethazine HCl AdvReac RESTLESS Verified 11/05/22 17:12 [From Phenergan] LEG SYNDROME sulfamethoxazole AdvReac Nausea Verified 11/05/22 17:12 [From Bactrim] trimethoprim [From Bactrim] AdvReac Nausea Verified 11/05/22 17:12 Family History Sister Colon cancer Father Diabetes Mother Heart disease Hypertension Surgical History History of appendectomy History of partial hysterectomy History of reverse total replacement of left shoulder joint (~05/20/20) History of right hip replacement History of right knee joint replacement History of umbilical hernia repair history right shoulder repair Hx of arthroscopy Hx of shoulder surgery Hx of total shoulder replacement Social History household members: spouse Smoking Status: Never smoker alcohol intake: never substance use type: does not use ROS ROS ED Constitutional Constitutional ED: Denies chills or fever(s) Eyes Eyes: Denies change in vision ENT ENT ED: Denies rhinorrhea or sore throat Cardiovascular Cardiovascular: Denies chest pain or palpitations Respiratory/Chest Respiratory/Chest: Denies cough or dyspnea Gastrointestinal Gastrointestinal: Denies abdominal pain, nausea or vomiting Genitourinary Genitourinary ED: Denies dysuria or hematuria Musculoskeletal Musculoskeletal: Reports other Details: Sacrum pain Integumentary Denies abscess Neurologic Neurologic: Reports headache(s); Denies paresthesias EXAM Physical Exam Const Vital Signs: 11/05/22 17:12 11/05/22 17:27 Temperature 97.7 F L Temperature Source Temporal Pulse Rate 100 Respiratory Rate 16 Respiratory Effort Normal Non-Labored Respiratory Pattern Normal Blood Pressure 172/98 H Blood Pressure Mean 122 Pulse Ox 99 Oxygen Delivery Method Room Air Positive well nourished General Appearance ED: NAD HEENT HEENT Narrative: Mild tenderness to palpation to the occiput. No obvious deformity or cephalohematoma. Eyes PERRL and EOMs intact bilaterally Resp normal respiratory effort and clear to auscultation bilaterally Cardio regular rhythm Rate: regular rate GI normal to inspection, nondistended, normoactive bowel sounds Back/Spine Back/Spine Narrative: Tenderness to palpation over sacral region. No obvious deformity or step-off Neuro oriented x3 and CN's II-XII intact bilaterally Sensorium / Orientation: alert Psych mental status grossly normal Skin no rashes or lesions noted and no wounds MDM MDM MDM Narrative Medical decision making narrative: Patient presenting with pain in the tailbone and recurrent falls. She had lab work this week which included CBC and BMP I was able to review this. Her labs are unremarkable. She states he just keeps falling because her leg comes out from under her. No new left knee injury. She did hit her head so I obtained a CT brain and cervical spine. CT brain shows no acute intracranial abnormality. CT C-spine shows degenerative changes. X-ray of the sacrum and coccyx shows a deformity at the distal sacrum on my interpretation. Radiology interprets this and agrees. They recommend a CT scan which was provided. CT scan shows and acute impacted fracture of the distal coccyx with overlapping of fracture fragments. Patient will be given follow-up orthospine. Counseled to use a donut at home. Impression: 1. Fall 2. Closed head injury 3. Coccyx fracture Radiography Diagnostic Testing: Clinical Impression(s) from Imaging Studies Brain CT 11/05/22 17:59 IMPRESSION: Mild atrophy and periventricular white matter ischemic changes.. No evidence for acute intracranial bleed Electronically Signed: Tariq Morel MD at 18:35 EDT , Cervical Spine CT 11/05/22 17:59 IMPRESSION: Mild spondylosis most severe at C5-6 No acute fracture or other significant bony abnormality Electronically Signed: Tariq Morel MD at 18:37 EDT , Sacrum and Coccyx X-Ray 11/05/22 18:20 IMPRESSION: Deformity of the distal sacrum and acute injury cannot be excluded. CT recommended for further evaluation Electronically Signed: Tariq Morel MD at 18:43 EDT , Lumbar Spine CT 11/05/22 18:56 IMPRESSION: Acute impacted fracture of the distal coccyx with overlapping of fracture fragments Scoliosis and degenerative changes of the lumbar spine without evidence for acute fracture Multilevel spinal stenosis secondary to annular bulge and facet arthropathy Electronically Signed: Tariq Morel MD at 19:32 EDT , Discharge Plan Triage Chief Complaint: Weakness ED Provider: Kevin Bangura Dx/Rx/DC Orders Instructions: ED Tailbone (Coccyx) Fracture, ED Fall Prevention Prescriptions: New hydrocodone-acetaminophen 5-325 mg tablet 1 tab PO Q6H PRN PRN (Reason: Pain) 3 Days Qty: 12 0RF No Action aspirin [Adult Low Dose Aspirin] 81 mg tablet,delayed release (DR/EC) 81 mg PO DAILY sucralfate [Carafate] 1 gram tablet 1 g PO BID acetaminophen [Tylenol] 325 mg capsule 325 mg PO ONCE PRN (Reason: Pain) amitriptyline 150 MG tablet 150 mg PO QHS Label Comments: HEADACHES omeprazole 20 MG capsule 20 mg PO QHS Label Comments: STOMACH/ acid reflex hydrochlorothiazide 25 MG tablet 25 mg PO DAILY Label Comments: BLOOD PRESSURE atorvastatin 10 MG tablet 20 mg PO QHS Label Comments: CHOLESTEROL metoprolol tartrate 25 MG tablet 25 mg PO BID Label Comments: high blood pressure verapamil 120 MG tablet 60 mg PO TID Label Comments: blood pressure cholecalciferol (vitamin D3) 2,000 UNIT capsule 2,000 unit PO DAILY cranberry extract 300 mg Tablet 300 mg PO BID estriol (bulk) 100 % powder See Rx Instructions .ROUTE .COMPLEX Label Comments: APPLY 1 GRAM (4 CLICKS)TINTRAVAGINALLY TWICE A WEEK Rx Instructions: 1 mg weekly x3 melatonin 12 mg Tablet 12 mg PO QHS Primary Care Provider: Jody Garner Referrals: Jody Garner MD [Primary Care Provider] - Tariq Wong DO [Med Staff - Active Staff] - 3-5 Days Disposition Disposition: Home, Self Care What to do if you have Problems For any increased pain, shortness of breath, bleeding, nausea or vomiting, chestpain, or any unexpected problems, contact your Primary Care Provider. Call [facility] ([phone]) or report to the closest Emergency Room. Call 911 if necessary. 11/05/222008 <Electronically signed by Kevin Bangura DO> Cosigner Signature (if applicable): CC: Dr. Jody Garner MD ~ Signed [facility] Work Phone: Evaluation noteNo assessment information available [facility] Work Phone: Evaluation note* Diagnosis Onset Date Resolution Status Urinary tract infection none active [facility] Work Phone: Evaluation note* Diagnosis Onset Date Resolution Status Osteoarthritis of left knee noneactive [facility] Work Phone: Evaluation note* Diagnosis Onset Date Resolution Status Osteoarthritis of left knee noneactive Left knee pain acute [facility] Work Phone: Evaluation note* Diagnosis Onset Date Resolution Status Osteoarthritis of left knee noneactive Left knee pain acute Rash acute [facility] Work Phone: Evaluation note* Diagnosis Onset Date Resolution Status Hip pain, right acute History of total hip arthroplasty acute [facility] Work Phone: Summary Purpose Family History No Family History Records Found Relationship Condition Age at Onset Recorded Date/T linda sister Malignant neoplasm of colon Unknown father Diabetes mellitus Unknown mother Cardiac disease Unknown Hypertension Unknown Family Member Condition Mother Full Brother Kidney stone surgery Full Brother Gallbladder surgery Full Brother High blood pressure Full Brother Obesity Full Sister Cancer Full Sister Blood clots Full Sister Alive Father Diabetes - insulin d ependent Father Blood clots Father Mother High blood pressure Mother Heart disease Father Kidney disease Father Diabetes - non-insul in dependent Father Arthritis Mother Heart attack Family Member Condition Mother Full Brother Kidney stone surgery Full Brother Gallbladder surgery Full Brother High blood pressure Full Brother Obesity Full Sister Cancer Full Sister Blood clots Full Sister Alive Father Diabetes - insulin d ependent Father Blood clots Father Mother High blood pressure Mother Heart disease Father Kidney disease Father Diabetes - non-insul in dependent Father Arthritis Mother Heart attack Advance Directives No Advanced Directives Records Found Advance Directive Response Recorded Date/ Time Advance Directives Yes May 23, 2021 8:11am Living Will Yes May 23 8:11am Power of Fibrous Wallboard Inspector Yes May 23, 2021 8:11am Advance Directive Response Recorded Date/ Time Advance Directives Yes May 23, 2021 8:11am Living Will No February 27 5:21pm Power of Fibrous Wallboard Inspector No February 27 022 5:21pm Advance Directive Response Recorded Date/ Time Name of Medical Power of Fibrous Wallboard Inspector Erin stark November 05, 2022 5:25pm Advance Directives Yes May 23, 2021 8:11am Living Will Yes November 05, 2022 5:25pm Power of Fibrous Wallboard Inspector Yes November 05 5:25pm Advance Directive Response Recorded Date/ Time Name of Medical Power of Fibrous Wallboard Inspector Erin stark November 05, 2022 5:25pm Advance Directives Yes May 23, 2021 8:11am Living Will Yes November 05, 2022 5:25pm Power of Fibrous Wallboard Inspector Yes November 05 5:25pm Name of Medical Power of Fibrous Wallboard Inspector SPOUSE December 08, 2022 11:02am Advance Directive Response Recorded Date/ Time Advance Directives Yes July 20, 2023 10:49am Living Will Yes July 20 10:49am Power of Fibrous Wallboard Inspector Yes July 20 10:49am Advance Directive Response Recorded Date/ Time Advance Directives Yes July 20, 2023 9:49am Living Will Yes July 20 9:49am Power of Fibrous Wallboard Inspector Yes July 20 9:49am Advance Directive Response Recorded Date/ Time Advance Directives Yes May 4:12pm Living Will Yes August 29 025 4:27pm Do you have a Healthcare Power of Fibrous Wallboard Inspector? Yes August 29, 2024 4:27pm Name of Medical Power of Fibrous Wallboard Inspector ERIN NEGRON August 29, 2024 4:27pm Living Will Yes September 01 12:28pm Do you have a Healthcare Power of Fibrous Wallboard Inspector? Yes September 01, 2024 12:28pm Name of Medical Power of Fibrous Wallboard Inspector Erin Snowdenjoseline September 01, 2024 12:28pm Advance Directive Response Recorded Date/ Time Living Will Yes August 29 025 4:27pm Do you have a Healthcare Power of Fibrous Wallboard Inspector? Yes August 29, 2024 4:27pm Name of Medical Power of Fibrous Wallboard Inspector ERIN NEGRON August 29, 2024 4:27pm Living Will Yes September 01 12:28pm Do you have a Healthcare Power of Fibrous Wallboard Inspector? Yes September 01, 2024 12:28pm Name of Medical Power of Fibrous Wallboard Inspector Erin Snowdenjoseline September 01, 2024 12:28pm Advance Directives Yes May 4:12pm Advance Directive Response Recorded Date/ Time Living Will Yes September 01 12:28pm Do you have a Healthcare Power of Fibrous Wallboard Inspector? Yes September 01, 2024 12:28pm Name of Medical Power of Fibrous Wallboard Inspector Erin Negron September 01, 2024 12:28pm Advance Directives Yes May 4:12pm Chief Complaint and Reason for Visit Chief Complaint SCREENING/OSTEO Urinary tract infection FLANK Reason for Visit Urinary tract infect ion Chief Complaint LEFT KNEE room 2 weakness Reason for Visit Osteoarthritis of le ft knee Chief Complaint LEFT KNEE room 2 weakness TEMPLATING FOR LT TKA, SCREENING Reason for Visit Osteoarthritis of le ft knee Chief Complaint LEFT KNEE room 2 weakness TEMPLATING FOR LT TKA, SCREENING left knee LT TOTAL KNEE W BONY LT TOTAL KNEE W BONY Reason for Visit Osteoarthritis of le ft knee Left knee pain Chief Complaint LEFT KNEE room 2 weakness TEMPLATING FOR LT TKA, SCREENING left knee LT TOTAL KNEE W BONY LT TOTAL KNEE W BONY STAT LEFT LOWER LEG PAIN RASH/LEFT LEG/POST OP TUES L TKA RX HERE Reason for Visit Osteoarthritis of le ft knee Left knee pain Rash Chief Complaint R HIP RX HERE RIGHT HIP xray room 2 EORDER Reason for Visit Hip pain, right History of total hip arthroplasty Chief Complaint Admit Date LEFT HIP PAIN June 21, 2024 3 :57pm LEFT HIP June 26, 2024 7 :56am LEFT HIP July 24, 2024 9: 53am TEMPLATING FOR LT BOBBY August 14, 2024 12:54pm PREOP August 16, 2024 8 :45am Left Total Hip Replacement Robotic Arm A ssisted August 29, 2024 7:29am Left Total Hip Replacement Robotic Arm A ssisted August 29, 2024 10:26am Left Total Hip Replacement Robotic Arm A ssisted August 30, 2024 12:12pm Left Total Hip Replacement Robotic Arm A ssisted August 31, 2024 7:57am LEFT HIP REPLACEMENT August 31, 2024 2:00pm LEFT HIP REPLACEMENT September 01, 2024 12:46pm LEFT HIP REPLACEMENT September 04, 2024 9:26am left hip September 11, 2024 10:41am LTH RX HERE October 04, 2024 11: 00am Nonrheumatic aortic (valve) stenosis [facility] 2024 2:49pm Reason for Visit Admit Date Degenerative joint disease of left hip D ecember 2023 7:56am Degenerative joint disease of left hip J anuary 2024 9:53am S/P total hip arthroplasty August 10:26am Acute blood loss as cause of postoperati ve anemia August 31, 2024 2:00pm Acute bronchitis August 31, 2024 2:00pm Debility August 31, 2024 2:00pm Heart murmur, systolic August 31 2:00pm S/P total hip arthroplasty August 2:00pm GERD (gastroesophageal reflux disease) F ebruary 2024 2:00pm HTN (hypertension) August 31, 2024 2:00pm Morbid obesity with BMI of 40.0-44.9, ad ult August 31, 2024 2:00pm Obstructive sleep apnea August 31 2:00pm Orthopedic aftercare September 11, 2024 10:41am Chief Complaint Admit Date LEFT HIP July 24, 2024 9: 53am TEMPLATING FOR LT BOBBY August 14, 2024 12:54pm PREOP August 16, 2024 8 :45am Left Total Hip Replacement Robotic Arm A ssisted August 29, 2024 7:29am Left Total Hip Replacement Robotic Arm A ssisted August 29, 2024 10:26am Left Total Hip Replacement Robotic Arm A ssisted August 30, 2024 12:12pm Left Total Hip Replacement Robotic Arm A ssisted August 31, 2024 7:57am LEFT HIP REPLACEMENT August 31, 2024 2:00pm LEFT HIP REPLACEMENT September 01, 2024 12:46pm LEFT HIP REPLACEMENT September 04, 2024 9:26am left hip September 11, 2024 10:41am Nonrheumatic aortic (valve) stenosis Sep 2:49pm left hip October 09, 2024 10: 41am Room 1 October 09, 2024 10: 59am CHEST PAIN October 25, 2024 6:22 am CHEST PAIN October 25, 2024 4:59 pm LTH RX HERE October 27, 2024 10: 00am Reason for Visit Admit Date Degenerative joint disease of left hip J anuary 2024 9:53am S/P total hip arthroplasty August 10:26am Acute blood loss as cause of postoperati ve anemia August 31, 2024 2:00pm Acute bronchitis August 31, 2024 2:00pm Debility August 31, 2024 2:00pm Heart murmur, systolic August 31 2:00pm S/P total hip arthroplasty August 2:00pm GERD (gastroesophageal reflux disease) F ebruary 2024 2:00pm HTN (hypertension) August 31, 2024 2:00pm Morbid obesity with BMI of 40.0-44.9, ad ult August 31, 2024 2:00pm Obstructive sleep apnea August 31 025 2:00pm Orthopedic aftercare September 11, 2024 10:41am Orthopedic aftercare October 09, 2024 10 :41am Chief Complaint Admit Date Left Total Hip Replacement Robotic Arm A ssisted August 29, 2024 7:29am Left Total Hip Replacement Robotic Arm A ssisted August 29, 2024 10:26am Left Total Hip Replacement Robotic Arm A ssisted August 30, 2024 12:12pm Left Total Hip Replacement Robotic Arm A ssisted August 31, 2024 7:57am LEFT HIP REPLACEMENT August 31, 2024 2:00pm LEFT HIP REPLACEMENT September 01, 2024 12:46pm LEFT HIP REPLACEMENT September 04, 2024 9:26am left hip September 11, 2024 10:41am Nonrheumatic aortic (valve) stenosis [facility] 2024 2:49pm left hip October 09, 2024 10: 41am Room 1 October 09, 2024 10: 59am CHEST PAIN October 25, 2024 6:22 am CHEST PAIN October 25, 2024 4:59 pm LTH RX HERE November 01, 2024 10: 30am BLU-UNABLE TO TOLERATE MASK 10 YRS AGO M ay 2024 8:00pm Reason for Visit Admit Date S/P total hip arthroplasty August 10:26am Acute blood loss as cause of postoperati ve anemia August 31, 2024 2:00pm Acute bronchitis August 31, 2024 2:00pm Debility August 31, 2024 2:00pm Heart murmur, systolic August 31 2:00pm S/P total hip arthroplasty August 2:00pm GERD (gastroesophageal reflux disease) F ebruary 2024 2:00pm HTN (hypertension) August 31, 2024 2:00pm Morbid obesity with BMI of 40.0-44.9, ad ult August 31, 2024 2:00pm Obstructive sleep apnea August 31 2:00pm Orthopedic aftercare September 11, 2024 10:41am Orthopedic aftercare October 09, 2024 10 :41am Chief Complaint Admit Date LEFT HIP REPLACEMENT August 31, 2024 2:00pm LEFT HIP REPLACEMENT September 04, 2024 9:26am left hip September 11, 2024 10:41am Nonrheumatic aortic (valve) stenosis [facility] 2024 2:49pm left hip October 09, 2024 10: 41am Room 1 October 09, 2024 10: 59am CHEST PAIN October 25, 2024 6:22 am CHEST PAIN October 25, 2024 4:59 pm LTH RX HERE November 01, 2024 10: 30am BLU-UNABLE TO TOLERATE MASK 10 YRS AGO M ay 2024 8:00pm BLU, HYPOXIA December 26, 2024 8:10 pm Reason for Visit Admit Date Acute blood loss as cause of postoperati ve anemia August 31, 2024 2:00pm Acute bronchitis August 31, 2024 2:00pm Debility August 31, 2024 2:00pm Heart murmur, systolic August 31 2:00pm S/P total hip arthroplasty August 2:00pm GERD (gastroesophageal reflux disease) F ebruary 2024 2:00pm HTN (hypertension) August 31, 2024 2:00pm Morbid obesity with BMI of 40.0-44.9, ad ult August 31, 2024 2:00pm Obstructive sleep apnea August 31, 2:00pm Orthopedic aftercare September 11, 2024 10:41am Orthopedic aftercare October 09, 2024 10 :41am Chief Complaint Admit Date LEFT HIP REPLACEMENT August 31, 2024 2:00pm left hip September 11, 2024 10:41am Nonrheumatic aortic (valve) stenosis [facility] 2024 2:49pm left hip October 09, 2024 10: 41am Room 1 October 09, 2024 10: 59am CHEST PAIN October 25, 2024 6:22 am CHEST PAIN October 25, 2024 4:59 pm LTH RX HERE November 01, 2024 10: 30am BLU-UNABLE TO TOLERATE MASK 10 YRS AGO M ay 2024 8:00pm BLU, HYPOXIA December 26, 2024 8:10 pm Additional Source Comments INFORMATION SOURCE (unrecogn ized section and content) DATE CREATED AUTHOR 09/06/2018 [facility] DATE CREATED AUTHOR AUTHOR'S ORGANIZ ATION 08/31/2021 [facility] DATE CREATED AUTHOR AUTHOR'S ORGANIZ ATION 04/25/2025 [facility] Goals (unrecognized section and content) Goals may be documented in a n alternate sectionGoals may be documented in an alternate sectionGoals may be documented in an alternate sectionGoals may be documented in an alternate sectionGoals may be documented in an alternate sectionGoals may be documented in an alternate sectionGoals may be documented in an alternate sectionGoals may be documented in an alternate sectionGoals may be documented in an alternate section No Information Available No Information Available Care Teams (unrecognized sec tion and content) Team Status: Active Member Role Status Dates Dr. Jody Garner MD Primary Care Provider Active Team Status: Inactive Member Role Status Dates Dr. Jody Garner MD Primary Care Provider Active Start: August 31, 2024 End: September 05, 2024 Dr. Taryn Lowry DO Admit Provider Active Start: August End: September 05, 2024 Dr. Taryn Lowry DO Attending Provider Active Start: August End: September 05, 2024 Dr. Taryn Lowry DO Referring Provider Active Start: August End: September 05, 2024 Team Status: Active Member Role Status Dates Dr. Jody Garner MD Primary Care Provider Active Start: September 04, 2024 Dr. Taryn Lowry DO Admit Provider Active Start: August Dr. Taryn Lowry DO Attending Provider Active Start: August Dr. Taryn Lowry DO Other Provider Active Start: August Team Status: Inactive Member Role Status Dates Dr. Jody Garner MD Primary Care Provider Active Start: September 11, 2024 End: September 11, 2024 Dr. Jody Garner MD Referring Provider Active Start: September 11, 2024 End: September 11, 2024 Dr. Naresh Peralta DO Attending Provider Active Start: September 11, 2024 End: September 11, 2024 Team Status: Inactive Member Role Status Dates Dr. Jody Garner MD Primary Care Provider Active Start: September 27, 2024 End: September 27, 2024 ROJAS Gutiérrez Attending Provider Active St art: September 27, 2024 End: September 27, 2024 Team Status: Inactive Member Role Status Dates Dr. Jody Garner MD Primary Care Provider Active Start: October 05, 2024 End: October 05, 2024 Dr. Jody Garner MD Attending Provider Active Start: October 05, 2024 End: October 05, 2024 Dr. Jody Garner MD Referring Provider Active Start: October 05, 2024 End: October 05, 2024 Team Status: Active Member Role Status Dates Dr. Jody Garner MD Primary Care Provider Active Start: October 05, 2024 Dr. Ken Cortez MD Attending Provider Active S tart: October 05, 2024 Team Status: Inactive Member Role Status Dates Dr. Jody Garner MD Primary Care Provider Active Start: October 09, 2024 End: October 09, 2024 Dr. Jody Garner MD Referring Provider Active Start: October 09, 2024 End: October 09, 2024 Dr. Naresh Peralta DO Attending Provider Active Start: October 09, 2024 End: October 09, 2024 Team Status: Inactive Member Role Status Dates Dr. Jody Garner MD Primary Care Provider Active Start: October 09, 2024 End: October 09, 2024 Dr. Ken Cortez MD Attending Provider Active S tart: October 09, 2024 End: October 09, 2024 Team Status: Inactive Member Role Status Dates Dr. Jody Garner MD Primary Care Provider Active Start: October 25, 2024 End: October 25, 2024 Dr. Jody Garner MD Attending Provider Active Start: October 25, 2024 End: October 25, 2024 Dr. Jody Garner MD Referring Provider Active Start: October 25, 2024 End: October 25, 2024 Team Status: Active Member Role Status Dates Dr. Jody Garner MD Primary Care Provider Active Start: October 25, 2024 Dr. Jody Garner MD Referring Provider Active Start: October 25, 2024 Dr. Jody Garner MD Other Provider Active Sta rt: October 25, 2024 Dr. Ken Cortez MD Attending Provider Active S tart: October 25, 2024 Team Status: Inactive Member Role Status Dates Dr. Jody Garner MD Primary Care Provider Active Start: November 01, 2024 End: November 01, 2024 Dr. Taryn Lowry , Attending Provider Act pat Start: November 01, 2024 End: November 01, 2024 Dr. Taryn Lowry DO Referring Provider Act pat Start: November 01, 2024 End: November 01, 2024 Team Status: Inactive Member Role Status Dates Dr. Jody Garner MD Primary Care Provider Active Start: December 14, 2024 End: December 14, 2024 Dr. Jody Garner MD Attending Provider Active Start: December 14, 2024 End: December 14, 2024 Dr. Jody Garner MD Referring Provider Active Start: December 14, 2024 End: December 14, 2024 Team Status: Inactive Member Role Status Dates Dr. Jody Garner MD Primary Care Provider Active Start: December 15, 2024 End: December 15, 2024 Dr. Jody Garner MD Attending Provider Active Start: December 15, 2024 End: December 15, 2024 Dr. Jody Garner MD Referring Provider Active Start: December 15, 2024 End: December 15, 2024 Team Status: Active Member Role Status Dates Dr. Jody Garner MD Primary Care Provider Active Start: December 26, 2024 Dr. Jody Garner MD Attending Provider Active Start: December 26, 2024 Dr. Jody Garner MD Referring Provider Active Start: December 26, 2024 Team Status: Active Member Role Status Dates Dr. Jody Garner MD Primary Care Provider Active Start: August 29, 2024 Dr. Naresh Peralta DO Admit Provider Active St art: August 29, 2024 Dr. Naresh Peralta DO Attending Provider Active Start: August 29, 2024 Dr. Naresh Peralta DO Referring Provider Active Start: August 29, 2024 Dr. Naresh Peralta DO Other Provider Active St art: August 29, 2024 Team Status: Inactive Member Role Status Dates Dr. Jody Garner MD Primary Care Provider Active Start: August 29, 2024 End: August 31, 2024 Dr. Naresh Peralta DO Admit Provider Active St art: August 29, 2024 End: August 31, 2024 Dr. Naresh Peralta DO Attending Provider Active Start: August 29, 2024 End: August 31, 2024 Dr. Naresh Peralta DO Referring Provider Active Start: August 29, 2024 End: August 31, 2024 Team Status: Active Member Role Status Dates Dr. Jody Garner MD Primary Care Provider Active Start: August 30, 2024 Dr. Naresh Peralta DO Admit Provider Active St art: August 30, 2024 Dr. Naresh Peralta DO Attending Provider Active Start: August 30, 2024 Dr. Naresh Peralta DO Referring Provider Active Start: August 30, 2024 Dr. Naresh Peralta DO Other Provider Active St art: August 30, 2024 Team Status: Active Member Role Status Dates Dr. Jody Garner MD Primary Care Provider Active Start: August 31, 2024 Dr. Naresh Peralta DO Admit Provider Active St art: August 31, 2024 Dr. Naresh Peralta DO Attending Provider Active Start: August 31, 2024 Dr. Naresh Peralta DO Referring Provider Active Start: August 31, 2024 Dr. Naresh Peralta DO Other Provider Active St art: August 31, 2024 Team Status: Active Member Role Status Dates Dr. Jody Garner MD Primary Care Provider Active Start: September 01, 2024 Dr. Taryn Lowry DO Admit Provider Active Start: August Dr. Taryn Lowry DO Attending Provider Active Start: August Dr. Taryn Lowry DO Other Provider Active Start: August Team Status: Active Member Role Status Dates Dr. Jody Garner MD Primary Care Provider Active Start: November 01, 2024 Dr. Taryn Lowry DO Attending Provider Act pat Start: November 01, 2024 Dr. Taryn Lowry DO Referring Provider Act pat Start: November 01, 2024 Team Status: Active Member Role Status Dates Dr. Jody Garner MD Primary Care Provider Active Start: December 15, 2024 Dr. Jody Garner MD Attending Provider Active Start: December 15, 2024 Dr. Jody Garner MD Referring Provider Active Start: December 15, 2024 Team Status: Active Member Role Status Dates Dr. Lucinda Gamble DO Family Provider Active Dr. Jody Garner MD Primary Care Provider Active Team Status: Inactive Member Role Status Dates Dr. Jody Garner MD Primary Care Provider, Referrin g Provider Active Dr. Naresh Peralta DO Attending Provider Active Team Status: Inactive Member Role Status Dates Dr. Jody Garner MD Primary Care Provider Active Dr. Ken Cortez MD Attending Provider Active Team Status: Inactive Member Role Status Dates Dr. Jody Garner MD Primary Care Prov ider, Attending Provider, Referring Provider Active Team Status: Inactive Member Role Status Dates Dr. Jody Garner MD Primary Care Provider Active Dr. Kevin Bangura DO Emergency Provider Active Team Status: Inactive Member Role Status Dates Dr. Jody Garner MD Primary Care Provider Active Dr. Kevin Bangura DO Attending Provider, Emergency Provider Active Team Status: Inactive Member Role Status Dates Dr. Jody Garner MD Primary Care Provider, Other Pr ovider Active Dr. Naresh Peralta DO Attending Provider, Referring Provider Active Team Status: Active Member Role Status Dates Dr. Jody Garner MD Primary Care Provider Active Dr. Naresh Peralta DO Attending Provid er, Referring Provider, Other Provider Active Team Status: Inactive Member Role Status Dates Dr. Jody Garner MD Primary Care Provider Active Dr. Naresh Peralta DO Attending Provider, Referring Provider Active Team Status: Active Member Role Status Dates Dr. Jody Garner MD Primary Care Provider Active Dr. Gilbert Ding MD Attending Provider Active Team Status: Inactive Member Role Status Dates Dr. Jody Garner MD Primary Care Provider, Referrin g Provider Active Deven Villalobos STAFF FIELD ENGINEER, STAFF FIELD ENGINEER-C Attending Provider Active Team Status: Active Member Role Status Dates Dr. Jody Garner MD Primary Care Provider Active Dr. Naresh Peralta DO Attending Provider, Referring Provider Active Team Status: Inactive Member Role Status Dates Dr. Jody Garner MD Primary Care Provider Active Yohan AGUILAR PA Attending Provider Active Team Status: Active Member Role Status Dates Dr. Jody Garner MD Primary Care Provider Active JEFF THAO Attending Provider, Referring Provi eneida Active Team Status: Inactive Member Role Status Dates Dr. Jody Garner MD Primary Care Provider Active JEFF THAO Attending Provider, Referring Provi eneida Active Team Status: Inactive Member Role Status Dates Dr. Jody Garner MD Primary Care Provider Active Start: June 21, 2024 End: June 21, 2024 Dr. Jody Garner MD Attending Provider Active Start: June 21, 2024 End: June 21, 2024 Dr. Jody Garner MD Referring Provider Active Start: June 21, 2024 End: June 21, 2024 Team Status: Inactive Member Role Status Dates Dr. Jody Garner MD Primary Care Provider Active Start: June 26, 2024 End: June 26, 2024 Dr. Jody Garner MD Referring Provider Active Start: June 26, 2024 End: June 26, 2024 Dr. Naresh Peralta DO Attending Provider Active Start: June 26, 2024 End: June 26, 2024 Team Status: Inactive Member Role Status Dates Dr. Jody Garner MD Primary Care Provider Active Start: July 24, 2024 End: July 24, 2024 Dr. Jody Garner MD Referring Provider Active Start: July 24, 2024 End: July 24, 2024 Dr. Naresh Peralta DO Attending Provider Active Start: July 24, 2024 End: July 24, 2024 Team Status: Inactive Member Role Status Dates Dr. Jody Garner MD Primary Care Provider Active Start: August 14, 2024 End: August 14, 2024 Dr. Naresh Peralta DO Attending Provider Active Start: August 14, 2024 End: August 14, 2024 Dr. Naresh Peralta DO Referring Provider Active Start: August 14, 2024 End: August 14, 2024 Team Status: Active Member Role Status Dates Dr. Jody Garner MD Primary Care Provider Active Start: August 16, 2024 End: August 16, 2024 Dr. Krystian Neely MD Attending Provider Activ e Start: August 16, 2024 End: August 16, 2024 Dr. Naresh Peralta DO Referring Provider Active Start: August 16, 2024 End: August 16, 2024 Team Status: Active Member Role Status Dates Dr. Jody Garner MD Primary Care Provider Active Start: October 04, 2024 Dr. Taryn Lowry DO Attending Provider Act pat Start: October 04, 2024 Dr. Taryn Lowry DO Referring Provider Act pat Start: October 04, 2024 Team Status: Active Member Role Status Dates Dr. Jody Garner MD Primary Care Provider Active Start: October 05, 2024 Dr. Jody Garner MD Attending Provider Active Start: October 05, 2024 Dr. Jody Garner MD Referring Provider Active Start: October 05, 2024 Team Status: Active Member Role Status Dates Dr. Jody Garner MD Primary Care Provider Active Start: October 27, 2024 Dr. Taryn Lowry DO Attending Provider Act pat Start: October 27, 2024 Dr. Taryn Lowry DO Referring Provider Act pat Start: October 27, 2024 Team Status: Inactive Member Role Status Dates Dr. Jody Garner MD Primary Care Provider Active Start: December 26, 2024 End: December 26, 2024 Dr. Jody Garner MD Attending Provider Active Start: December 26, 2024 End: December 26, 2024 Dr. Jody Garner MD Referring Provider Active Start: December 26, 2024 End: December 26, 2024 REASON FOR VISIT (unrecogniz ed section and content) right hip post Right hip sco pe revision gluteus medius and minimus repair with Rotium augmentation allograft augmentation 30 x 30 x 2.0 mm thickness greater trochanter bursectomy Iliotibial band resection. on 01/01/2025, Postop - subsequent visitright hip post Right hip scope revision gluteus medius and minimus repair with Rotium augmentation allograft augmentation 30 x 30 x 2.0 mm thickness greater trochanter bursectomy Iliotibial band resection. on 01/01/2025, Postop - subsequent visit FOR RECORDS PERTAINING TO PATIENTS WHO ARE [...] BE BASED ON THE PRIMARY CLINICAL RECORDS. [facility]. provides no warranty or guarantee of the accuracy or completeness [phone] in this [id number]
== END | disposition home or self-care (01) ==
LOC: OPBI 09:57
PROVIDERS: PCP Family Medicine; Referring Provider Family Medicine; Visit Provider Family Medicine
DX: Z12.31 Encounter for screening mammogram for malignant neoplasm of breast (principal)
CPT/HCPCS: 77063; 77067